=== PATIENT | male | born 1935 | race Caucasian/White ===

== ENCOUNTER 2017-06-17 21:24 | Inpatient (IN) ==
[2017-06-17] MEDS ORDERED: 0.9 % Sodium Chloride 1,000 ML IVC ONE ×2 (21:42→23:09)
--- NOTE | 2017-06-17 21:48 | Emergency Department Note ---
Disposition Clinical Impression: Sepsis due to urinary tract infection, RAUL (acute kidney injury) Leukocytosis Qualifiers: Leukocytosis type: other Qualified Code(s): D72.828 - Other elevated white blood cell count Altered mental status Qualifiers: Altered mental status type: unspecified Qualified Code(s): R41.82 - Altered mental status, unspecified Disposition: Admitted As Inpatient Condition: Fair Referrals: NONE,PCP [Primary Care Provider] - Forms: ED Satisfaction Letter Time of Disposition: 23:26 Altered Mental Status HPI - General Chief Complaint: ED Altered Mental Status Stated Complaint: Fever Time Seen by Provider: 06/17/17 21:34 Source: EMS Mode of arrival: EMS Limitations: altered mental status Nursing Notes Reviewed: Yes Vital Signs Reviewed: Yes - History of Present Illness HPI Narrative: Patient presents to the ED from the half-way for worsening dementia fever and altered mental status.. Patient has a history of dementia and is at the half-way. They state today he was worse than usual doing strange things such as trying to eat his food with his hands, which he normally does not do. Is also febrile today. Family is present and states that he gets urinary tract infections frequently and this is typically how he presents. Unknown if he has had any other symptoms such as cough or congestion. He does have a colostomy bag that has around his normal output. Patient is able follow some commands, but otherwise is unable to obtain ROS. - Related Data Allergies Allergy/AdvReac Type Severity Reaction Status Date / Time No Known Drug Allergies Allergy See Verified 05/01/15 08:58 Comments Limitations: ROS unobtainable due to patients medical condition Past Medical History - Past Medical History Source: old records reviewed, obtained from family Medical history: Reports: arthritis, COPD, dementia, other Psychiatric history: Reports: depression, other - Social History Smoking Status: Former smoker Smokeless Tobacco Status: No Alcohol use: Reports: none Drug use: Reports: none Physical Exam - General Limitations: altered mental status General appearance: alert, in no apparent distress - Head Head exam: atraumatic, normocephalic, normal inspection - Eye Eye exam: Present: normal appearance, PERRL - ENT ENT exam: mucous membranes dry - Respiratory Respiratory exam: Present: wheezes. Absent: normal lung sounds bilaterally, respiratory distress - Cardiovascular Cardiovascular exam: Present: tachycardia, normal heart sounds - Abdominal Exam Abdominal exam: Present: soft, Non-Tender, other (Colostomy bag in place). Absent: tenderness, distention, guarding, rebound, rigidity - Extremities Exam Extremities exam: Present: normal inspection, full ROM, normal capillary refill. Absent: tenderness, pedal edema - Neurological Exam Neurological exam: Present: alert. Absent: oriented X3 - Skin Skin exam: Present: warm, dry, intact, normal color Course Course Narrative: Patient presenting with fever. Meets SIRS criteria. Suspecting sepsis from urinary tract infection. Workup started Vital Signs Temperature 102.2 F H 06/17/17 21:25 Pulse Rate 95 06/17/17 21:25 Respiratory Rate 18 06/17/17 21:25 Blood Pressure 117/60 06/17/17 21:25 O2 Sat by Pulse Oximetry 94 06/17/17 21:25 Temperature 102.2 F H 06/17/17 21:25 Pulse Rate 84 06/17/17 22:17 Respiratory Rate 18 06/17/17 22:17 Blood Pressure 125/61 06/17/17 22:17 O2 Sat by Pulse Oximetry 96 06/17/17 22:17 Oxygen Delivery Oxygen Delivery Room Air Altered Mental Status - Medical Records Medical records reviewed: Yes I reviewed the patient's medical records. - Lab Data Lab results reviewed: Yes I reviewed the patient's lab results. Result diagrams: 06/17/17 22:16 06/17/17 22:16 Lab Results 06/17/17 06/17/17 06/17/17 Range/Units 22:16 22:16 22:16 WBC 17.3 H (4.3-11.1) K/mcL RBC 3.75 L (4.19-5.50) M/mcL Hgb 11.4 L (12.9-16.9) g/dL Hct 34.8 L (37.5-50.1) % MCV 92.8 (83.0-100.0) fL MCH 30.4 (28.0-33.3) pg MCHC 32.8 (31.6-35.5) g/dL RDW 13.5 (11.5-14.5) % Plt Count 227 (140-400) K/mcL MPV 9.7 (9.4-12.4) fL Immature Gran % 0.8 (0-4) % Seg Neutrophils % 80.9 % Lymphocytes % 7.5 % Monocytes % 10.5 % Eosinophils % 0.1 % Basophils % 0.2 % Neutrophils # 14.0 H (1.6-8.9) K/mcL Lymphocytes # 1.3 (0.6-4.6) K/mcL Monocytes # 1.8 H (0.0-1.3) K/mcL Eosinophils # 0.0 (0.0-0.6) K/mcL Basophils # 0.0 (0.0-0.2) K/mcL PT 13.3 H (9.4-12.1) Seconds INR 1.2 APTT 36.7 H (26.0-36.0) Seconds Sodium (136-145) mEq/L Potassium (3.5-5.1) mEq/L Chloride (98-107) mEq/L Carbon Dioxide (23-29) mEq/L BUN (8-23) mg/dL Creatinine (0.70-1.30) mg/dL Est GFR ( Amer) (> 60) Est GFR (Non-Af Amer) (> 60) BUN/Creatinine Ratio (6-26) Glucose (70-105) mg/dL Calculated Osmolality (280-300) Lactic Acid (0.5-2.2) mmol/L Calcium (8.6-10.3) mg/dL Phosphorus (2.7-4.5) mg/dL Magnesium (1.6-2.6) mg/dL Total Bilirubin (0.3-1.0) mg/dL Direct Bilirubin (0.0-0.2) mg/dL Indirect Bilirubin (0.0-1.2) mg/dL AST (13-39) Units/L ALT (7-52) Units/L Alkaline Phosphatase (34-104) Units/L Troponin I (< 0.04) ng/mL B-Natriuretic Peptide (Less than 100) pg/mL Serum Total Protein (6.4-8.9) g/dL Albumin (3.5-5.7) g/dL Globulin (2.4-3.5) g/dL Albumin/Globulin Ratio (1.1-2.2) Lipase (11-82) Units/L Urine Color Yellow (Yellow) Urine Clarity Cloudy A (Clear) Urine pH 6.5 (5.0-8.0) pH Units Ur Specific [place] 1.021 (1.010-1.025) Urine Protein 100 H (Neg-Trace) mg/dL Urine Glucose (UA) Normal (Normal) mg/dL Urine Ketones Negative (Negative) mg/dL Urine Blood Large H (Negative) Urine Nitrite Negative (Negative) Urine Bilirubin Negative (Negative) Urine Urobilinogen Normal (Normal) mg/dL Ur Leukocyte Esterase Large H (Negative) Urine Microscopic RBC 30-50 H (0-3) per hpf Urine Microscopic WBC 30-50 H (0-3) per hpf Urine Bacteria Few (None-Few) per hpf Ur Culture Indicated? YES A (NO) 06/17/17 06/17/17 06/17/17 Range/Units 22:16 22:16 22:16 WBC (4.3-11.1) K/mcL RBC (4.19-5.50) M/mcL Hgb (12.9-16.9) g/dL Hct (37.5-50.1) % MCV (83.0-100.0) fL MCH (28.0-33.3) pg MCHC (31.6-35.5) g/dL RDW (11.5-14.5) % Plt Count (140-400) K/mcL MPV (9.4-12.4) fL Immature Gran % (0-4) % Seg Neutrophils % % Lymphocytes % % Monocytes % % Eosinophils % % Basophils % % Neutrophils # (1.6-8.9) K/mcL Lymphocytes # (0.6-4.6) K/mcL Monocytes # (0.0-1.3) K/mcL Eosinophils # (0.0-0.6) K/mcL Basophils # (0.0-0.2) K/mcL PT (9.4-12.1) Seconds INR APTT (26.0-36.0) Seconds Sodium 137 (136-145) mEq/L Potassium 4.0 (3.5-5.1) mEq/L Chloride 103 (98-107) mEq/L Carbon Dioxide 26 (23-29) mEq/L BUN 40 H (8-23) mg/dL Creatinine 1.61 H (0.70-1.30) mg/dL Est GFR ( Amer) 50 L (> 60) Est GFR (Non-Af Amer) 41 L (> 60) BUN/Creatinine Ratio 25 (6-26) Glucose 170 H (70-105) mg/dL Calculated Osmolality 298 (280-300) Lactic Acid 1.5 (0.5-2.2) mmol/L Calcium 8.8 (8.6-10.3) mg/dL Phosphorus 2.9 (2.7-4.5) mg/dL Magnesium 2.1 (1.6-2.6) mg/dL Total Bilirubin 0.3 (0.3-1.0) mg/dL Direct Bilirubin 0.1 (0.0-0.2) mg/dL Indirect Bilirubin 0.2 (0.0-1.2) mg/dL AST 15 (13-39) Units/L ALT 7 (7-52) Units/L Alkaline Phosphatase 58 (34-104) Units/L Troponin I < 0.03 (< 0.04) ng/mL B-Natriuretic Peptide 64 (Less than 100) pg/mL Serum Total Protein 6.8 (6.4-8.9) g/dL Albumin 3.6 (3.5-5.7) g/dL Globulin 3.2 (2.4-3.5) g/dL Albumin/Globulin Ratio 1.1 (1.1-2.2) Lipase 17 (11-82) Units/L Urine Color (Yellow) Urine Clarity (Clear) Urine pH (5.0-8.0) pH Units Ur Specific [place] (1.010-1.025) Urine Protein (Neg-Trace) mg/dL Urine Glucose (UA) (Normal) mg/dL Urine Ketones (Negative) mg/dL Urine Blood (Negative) Urine Nitrite (Negative) Urine Bilirubin (Negative) Urine Urobilinogen (Normal) mg/dL Ur Leukocyte Esterase (Negative) Urine Microscopic RBC (0-3) per hpf Urine Microscopic WBC (0-3) per hpf Urine Bacteria (None-Few) per hpf Ur Culture Indicated? (NO) - Radiology Data Radiology results reviewed: Yes I reviewed the patient's radiology results. - EKG Data EKG attestation: Yes I reviewed and interpreted this EKG. EKG results narrative: Sinus rhythm, rate 99, NH interval 182, QRS 126, QTC 401, left axis deviation, right bundle branch block, no acute ischemic changes, no previous available Critical Care Time Critical Care Time: Yes Total Critical Care Time: 35 Attestation: The high probability of a clinically significant, sudden or life threatening deterioration of the [] system(s) required my full and direct attention, intervention and personal management. The aggregate critical care time was [35] minutes. This time is in addition to time spent performing reported procedures but includes the following: [x] Data Review and interpretation [x] Patient assessment and monitoring of vital signs [x] Documentation [x] Medication orders and management Enrike - Enrike Situation: Demographics, MOA Background: Presenting Complaint, Relevant PMH, Meds, & Allergies Assessment: Vital Signs, Course and respsone to treatment, Exam Concerns, Patient/Family Expectation, Pertinant Lab Results, Outstanding Labs Recommendation: Recommendation based on pending studies, treatments, or consults [email or web address].[email or web address] Report Given to: Dr. Harsh Calvert Repor Time: 23:26
[2017-06-17 22:28] LABS: Basophils % 0.2 %; Eosinophils % 0.1 %; Hematocrit 34.8 % (37.5-50.1); Hemoglobin 11.4 g/dL (12.9-16.9); Immature Granulocytes % 0.8 % (0-4); Lymphocytes # 1.3 K/mcL (0.6-4.6); Lymphocytes % 7.5 %; Mean Corpuscular HGB Conc 32.8 g/dL (31.6-35.5); Mean Corpuscular Hemoglobin 30.4 pg (28.0-33.3); Mean Corpuscular Volume 92.8 fL (83.0-100.0); Mean Platelet Volume 9.7 fL (9.4-12.4); Monocytes # 1.8 K/mcL (0.0-1.3); Monocytes % 10.5 %; Platelet Count 227 K/mcL (140-400); Red Blood Count 3.75 M/mcL (4.19-5.50); Red Cell Distribution Width 13.5 % (11.5-14.5); Segmented Neutrophils % 80.9 %
[2017-06-17 22:29] LABS: Bilirubin,Urine Negative (Negative); Blood,Urine Large (Negative); Clarity,Urine Cloudy (Clear); Color,Urine Yellow (Yellow); Glucose,Urine (UA) Normal (Normal); Ketones,Urine Negative (Negative); Leukocyte Esterase,Urine Large (Negative); Nitrite,Urine Negative (Negative); PH,Urine 6.5 pH Units (5.0-8.0); Protein,Urine 100 mg/dL (Neg-Trace); Specific Gravity,Urine 1.021 (1.010-1.025); Urobilinogen,Urine Normal (Normal)
[2017-06-17 22:36] LABS: INR 1.2; Prothrombin Time 13.3 Seconds (9.4-12.1)
[2017-06-17 22:39] LABS: Activated Partial Thrombo Time 36.7 Seconds (26.0-36.0); Bacteria,Urine Few per hpf (None-Few); RBC,Urine 30-50 per hpf (0-3); WBC,Urine 30-50 per hpf (0-3)
[2017-06-17] MEDS ORDERED: Levofloxacin 750 MG/150 ML 750 MG/150 ML BAG IVPB ONE (22:44)
[2017-06-17 22:50] LABS: Troponin I < 0.03 ng/mL (< 0.04)
[2017-06-17 22:53] LABS: Alanine Aminotransferase 7 Units/L (7-52); Albumin 3.6 g/dL (3.5-5.7); Albumin/Globulin Ratio 1.1 (1.1-2.2); Alkaline Phosphatase 58 Units/L (34-104); Aspartate Amino Transferase 15 Units/L (13-39); BUN/Creatinine Ratio 25 (6-26); Bilirubin,Direct 0.1 mg/dL (0.0-0.2); Bilirubin,Indirect 0.2 mg/dL (0.0-1.2); Bilirubin,Total 0.3 mg/dL (0.3-1.0); Blood Urea Nitrogen 40 mg/dL (8-23); Calcium 8.8 mg/dL (8.6-10.3); Carbon Dioxide 26 mEq/L (23-29); Chloride 103 mEq/L (98-107); Globulin 3.2 g/dL (2.4-3.5); Glucose 170 mg/dL (70-105); Lipase 17 Units/L (11-82); Magnesium 2.1 mg/dL (1.6-2.6); Osmolality,Calculated 298 (280-300); Phosphorous 2.9 mg/dL (2.7-4.5); Sodium 137 mEq/L (136-145); Total Protein 6.8 g/dL (6.4-8.9); eGFR For African Americans 50 (> 60); eGFR For Non-African Americans 41 (> 60)
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
[2017-06-18] MEDS ORDERED: 0.9 % Sodium Chloride 500 ML IVC ONE ×2 (02:05→02:59)
[2017-06-18] MEDS ORDERED: 0.9 % Sodium Chloride 500 ML ONE (02:08)
[2017-06-18] MEDS ORDERED: Meropenem 1,000 MG in Water for inj. (sterile) 20 ML 10 ML IVP SCH (02:09)
[2017-06-18] MEDS ORDERED: Naloxone 0.4 MG/ML INJ IVP PRN (02:10)
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
[2017-06-18 02:26] LABS: Basophils % 0.2 %; Eosinophils % 0.1 %; Hematocrit 31.2 % (37.5-50.1); Hemoglobin 10.3 g/dL (12.9-16.9); Immature Granulocytes % 0.6 % (0-4); Lymphocytes # 1.1 K/mcL (0.6-4.6); Lymphocytes % 6.8 %; Mean Corpuscular Hemoglobin 30.5 pg (28.0-33.3); Mean Corpuscular Volume 92.3 fL (83.0-100.0); Mean Platelet Volume 9.3 fL (9.4-12.4); Monocytes # 1.8 K/mcL (0.0-1.3); Monocytes % 10.6 %; Neutrophils # 13.7 K/mcL (1.6-8.9); Platelet Count 189 K/mcL (140-400); Red Blood Count 3.38 M/mcL (4.19-5.50); Red Cell Distribution Width 13.5 % (11.5-14.5); Segmented Neutrophils % 81.7 %
[2017-06-18] MEDS: 0.9 % Sodium Chloride 1,000 ML IVC SCH ×3 (02:48→22:57)
[2017-06-18 02:49] LABS: Calcium 8.1 mg/dL (8.6-10.3); Potassium 4.1 mEq/L (3.5-5.1)
--- NOTE | 2017-06-18 07:30 | Internal Med Progress Note ---
Date of Encounter: 06/18/17 Time of Encounter: 07:00 - Assessment and plan (1) Sepsis due to urinary tract infection Current Visit: Yes Status: Acute Assessment and plan: 81-year-old male with past medical history of recurrent UTIs presents with tachycardia, fevers, and UA suggestive of UTI. -Continue vanc and meropenem, follow up blood and urine cultures. (2) RAUL (acute kidney injury) Current Visit: Yes Status: Acute Assessment and plan: IV fluid hydration. -In with history of bladder incontinence. We will obtain a bladder scan. (3) Leukocytosis Current Visit: Yes Status: Acute Assessment and plan: Management as per above under sepsis due to UTI. Qualifiers: Leukocytosis type: unspecified Qualified Code(s): D72.829 - Elevated white blood cell count, unspecified (4) Altered mental status Current Visit: Yes Status: Acute Assessment and plan: Patient with dementia and Parkinson's disease at baseline. Suspect altered mental status due to underlying infection and sepsis. We will continue to treat UTI. Qualifiers: Altered mental status type: unspecified Qualified Code(s): R41.82 - Altered mental status, unspecified (5) DVT prophylaxis Current Visit: Yes Status: Acute Assessment and plan: EPCDs bilaterally. - Time Spent With Patient Total time spent is greater than 50% in coordination of care (as documented) at patient's floor/unit and/or counseling patient: - Subjective Interval history: Admitted overnight - Constitutional Vitals: Temp Pulse Resp BP Pulse Ox 99.2 F 80 16 109/66 98 06/18/17 06:06 06/18/17 06:06 06/18/17 06:06 06/18/17 06:06 06/18/17 06:06 General appearance: Present: A&O X 1, mild distress - Head Head exam: Present: atraumatic, normocephalic - Eye Eye exam: Present: PERRL, conjuntiva pink, sclera anicteric Pupils: Present: PERRL - Neck Neck exam general surgery: Present: supple, trachea midline. Absent: lymphadenopathy - Respiratory Respiratory exam: Present: CTAB. Absent: accessory muscle use, rales, rhonchi, wheezes - Cardiovascular Cardiovascular exam: Present: RRR, +S1, +S2. Absent: diastolic murmur, gallop, rubs, systolic murmur - GI/Abdominal GI/Abdominal exam: Present: normal bowel sounds, soft, no peritoneal signs. Absent: distended, tenderness Additional comments: Ostomy in place - Extremities Exam Extremities exam: Present: warm, radial pulses palpable and symmetrical. Absent : calf tenderness, cyanotic, pedal edema - Neurological Exam Neurological exam: Present: CN II-XII intact, oriented X3, no focal deficits. Absent: pronater drift, facial droop, speech deficit - Skin Skin exam: Present: dry, intact Internal Medicine: Result - Labs CBC & Chem 7: 06/18/17 02:18 06/18/17 02:18 Labs: Short CBC 06/18/17 Range/Units 02:18 WBC 16.7 H (4.3-11.1) K/mcL Hgb 10.3 L (12.9-16.9) g/dL Hct 31.2 L (37.5-50.1) % Plt Count 189 (140-400) K/mcL Neutrophils # 13.7 H (1.6-8.9) K/mcL BMP 06/18/17 02:18 Sodium 136 Potassium 4.1 Chloride 106 Carbon Dioxide 24 BUN 35 H Creatinine 1.42 H Glucose 149 H Calcium 8.1 L - ABG Interpretation ABG results: PT/INR, D-dimer PT 13.3 Seconds (9.4-12.1) H 06/17/17 22:16 Consult Discharge Plan - Plan Referrals: NONE,PCP [Primary Care Provider] -
[2017-06-18] MEDS: Aspirin 81 MG TAB.CHEW PO SCH ×2 (08:46→09:01)
[2017-06-18] MEDS ORDERED: Cefepime HCl 1,000 MG in Water for inj. (sterile) 10 ML IVP SCH (12:00)
[2017-06-18] MEDS: Cefepime HCl 1,000 MG in Water for inj. (sterile) 20 ML 10 ML IVP SCH (13:05)
[2017-06-18] MEDS: *HR* Heparin 5,000 UNIT/ML VIAL SQ SCH (17:01)
--- NOTE | 2017-06-18 19:21 | Electrocardiograph Report ---
[address] [place], [place] [address] Test Date: 2017-06-17 Pat Name: Caleb Bauer Department: 103 Room: [facility] Gender: M [employer]yridine Operator: SONIA : 1935 Requested By: [id number] Order Number: [id number] Reading MD: Judy Mejía Measurements Intervals [place] Rate: 99 P: 49 MI: 182 QRS: -41 QRSD: 126 T: 73 QT: 345 QTc: 401 Interpretive Statements SINUS RHYTHM MARKED LEFT AXIS DEVIATION [QRS AXIS < -30] RIGHT BUNDLE BRANCH BLOCK MINIMAL VOLTAGE CRITERIA FOR LVH, CONSIDER NORMAL VARIANT POOR R WAVE PROGRESSION IN PRECORDIAL LEADS Electronically Signed On 06-18-2017 19:20:16 EDT by Judy Mejía
[2017-06-19] MEDS: Cefepime HCl 1,000 MG in Water for inj. (sterile) 20 ML 10 ML IVP SCH ×2 (00:08→15:00)
[2017-06-19 01:38] LABS: Basophils # 0.1 K/mcL (0.0-0.2); Basophils % 0.4 %; Eosinophils # 0.1 K/mcL (0.0-0.6); Eosinophils % 0.6 %; Hemoglobin 10.1 g/dL (12.9-16.9); Immature Granulocytes % 0.7 % (0-4); Lymphocytes # 1.4 K/mcL (0.6-4.6); Lymphocytes % 10.7 %; Mean Corpuscular HGB Conc 31.6 g/dL (31.6-35.5); Mean Corpuscular Hemoglobin 29.6 pg (28.0-33.3); Mean Corpuscular Volume 93.8 fL (83.0-100.0); Mean Platelet Volume 10.1 fL (9.4-12.4); Monocytes % 7.5 %; Neutrophils # 10.6 K/mcL (1.6-8.9); Platelet Count 182 K/mcL (140-400); Red Blood Count 3.41 M/mcL (4.19-5.50); Red Cell Distribution Width 13.8 % (11.5-14.5); Segmented Neutrophils % 80.1 %
[2017-06-19 01:57] LABS: Phosphorous 1.9 mg/dL (2.7-4.5)
[2017-06-19 02:01] LABS: BUN/Creatinine Ratio 22 (6-26); Blood Urea Nitrogen 27 mg/dL (8-23); Calcium 8.3 mg/dL (8.6-10.3); Carbon Dioxide 24 mEq/L (23-29); Chloride 112 mEq/L (98-107); Glucose 129 mg/dL (70-105); Osmolality,Calculated 299 (280-300); Potassium 3.9 mEq/L (3.5-5.1); Sodium 141 mEq/L (136-145); eGFR For African Americans > 60 (> 60); eGFR For Non-African Americans 57 (> 60)
[2017-06-19] MEDS: *HR* Heparin 5,000 UNIT/ML VIAL SQ SCH ×2 (05:13→19:36)
[2017-06-19] MEDS: Aspirin 81 MG TAB.CHEW PO SCH (09:02)
[2017-06-19] MEDS: 0.9 % Sodium Chloride 1,000 ML IVC SCH ×2 (10:30→21:24)
--- NOTE | 2017-06-19 10:40 | Internal Med Progress Note ---
Date of Encounter: 06/19/17 Time of Encounter: 10:30 - Assessment and plan (1) Sepsis due to urinary tract infection Current Visit: Yes Status: Acute Assessment and plan: 81-year-old male with past medical history of recurrent UTIs presents with tachycardia, fevers, and UA suggestive of UTI. -Continue vanc and cefepime, follow up blood and urine cultures. Follow up urine cultures. Prelim blood cultures negative (2) RAUL (acute kidney injury) Current Visit: Yes Status: Acute Assessment and plan: Resolved with IV fluids. Continue to monitor creatinine (3) Leukocytosis Current Visit: Yes Status: Acute Assessment and plan: Management as per above under sepsis due to UTI. Leukocytosis trending down with antibiotics Qualifiers: Leukocytosis type: unspecified Qualified Code(s): D72.829 - Elevated white blood cell count, unspecified (4) Altered mental status Current Visit: Yes Status: Acute Assessment and plan: Patient with dementia and Parkinson's disease at baseline. Suspect altered mental status due to underlying infection and sepsis. We will continue to treat UTI. Qualifiers: Altered mental status type: unspecified Qualified Code(s): R41.82 - Altered mental status, unspecified (5) DVT prophylaxis Current Visit: Yes Status: Acute Assessment and plan: EPCDs bilaterally, heparin sc BID - Time Spent With Patient Total time spent is greater than 50% in coordination of care (as documented) at patient's floor/unit and/or counseling patient: - Subjective Interval history: No acute events overnight - Constitutional Vitals: Temp Pulse Resp BP Pulse Ox 98.1 F 61 14 108/66 92 06/19/17 03:53 06/19/17 03:53 06/19/17 03:53 06/19/17 03:53 06/19/17 03:53 General appearance: Present: A&O X 1, mild distress - Head Head exam: Present: atraumatic, normocephalic - Eye Eye exam: Present: PERRL, conjuntiva pink, sclera anicteric Pupils: Present: PERRL - Neck Neck exam general surgery: Present: supple, trachea midline. Absent: lymphadenopathy - Respiratory Respiratory exam: Present: CTAB. Absent: accessory muscle use, rales, rhonchi, wheezes - Cardiovascular Cardiovascular exam: Present: RRR, +S1, +S2. Absent: diastolic murmur, gallop, rubs, systolic murmur - GI/Abdominal GI/Abdominal exam: Present: normal bowel sounds, soft, no peritoneal signs. Absent: distended, tenderness Additional comments: Ostomy in place - Extremities Exam Extremities exam: Present: warm, radial pulses palpable and symmetrical. Absent : calf tenderness, cyanotic, pedal edema - Neurological Exam Neurological exam: Present: CN II-XII intact, oriented X3, no focal deficits. Absent: pronater drift, facial droop, speech deficit - Skin Skin exam: Present: dry, intact Internal Medicine: Result - Labs CBC & Chem 7: 06/19/17 01:07 06/19/17 01:07 Labs: Short CBC 06/19/17 Range/Units 01:07 WBC 13.2 H (4.3-11.1) K/mcL Hgb 10.1 L (12.9-16.9) g/dL Hct 32.0 L (37.5-50.1) % Plt Count 182 (140-400) K/mcL Neutrophils # 10.6 H (1.6-8.9) K/mcL BMP 06/19/17 01:07 Sodium 141 Potassium 3.9 Chloride 112 H Carbon Dioxide 24 BUN 27 H Creatinine 1.22 Glucose 129 H Calcium 8.3 L - ABG Interpretation ABG results: PT/INR, D-dimer PT 13.3 Seconds (9.4-12.1) H 06/17/17 22:16 Consult Discharge Plan - Plan Referrals: NONE,PCP [Primary Care Provider] -
[2017-06-19] MEDS: Acetaminophen 325 MG TABLET PO PRN (21:24)
[2017-06-20] MEDS: Cefepime HCl 1,000 MG in Water for inj. (sterile) 20 ML 10 ML IVP SCH ×3 (00:51→23:50)
[2017-06-20 01:52] LABS: Basophils # 0.1 K/mcL (0.0-0.2); Basophils % 0.6 %; Eosinophils # 0.2 K/mcL (0.0-0.6); Eosinophils % 1.6 %; Hematocrit 31.9 % (37.5-50.1); Hemoglobin 9.9 g/dL (12.9-16.9); Immature Granulocytes % 0.6 % (0-4); Lymphocytes # 1.5 K/mcL (0.6-4.6); Lymphocytes % 15.1 %; Mean Corpuscular Hemoglobin 29.5 pg (28.0-33.3); Mean Corpuscular Volume 94.9 fL (83.0-100.0); Mean Platelet Volume 9.9 fL (9.4-12.4); Monocytes # 0.9 K/mcL (0.0-1.3); Monocytes % 9.1 %; Neutrophils # 7.1 K/mcL (1.6-8.9); Platelet Count 189 K/mcL (140-400); Red Blood Count 3.36 M/mcL (4.19-5.50); Red Cell Distribution Width 13.8 % (11.5-14.5)
[2017-06-20 02:11] LABS: BUN/Creatinine Ratio 27 (6-26); Blood Urea Nitrogen 29 mg/dL (8-23); Calcium 8.4 mg/dL (8.6-10.3); Carbon Dioxide 26 mEq/L (23-29); Chloride 112 mEq/L (98-107); Glucose 138 mg/dL (70-105); Osmolality,Calculated 300 (280-300); Potassium 3.7 mEq/L (3.5-5.1); Sodium 141 mEq/L (136-145); eGFR For African Americans > 60 (> 60); eGFR For Non-African Americans > 60 (> 60)
[2017-06-20] MEDS: *HR* Heparin 5,000 UNIT/ML VIAL SQ SCH ×2 (04:36→17:19)
[2017-06-20] MEDS: Acetaminophen 325 MG TABLET PO PRN ×3 (04:47→23:50)
[2017-06-20] MEDS: Aspirin 81 MG TAB.CHEW PO SCH (08:47)
[2017-06-20] MEDS: 0.9 % Sodium Chloride 1,000 ML IVC SCH (10:00)
--- NOTE | 2017-06-20 11:18 | Internal Med Progress Note ---
Date of Encounter: 06/20/17 Time of Encounter: 11:15 - Assessment and plan (1) Sepsis due to urinary tract infection Current Visit: Yes Status: Acute Assessment and plan: 81-year-old male with past medical history of recurrent UTIs presents with tachycardia, fevers, and UA suggestive of UTI. -Sepsis due to UTI and HCAP. Continue vanc and cefepime, Blood cx negative.Urine cultures positive for E coli. CXR shows evidence of multifocal pneumonia (2) HCAP (healthcare-associated pneumonia) Current Visit: Yes Status: Acute Assessment and plan: CXR shows multifocal pneumonua. Continue on vanc and cefepime (3) RAUL (acute kidney injury) Current Visit: Yes Status: Acute Assessment and plan: Resolved with IV fluids. Continue to monitor creatinine (4) Leukocytosis Current Visit: Yes Status: Acute Assessment and plan: Management as per above under sepsis due to UTI. Leukocytosis trending down with antibiotics Qualifiers: Leukocytosis type: unspecified Qualified Code(s): D72.829 - Elevated white blood cell count, unspecified (5) Altered mental status Current Visit: Yes Status: Acute Assessment and plan: Patient with dementia and Parkinson's disease at baseline. Suspect altered mental status due to underlying infection and sepsis. We will continue to treat UTI and HCAP. Qualifiers: Altered mental status type: unspecified Qualified Code(s): R41.82 - Altered mental status, unspecified (6) DVT prophylaxis Current Visit: Yes Status: Acute Assessment and plan: EPCDs bilaterally, heparin sc BID - Time Spent With Patient Total time spent is greater than 50% in coordination of care (as documented) at patient's floor/unit and/or counseling patient: - Subjective Interval history: No acute events overnight - Constitutional Vitals: Temp Pulse Resp BP Pulse Ox 99.6 F 65 16 106/59 93 06/20/17 06:00 06/20/17 06:00 06/20/17 06:00 06/20/17 06:00 06/20/17 06:00 General appearance: Present: A&O X 1, mild distress - Head Head exam: Present: atraumatic, normocephalic - Eye Eye exam: Present: PERRL, conjuntiva pink, sclera anicteric Pupils: Present: PERRL - Neck Neck exam general surgery: Present: supple, trachea midline. Absent: lymphadenopathy - Respiratory Respiratory exam: Present: CTAB. Absent: accessory muscle use, rales, rhonchi, wheezes - Cardiovascular Cardiovascular exam: Present: RRR, +S1, +S2. Absent: diastolic murmur, gallop, rubs, systolic murmur - GI/Abdominal GI/Abdominal exam: Present: normal bowel sounds, soft, no peritoneal signs. Absent: distended, tenderness Additional comments: colostomy in place - Extremities Exam Extremities exam: Present: warm, radial pulses palpable and symmetrical. Absent : calf tenderness, cyanotic, pedal edema - Neurological Exam Neurological exam: Present: CN II-XII intact, oriented X3, no focal deficits. Absent: pronater drift, facial droop, speech deficit - Skin Skin exam: Present: dry, intact Internal Medicine: Result - Labs CBC & Chem 7: 06/20/17 01:38 06/20/17 01:38 Labs: Short CBC 06/20/17 Range/Units 01:38 WBC 9.8 (4.3-11.1) K/mcL Hgb 9.9 L (12.9-16.9) g/dL Hct 31.9 L (37.5-50.1) % Plt Count 189 (140-400) K/mcL Neutrophils # 7.1 (1.6-8.9) K/mcL BMP 06/20/17 01:38 Sodium 141 Potassium 3.7 Chloride 112 H Carbon Dioxide 26 BUN 29 H Creatinine 1.09 Glucose 138 H Calcium 8.4 L - ABG Interpretation ABG results: PT/INR, D-dimer PT 13.3 Seconds (9.4-12.1) H 06/17/17 22:16 - Impressions Impressions Chest X-Ray 06/19/17 10:48 IMPRESSION: Progressive bilateral multifocal pulmonary opacities which may represent developing bronchopneumonia. D/ / 06/19/2017 15:36:32 Brian Gomez MD / andres Interpreting Provider: Brian Gomez MD - VTE Documentation of Mechanical Device: Intermittent pneumatic compression device Consult Discharge Plan - Plan Referrals: NONE,PCP [Primary Care Provider] -
[2017-06-20] MEDS ORDERED: Furosemide 20 MG/2 ML VIAL IVP ONE (11:36)
[2017-06-21 04:21] LABS: Basophils # 0.1 K/mcL (0.0-0.2); Basophils % 0.7 %; Eosinophils % 0.5 %; Hematocrit 29.5 % (37.5-50.1); Hemoglobin 9.4 g/dL (12.9-16.9); Lymphocytes # 1.3 K/mcL (0.6-4.6); Lymphocytes % 14.7 %; Mean Corpuscular HGB Conc 31.9 g/dL (31.6-35.5); Mean Corpuscular Hemoglobin 29.5 pg (28.0-33.3); Mean Corpuscular Volume 92.5 fL (83.0-100.0); Monocytes # 1.1 K/mcL (0.0-1.3); Monocytes % 12.9 %; Neutrophils # 6.2 K/mcL (1.6-8.9); Platelet Count 214 K/mcL (140-400); Red Blood Count 3.19 M/mcL (4.19-5.50); Red Cell Distribution Width 13.5 % (11.5-14.5); Segmented Neutrophils % 70.2 %
[2017-06-21 04:40] LABS: BUN/Creatinine Ratio 30 (6-26); Blood Urea Nitrogen 30 mg/dL (8-23); Calcium 8.5 mg/dL (8.6-10.3); Carbon Dioxide 26 mEq/L (23-29); Chloride 114 mEq/L (98-107); Glucose 176 mg/dL (70-105); Osmolality,Calculated 310 (280-300); Potassium 3.2 mEq/L (3.5-5.1); Sodium 145 mEq/L (136-145); eGFR For African Americans > 60 (> 60); eGFR For Non-African Americans > 60 (> 60)
[2017-06-21] MEDS: *HR* Heparin 5,000 UNIT/ML VIAL SQ SCH ×2 (06:13→16:56)
[2017-06-21] MEDS ORDERED: Isovue-370 500 ML INFUS..BTL IV ONE (10:01)
--- NOTE | 2017-06-21 10:06 | Internal Med Progress Note ---
Date of Encounter: 06/21/17 Time of Encounter: 09:30 - Assessment and plan (1) Acute respiratory failure with hypoxia Current Visit: Yes Status: Acute Assessment and plan: Patient has been persistently desaturating to the low 80s without oxygen. not on oxygen at home. Pt has eveidence of pneumonia and has been on abx for 3 days. Hypoxia persists. will obtain ABG and CT angio to r/o PE. Plan for [address] angio showed no PE but has evidence of severe pneumonia/ARDs and pleural effusions. Will diurese with lasix, obtain 2d echo. Pulmonary recs appreciated (2) Sepsis due to urinary tract infection Current Visit: Yes Status: Acute Assessment and plan: 81-year-old male with past medical history of recurrent UTIs presents with tachycardia, fevers, and UA suggestive of UTI. -Sepsis due to UTI and HCAP. Continue vanc and cefepime, Blood cx negative.Urine cultures positive for E coli. CXR shows evidence of multifocal pneumonia. Plan to complete 5 day course. Pt spiked a fever overnight (3) HCAP (healthcare-associated pneumonia) Current Visit: Yes Status: Acute Assessment and plan: CXR shows multifocal pneumonua. Continue on vanc and cefepime. Repeat blood cultures (4) RAUL (acute kidney injury) Current Visit: Yes Status: Acute Assessment and plan: Resolved with IV fluids. Continue to monitor creatinine (5) Leukocytosis Current Visit: Yes Status: Acute Assessment and plan: Management as per above under sepsis due to UTI and HCAP. Leukocytosis trended down with antibiotics Qualifiers: Leukocytosis type: unspecified Qualified Code(s): D72.829 - Elevated white blood cell count, unspecified (6) Altered mental status Current Visit: Yes Status: Acute Assessment and plan: Patient with dementia and Parkinson's disease at baseline. Suspect altered mental status due to underlying infection and sepsis. We will continue to treat UTI and HCAP. Qualifiers: Altered mental status type: unspecified Qualified Code(s): R41.82 - Altered mental status, unspecified (7) DVT prophylaxis Current Visit: Yes Status: Acute - Time Spent With Patient Total time spent is greater than 50% in coordination of care (as documented) at patient's floor/unit and/or counseling patient: - Subjective Interval history: No acute events overnight - Constitutional Vitals: Temp Pulse Resp BP Pulse Ox 98.9 F 60 17 119/69 92 06/21/17 07:22 06/21/17 07:22 06/21/17 07:22 06/21/17 07:22 06/21/17 07:22 General appearance: Present: cachectic, A&O X 1, mild distress - Head Head exam: Present: atraumatic - Neck Neck exam general surgery: Present: supple - Respiratory Respiratory exam: Present: CTAB - Cardiovascular Cardiovascular exam: Present: RRR, +S1, +S2 - GI/Abdominal GI/Abdominal exam: Present: normal bowel sounds Additional comments: ostomy in place - Extremities Exam Extremities exam: Present: warm, radial pulses palpable and symmetrical. Absent : calf tenderness, cyanotic, pedal edema - Neurological Exam Neurological exam: Present: CN II-XII intact, oriented X3, no focal deficits. Absent: pronater drift, facial droop, speech deficit Internal Medicine: Result - Labs CBC & Chem 7: 06/21/17 04:09 06/21/17 04:09 Labs: Short CBC 06/21/17 Range/Units 04:09 WBC 8.8 (4.3-11.1) K/mcL Hgb 9.4 L (12.9-16.9) g/dL Hct 29.5 L (37.5-50.1) % Plt Count 214 (140-400) K/mcL Neutrophils # 6.2 (1.6-8.9) K/mcL BMP 06/21/17 04:09 Sodium 145 Potassium 3.2 L Chloride 114 H Carbon Dioxide 26 BUN 30 H Creatinine 1.01 Glucose 176 H Calcium 8.5 L - ABG Interpretation ABG results: PT/INR, D-dimer PT 13.3 Seconds (9.4-12.1) H 06/17/17 22:16 - VTE Documentation of Mechanical Device: Intermittent pneumatic compression device Consult Discharge Plan - Plan Referrals: NONE,PCP [Primary Care Provider] -
[2017-06-21 11:15] LABS: ABG Base Excess 3 mEq/L (-2 to 3); ABG HCO3 26 mEq/L (21-27); ABG Oxygen Saturation 90 % (95-98); ABG PCO2 32 mmHg (35-45); ABG PH 7.51 pH Units (7.32-7.45); ABG PO2 52 mmHg (85-104); ABG TCO2 27 mEq/L (20-26); Blood Gas FiO2 2.5 (1-15=lpm or21-100=%)
[2017-06-21] MEDS: Aspirin 81 MG TAB.CHEW PO SCH (12:30)
[2017-06-21] MEDS: Cefepime HCl 1,000 MG in Water for inj. (sterile) 20 ML 10 ML IVP SCH (12:30)
[2017-06-21] MEDS: Potassium Chloride Elixir 20 MEQ/15 ML UDC PO SCH ×2 (12:30→16:16)
--- NOTE | 2017-06-21 14:22 | Pulmonology Consult Note ---
Date of Encounter: 06/21/17 Time of Encounter: 14:00 Assessment and Plan (1) Acute respiratory failure with hypoxia Current Visit: Yes Status: Acute Patient according to history doesnt use O2 at his retirement . Patient requiring 3 litres O2 patient has suspected .To Keep SPO2 around 90-92%. Has multifactorial etiology patient has clinical evidence of aspiration this can due to aspiration pneumonitis on the top of that BNP is over 1000 shows evidence of heart failure awaiting for ECHO results . (2) Pneumonia Current Visit: Yes Status: Acute Patient has clinical evidence of aspiration patient has bilateral alveolar infiltrates can due to aspiration pneumonitis complicated by pneumonia will change to Zosyn for anaerobic coverage , to continue Vanc . Agree with continuation of diuresis as picture is complicated by CHF . Will do some IV steroids for this bilateral extensive infiltrates most likely due to Aspiration pneumonitis /pneumonia . Will add doxycycline for atypical coverage .Atypical serology ordered . To continue Bronchodilators . Qualifiers: Pneumonia type: aspiration pneumonia Laterality: bilateral Lung location : unspecified part of lung Qualified Code(s): J69.0 - Pneumonitis due to inhalation of food and vomit (3) Altered mental status Current Visit: Yes Status: Acute Due to UTI complicated by acute hypoxic respiratory failure Qualifiers: Altered mental status type: delirium Qualified Code(s): R41.0 - Disorientation, unspecified (4) Sepsis due to urinary tract infection Current Visit: Yes Status: Acute Sepsis resolved , BC negative , urine growing E coli no h/o MDRO will continue Zosyn for now . History of Present Illness Consult date: 06/21/17 Requesting physician: Divina Patrick Reason for consult: dyspnea, hypoxemia, other (Hypoxic respiratory failure ) Chief complaint: Altered mental status History of present illness: 81 year old male with past medical history significant Dementia , Parkinsonisms , ? COPD , recurrent UTI 'S comes from the retirement with acute change in mental status found to be combative , ER evaluation showed Complicated UTI with early sepsis patient was given fluids , broad spectrum antibiotics the blood pressure was stable afterwards , patient was persitently hypoxic concern for PE CTA was done which was negative for Acute but has bilateral alveolar infiltrates with ground glass opacities Patient is on 2.5 litres saturating around 90% . Pulmonary was consulted for this Acute Hypoxic respiratory failure according to RN patient he easily aspirates of the liquids he was getting nobody has noticed this before , patient other martin non verbal could not participate in other history taking . 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 10 mg PO DAILY 06/18/17 [History] Melatonin [Melatonin] 6 mg PO HS 06/18/17 [History] Memantine HCl [Memantine HCl] 10 mg PO BID 06/18/17 [History] Mirtazapine [Mirtazapine] 7.5 mg PO HS 06/18/17 [History] Multivit-Min/FA/Lycopen/Lutein [A Thru Z Select Multivit Tab] 1 each PO DAILY [History] Pimavanserin Tartrate [Nuplazid] 34 mg PO DAILY 06/18/17 [History] risperiDONE [Risperidone] 0.5 mg PO BID 06/18/17 [History] 3 Allergy/AdvReac Type Severity Reaction Status Date / Time No Known Drug Allergies Allergy See Verified 05/01/15 08:58 Comments ROS unobtainable: due to mental status All Systems: The remainder of the systems were reviewed and are negative Physical Examination Vital Signs: Vital Signs, Last 4 Hours Temp Pulse Resp BP Pulse Ox 06/21/17 12:28 98.5 F 73 16 146/60 90 Auscultation: bilateral: diminished breath sounds (bibasilar diminished breadth sounds ), rales pupils equal and round, unable to assess due to mental status other (Patient is non verbal not responding to commands but he is wide awake ) Results - Laboratory Findings CBC and BMP: 06/21/17 04:09 06/21/17 04:09 ABG ABG pH 7.51 pH Units (7.32-7.45) H 06/21/17 11:09 ABG pCO2 32 mmHg (35-45) L 06/21/17 11:09 ABG pO2 52 mmHg (85-104) L 06/21/17 11:09 ABG O2 Saturation 90 % (95-98) L 06/21/17 11:09 PT/INR, D-dimer PT 13.3 Seconds (9.4-12.1) H 06/17/17 22:16 Abnormal lab findings: Abnormal lab results RBC 3.19 M/mcL (4.19-5.50) L 06/21/17 04:09 Hgb 9.4 g/dL (12.9-16.9) L 06/21/17 04:09 Hct 29.5 % (37.5-50.1) L 06/21/17 04:09 PT 13.3 Seconds (9.4-12.1) H 06/17/17 22:16 APTT 36.7 Seconds (26.0-36.0) H 06/17/17 22:16 ABG pH 7.51 pH Units (7.32-7.45) H 06/21/17 11:09 ABG pCO2 32 mmHg (35-45) L 06/21/17 11:09 ABG pO2 52 mmHg (85-104) L 06/21/17 11:09 ABG Total CO2 27 mEq/L (20-26) H 06/21/17 11:09 ABG O2 Saturation 90 % (95-98) L 06/21/17 11:09 Potassium 3.2 mEq/L (3.5-5.1) L 06/21/17 04:09 Chloride 114 mEq/L (98-107) H 06/21/17 04:09 BUN 30 mg/dL (8-23) H 06/21/17 04:09 BUN/Creatinine Ratio 30 (6-26) H 06/21/17 04:09 Glucose 176 mg/dL (70-105) H 06/21/17 04:09 POC Glucose 185 mg/dL (70-99) H 06/17/17 21:40 Calculated Osmolality 310 (280-300) H 06/21/17 04:09 Calcium 8.5 mg/dL (8.6-10.3) L 06/21/17 04:09 Phosphorus 1.9 mg/dL (2.7-4.5) L 06/19/17 01:07 Urine Clarity Cloudy (Clear) A 06/17/17 22:16 Urine Protein 100 mg/dL (Neg-Trace) H 06/17/17 22:16 Urine Blood Large (Negative) H 06/17/17 22:16 Ur Leukocyte Esterase Large (Negative) H 06/17/17 22:16 Urine Microscopic RBC 30-50 per hpf (0-3) H 06/17/17 22:16 Urine Microscopic WBC 30-50 per hpf (0-3) H 06/17/17 22:16 Ur Culture Indicated? YES (NO) A 06/17/17 22:16 - Clinical Findings Intake & Output: Intake & Output 06/20/17 06/21/17 06/21/17 23:59 07:59 15:59 Intake Total 310 / 310 600 / 600 Balance 310 / 310 600 / 600 Consult Discharge Plan - Plan Referrals: NONE,PCP [Primary Care Provider] -
[2017-06-21] MEDS: Furosemide 40 MG/4 ML VIAL IVP SCH (16:16)
[2017-06-21] MEDS: Doxycycline 100 MG in 0.9 % Sodium Chloride Mini Bag 100 ML IVPB SCH (16:56)
[2017-06-21] MEDS ORDERED: Albuterol 2.5 MG/3 ML NEBULIZER IH PRN (20:24)
[2017-06-21] MEDS: Piperacillin/Tazobactam 3.375 GM in 0.9 % Sodium Chloride Mini Bag 100 ML IVPB SCH (20:40)
[2017-06-21] MEDS: MethylPREDNISolone 40 MG/ML VIAL IVP SCH (23:40)
[2017-06-22] MEDS: Acetaminophen 325 MG TABLET PO PRN (03:25)
[2017-06-22] MEDS: Piperacillin/Tazobactam 3.375 GM in 0.9 % Sodium Chloride Mini Bag 100 ML IVPB SCH ×3 (03:25→20:30)
[2017-06-22 04:46] LABS: Basophils # 0.1 K/mcL (0.0-0.2); Basophils % 0.6 %; Eosinophils % 0.1 %; Hemoglobin 9.9 g/dL (12.9-16.9); Immature Granulocytes % 1.8 % (0-4); Lymphocytes # 0.7 K/mcL (0.6-4.6); Lymphocytes % 6.6 %; Mean Corpuscular HGB Conc 31.9 g/dL (31.6-35.5); Mean Corpuscular Hemoglobin 29.5 pg (28.0-33.3); Mean Corpuscular Volume 92.3 fL (83.0-100.0); Mean Platelet Volume 10.8 fL (9.4-12.4); Monocytes # 0.3 K/mcL (0.0-1.3); Monocytes % 3.3 %; Platelet Count 248 K/mcL (140-400); Red Blood Count 3.36 M/mcL (4.19-5.50); Red Cell Distribution Width 13.6 % (11.5-14.5); Segmented Neutrophils % 87.6 %
[2017-06-22 05:05] LABS: BUN/Creatinine Ratio 29 (6-26); Blood Urea Nitrogen 31 mg/dL (8-23); Calcium 8.7 mg/dL (8.6-10.3); Carbon Dioxide 26 mEq/L (23-29); Chloride 113 mEq/L (98-107); Glucose 305 mg/dL (70-105); Osmolality,Calculated 322 (280-300); Potassium 3.7 mEq/L (3.5-5.1); Sodium 147 mEq/L (136-145); eGFR For African Americans > 60 (> 60); eGFR For Non-African Americans > 60 (> 60)
[2017-06-22] MEDS: Doxycycline 100 MG in 0.9 % Sodium Chloride Mini Bag 100 ML IVPB SCH ×2 (05:55→17:08)
[2017-06-22] MEDS: *HR* Heparin 5,000 UNIT/ML VIAL SQ SCH ×2 (05:55→17:08)
[2017-06-22] MEDS: Furosemide 40 MG/4 ML VIAL IVP SCH (07:37)
[2017-06-22] MEDS: MethylPREDNISolone 40 MG/ML VIAL IVP SCH ×3 (07:37→23:40)
[2017-06-22] MEDS: Aspirin 81 MG TAB.CHEW PO SCH (07:37)
[2017-06-22 10:10] LABS: ABG Base Excess 4 mEq/L (-2 to 3); ABG HCO3 27 mEq/L (21-27); ABG Oxygen Saturation 96 % (95-98); ABG PCO2 32 mmHg (35-45); ABG PH 7.53 pH Units (7.32-7.45); ABG PO2 71 mmHg (85-104); ABG TCO2 28 mEq/L (20-26)
--- NOTE | 2017-06-22 10:15 | Internal Med Progress Note ---
Date of Encounter: 06/22/17 Time of Encounter: 10:12 - Assessment and plan (1) Sepsis due to urinary tract infection Current Visit: Yes Status: Acute Assessment and plan: Past history of recurrent UTIs. Initially presented with tachycardia, fevers and UA suggestive of UTI. -Sepsis secondary to UTI and HCAP versus aspiration pneumonia. Continue to have fevers overnight, however is afebrile at this time. However, all other vital signs stable at this time He was not restricted a stress this morning with SPO2 of 85%. This is improved with an oxygen mask at 8 L nasal cannula Continue albuterol when necessary Continue vancomycin and Zosyn Blood cultures negative to date Urine cultures positive for Escherichia coli, Zosyn CTA yesterday showed extensive bilateral pulmonary infiltrates consistent with severe PNA and/or ARDS Repeat labs tomorrow, CBC, BMP Due to continued hypoxia, respiratory distress and pneumonia the patient is not ready for discharge. (2) HCAP (healthcare-associated pneumonia) Current Visit: Yes Status: Acute Assessment and plan: Blood cultures with no growth to date, awaiting Legionella, strep pneumo and mycoplasma pneumonia antigen results. Continue respiratory support as needed, continue bronchodilators and antibiotic therapy. Closely monitor respiratory status. Low threshold to transfer to floor with higher level of acuity should the patient decline (3) Acute respiratory failure with hypoxia Current Visit: Yes Status: Acute Assessment and plan: Secondary to HCAP. Noted to have persistent hypoxia with SPO2 in the mid 80s without oxygen. Had improved on 3 L nasal cannula, however, overnight was found to be 85% on 3 L nasal cannula. Now requiring 8 L via Oxymizer mask. CT angiogram yesterday negative for PE but concerning for arts versus aspiration pneumonia versus HCAP. Also found to have an elevated BNP of greater than 1300. TTE completed yesterday shows preserved ejection fraction, normal right ventricular structure and function, no valvular dysfunction, no pulmonary hypertension. No obvious signs of fluid overload, however, does have fine rales at the bilateral posterior bases. Continue diuresis with Lasix Continue antibiotics Continue bronchodilators Closely monitor respiratory status Repeat ABG today shows improvement Titrate and wean oxygen requirements as appropriate (4) RAUL (acute kidney injury) Current Visit: Yes Status: Acute Assessment and plan: Resolved with IV fluids. Continue to monitor renal function (5) Leukocytosis Current Visit: Yes Status: Acute Assessment and plan: Improving, secondary to sepsis due to UTI and HCAP versus aspiration pneumonia. Leukocytosis trended down with antibiotics, continue antibiotics Qualifiers: Leukocytosis type: unspecified Qualified Code(s): D72.829 - Elevated white blood cell count, unspecified (6) Altered mental status Current Visit: Yes Status: Acute Assessment and plan: Patient with dementia and Parkinson's disease at baseline. Suspect altered mental status due to underlying infection and sepsis. Patient continues to be confused, and appears to be more lethargic today. However, he was able to follow commands and participate in the exam. We will continue to treat UTI and HCAP, continue to closely monitor. Repeat ABG improving. Qualifiers: Altered mental status type: unspecified Qualified Code(s): R41.82 - Altered mental status, unspecified (7) DVT prophylaxis Current Visit: Yes Status: Acute Assessment and plan: heparin 5000 units subcutaneous BID - Time Spent With Patient Total time spent is greater than 50% in coordination of care (as documented) at patient's floor/unit and/or counseling patient: Greater than 35 minutes - Subjective Interval history: Patient is seen and examined at bedside today. Presented from [facility] with altered mental status, found to have UTI and aspiration pneumonia. He is requiring oxygen support throughout the stay. This morning he continues to have shortness of breath with worsening respiratory status. As reported to have an SPO2 of 85% on 3 L nasal cannula. He is now requiring 8 L per Oxy-mask to maintain SPO2 greater than 92%. - Constitutional Vitals: Temp Pulse Resp BP Pulse Ox 97.8 F 56 22 146/88 94 06/22/17 07:13 06/22/17 07:13 06/22/17 07:49 06/22/17 07:13 06/22/17 07:49 General appearance: Present: cachectic, A&O X 1, mild distress - Head Head exam: Present: atraumatic, normocephalic - Eye Eye exam: Present: EOMI, PERRL - Respiratory Respiratory exam: Present: accessory muscle use, decreased breath sounds, rales (Bilateral bases), respiratory distress, tachypnea. Absent: rhonchi, stridor, wheezes - Cardiovascular Cardiovascular exam: Present: bradycardia, +S1, +S2 - GI/Abdominal GI/Abdominal exam: Present: normal bowel sounds, soft, no peritoneal signs. Absent: distended, tenderness - Extremities Exam Extremities exam: Present: warm, radial pulses palpable and symmetrical. Absent : calf tenderness, cyanotic, pedal edema - Neurological Exam Neurological exam: Present: alert (Alert to self), no focal deficits, strengths equal and symetr throughout Internal Medicine: Result - Labs CBC & Chem 7: 06/22/17 03:55 06/22/17 03:55 Labs: Short CBC 06/22/17 Range/Units 03:55 WBC 10.2 (4.3-11.1) K/mcL Hgb 9.9 L (12.9-16.9) g/dL Hct 31.0 L (37.5-50.1) % Plt Count 248 (140-400) K/mcL Neutrophils # 9.0 H (1.6-8.9) K/mcL BMP 06/22/17 03:55 Sodium 147 H Potassium 3.7 Chloride 113 H Carbon Dioxide 26 BUN 31 H Creatinine 1.06 Glucose 305 H Calcium 8.7 - ABG Interpretation ABG results: ABG ABG pH 7.53 pH Units (7.32-7.45) H 06/22/17 10:02 ABG pCO2 32 mmHg (35-45) L 06/22/17 10:02 ABG pO2 71 mmHg (85-104) L 06/22/17 10:02 ABG O2 Saturation 96 % (95-98) 06/22/17 10:02 PT/INR, D-dimer PT 13.3 Seconds (9.4-12.1) H 06/17/17 22:16 - Impressions Impressions Chest CTA 06/21/17 10:01 IMPRESSION: 1. No evidence of acute pulmonary embolism. 2. Extensive bilateral pulmonary infiltrates consistent with severe pneumonia and/or ARDS. 3. Moderate bilateral pleural effusions and lower lobe atelectatic changes. D/ / 06/21/2017 13:47:02 Emma Thakur MD / [email or web address] Interpreting Provider: Emma Thakur MD - VTE Documentation of Mechanical Device: Intermittent pneumatic compression device Consult Discharge Plan - Plan Referrals: NONE,PCP [Primary Care Provider] -
--- NOTE | 2017-06-22 22:03 | Pulmonology Progress Note ---
Date of Encounter: 06/22/17 Time of Encounter: 16:30 Assessment and Plan (1) Acute respiratory failure with hypoxia Current Visit: Yes Status: Acute Secondary to aspiration pneumonia with some pneumonitis complicated by diastolic heart failure to continue O2 supplementation if hypoxia worsens please put him on CPAP . (2) Pneumonia Current Visit: Yes Status: Acute To continue the broad spectrum antibiotics and steroids , bronchodilators . These alveolar infiltrates can be part of SIRS in the background of urosepsis Qualifiers: Pneumonia type: aspiration pneumonia Laterality: bilateral Lung location : unspecified part of lung Qualified Code(s): J69.0 - Pneumonitis due to inhalation of food and vomit (3) Altered mental status Current Visit: Yes Status: Acute Secondary to sepsis due to UTI and hypoxic respiratory failure . Qualifiers: Altered mental status type: delirium Qualified Code(s): R41.0 - Disorientation, unspecified (4) Sepsis due to urinary tract infection Current Visit: Yes Status: Acute To continue the broad spectrum antibiotics . Subjective Principal diagnosis: Acute hypoxic respiratory failure Interval history: 81 year old male presenting with acute hypoxic respiratory failure secondary to aspiration and complicated by diastolic heart failure . Objective PUL Vital signs: Last Vital Signs Temp 98.3 F 06/22/17 19:27 Pulse 64 06/22/17 19:27 Resp 18 06/22/17 19:27 BP 117/67 06/22/17 19:27 Pulse Ox 95 06/22/17 19:41 General appearance: lethargic, appears uncomfortable Effort: mildly labored Auscultation: bilateral: wheezes, rales other (little bit lethargic was answering questions A x2 ) Results - Laboratory Findings CBC and BMP: 06/22/17 03:55 06/22/17 03:55 ABG ABG pH 7.53 pH Units (7.32-7.45) H 06/22/17 10:02 ABG pCO2 32 mmHg (35-45) L 06/22/17 10:02 ABG pO2 71 mmHg (85-104) L 06/22/17 10:02 ABG O2 Saturation 96 % (95-98) 06/22/17 10:02 PT/INR, D-dimer PT 13.3 Seconds (9.4-12.1) H 06/17/17 22:16 Abnormal lab findings: Abnormal lab results RBC 3.36 M/mcL (4.19-5.50) L 06/22/17 03:55 Hgb 9.9 g/dL (12.9-16.9) L 06/22/17 03:55 Hct 31.0 % (37.5-50.1) L 06/22/17 03:55 Neutrophils # 9.0 K/mcL (1.6-8.9) H 06/22/17 03:55 PT 13.3 Seconds (9.4-12.1) H 06/17/17 22:16 APTT 36.7 Seconds (26.0-36.0) H 06/17/17 22:16 ABG pH 7.53 pH Units (7.32-7.45) H 06/22/17 10:02 ABG pCO2 32 mmHg (35-45) L 06/22/17 10:02 ABG pO2 71 mmHg (85-104) L 06/22/17 10:02 ABG Total CO2 28 mEq/L (20-26) H 06/22/17 10:02 ABG Base Excess 4 mEq/L (-2 to 3) H 06/22/17 10:02 Sodium 147 mEq/L (136-145) H 06/22/17 03:55 Chloride 113 mEq/L (98-107) H 06/22/17 03:55 BUN 31 mg/dL (8-23) H 06/22/17 03:55 BUN/Creatinine Ratio 29 (6-26) H 06/22/17 03:55 Glucose 305 mg/dL (70-105) H 06/22/17 03:55 POC Glucose 185 mg/dL (70-99) H 06/17/17 21:40 Calculated Osmolality 322 (280-300) H 06/22/17 03:55 Phosphorus 1.9 mg/dL (2.7-4.5) L 06/19/17 01:07 B-Natriuretic Peptide 1330 pg/mL (Less than 100) H 06/21/17 14:37 Urine Clarity Cloudy (Clear) A 06/17/17 22:16 Urine Protein 100 mg/dL (Neg-Trace) H 06/17/17 22:16 Urine Blood Large (Negative) H 06/17/17 22:16 Ur Leukocyte Esterase Large (Negative) H 06/17/17 22:16 Urine Microscopic RBC 30-50 per hpf (0-3) H 06/17/17 22:16 Urine Microscopic WBC 30-50 per hpf (0-3) H 06/17/17 22:16 Ur Culture Indicated? YES (NO) A 06/17/17 22:16 Vancomycin Trough 18 mcg/mL (5-10) H 06/22/17 17:06 - Clinical Findings Intake & Output: Intake & Output 06/22/17 06/22/17 06/22/17 07:59 15:59 23:59 Intake Total 100 / 100 580 / 580 1530 / 1530 Balance 100 / 100 580 / 580 1530 / 1530 Weight 80.3 kg - VTE Documentation of Mechanical Device: Intermittent pneumatic compression device Consult Discharge Plan - Plan Referrals: NONE,PCP [Primary Care Provider] -
[2017-06-23] MEDS: Piperacillin/Tazobactam 3.375 GM in 0.9 % Sodium Chloride Mini Bag 100 ML IVPB SCH ×3 (04:19→19:57)
[2017-06-23] MEDS: Doxycycline 100 MG in 0.9 % Sodium Chloride Mini Bag 100 ML IVPB SCH ×2 (06:09→17:05)
[2017-06-23] MEDS: *HR* Heparin 5,000 UNIT/ML VIAL SQ SCH ×2 (06:17→17:06)
[2017-06-23 06:45] LABS: Basophils % 0.2 %; Hematocrit 31.8 % (37.5-50.1); Immature Granulocytes % 1.4 % (0-4); Lymphocytes # 0.9 K/mcL (0.6-4.6); Lymphocytes % 6.9 %; Mean Corpuscular HGB Conc 31.4 g/dL (31.6-35.5); Mean Corpuscular Hemoglobin 29.3 pg (28.0-33.3); Mean Corpuscular Volume 93.3 fL (83.0-100.0); Mean Platelet Volume 10.7 fL (9.4-12.4); Monocytes # 0.5 K/mcL (0.0-1.3); Monocytes % 3.4 %; Neutrophils # 11.7 K/mcL (1.6-8.9); Nucleated Red Blood Cells 0.2 /100 WBC (0); Platelet Count 286 K/mcL (140-400); Red Blood Count 3.41 M/mcL (4.19-5.50); Red Cell Distribution Width 13.8 % (11.5-14.5); Segmented Neutrophils % 88.1 %
[2017-06-23 07:05] LABS: BUN/Creatinine Ratio 46 (6-26); Blood Urea Nitrogen 53 mg/dL (8-23); Calcium 9.1 mg/dL (8.6-10.3); Carbon Dioxide 27 mEq/L (23-29); Chloride 114 mEq/L (98-107); Glucose 385 mg/dL (70-105); Osmolality,Calculated 340 (280-300); Potassium 3.6 mEq/L (3.5-5.1); Sodium 150 mEq/L (136-145); eGFR For African Americans > 60 (> 60); eGFR For Non-African Americans > 60 (> 60)
[2017-06-23] MEDS: MethylPREDNISolone 40 MG/ML VIAL IVP SCH ×3 (08:51→23:21)
[2017-06-23] MEDS: Aspirin 81 MG TAB.CHEW PO SCH (08:51)
--- NOTE | 2017-06-23 16:35 | Internal Med Progress Note ---
Date of Encounter: 06/23/17 Time of Encounter: 11:30 - Assessment and plan (1) Sepsis due to urinary tract infection Current Visit: Yes Status: Acute Assessment and plan: Sepsis secondary to UTI and aspiration pneumonia. Reports of hypoxic and apneic events overnight were self-limiting. Continues to be on 8 L oxygen mask. CTA of chest on , , 18 showed extensive bilateral pulmonary infiltrates consistent with severe pneumonia. Patient was noted to have aspirated the day as well. Continue albuterol when necessary Wean O2 as needed to maintain SPO2 greater than 92% Continue vancomycin and Zosyn Blood cultures negative to date Urine cultures positive for Escherichia coli, Zosyn Repeat labs tomorrow, CBC, BMP Consider chest x-ray tomorrow morning if so tarry status should happen to worsen or if leukocytosis worsens CPAP at at bedtime (2) HCAP (healthcare-associated pneumonia) Current Visit: Yes Status: Acute Assessment and plan: See assessment and plan above (3) Acute respiratory failure with hypoxia Current Visit: Yes Status: Acute Assessment and plan: Continuing to require high oxygen support per Oxy-mask Diagnosis of aspiration pneumonia See further assessment and planning above (4) RAUL (acute kidney injury) Current Visit: Yes Status: Acute Assessment and plan: Resolved with IV fluids. Continue to monitor renal function daily (5) Leukocytosis Current Visit: Yes Status: Acute Assessment and plan: Leukocytosis worsening today, WBC 13.3. Diagnosis of aspiration pneumonia and UTI. Increase in WBC to be multifactorial including infection and IV steroid use. Clinically, the patient appears to have improved. Continue to monitor, CBC in the morning. Continue antibiotic Qualifiers: Leukocytosis type: unspecified Qualified Code(s): D72.829 - Elevated white blood cell count, unspecified (6) Altered mental status Current Visit: Yes Status: Acute Assessment and plan: Patient with dementia and Parkinson's disease at baseline. Suspect altered mental status due to underlying infection and sepsis. Confusion and lethargy have improved as of today able to follow commands and participate in the exam. We will continue to treat UTI and HCAP treatment, continue to closely monitor. Qualifiers: Altered mental status type: unspecified Qualified Code(s): R41.82 - Altered mental status, unspecified (7) DVT prophylaxis Current Visit: Yes Status: Acute Assessment and plan: heparin 5000 units subcutaneous BID - Time Spent With Patient Total time spent is greater than 50% in coordination of care (as documented) at patient's floor/unit and/or counseling patient: Greater than 35 minutes - Subjective Interval history: Patient is seen and examined at bedside today. Presented from [facility] with altered mental status, found to have UTI and aspiration pneumonia. He is requiring oxygen support throughout the stay. This morning patient appears to have clinically improved, shortness of breath has improved. He continues to require 8 L per Oxy-mask to maintain SPO2 greater than 92% but his respirations look less labored this morning, no accessory muscle usage. He is mentating much more appropriately this morning. - Constitutional Vitals: Temp Pulse Resp BP Pulse Ox 97.3 F L 70 18 148/79 94 06/23/17 15:59 06/23/17 15:59 06/23/17 15:59 06/23/17 15:59 06/23/17 15:59 General appearance: Present: cachectic, A&O X 1, mild distress - Eye Eye exam: Present: PERRL, conjuntiva pink, sclera anicteric Pupils: Present: PERRL - Neck Neck exam general surgery: Present: supple, trachea midline. Absent: lymphadenopathy - Respiratory Respiratory exam: Present: decreased breath sounds, rhonchi (Throughout), tachypnea. Absent: accessory muscle use, chest wall tenderness, prolonged expiratory phase, rales, respiratory distress - Cardiovascular Cardiovascular exam: Present: RRR, +S1, +S2. Absent: diastolic murmur, gallop, rubs, systolic murmur - GI/Abdominal GI/Abdominal exam: Present: normal bowel sounds, soft, no peritoneal signs. Absent: distended, tenderness - Extremities Exam Extremities exam: Present: warm, radial pulses palpable and symmetrical. Absent : calf tenderness, cyanotic, pedal edema - Neurological Exam Neurological exam: Present: CN II-XII intact, oriented X3, no focal deficits. Absent: pronater drift, facial droop, speech deficit - Skin Skin exam: Present: dry, intact Internal Medicine: Result - Labs CBC & Chem 7: 06/23/17 06:30 06/23/17 06:30 Labs: Short CBC 06/23/17 Range/Units 06:30 WBC 13.3 H (4.3-11.1) K/mcL Hgb 10.0 L (12.9-16.9) g/dL Hct 31.8 L (37.5-50.1) % Plt Count 286 (140-400) K/mcL Neutrophils # 11.7 H (1.6-8.9) K/mcL BMP 06/23/17 06:30 Sodium 150 H Potassium 3.6 Chloride 114 H Carbon Dioxide 27 BUN 53 H Creatinine 1.16 Glucose 385 H Calcium 9.1 - ABG Interpretation ABG results: ABG ABG pH 7.53 pH Units (7.32-7.45) H 06/22/17 10:02 ABG pCO2 32 mmHg (35-45) L 06/22/17 10:02 ABG pO2 71 mmHg (85-104) L 06/22/17 10:02 ABG O2 Saturation 96 % (95-98) 06/22/17 10:02 PT/INR, D-dimer PT 13.3 Seconds (9.4-12.1) H 06/17/17 22:16 - VTE Documentation of Mechanical Device: Intermittent pneumatic compression device Consult Discharge Plan - Plan Referrals: NONE,PCP [Primary Care Provider] -
--- NOTE | 2017-06-23 16:57 | Pulmonology Progress Note ---
Date of Encounter: 06/23/17 Time of Encounter: 11:00 Assessment and Plan (1) Acute respiratory failure with hypoxia Current Visit: Yes Status: Acute Secondary to aspiration pneumonia with some pneumonitis complicated by diastolic heart failure to continue O2 supplementation if hypoxia worsens please put him on BIPAP . Will benefit BIPAP therapy if he tolerates if he gets intubated he has poor prognosis because of his functional status and dementia (2) Pneumonia Current Visit: Yes Status: Acute To continue the broad spectrum antibiotics and steroids , bronchodilators . These alveolar infiltrates can be part of SIRS in the background of urosepsis or aspiration pneumonia with some pneumonitis Qualifiers: Pneumonia type: aspiration pneumonia Laterality: bilateral Lung location : unspecified part of lung Qualified Code(s): J69.0 - Pneumonitis due to inhalation of food and vomit (3) Altered mental status Current Visit: Yes Status: Acute Secondary to sepsis due to UTI and hypoxic respiratory failure .Patient mental status lot improved . Qualifiers: Altered mental status type: delirium Qualified Code(s): R41.0 - Disorientation, unspecified (4) Sepsis due to urinary tract infection Current Visit: Yes Status: Acute To continue the broad spectrum antibiotics .Sepsis resolved Subjective Principal diagnosis: Acute hypoxic respiratory failure Interval history: 81 year old male presenting with acute hypoxic respiratory failure secondary to aspiration and complicated by diastolic heart failure . Patient respiration is mildly labored patient saying he is feeling better , denies any chest pain or tightness any abdominal pain . Patient had some oxygenation issues in the night . Objective PUL Vital signs: Last Vital Signs Temp 97.3 F L 06/23/17 15:59 Pulse 70 06/23/17 15:59 Resp 18 06/23/17 15:59 BP 148/79 06/23/17 15:59 Pulse Ox 94 06/23/17 15:59 Auscultation: bilateral: diminished breath sounds, rales Results - Laboratory Findings CBC and BMP: 06/23/17 06:30 06/23/17 06:30 ABG ABG pH 7.53 pH Units (7.32-7.45) H 06/22/17 10:02 ABG pCO2 32 mmHg (35-45) L 06/22/17 10:02 ABG pO2 71 mmHg (85-104) L 06/22/17 10:02 ABG O2 Saturation 96 % (95-98) 06/22/17 10:02 PT/INR, D-dimer PT 13.3 Seconds (9.4-12.1) H 06/17/17 22:16 Abnormal lab findings: Abnormal lab results WBC 13.3 K/mcL (4.3-11.1) H 06/23/17 06:30 RBC 3.41 M/mcL (4.19-5.50) L 06/23/17 06:30 Hgb 10.0 g/dL (12.9-16.9) L 06/23/17 06:30 Hct 31.8 % (37.5-50.1) L 06/23/17 06:30 MCHC 31.4 g/dL (31.6-35.5) L 06/23/17 06:30 Neutrophils # 11.7 K/mcL (1.6-8.9) H 06/23/17 06:30 Nucleated RBCs/100 WBC 0.2 /100 WBC (0) H 06/23/17 06:30 PT 13.3 Seconds (9.4-12.1) H 06/17/17 22:16 APTT 36.7 Seconds (26.0-36.0) H 06/17/17 22:16 ABG pH 7.53 pH Units (7.32-7.45) H 06/22/17 10:02 ABG pCO2 32 mmHg (35-45) L 06/22/17 10:02 ABG pO2 71 mmHg (85-104) L 06/22/17 10:02 ABG Total CO2 28 mEq/L (20-26) H 06/22/17 10:02 ABG Base Excess 4 mEq/L (-2 to 3) H 06/22/17 10:02 Sodium 150 mEq/L (136-145) H 06/23/17 06:30 Chloride 114 mEq/L (98-107) H 06/23/17 06:30 BUN 53 mg/dL (8-23) H 06/23/17 06:30 BUN/Creatinine Ratio 46 (6-26) H 06/23/17 06:30 Glucose 385 mg/dL (70-105) H 06/23/17 06:30 POC Glucose 375 mg/dL (70-99) H 06/22/17 09:32 Calculated Osmolality 340 (280-300) H 06/23/17 06:30 B-Natriuretic Peptide 1330 pg/mL (Less than 100) H 06/21/17 14:37 Urine Clarity Cloudy (Clear) A 06/17/17 22:16 Urine Protein 100 mg/dL (Neg-Trace) H 06/17/17 22:16 Urine Blood Large (Negative) H 06/17/17 22:16 Ur Leukocyte Esterase Large (Negative) H 06/17/17 22:16 Urine Microscopic RBC 30-50 per hpf (0-3) H 06/17/17 22:16 Urine Microscopic WBC 30-50 per hpf (0-3) H 06/17/17 22:16 Ur Culture Indicated? YES (NO) A 06/17/17 22:16 Vancomycin Trough 18 mcg/mL (5-10) H 06/22/17 17:06 - Microbiology Findings Microbiology Findings: Microbiology, Last 48 Hours 06/21/17 10:07 Blood Culture - Preliminary Peripheral Venipuncture No growth. 06/21/17 10:07 Blood Culture - Preliminary Peripheral Venipuncture No growth. - Clinical Findings Intake & Output: Intake & Output 06/23/17 06/23/17 06/23/17 07:59 15:59 23:59 Intake Total 160 / 160 220 / 220 Balance 160 / 160 220 / 220 Weight 80.1 kg - VTE Documentation of Mechanical Device: Intermittent pneumatic compression device Consult Discharge Plan - Plan Referrals: NONE,PCP [Primary Care Provider] -
[2017-06-24] MEDS: Piperacillin/Tazobactam 3.375 GM in 0.9 % Sodium Chloride Mini Bag 100 ML IVPB SCH ×3 (03:57→19:40)
[2017-06-24] MEDS: Doxycycline 100 MG in 0.9 % Sodium Chloride Mini Bag 100 ML IVPB SCH ×2 (05:44→16:55)
[2017-06-24 05:56] LABS: Basophils % 0.1 %; Hematocrit 32.7 % (37.5-50.1); Hemoglobin 10.1 g/dL (12.9-16.9); Immature Granulocytes % 1.3 % (0-4); Lymphocytes # 0.8 K/mcL (0.6-4.6); Lymphocytes % 6.9 %; Mean Corpuscular HGB Conc 30.9 g/dL (31.6-35.5); Mean Corpuscular Hemoglobin 28.8 pg (28.0-33.3); Mean Corpuscular Volume 93.2 fL (83.0-100.0); Mean Platelet Volume 10.7 fL (9.4-12.4); Monocytes # 0.5 K/mcL (0.0-1.3); Monocytes % 4.1 %; Neutrophils # 10.1 K/mcL (1.6-8.9); Platelet Count 329 K/mcL (140-400); Red Blood Count 3.51 M/mcL (4.19-5.50); Red Cell Distribution Width 13.9 % (11.5-14.5); Segmented Neutrophils % 87.6 %
[2017-06-24 06:17] LABS: BUN/Creatinine Ratio 57 (6-26); Blood Urea Nitrogen 63 mg/dL (8-23); Calcium 9.4 mg/dL (8.6-10.3); Carbon Dioxide 28 mEq/L (23-29); Chloride 121 mEq/L (98-107); Glucose 368 mg/dL (70-105); Osmolality,Calculated 357 (280-300); Potassium 3.5 mEq/L (3.5-5.1); Sodium 157 mEq/L (136-145); eGFR For African Americans > 60 (> 60); eGFR For Non-African Americans > 60 (> 60)
[2017-06-24] MEDS: *HR* Heparin 5,000 UNIT/ML VIAL SQ SCH ×2 (06:31→16:55)
[2017-06-24 07:35] LABS: Mycoplasma pneumoniae IgG 0.12 U/L (<=0.09)
[2017-06-24] MEDS: MethylPREDNISolone 40 MG/ML VIAL IVP SCH ×3 (08:44→23:57)
[2017-06-24] MEDS: Aspirin 81 MG TAB.CHEW PO SCH (08:44)
--- NOTE | 2017-06-24 09:52 | Internal Med Progress Note ---
Date of Encounter: 06/24/17 Time of Encounter: 09:49 - Assessment and plan (1) Sepsis due to urinary tract infection Current Visit: Yes Status: Resolved Assessment and plan: Sepsis secondary to UTI and aspiration pneumonia. Throughout the stay he has been reported to have hypoxic and apneic events. Patient is at a CPAP at night. No reports of apneic events overnight. Oxygen able to be titrated to 5 L per Oxymizer mask, patient tolerating well. Has remained afebrile, vital stable, clinically the patient has improved. Sepsis has resolved. (2) Hypernatremia Current Visit: Yes Status: Acute Assessment and plan: Hyponatremia most likely secondary to dehydration. Patient is a poor oral intake Sodium continuing to trend up; serum sodium starting 06/22/17 147- 06/23/17 150- 06/24/17 157 -Diuretics have been discontinued but hypernatremia persists -Consult to nephrology to assist with management; thank you for seeing in consultation -Start 0.45% normal saline at a gentle rate of 60 mL per hour due to CHF -Increase oral intake (3) Dehydration Current Visit: Yes Status: Acute Assessment and plan: See assessment and plan above (4) HCAP (healthcare-associated pneumonia) Current Visit: Yes Status: Acute Assessment and plan: Patient is clinical evidence of aspiration, CTA shows bilateral alveolar infiltrates as well as severe pneumonia. Clinically the patient has improved. He has been requiring 8 L oxygen per oxy- mask for respiratory support. He was able to be titrated down to 5 L per Oxymizer mask overnight and is tolerating this well as morning. White count has improved from 13.3-11.5; continue to monitor Continue albuterol when necessary Titrate O2 as needed to maintain SPO2 greater than 92% Continue vancomycin and Zosyn and doxycycline Blood cultures negative to date Urine cultures positive for Escherichia coli, Zosyn Repeat labs tomorrow, CBC, BMP CPAP at at bedtime Continue to titrate oxygen as appropriate Pulmonology is still following; we will discuss this case more closely with Dr. Sales, awaiting further recommendations Patient not ready for discharge (5) Acute respiratory failure with hypoxia Current Visit: Yes Status: Acute Assessment and plan: Secondary to aspiration and pneumonitis. Treatment failures and further complicated by diastolic heart failure. Pulmonology on board Continue titrating oxygen as appropriate Diagnosis of aspiration pneumonia See further assessment and planning above (6) RAUL (acute kidney injury) Current Visit: Yes Status: Acute Assessment and plan: 06/24/17 Resolved with IV fluids. Continue to monitor renal function daily (7) Leukocytosis Current Visit: Yes Status: Acute Assessment and plan: Leukocytosis improving today with a WBC of 11.5. Diagnosis of aspiration pneumonia and UTI. Clinically, the patient appears to have improved. Continue to monitor, CBC in the morning. Continue antibiotic Qualifiers: Leukocytosis type: unspecified Qualified Code(s): D72.829 - Elevated white blood cell count, unspecified (8) Altered mental status Current Visit: Yes Status: Acute Assessment and plan: Patient with dementia and Parkinson's disease at baseline. Suspect altered mental status due to underlying infection and sepsis. Confusion and lethargy have are continuing to improve. Patient able to follow commands and participate in the exam. We will continue to treat UTI and HCAP treatment, continue to closely monitor. Qualifiers: Altered mental status type: unspecified Qualified Code(s): R41.82 - Altered mental status, unspecified (9) DVT prophylaxis Current Visit: Yes Status: Acute Assessment and plan: heparin 5000 units subcutaneous BID - Time Spent With Patient Total time spent is greater than 50% in coordination of care (as documented) at patient's floor/unit and/or counseling patient: Greater than 35 minutes - Subjective Interval history: Patient is seen and examined at bedside today. Presented from [facility] with altered mental status, found to have UTI and aspiration pneumonia. He is requiring oxygen support throughout the stay. Clinically, continues to improve, shortness of breath has also improved. He has been requiring 8 L per Oxymizer mask to maintain SPO2 greater than 92% however, he has been titrated to 5 L oxygen mask and his respirations look less labored this morning with no accessory muscle usage. He is mentating much more appropriately this morning and verbalizing at his baseline. - Constitutional Vitals: Temp Pulse Resp BP Pulse Ox 98.4 F 61 16 147/72 90 06/24/17 07:47 06/24/17 07:47 06/24/17 07:47 06/24/17 07:47 06/24/17 07:47 General appearance: Present: cachectic, cooperative, A&O X 2, mild distress - Head Head exam: Present: atraumatic, normocephalic - Eye Eye exam: Present: PERRL, conjuntiva pink, sclera anicteric Pupils: Present: PERRL - Neck Neck exam general surgery: Present: supple, trachea midline. Absent: lymphadenopathy - Respiratory Respiratory exam: Present: decreased breath sounds, prolonged expiratory phase, rhonchi (Throughout). Absent: accessory muscle use, chest wall tenderness, respiratory distress, tachypnea - Cardiovascular Cardiovascular exam: Present: RRR, +S1, +S2. Absent: diastolic murmur, gallop, rubs, systolic murmur - GI/Abdominal GI/Abdominal exam: Present: normal bowel sounds, soft, no peritoneal signs. Absent: distended, tenderness - Extremities Exam Extremities exam: Present: warm, radial pulses palpable and symmetrical. Absent : calf tenderness, cyanotic, pedal edema - Neurological Exam Neurological exam: Present: alert, altered, CN II-XII intact, strengths equal and symetr throughout. Absent: no focal deficits, facial droop, speech deficit - Skin Skin exam: Present: dry, intact Internal Medicine: Result - Labs CBC & Chem 7: 06/24/17 05:21 06/24/17 05:21 Labs: Short CBC 06/24/17 Range/Units 05:21 WBC 11.5 H (4.3-11.1) K/mcL Hgb 10.1 L (12.9-16.9) g/dL Hct 32.7 L (37.5-50.1) % Plt Count 329 (140-400) K/mcL Neutrophils # 10.1 H (1.6-8.9) K/mcL BMP 06/24/17 05:21 Sodium 157 H Potassium 3.5 Chloride 121 H Carbon Dioxide 28 BUN 63 H Creatinine 1.10 Glucose 368 H Calcium 9.4 - ABG Interpretation ABG results: ABG ABG pH 7.53 pH Units (7.32-7.45) H 06/22/17 10:02 ABG pCO2 32 mmHg (35-45) L 06/22/17 10:02 ABG pO2 71 mmHg (85-104) L 06/22/17 10:02 ABG O2 Saturation 96 % (95-98) 06/22/17 10:02 PT/INR, D-dimer PT 13.3 Seconds (9.4-12.1) H 06/17/17 22:16 - VTE Documentation of Mechanical Device: Intermittent pneumatic compression device Consult Discharge Plan - Plan Referrals: NONE,PCP [Primary Care Provider] -
--- NOTE | 2017-06-24 13:02 | Nephrology Consult Note ---
Date of Encounter: 06/24/17 Time of Encounter: 12:58 Assessment and Plan (1) Hypernatremia Current Visit: Yes Status: Acute Stop 0.45 IV fluids Start D5 in water at 60ml/hour x 3 liters (hx of CHF per notes) Na+ level every 6 hours x 4; if Na+ falls below 147 then discontinue D5 IV fluids (2) Sepsis due to urinary tract infection Current Visit: Yes Status: Resolved per primary care team (3) Dehydration Current Visit: Yes Status: Acute Encourage p.o. fluids Continue low salt diet History of Present Illness - Reason for Consult Consult date: 06/24/17 - Chief Complaint hypernatremia, sepsis due to UTI - History of Present Illness Mr. Bauer is a 81 year old male with past medical history of dementia, COPD, CHF, Parkinson's disease, and recurrent UTIs who presented to [facility] on 2017 as a transfer from the alf in which he resides after being found to be combative with another resident and acting unlike himself. Patient was also noted to have high fevers while at the alf. Patient was admitted with sepsis due to UTI. On 06/22 patient's Na+ level started increasing steadily and today is now 157. Nephrology has been consulted to help manage his hypernatremia. 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 10 mg PO DAILY 06/18/17 [History] Melatonin [Melatonin] 6 mg PO HS 06/18/17 [History] Memantine HCl [Memantine HCl] 10 mg PO BID 06/18/17 [History] Mirtazapine [Mirtazapine] 7.5 mg PO HS 06/18/17 [History] Multivit-Min/FA/Lycopen/Lutein [A Thru Z Select Multivit Tab] 1 each PO DAILY [History] Pimavanserin Tartrate [Nuplazid] 34 mg PO DAILY 06/18/17 [History] risperiDONE [Risperidone] 0.5 mg PO BID 06/18/17 [History] 3 Allergy/AdvReac Type Severity Reaction Status Date / Time No Known Drug Allergies Allergy See Verified 05/01/15 08:58 Comments Review of Systems All Systems: reviewed and no additional remarkable complaints except as stated Constitutional: fever(s), malaise Cardiovascular: no chest pain, no dyspnea Gastrointestinal: no vomiting Neurological: behavioral changes, confusion Psychiatric: behavioral changes, irritability, mood swings Exam - Vital Signs Vital signs: Initial Vital Signs Temp Pulse Resp BP Pulse Ox 102.2 F H 95 18 117/60 94 06/17/17 21:25 06/17/17 21:25 06/17/17 21:25 06/17/17 21:25 06/17/17 21:25 Vital Signs - Last 8 Hours Temp Pulse Resp BP Pulse Ox 06/24/17 12:13 98.5 F 78 18 154/78 97 06/24/17 07:47 98.4 F 61 16 147/72 90 Intake and Output 06/23/17 06/24/17 06/24/17 23:59 07:59 15:59 Intake Total 200 / 200 450 / 450 Balance 200 / 200 450 / 450 Intake: IV Fluids 200 / 200 450 / 450 Doxycycline 100 MG In 0.9 % 100 / 100 Sodium Chloride (Mini-Bag +) 100 ML @ 100 mls/hr IVPB Q12HR [facility] Rx#:[id number] Zosyn 3.375 GM In 0.9 % Sodium 200 / 200 100 / 100 Chloride (Mini-Bag +) 100 ML @ 25 mls/hr IVPB Q8H [facility] Rx#: [id number] Vancocin 750 MG In 0.9 % Sodium 250 / 250 Chloride 250 ML @ 250 mls/hr IVPB Q12H [facility] Rx#:[id number] Other: Meal Dinner Percent of Meal Consumed 90% Stool Consistency soft formed Stool Color Brown # Voids 1 # Urine Diapers 1 2 Weight 77.7 kg Patient Weight 06/24/17 23:59 Weight 77.7 kg - General Appearance General appearance: chronically ill, frail EENT: ATNC, hearing intact Neck: supple Respiratory: clear Cardiology: no edema, normal S1, normal S2 Gastrointestinal: no tenderness, no guarding Integumentary: warm and dry Neurologic: alert and oriented x3 Psychiatric: mood/affect appropriate, cooperative Results - Lab Results 06/24/17 05:21 06/24/17 05:21 Most recent lab results ABG pH 7.53 pH Units (7.32-7.45) H 06/22/17 10:02 ABG pCO2 32 mmHg (35-45) L 06/22/17 10:02 ABG pO2 71 mmHg (85-104) L 06/22/17 10:02 ABG HCO3 27 mEq/L (21-27) 06/22/17 10:02 ABG O2 Saturation 96 % (95-98) 06/22/17 10:02 Calcium 9.4 mg/dL (8.6-10.3) 06/24/17 05:21 Phosphorus 3.3 mg/dL (2.7-4.5) 06/23/17 06:30 Magnesium 2.0 mg/dL (1.6-2.6) 06/19/17 01:07 Consult Discharge Plan - Plan Referrals: NONE,PCP [Primary Care Provider] -
[2017-06-24] MEDS: D5% in Water 1,000 ML IVC SCH (13:17)
[2017-06-25 01:34] LABS: Basophils % 0.1 %; Hematocrit 33.1 % (37.5-50.1); Hemoglobin 10.1 g/dL (12.9-16.9); Immature Granulocytes % 1.6 % (0-4); Lymphocytes # 0.7 K/mcL (0.6-4.6); Lymphocytes % 7.5 %; Mean Corpuscular HGB Conc 30.5 g/dL (31.6-35.5); Mean Corpuscular Volume 95.1 fL (83.0-100.0); Mean Platelet Volume 10.7 fL (9.4-12.4); Monocytes # 0.5 K/mcL (0.0-1.3); Monocytes % 5.8 %; Platelet Count 331 K/mcL (140-400); Red Blood Count 3.48 M/mcL (4.19-5.50)
[2017-06-25 01:49] LABS: BUN/Creatinine Ratio 44 (6-26); Blood Urea Nitrogen 56 mg/dL (8-23); Calcium 9.2 mg/dL (8.6-10.3); Carbon Dioxide 27 mEq/L (23-29); Chloride 121 mEq/L (98-107); Glucose 482 mg/dL (70-105); Osmolality,Calculated 355 (280-300); Potassium 3.9 mEq/L (3.5-5.1); Sodium 154 mEq/L (136-145); eGFR For African Americans > 60 (> 60); eGFR For Non-African Americans 55 (> 60)
[2017-06-25] MEDS: *HR* Heparin 5,000 UNIT/ML VIAL SQ SCH ×2 (05:57→17:31)
[2017-06-25] MEDS: Doxycycline 100 MG in 0.9 % Sodium Chloride Mini Bag 100 ML IVPB SCH ×2 (05:58→17:32)
[2017-06-25] MEDS: D5% in Water 1,000 ML IVC SCH (06:06)
[2017-06-25] MEDS: Piperacillin/Tazobactam 3.375 GM in 0.9 % Sodium Chloride Mini Bag 100 ML IVPB SCH ×3 (06:51→20:39)
[2017-06-25] MEDS: MethylPREDNISolone 40 MG/ML VIAL IVP SCH ×2 (08:29→17:32)
[2017-06-25] MEDS: Aspirin 81 MG TAB.CHEW PO SCH (08:29)
--- NOTE | 2017-06-25 10:20 | Internal Med Progress Note ---
Date of Encounter: 06/25/17 Time of Encounter: 08:00 - Assessment and plan (1) HCAP (healthcare-associated pneumonia) Current Visit: Yes Status: Acute Assessment and plan: Patient is clinical evidence of aspiration, CTA shows bilateral alveolar infiltrates as well as severe pneumonia. Clinically the patient has improved. On 5 L oxygen mask. White count improving, afebrile overnight, consider de- escalating antibiotic therapy tomorrow Bronchodilators Titrate O2 as needed to maintain SPO2 greater than 92% Continue vancomycin and Zosyn and doxycycline Repeat labs tomorrow, CBC, BMP CPAP at at bedtime Continue to titrate oxygen as appropriate Pulmonology is still following; we will discuss this case more closely with Dr. Sales, awaiting further recommendations Patient not ready for discharge, still requiring high flow oxygen, continue to have hypernatremia (2) Sepsis due to urinary tract infection Current Visit: Yes Status: Resolved Assessment and plan: Sepsis has resolved (3) Hypernatremia Current Visit: Yes Status: Acute Assessment and plan: Hyponatremia most likely secondary to dehydration. Patient has poor oral intake Sodium continuing to trend up; serum sodium starting 06/22/17 147- 06/23/17 150- 06/24/17 157 06/25/17 155- -Diuretics have been discontinued but hypernatremia persists -Continue low-sodium diet -Encourage oral intake -Continue to monitor sodium every 6 hours; if sodium falls below 147 consider discontinuing D5 IV fluid -Consult to nephrology-thank you for seeing in consultation; nephrology continuing to follow -D5 water at 75 mL per hour -Increase oral intake (4) Dehydration Current Visit: Yes Status: Acute Assessment and plan: See assessment and plan above (5) Hyperglycemia Current Visit: Yes Status: Acute Assessment and plan: Patient with hyperglycemia today On D5 water drip due to hypernatremia Adding every 6 hours low sliding scale insulin coverage Closely monitor blood glucose levels Discontinue insulin therapy when D5 water drip was discontinued Hypoglycemia protocol (6) Acute respiratory failure with hypoxia Current Visit: Yes Status: Acute Assessment and plan: Secondary to aspiration and pneumonitis. Treatment failures and further complicated by diastolic heart failure. Pulmonology remains on board Continue titrating oxygen as appropriate See further assessment and planning above (7) RAUL (acute kidney injury) Current Visit: Yes Status: Resolved Assessment and plan: Resolved (8) Leukocytosis Current Visit: Yes Status: Acute Assessment and plan: WBC 11.5 yesterday, 9.4 today. Being treated for aspiration pneumonia and UTI Continuing to improve clinically CBC in the morning Qualifiers: Leukocytosis type: unspecified Qualified Code(s): D72.829 - Elevated white blood cell count, unspecified (9) Altered mental status Current Visit: Yes Status: Acute Assessment and plan: History of dementia, mental status at baseline Was noted to be lethargic couple of days ago, has subsided. Patient alert to self and place, able to participate in exam Clinically continues to improve. Qualifiers: Altered mental status type: unspecified Qualified Code(s): R41.82 - Altered mental status, unspecified (10) DVT prophylaxis Current Visit: Yes Status: Acute Assessment and plan: heparin 5000 units subcutaneous BID - Time Spent With Patient Total time spent is greater than 50% in coordination of care (as documented) at patient's floor/unit and/or counseling patient: Greater than 35 minutes - Subjective Interval history: Patient is seen and examined at bedside today. Presented from [facility] with altered mental status, found to have UTI and aspiration pneumonia. He has been requiring high oxygen support throughout the stay. Vision seen and examined at bedside today. Clinically, continues to improve, shortness of breath has also improved. On 5 L per Oxymizer mask, his respirations look less labored this morning with no accessory muscle usage. He is mentating much more appropriately this morning and verbalizing at his baseline. Afebrile, no leukocytosis on today's labs. - Constitutional Vitals: Temp Pulse Resp BP Pulse Ox 97.7 F 61 16 152/72 96 06/25/17 07:29 06/25/17 07:29 06/25/17 07:29 06/25/17 07:29 06/25/17 07:29 General appearance: Present: cachectic, cooperative, A&O X 2, mild distress - Head Head exam: Present: atraumatic, normocephalic - Eye Eye exam: Present: PERRL, conjuntiva pink, sclera anicteric Pupils: Present: PERRL - Neck Neck exam general surgery: Present: supple, trachea midline. Absent: lymphadenopathy - Respiratory Respiratory exam: Present: decreased breath sounds, CTAB. Absent: accessory muscle use, rales, rhonchi, wheezes - Cardiovascular Cardiovascular exam: Present: RRR, +S1, +S2. Absent: diastolic murmur, gallop, rubs, systolic murmur - GI/Abdominal GI/Abdominal exam: Present: normal bowel sounds, soft, no peritoneal signs. Absent: distended, tenderness - Extremities Exam Extremities exam: Present: warm, radial pulses palpable and symmetrical. Absent : calf tenderness, cyanotic, pedal edema - Neurological Exam Neurological exam: Present: CN II-XII intact, oriented X3, no focal deficits. Absent: pronater drift, facial droop, speech deficit - Skin Skin exam: Present: dry, intact Internal Medicine: Result - Labs CBC & Chem 7: 06/25/17 00:53 06/25/17 16:13 Labs: Short CBC 06/25/17 Range/Units 00:53 WBC 9.4 (4.3-11.1) K/mcL Hgb 10.1 L (12.9-16.9) g/dL Hct 33.1 L (37.5-50.1) % Plt Count 331 (140-400) K/mcL Neutrophils # 8.0 (1.6-8.9) K/mcL BMP 06/24/17 06/24/17 06/25/17 18:00 19:00 00:53 Sodium 154 H 154 H 154 H Potassium 3.9 Chloride 121 H Carbon Dioxide 27 BUN 56 H Creatinine 1.26 Glucose 482 H Calcium 9.2 06/25/17 05:25 Sodium 155 H Potassium Chloride Carbon Dioxide BUN Creatinine Glucose Calcium - ABG Interpretation ABG results: ABG ABG pH 7.53 pH Units (7.32-7.45) H 06/22/17 10:02 ABG pCO2 32 mmHg (35-45) L 06/22/17 10:02 ABG pO2 71 mmHg (85-104) L 06/22/17 10:02 ABG O2 Saturation 96 % (95-98) 06/22/17 10:02 PT/INR, D-dimer PT 13.3 Seconds (9.4-12.1) H 06/17/17 22:16 - VTE Documentation of Mechanical Device: Intermittent pneumatic compression device Consult Discharge Plan - Plan Referrals: NONE,PCP [Primary Care Provider] -
[2017-06-25] MEDS ORDERED: D5% in Water 1,000 ML IVC PRN (10:40)
[2017-06-25] MEDS ORDERED: *HR* Dextrose 50 % in Water (Syg) 50 ML SYRINGE IVP PRN (10:40)
[2017-06-25] MEDS ORDERED: Dextrose Gel 15 GM/37.5 ML TUBE PO PRN ×2 (10:40)
[2017-06-25] MEDS: Ipratropium/Albuterol Neb 3 ML IH SCH ×4 (11:21→23:33)
[2017-06-25] MEDS ORDERED: Insulin LISPRO 300 UNITS/3 ML VIAL SQ SCH ×2 (12:00→17:24)
--- NOTE | 2017-06-25 18:20 | Nephrology Progress Note ---
Date of Encounter: 06/25/17 Time of Encounter: 17:20 - Assessment and Plan (1) Hypernatremia Status: Acute Minimial change in the Hypernatremia. He has a fluid deficit and ideally would replace this orally and / or with an NGT, but since his mentation likely would lead to it being pulled by the pt, then in the meantime to cont D5W and would incr the rate to 75mL/hr, up from 60mL/hr. Subjective Principal diagnosis: Acute hypoxic respiratory failure Interval history: Pt was s/e but he was not able to interact with conversation; no family at bedside. Objective - Vital Signs Vital signs: Vital Signs Temp Pulse Resp BP Pulse Ox 06/25/17 15:25 16 94 06/25/17 14:37 98.1 F 72 16 144/70 94 06/25/17 11:21 16 95 06/25/17 11:04 98.3 F 53 16 158/74 97 06/25/17 07:29 97.7 F 61 16 152/72 96 06/25/17 04:29 97.6 F 54 14 188/70 95 06/24/17 23:04 98.2 F 71 20 164/81 96 06/24/17 19:02 98.3 F 62 20 195/90 96 Intake and Output 06/25/17 06/25/17 06/25/17 07:59 15:59 23:59 Intake Total 1350 / 1350 460 / 460 240 / 240 Balance 1350 / 1350 460 / 460 240 / 240 Intake: IV Fluids 1350 / 1350 100 / 100 Dextrose 5% 1,000 ML @ 60 mls/ 1000 / 1000 hr IVC .[id number] [facility] Rx#: [id number] Doxycycline 100 MG In 0.9 % 100 / 100 Sodium Chloride (Mini-Bag +) 100 ML @ 100 mls/hr IVPB Q12HR [facility] Rx#:[id number] Zosyn 3.375 GM In 0.9 % Sodium 100 / 100 Chloride (Mini-Bag +) 100 ML @ 25 mls/hr IVPB Q8H [facility] Rx#: [id number] Vancocin 750 MG In 0.9 % Sodium 250 / 250 Chloride 250 ML @ 250 mls/hr IVPB Q12H [facility] Rx#:[id number] Oral 360 / 360 240 / 240 Other: Meal Breakfast Dinner Percent of Meal Consumed 100% 100% # Urine Diapers 1 2 Weight 76.4 kg Blood Glucose* 468 450 Patient Weight 06/25/17 23:59 Weight 76.4 kg - General Appearance General appearance: Present: appears started age, cachectic, chronically ill, fatigue, frail EENT: Present: PERRL, mucous membranes dry Neck: Present: supple Respiratory: Present: clear Cardiology: Present: no edema, normal S1, normal S2 Gastrointestinal: Present: normoactive bowel sounds (thin abdomen), no tenderness, no guarding Integumentary: Present: warm and dry Neurologic: Present: no asterixis Musculoskeletal: Present: no erythema, no cyanosis - Lab 06/29/17 07:09 06/29/17 07:09 Most recent lab results ABG pH 7.53 pH Units (7.32-7.45) H 06/22/17 10:02 ABG pCO2 32 mmHg (35-45) L 06/22/17 10:02 ABG pO2 71 mmHg (85-104) L 06/22/17 10:02 ABG HCO3 27 mEq/L (21-27) 06/22/17 10:02 ABG O2 Saturation 96 % (95-98) 06/22/17 10:02 Calcium 9.2 mg/dL (8.6-10.3) 06/25/17 00:53 Phosphorus 3.3 mg/dL (2.7-4.5) 06/23/17 06:30 Magnesium 2.0 mg/dL (1.6-2.6) 06/19/17 01:07 - VTE Documentation of Mechanical Device: Intermittent pneumatic compression device Consult Discharge Plan - Plan Referrals: NONE,PCP [Primary Care Provider] - Prescriptions: Amoxicillin/Clavulanate [Augmentin] 875 mg PO BIDWM 3 Days #6 tablet predniSONE [PredniSONE] 10 mg PO DAILY #23 tablet
[2017-06-26] MEDS: Insulin LISPRO 300 UNITS/3 ML VIAL SQ SCH ×5 (00:32→23:34)
[2017-06-26] MEDS: MethylPREDNISolone 40 MG/ML VIAL IVP SCH ×4 (00:32→23:35)
[2017-06-26] MEDS: Insulin DETEMIR 100 UNIT/ML X5UNITS SQ SCH ×3 (01:13→20:58)
[2017-06-26] MEDS: D5% in Water 1,000 ML IVC SCH ×3 (02:39→21:09)
[2017-06-26] MEDS: Piperacillin/Tazobactam 3.375 GM in 0.9 % Sodium Chloride Mini Bag 100 ML IVPB SCH ×3 (03:30→20:57)
[2017-06-26] MEDS: Ipratropium/Albuterol Neb 3 ML IH SCH ×5 (03:43→20:14)
[2017-06-26] MEDS: *HR* Heparin 5,000 UNIT/ML VIAL SQ SCH ×2 (05:39→17:15)
[2017-06-26] MEDS: Doxycycline 100 MG in 0.9 % Sodium Chloride Mini Bag 100 ML IVPB SCH (05:39)
[2017-06-26 06:06] LABS: Basophils % 0.2 %; Hematocrit 33.7 % (37.5-50.1); Hemoglobin 10.5 g/dL (12.9-16.9); Immature Granulocytes % 2.1 % (0-4); Lymphocytes # 0.6 K/mcL (0.6-4.6); Lymphocytes % 5.1 %; Mean Corpuscular HGB Conc 31.2 g/dL (31.6-35.5); Mean Corpuscular Hemoglobin 29.3 pg (28.0-33.3); Mean Corpuscular Volume 94.1 fL (83.0-100.0); Mean Platelet Volume 10.6 fL (9.4-12.4); Monocytes # 0.4 K/mcL (0.0-1.3); Monocytes % 3.6 %; Neutrophils # 10.6 K/mcL (1.6-8.9); Nucleated Red Blood Cells 0.3 /100 WBC (0); Platelet Count 308 K/mcL (140-400); Red Blood Count 3.58 M/mcL (4.19-5.50); Red Cell Distribution Width 13.9 % (11.5-14.5)
[2017-06-26 06:18] LABS: BUN/Creatinine Ratio 43 (6-26); Blood Urea Nitrogen 46 mg/dL (8-23); Calcium 9.2 mg/dL (8.6-10.3); Carbon Dioxide 29 mEq/L (23-29); Chloride 123 mEq/L (98-107); Glucose 268 mg/dL (70-105); Osmolality,Calculated 349 (280-300); Potassium 4.2 mEq/L (3.5-5.1); Sodium 159 mEq/L (136-145); eGFR For African Americans > 60 (> 60); eGFR For Non-African Americans > 60 (> 60)
[2017-06-26] MEDS: Aspirin 81 MG TAB.CHEW PO SCH (07:45)
--- NOTE | 2017-06-26 10:51 | Internal Med Progress Note ---
Date of Encounter: 06/26/17 Time of Encounter: 08:00 - Assessment and plan (1) HCAP (healthcare-associated pneumonia) Current Visit: Yes Status: Acute Assessment and plan: Patient is clinical evidence of aspiration, CTA shows bilateral alveolar infiltrates as well as severe pneumonia. Clinically the patient has improved. Now on 3 L NC, WBC 11.9 this morning, afebrile overnight, consider de- escalating antibiotic therapy tomorrow Bronchodilators Titrate O2 as needed to maintain SPO2 greater than 92% De-escalating antibiotics today-discontinue vancomycin and doxycycline continue Zosyn, continue to closely monitor for increase in white count or worsening of respiratory status Repeat labs tomorrow, CBC, BMP CPAP at at bedtime Continue to titrate oxygen as appropriate Pulmonology is still following; we will discuss this case more closely with Dr. Sales, awaiting further recommendations Patient not ready for discharge, still requiring high flow oxygen, continue to have hypernatremia (2) Sepsis due to urinary tract infection Current Visit: Yes Status: Resolved Assessment and plan: Sepsis has resolved (3) Hypernatremia Current Visit: Yes Status: Acute Assessment and plan: Hyponatremia most likely secondary to dehydration. Continues to have poor oral intake Sodium continuing to trend up; serum sodium starting 06/22/17 147- 06/23/17 150- 06/24/17 157 06/25/17 155- 06/26/17 156- -Diuretics have been discontinued but hypernatremia persists -Continue low-sodium diet -Encourage oral intake -Continue to monitor sodium every 6 hours -Consult to nephrology-thank you for seeing in consultation; nephrology continuing to follow -D5 water at 75 mL per hour -Increase oral intake; staff has been informed to encourage fluid intake (4) Dehydration Current Visit: Yes Status: Acute Assessment and plan: See assessment and plan above (5) Hyperglycemia Current Visit: Yes Status: Acute Assessment and plan: Patient with hyperglycemia today On D5 water drip due to hypernatremia Continue sliding scale coverage, increase to high coverage Closely monitor blood glucose levels-blood glucose improving Discontinue insulin therapy when D5 water drip was discontinued Hypoglycemia protocol (6) Acute respiratory failure with hypoxia Current Visit: Yes Status: Acute Assessment and plan: Resolving; no longer short of breath, able to titrate oxygen to 3 L nasal cannula; tolerating well. Continue titrating oxygen as appropriate See further assessment and planning above (7) RAUL (acute kidney injury) Current Visit: Yes Status: Resolved Assessment and plan: Resolved (8) Leukocytosis Current Visit: Yes Status: Acute Assessment and plan: WBC 9.4 yesterday, 11.9 today Being treated for aspiration pneumonia and UTI Continuing to improve clinically; was requiring 5 L per Oxymizer mask yesterday now on 3 L nasal cannula at 96% CBC in the morning Qualifiers: Leukocytosis type: unspecified Qualified Code(s): D72.829 - Elevated white blood cell count, unspecified (9) Altered mental status Current Visit: Yes Status: Acute Assessment and plan: Continues to be at baseline Patient alert to self and place, able to participate in exam Qualifiers: Altered mental status type: unspecified Qualified Code(s): R41.82 - Altered mental status, unspecified (10) DVT prophylaxis Current Visit: Yes Status: Acute Assessment and plan: heparin 5000 units subcutaneous BID - Time Spent With Patient Total time spent is greater than 50% in coordination of care (as documented) at patient's floor/unit and/or counseling patient: Greater than 35 minutes - Subjective Interval history: Patient is seen and examined at bedside today. Presented from [facility] with altered mental status, found to have UTI and aspiration pneumonia. He has been requiring high oxygen support throughout the stay. Patient was seen and examined at bedside today. Clinically, continues to improve, shortness of breath has also improved. On 3 L nasal cannula today was requiring 5 L per Oxymizer mask starting; his respirations look less labored this morning with no accessory muscle usage. Continuing to mentate and verbalizing at his baseline. Afebrile, mild leukocytosis on today's labs with a WBC of 11.9. - Constitutional Vitals: Temp Pulse Resp BP Pulse Ox 98.5 F 71 16 135/80 95 06/26/17 07:54 06/26/17 07:54 06/26/17 08:19 06/26/17 07:54 06/26/17 08:19 General appearance: Present: cachectic, cooperative, A&O X 2, mild distress - Head Head exam: Present: atraumatic, normocephalic - Neck Neck exam general surgery: Present: supple, trachea midline. Absent: lymphadenopathy - Respiratory Respiratory exam: Present: CTAB. Absent: prolonged expiratory phase, rales, respiratory distress, tachypnea - Cardiovascular Cardiovascular exam: Present: RRR, +S1, +S2. Absent: diastolic murmur, gallop, rubs, systolic murmur - GI/Abdominal GI/Abdominal exam: Present: normal bowel sounds, soft, no peritoneal signs. Absent: distended, tenderness - Extremities Exam Extremities exam: Present: warm, radial pulses palpable and symmetrical. Absent : calf tenderness, cyanotic, pedal edema - Neurological Exam Neurological exam: Present: alert - Skin Skin exam: Present: dry, intact Internal Medicine: Result - Labs CBC & Chem 7: 06/26/17 05:53 06/26/17 10:15 Labs: Short CBC 06/26/17 Range/Units 05:53 WBC 11.9 H (4.3-11.1) K/mcL Hgb 10.5 L (12.9-16.9) g/dL Hct 33.7 L (37.5-50.1) % Plt Count 308 (140-400) K/mcL Neutrophils # 10.6 H (1.6-8.9) K/mcL BMP 06/25/17 06/25/17 06/25/17 10:42 16:13 22:31 Sodium 153 H 154 H 155 H Potassium Chloride Carbon Dioxide BUN Creatinine Glucose Calcium 06/26/17 06/26/17 05:53 10:15 Sodium 159 H 156 H Potassium 4.2 Chloride 123 H Carbon Dioxide 29 BUN 46 H Creatinine 1.07 Glucose 268 H Calcium 9.2 - ABG Interpretation ABG results: ABG ABG pH 7.53 pH Units (7.32-7.45) H 06/22/17 10:02 ABG pCO2 32 mmHg (35-45) L 06/22/17 10:02 ABG pO2 71 mmHg (85-104) L 06/22/17 10:02 ABG O2 Saturation 96 % (95-98) 06/22/17 10:02 PT/INR, D-dimer PT 13.3 Seconds (9.4-12.1) H 06/17/17 22:16 - VTE Documentation of Mechanical Device: Intermittent pneumatic compression device Consult Discharge Plan - Plan Referrals: NONE,PCP [Primary Care Provider] -
--- NOTE | 2017-06-26 12:02 | Nephrology Progress Note ---
Date of Encounter: 06/26/17 Time of Encounter: 10:00 - Assessment and Plan (1) Hypernatremia Status: Acute Ongoing hypernatremia. He needs more free water. The RN reported that he can drink thickened liquids, and so she was instructed to be sure to have him consume as much water as he can. If he does not trend sufficiently better, I would recommend a PEG tube for free water on Wednesday. Subjective Principal diagnosis: Acute hypoxic respiratory failure Interval history: Pt was s/e. He did not affirm N/V but did report feeling very thirsty. No family at bedside. He was slow to answer questions, thus limiting subjective hx. Objective - Vital Signs Vital signs: Vital Signs Temp Pulse Resp BP Pulse Ox 06/26/17 11:12 98 F 70 16 148/54 98 06/26/17 08:19 16 95 06/26/17 07:54 98.5 F 71 16 135/80 95 06/26/17 03:43 16 91 06/26/17 02:47 98.6 F 67 16 132/74 96 06/25/17 23:33 16 158/74 94 06/25/17 22:33 97.9 F 70 16 158/74 97 06/25/17 19:29 16 98 06/25/17 18:19 98.7 F 77 16 127/68 97 06/25/17 15:25 16 94 06/25/17 14:37 98.1 F 72 16 144/70 94 Intake and Output 06/25/17 06/26/17 06/26/17 23:59 07:59 15:59 Intake Total 690 / 690 200 / 200 480 / 480 Balance 690 / 690 200 / 200 480 / 480 Intake: IV Fluids 450 / 450 200 / 200 Doxycycline 100 MG In 0.9 % 100 / 100 Sodium Chloride (Mini-Bag +) 100 ML @ 100 mls/hr IVPB Q12HR [facility] Rx#:[id number] Zosyn 3.375 GM In 0.9 % Sodium 100 / 100 200 / 200 Chloride (Mini-Bag +) 100 ML @ 25 mls/hr IVPB Q8H [facility] Rx#: [id number] Vancocin 750 MG In 0.9 % Sodium 250 / 250 Chloride 250 ML @ 250 mls/hr IVPB Q12H [facility] Rx#:[id number] Oral 240 / 240 480 / 480 Other: Meal Dinner Breakfast Percent of Meal Consumed 100% 50% # Urine Diapers 2 1 Weight 71.2 kg Blood Glucose* 450 267 212 Patient Weight 06/26/17 23:59 Weight 71.2 kg - General Appearance Exam: General appearance: Present: appears started age, cachectic, chronically ill, fatigue, frail EENT: Present: PERRL, mucous membranes dry Neck: Present: supple Respiratory: Present: clear Cardiology: Present: no edema, normal S1, normal S2 Gastrointestinal: Present: normoactive bowel sounds (thin abdomen), no tenderness, no guarding Integumentary: Present: warm and dry Neurologic: Present: no asterixis Musculoskeletal: Present: no erythema, no cyanosis - Lab 06/29/17 07:09 06/29/17 07:09 Most recent lab results ABG pH 7.53 pH Units (7.32-7.45) H 06/22/17 10:02 ABG pCO2 32 mmHg (35-45) L 06/22/17 10:02 ABG pO2 71 mmHg (85-104) L 06/22/17 10:02 ABG HCO3 27 mEq/L (21-27) 06/22/17 10:02 ABG O2 Saturation 96 % (95-98) 06/22/17 10:02 Calcium 9.2 mg/dL (8.6-10.3) 06/26/17 05:53 Phosphorus 3.3 mg/dL (2.7-4.5) 06/23/17 06:30 Magnesium 2.0 mg/dL (1.6-2.6) 06/19/17 01:07 - VTE Documentation of Mechanical Device: Intermittent pneumatic compression device Consult Discharge Plan - Plan Referrals: NONE,PCP [Primary Care Provider] - Prescriptions: Amoxicillin/Clavulanate [Augmentin] 875 mg PO BIDWM 3 Days #6 tablet predniSONE [PredniSONE] 10 mg PO DAILY #23 tablet
[2017-06-27] MEDS: Ipratropium/Albuterol Neb 3 ML IH SCH ×6 (00:43→20:12)
[2017-06-27 05:13] LABS: Basophils % 0.2 %; Hematocrit 37.4 % (37.5-50.1); Hemoglobin 11.4 g/dL (12.9-16.9); Immature Granulocytes % 1.7 % (0-4); Lymphocytes # 0.6 K/mcL (0.6-4.6); Lymphocytes % 4.3 %; Mean Corpuscular HGB Conc 30.5 g/dL (31.6-35.5); Mean Corpuscular Hemoglobin 29.2 pg (28.0-33.3); Mean Corpuscular Volume 95.9 fL (83.0-100.0); Mean Platelet Volume 11.4 fL (9.4-12.4); Monocytes # 0.3 K/mcL (0.0-1.3); Monocytes % 2.2 %; Neutrophils # 11.8 K/mcL (1.6-8.9); Platelet Count 254 K/mcL (140-400); Red Cell Distribution Width 14.1 % (11.5-14.5); Segmented Neutrophils % 91.6 %
[2017-06-27] MEDS: Piperacillin/Tazobactam 3.375 GM in 0.9 % Sodium Chloride Mini Bag 100 ML IVPB SCH ×3 (05:28→20:23)
[2017-06-27] MEDS: Insulin LISPRO 300 UNITS/3 ML VIAL SQ SCH ×4 (05:28→23:38)
[2017-06-27] MEDS: *HR* Heparin 5,000 UNIT/ML VIAL SQ SCH ×2 (05:28→17:00)
[2017-06-27 05:30] LABS: BUN/Creatinine Ratio 41 (6-26); Blood Urea Nitrogen 37 mg/dL (8-23); Calcium 9.1 mg/dL (8.6-10.3); Carbon Dioxide 30 mEq/L (23-29); Chloride 111 mEq/L (98-107); Glucose 174 mg/dL (70-105); Osmolality,Calculated 321 (280-300); Potassium 3.5 mEq/L (3.5-5.1); Sodium 149 mEq/L (136-145); eGFR For African Americans > 60 (> 60); eGFR For Non-African Americans > 60 (> 60)
[2017-06-27] MEDS: MethylPREDNISolone 40 MG/ML VIAL IVP SCH ×3 (08:00→23:35)
[2017-06-27] MEDS: Aspirin 81 MG TAB.CHEW PO SCH (08:00)
[2017-06-27] MEDS: Insulin DETEMIR 100 UNIT/ML X5UNITS SQ SCH ×2 (08:00→20:24)
[2017-06-27] MEDS: D5% in Water 1,000 ML IVC SCH ×2 (09:39→23:35)
--- NOTE | 2017-06-27 09:52 | Internal Med Progress Note ---
Date of Encounter: 06/27/17 Time of Encounter: 09:20 - Assessment and plan (1) HCAP (healthcare-associated pneumonia) Current Visit: Yes Status: Acute Assessment and plan: Patient is a resident of a skilled nursing. Presented due to AMS, was found to have fever and tachycardia as well as UTI. CT of chest completed showing bilateral alveolar infiltrates as well as severe pneumonia. He was admitted and treated for healthcare associated pneumonia. During his stay He was witnessed to have aspirated. Patient has probably been aspirating while at the nursing facility. Was placed on broad-spectrum antibiotics. During this time he developed respiratory distress requiring high flow nasal cannula. Seen and examined at bedside today. His respiratory status is improving. He is now on room air with sats in the high 90s, in no respiratory distress. Mental status has improved as well and patient is now back to baseline. He remained afebrile overnight. Patient was switched to ABX monotherapy yesterday and has continued to improve clinically. Slight elevation in WBC, likely 2/2 IV steroid use. Continue to closely monitor Continue Bronchodilators Titrate O2 as needed to maintain SPO2 greater than 92% ABX- Zosyn Repeat labs tomorrow, CBC, BMP CPAP at at bedtime PRN Continue to titrate oxygen as appropriate Consult PT/OT as functional capacity Discuss with social work tomorrow about potential barriers to discharge Barring any change in respiratory status, hemodynamic status or patient condition the patient may be able to discharge as early as tomorrow. (2) Sepsis due to urinary tract infection Current Visit: Yes Status: Resolved (3) Hypernatremia Current Visit: Yes Status: Acute Assessment and plan: Hyponatremia most likely secondary to dehydration to my: Serum sodium improving today. Continues to have poor oral intake Sodium continuing to trend up; serum sodium starting 06/22/17 147- 06/23/17 150- 06/24/17 157 06/25/17 155- 06/26/17 156- 06/27/17 149 -Continue to hold diuretics -Continue low-sodium diet -Encourage oral intake; patient oral intake improving -Continue to monitor sodium every 6 hours -Nephrology following -Continue D5 water at 75 mL per hour -staff has been informed to encourage fluid intake (4) Dehydration Current Visit: Yes Status: Acute (5) Hyperglycemia Current Visit: Yes Status: Acute Assessment and plan: Improving, continue current insulin regimen. Discontinue insulin when D5 water drip completed as the patient is not a diabetic. (6) Acute respiratory failure with hypoxia Current Visit: Yes Status: Acute (7) RAUL (acute kidney injury) Current Visit: Yes Status: Resolved Assessment and plan: Resolved (8) Leukocytosis Current Visit: Yes Status: Acute Assessment and plan: Small increase in WBC from 11.9 yesterday to 12.9 today. Likely due to IV steroids. Patient improving clinically, no longer has respiratory distress, now on room air with sats in the high 90s, afebrile overnight. Her dressing back to baseline Continue monitor Qualifiers: Leukocytosis type: unspecified Qualified Code(s): D72.829 - Elevated white blood cell count, unspecified (9) Altered mental status Current Visit: Yes Status: Acute Assessment and plan: Continues to be at baseline Patient alert to self and place, able to participate in exam Qualifiers: Altered mental status type: unspecified Qualified Code(s): R41.82 - Altered mental status, unspecified (10) DVT prophylaxis Current Visit: Yes Status: Acute Assessment and plan: heparin 5000 units subcutaneous BID - Time Spent With Patient Total time spent is greater than 50% in coordination of care (as documented) at patient's floor/unit and/or counseling patient: Greater than 35 minutes - Subjective Interval history: Patient is seen and examined at bedside today. Presented from [facility] with altered mental status, found to have UTI and aspiration pneumonia. He has been requiring high oxygen support throughout the stay. Patient was seen and examined at bedside today. Clinically, continues to improve, shortness of breath has also improved. On room air today, in no respiratory distress. On days prior required high flow oxygen mask. Continuing to mentate and verbalizing at his baseline. Afebrile, mild leukocytosis on today's labs likely due to IV steroids. Patient clinically improving. - Constitutional Vitals: Temp Pulse Resp BP Pulse Ox 97.7 F 64 14 149/95 97 06/27/17 06:33 06/27/17 06:33 06/27/17 06:33 06/27/17 06:33 06/27/17 07:31 General appearance: Present: cachectic, cooperative, A&O X 2, mild distress - Head Head exam: Present: atraumatic, normocephalic - Eye Eye exam: Present: PERRL, conjuntiva pink, sclera anicteric Pupils: Present: PERRL - Neck Neck exam general surgery: Present: supple, trachea midline. Absent: lymphadenopathy - Respiratory Respiratory exam: Present: CTAB. Absent: accessory muscle use, rales, respiratory distress, rhonchi, wheezes, tachypnea - Cardiovascular Cardiovascular exam: Present: RRR, +S1, +S2, systolic murmur. Absent: diastolic murmur, gallop, rubs - GI/Abdominal GI/Abdominal exam: Present: normal bowel sounds, soft, no peritoneal signs. Absent: distended, tenderness - Extremities Exam Extremities exam: Present: warm, radial pulses palpable and symmetrical. Absent : calf tenderness, cyanotic, pedal edema - Neurological Exam Neurological exam: Present: CN II-XII intact, oriented X3, no focal deficits. Absent: pronater drift, facial droop, speech deficit - Skin Skin exam: Present: dry, intact Internal Medicine: Result - Labs CBC & Chem 7: 06/27/17 04:31 06/27/17 10:46 Labs: Short CBC 06/27/17 Range/Units 04:31 WBC 12.9 H (4.3-11.1) K/mcL Hgb 11.4 L (12.9-16.9) g/dL Hct 37.4 L (37.5-50.1) % Plt Count 254 (140-400) K/mcL Neutrophils # 11.8 H (1.6-8.9) K/mcL BMP 06/26/17 06/26/17 06/26/17 10:15 16:49 22:27 Sodium 156 H 153 H 150 H Potassium Chloride Carbon Dioxide BUN Creatinine Glucose Calcium 06/27/17 04:31 Sodium 149 H Potassium 3.5 Chloride 111 H Carbon Dioxide 30 H BUN 37 H Creatinine 0.91 Glucose 174 H Calcium 9.1 - ABG Interpretation ABG results: ABG ABG pH 7.53 pH Units (7.32-7.45) H 06/22/17 10:02 ABG pCO2 32 mmHg (35-45) L 06/22/17 10:02 ABG pO2 71 mmHg (85-104) L 06/22/17 10:02 ABG O2 Saturation 96 % (95-98) 06/22/17 10:02 PT/INR, D-dimer PT 13.3 Seconds (9.4-12.1) H 06/17/17 22:16 - VTE Documentation of Mechanical Device: Intermittent pneumatic compression device Consult Discharge Plan - Plan Referrals: NONE,PCP [Primary Care Provider] -
[2017-06-27] MEDS ORDERED: Aminoglycoside Consult 1 EACH MC ONE (18:02)
[2017-06-28] MEDS: Ipratropium/Albuterol Neb 3 ML IH SCH ×7 (00:06→23:41)
[2017-06-28] MEDS: Piperacillin/Tazobactam 3.375 GM in 0.9 % Sodium Chloride Mini Bag 100 ML IVPB SCH ×3 (03:36→21:10)
[2017-06-28] MEDS: Insulin LISPRO 300 UNITS/3 ML VIAL SQ SCH ×2 (06:10→12:09)
[2017-06-28] MEDS: *HR* Heparin 5,000 UNIT/ML VIAL SQ SCH ×2 (06:12→17:40)
[2017-06-28 07:33] LABS: BUN/Creatinine Ratio 42 (6-26); Blood Urea Nitrogen 37 mg/dL (8-23); Calcium 8.6 mg/dL (8.6-10.3); Carbon Dioxide 28 mEq/L (23-29); Chloride 108 mEq/L (98-107); Glucose 149 mg/dL (70-105); Osmolality,Calculated 307 (280-300); Potassium 3.8 mEq/L (3.5-5.1); Sodium 143 mEq/L (136-145); eGFR For African Americans > 60 (> 60); eGFR For Non-African Americans > 60 (> 60)
[2017-06-28] MEDS: MethylPREDNISolone 40 MG/ML VIAL IVP SCH ×3 (08:30→23:03)
[2017-06-28 08:33] LABS: Basophils % 0.2 %; Hematocrit 33.5 % (37.5-50.1); Hemoglobin 10.6 g/dL (12.9-16.9); Immature Granulocytes % 1.3 % (0-4); Lymphocytes # 0.6 K/mcL (0.6-4.6); Lymphocytes % 2.7 %; Mean Corpuscular HGB Conc 31.6 g/dL (31.6-35.5); Mean Corpuscular Hemoglobin 29.5 pg (28.0-33.3); Mean Corpuscular Volume 93.3 fL (83.0-100.0); Mean Platelet Volume 10.7 fL (9.4-12.4); Monocytes # 0.7 K/mcL (0.0-1.3); Neutrophils # 20.6 K/mcL (1.6-8.9); Platelet Count 317 K/mcL (140-400); Red Blood Count 3.59 M/mcL (4.19-5.50); Red Cell Distribution Width 13.8 % (11.5-14.5); Segmented Neutrophils % 92.8 %
[2017-06-28] MEDS: Aspirin 81 MG TAB.CHEW PO SCH (08:34)
[2017-06-28] MEDS: Insulin DETEMIR 100 UNIT/ML X5UNITS SQ SCH (08:35)
--- NOTE | 2017-06-28 12:54 | Nephrology Progress Note ---
Date of Encounter: 06/28/17 Time of Encounter: 12:00 - Assessment and Plan (1) Hypernatremia Status: Acute Hypernatremia has resolved now that he is consuming oral fluids, and I have stopped the D5W. Will sign-off. Thank you. Subjective Principal diagnosis: Acute hypoxic respiratory failure Interval history: Pt was s/e. He reported starting to feel better and has been drinking fluids better as per RN. He did not affirm N/V and remains thirsty when asked. Again, no family at bedside. Objective - Vital Signs Vital signs: Vital Signs Temp Pulse Resp BP Pulse Ox 06/28/17 11:35 96.3 F L 68 14 137/83 96 06/28/17 10:58 15 96 06/28/17 08:15 97.8 F 78 15 135/78 96 06/28/17 07:35 18 97 06/28/17 04:26 18 97 06/28/17 03:23 98.6 F 81 15 112/63 96 06/28/17 00:07 16 98 06/27/17 23:16 98.5 F 79 16 120/78 93 06/27/17 20:12 16 94 06/27/17 18:21 98.6 F 67 16 122/79 95 06/27/17 15:48 20 96 06/27/17 15:16 97.6 F 72 14 138/78 96 Intake and Output 06/27/17 06/28/17 06/28/17 23:59 07:59 15:59 Intake Total 1100 / 1100 200 / 200 120 / 120 Balance 1100 / 1100 200 / 200 120 / 120 Intake: IV Fluids 1100 / 1100 200 / 200 Dextrose 5% 1,000 ML @ 75 mls/ 1000 / 1000 hr IVC .[id number] [facility] Rx#: [id number] Zosyn 3.375 GM In 0.9 % Sodium 100 / 100 200 / 200 Chloride (Mini-Bag +) 100 ML @ 25 mls/hr IVPB Q8H [facility] Rx#: [id number] Oral 0 / 0 120 / 120 Other: Meal Dinner Breakfast Percent of Meal Consumed 80% 30% # Urine Diapers 1 1 1 Weight 77 kg Blood Glucose* 234 132 214 Patient Weight 06/28/17 23:59 Weight 77 kg - General Appearance Exam: General appearance: Present: appears started age, cachectic, chronically ill, fatigue, frail EENT: Present: PERRL, mucous membranes dry Neck: Present: supple Respiratory: Present: clear Cardiology: Present: no edema, normal S1, normal S2 Gastrointestinal: Present: normoactive bowel sounds (thin abdomen), no tenderness, no guarding Integumentary: Present: warm and dry Neurologic: Present: no asterixis Musculoskeletal: Present: no erythema, no cyanosis - Lab 06/29/17 07:09 06/29/17 07:09 Most recent lab results ABG pH 7.53 pH Units (7.32-7.45) H 06/22/17 10:02 ABG pCO2 32 mmHg (35-45) L 06/22/17 10:02 ABG pO2 71 mmHg (85-104) L 06/22/17 10:02 ABG HCO3 27 mEq/L (21-27) 06/22/17 10:02 ABG O2 Saturation 96 % (95-98) 06/22/17 10:02 Calcium 8.6 mg/dL (8.6-10.3) 06/28/17 06:50 Phosphorus 3.3 mg/dL (2.7-4.5) 06/23/17 06:30 Magnesium 2.0 mg/dL (1.6-2.6) 06/19/17 01:07 - VTE Documentation of Mechanical Device: Intermittent pneumatic compression device Consult Discharge Plan - Plan Referrals: NONE,PCP [Primary Care Provider] - Prescriptions: Amoxicillin/Clavulanate [Augmentin] 875 mg PO BIDWM 3 Days #6 tablet predniSONE [PredniSONE] 10 mg PO DAILY #23 tablet
--- NOTE | 2017-06-28 13:34 | Internal Med Progress Note ---
Date of Encounter: 06/28/17 Time of Encounter: 12:20 - Assessment and plan (1) HCAP (healthcare-associated pneumonia) Current Visit: Yes Status: Acute Assessment and plan: CT of chest completed showing bilateral alveolar infiltrates as well as severe pneumonia. Receive 5 days doxycycline, 7 days vancomycin in 7 days Zosyn treatment, monotherapy started on the fifth with Zosyn Blood cultures obtained showing no growth, urine culture showing Escherichia coli, continue Zosyn Clinically, he has continued to improve over the last several days, at the start of the week the patient was on 8 L high flow oxygen mask and is now on room air without respiratory distress lungs are CTA AP and L, he has remained afebrile. Leukocytosis has worsened overnight from 12.9 and 22.2 however this is likely due to IV steroids. There is no bandemia noted, and the patient is improving from a clinical perspective. Continue Bronchodilators 2 when necessary ABX- Zosyn Repeat labs tomorrow, CBC, BMP CPAP at at bedtime PRN Consult PT/OT as functional capacity Barring any change in clinical status the patient may be ready for discharge as early as tomorrow DC to [facility] likely tomorrow (2) Sepsis due to urinary tract infection Current Visit: Yes Status: Resolved (3) Hypernatremia Current Visit: Yes Status: Acute Assessment and plan: Improving. Patient oral intake has increased. Was on D5 water drip to help with dehydration and hypernatremia however this is been discontinued today due to improvement in hypernatremia (4) Dehydration Current Visit: Yes Status: Acute Assessment and plan: See assessment and plan above (5) Hyperglycemia Current Visit: Yes Status: Acute Assessment and plan: Secondary to being on D5 water drip; patient is not diabetic so sliding scale has been discontinued. Hyperglycemia has improved (6) Acute respiratory failure with hypoxia Current Visit: Yes Status: Resolved (7) RAUL (acute kidney injury) Current Visit: Yes Status: Resolved (8) Leukocytosis Current Visit: Yes Status: Acute Qualifiers: Leukocytosis type: unspecified Qualified Code(s): D72.829 - Elevated white blood cell count, unspecified (9) Altered mental status Current Visit: Yes Status: Resolved Assessment and plan: Mental status now at Baseline Qualifiers: Altered mental status type: unspecified Qualified Code(s): R41.82 - Altered mental status, unspecified (10) DVT prophylaxis Current Visit: Yes Status: Acute Assessment and plan: heparin 5000 units subcutaneous BID - Time Spent With Patient Total time spent is greater than 50% in coordination of care (as documented) at patient's floor/unit and/or counseling patient: Greater than 35 minutes - Subjective Interval history: Patient is seen and examined at bedside today. Presented from [facility] with altered mental status, found to have UTI and aspiration pneumonia. He has been requiring high oxygen support throughout the stay. Patient was seen and examined at bedside today. Clinically, continues to improve, denies any shortness of breath - Constitutional Vitals: Temp Pulse Resp BP Pulse Ox 96.3 F L 68 14 137/83 96 06/28/17 11:35 06/28/17 11:35 06/28/17 11:35 06/28/17 11:35 06/28/17 11:35 General appearance: Present: cachectic, cooperative, A&O X 2, mild distress - Head Head exam: Present: atraumatic, normocephalic - Eye Eye exam: Present: PERRL, conjuntiva pink, sclera anicteric Pupils: Present: PERRL - Neck Neck exam general surgery: Present: supple, trachea midline. Absent: lymphadenopathy - Respiratory Respiratory exam: Present: CTAB. Absent: accessory muscle use, rales, rhonchi, wheezes - Cardiovascular Cardiovascular exam: Present: RRR, +S1, +S2. Absent: diastolic murmur, gallop, rubs, systolic murmur - GI/Abdominal GI/Abdominal exam: Present: normal bowel sounds, soft, no peritoneal signs. Absent: distended, tenderness - Extremities Exam Extremities exam: Present: warm, radial pulses palpable and symmetrical. Absent : calf tenderness, cyanotic, pedal edema - Neurological Exam Neurological exam: Present: altered, CN II-XII intact, no focal deficits, strengths equal and symetr throughout. Absent: pronater drift, facial droop, speech deficit - Skin Skin exam: Present: dry, intact Internal Medicine: Result - Labs CBC & Chem 7: 06/28/17 06:50 06/28/17 16:07 Labs: Short CBC 06/28/17 Range/Units 06:50 WBC 22.2 H D (4.3-11.1) K/mcL Hgb 10.6 L (12.9-16.9) g/dL Hct 33.5 L (37.5-50.1) % Plt Count 317 (140-400) K/mcL Neutrophils # 20.6 H (1.6-8.9) K/mcL BMP 06/27/17 06/27/17 06/28/17 16:30 21:59 06:50 Sodium 144 143 142 Potassium Chloride Carbon Dioxide BUN Creatinine Glucose Calcium 06/28/17 06/28/17 06:50 10:26 Sodium 143 142 Potassium 3.8 Chloride 108 H Carbon Dioxide 28 BUN 37 H Creatinine 0.88 Glucose 149 H Calcium 8.6 - ABG Interpretation ABG results: ABG ABG pH 7.53 pH Units (7.32-7.45) H 06/22/17 10:02 ABG pCO2 32 mmHg (35-45) L 06/22/17 10:02 ABG pO2 71 mmHg (85-104) L 06/22/17 10:02 ABG O2 Saturation 96 % (95-98) 06/22/17 10:02 PT/INR, D-dimer PT 13.3 Seconds (9.4-12.1) H 06/17/17 22:16 - VTE Documentation of Mechanical Device: Intermittent pneumatic compression device Consult Discharge Plan - Plan Referrals: NONE,PCP [Primary Care Provider] -
[2017-06-29] MEDS: Ipratropium/Albuterol Neb 3 ML IH SCH ×4 (03:48→15:28)
[2017-06-29] MEDS: Piperacillin/Tazobactam 3.375 GM in 0.9 % Sodium Chloride Mini Bag 100 ML IVPB SCH ×2 (04:31→11:16)
[2017-06-29] MEDS: *HR* Heparin 5,000 UNIT/ML VIAL SQ SCH ×2 (05:09→17:06)
[2017-06-29 07:53] LABS: BUN/Creatinine Ratio 40 (6-26); Blood Urea Nitrogen 32 mg/dL (8-23); Calcium 8.6 mg/dL (8.6-10.3); Carbon Dioxide 25 mEq/L (23-29); Chloride 110 mEq/L (98-107); Glucose 225 mg/dL (70-105); Osmolality,Calculated 312 (280-300); Sodium 144 mEq/L (136-145); eGFR For African Americans > 60 (> 60); eGFR For Non-African Americans > 60 (> 60)
[2017-06-29 08:11] LABS: Basophils % 0.2 %; Hematocrit 33.9 % (37.5-50.1); Hemoglobin 10.7 g/dL (12.9-16.9); Lymphocytes # 0.6 K/mcL (0.6-4.6); Lymphocytes % 3.4 %; Mean Corpuscular HGB Conc 31.6 g/dL (31.6-35.5); Mean Corpuscular Hemoglobin 29.3 pg (28.0-33.3); Mean Corpuscular Volume 92.9 fL (83.0-100.0); Monocytes # 0.5 K/mcL (0.0-1.3); Neutrophils # 15.6 K/mcL (1.6-8.9); Platelet Count 305 K/mcL (140-400); Red Blood Count 3.65 M/mcL (4.19-5.50); Red Cell Distribution Width 14.2 % (11.5-14.5); Segmented Neutrophils % 91.4 %
[2017-06-29] MEDS: MethylPREDNISolone 40 MG/ML VIAL IVP SCH (09:19)
[2017-06-29] MEDS: Aspirin 81 MG TAB.CHEW PO SCH (10:02)
[2017-06-29 14:46] VITALS: BP 114/73
[2017-06-29] MEDS ORDERED: predniSONE 20 MG TABLET PO SCH (15:30)
--- NOTE | 2017-06-29 16:29 | Discharge Summary ---
- NOTES TO OUTPATIENT PROVIDER Notes to Outpatient Provider: Patient will need to have chemistry monitor closely due to recent-hypernatremia well as encouraged freewater orally.-If patient unable to maintain fluid homeostasis may require PEG tube in the future Orders not resulted at time of discharge: Pending orders 06/30/17 04:00 BMP [Basic Metabolic Panel] AM 0400 Complete Blood Count [HEME] AM 0400 07/01/17 04:00 BMP [Basic Metabolic Panel] AM 0400 Complete Blood Count [HEME] AM 0400 Date of Encounter: 06/29/17 Time of Encounter: 16:27 - Discharge Diagnosis (1) Sepsis due to urinary tract infection Priority: Primary Status: Resolved (2) RAUL (acute kidney injury) Priority: Secondary Status: Resolved (3) Leukocytosis Priority: Secondary Status: Acute Qualifiers: Leukocytosis type: unspecified Qualified Code(s): D72.829 - Elevated white blood cell count, unspecified (4) Altered mental status Priority: Secondary Status: Resolved Qualifiers: Altered mental status type: unspecified Qualified Code(s): R41.82 - Altered mental status, unspecified (5) HCAP (healthcare-associated pneumonia) Priority: Primary Status: Acute (6) Acute respiratory failure with hypoxia Priority: Secondary Status: Resolved (7) Hypernatremia Priority: Primary Status: Acute (8) Dehydration Priority: Primary Status: Acute (9) Hyperglycemia Priority: Secondary Status: Acute Hospital course: Mr. Bauer is a 81 year old male past medical history of dementia COPD Parkinson's disease recurrent UTIs presented to the [facility] on 06/17/2017 transfer from a [facility] after being found with altered mental state and a high fever. He met sepsis criteria due to urinary tract infection and had an AK I he was given IV fluids broad-spectrum antibiotics he was noted to be persistently hypoxic there was concern for PE and CTA was completed which was negative however did show bilateral alveolar infiltrates with groundglass opacities he was on 2-1/2 L satting 90% pulmonary was consulted he was placed on BiPAP as well as bronchodilators and steroids treated for HCAP. He was also evaluated by speech therapy was found to be aspirating liquids and was placed on thickened liquids. Mental state did improve as well as respiratory state. Continue to have leukocytosis is likely secondary to steroid use no fevers. Patient was seen by nephrology due to hypernatremia and dehydration. He was placed on D5 and sodium levels were monitored every 6 hours-hypernatremia improved as well as fluid state. He did complete a seven-day course for pneumonia as well as converted to Augmentin and will complete 3 more days for complicated UTI. His lab work has improved he is afebrile hemodynamically stable at this time. He will be discharged back to ECF. Continued monitoring of chemistry per primary care -encouraged freewater per thickened liquids. If hypernatremia persists patient may require PEG tube placement due to poor oral intake. Patient will be discharged back to ECF with steroid taper and oral Augmentin. Discharge discussed with: patient - Time Spent with Patient Total time spent providing and/or coordinating discharge services: Less than 30 minutes - Discharge Medications Prescriptions: Amoxicillin/Clavulanate [Augmentin] 875 mg PO BIDWM 3 Days #6 tablet predniSONE [PredniSONE] 10 mg PO DAILY #23 tablet Home Medications: Amino AC/Whey Prot Conc, Isol [Whey Protein Powder] 1 each PO DAILY 06/18/17 [ History] Aspirin 81 mg PO DAILY 06/18/17 [History] Carbidopa/Levodopa 25/100 [Sinemet 25/100] 1 each PO TID 06/18/17 [History] Divalproex Sodium [Depakote Sprinkle] 250 mg PO TID 06/18/17 [History] Donepezil HCl [Aricept] 10 mg PO HS 06/18/17 [History] Escitalopram Oxalate Soln. 10 mg PO DAILY 06/18/17 [History] Melatonin 6 mg PO HS 06/18/17 [History] Memantine HCl 10 mg PO BID 06/18/17 [History] Mirtazapine 7.5 mg PO HS 06/18/17 [History] Multivit-Min/FA/Lycopen/Lutein [A Thru Z Select Multivit Tab] 1 each PO DAILY [History] Pimavanserin Tartrate [Nuplazid] 34 mg PO DAILY 06/18/17 [History] risperiDONE [Risperidone] 0.5 mg PO BID 06/18/17 [History] Amoxicillin/Clavulanate [Augmentin] 875 mg PO BIDWM 3 Days #6 tablet 06/29/17 [ Rx] predniSONE [PredniSONE] 10 mg PO DAILY #23 tablet 06/29/17 [Rx] Allergies/Adverse Reactions: 3 Allergy/AdvReac Type Severity Reaction Status Date / Time No Known Drug Allergies Allergy See Verified 05/01/15 08:58 Comments Date of admission: 06/18/17 16:22 Primary care physician: PCP NONE Consults: 06/21/17 12:53 Consult to Speech Therapy [CONS] Routine Comment: Evaluate, develop and implement POC Reason for Consult: choking on liquids, from the [place], pureed diet, needs thickened liquids and I put honey thick until your assessment. Thanks Time Notified: 12:59 Call Completed: Yes 06/21/17 14:03 Consult to Pulmonology [CONS] Routine Consulting Provider: [facility] Reason for Consult: persistent hypoxic resp failure Call Completed: Yes Discharging clinician: Kiarra Benjamin Anticipated date of discharge: 06/29/17 - Constitutional Vitals: Temp Pulse Resp BP Pulse Ox 98.5 F 79 18 114/73 96 06/29/17 14:45 06/29/17 14:45 06/29/17 15:28 06/29/17 14:45 06/29/17 15:28 General appearance: Present: cachectic, cooperative, A&O X 2, mild distress - Head Head exam: Present: atraumatic, normocephalic - Eye Eye exam: Present: PERRL, conjuntiva pink, sclera anicteric Pupils: Present: PERRL - Neck Neck exam general surgery: Present: supple, trachea midline. Absent: lymphadenopathy - Respiratory Respiratory exam: Present: CTAB. Absent: accessory muscle use, rales, rhonchi, wheezes - Cardiovascular Cardiovascular exam: Present: RRR, +S1, +S2. Absent: diastolic murmur, gallop, rubs, systolic murmur - GI/Abdominal GI/Abdominal exam: Present: normal bowel sounds, soft, no peritoneal signs. Absent: distended, tenderness - Extremities Exam Extremities exam: Present: warm, radial pulses palpable and symmetrical. Absent : calf tenderness, cyanotic, pedal edema - Neurological Exam Neurological exam: Present: CN II-XII intact, oriented X3, no focal deficits. Absent: pronater drift, facial droop, speech deficit - Skin Skin exam: Present: dry, intact - Patient Status Disposition: Transfer SNF Condition: Fair Overall status at discharge: patient is back to baseline - Discharge Instructions Follow Up With: NONE,PCP [Primary Care Provider] - - Diet and Activity Activity: increase activity as tolerated Diet: other - VTE Documentation of Mechanical Device: Intermittent pneumatic compression device
--- NOTE | 2017-06-29 16:55 | Physician Discharge Referral ---
ExtendedCare Referral Info Transfer To: [facility] Provider in Charge: Sourav Plunkett Provider in Charge after Transfer: PCP Institutional Level of Care: Skilled - Diagnosis (1) Sepsis due to urinary tract infection Priority: Primary Status: Resolved (2) RAUL (acute kidney injury) Priority: Secondary Status: Resolved (3) Leukocytosis Priority: Secondary Status: Acute (4) Altered mental status Priority: Secondary Status: Resolved (5) HCAP (healthcare-associated pneumonia) Priority: Primary Status: Acute (6) Acute respiratory failure with hypoxia Priority: Secondary Status: Resolved (7) Hypernatremia Priority: Primary Status: Acute (8) Dehydration Priority: Secondary Status: Acute (9) Hyperglycemia Priority: Secondary Status: Acute Prognosis: Fair - Transfer Medications Prescriptions: Amoxicillin/Clavulanate [Augmentin] 875 mg PO BIDWM 3 Days #6 tablet predniSONE [PredniSONE] 10 mg PO DAILY #23 tablet Home Medications: Amino AC/Whey Prot Conc, Isol [Whey Protein Powder] 1 each PO DAILY 06/18/17 [ History] Aspirin 81 mg PO DAILY 06/18/17 [History] Carbidopa/Levodopa 25/100 [Sinemet 25/100] 1 each PO TID 06/18/17 [History] Divalproex Sodium [Depakote Sprinkle] 250 mg PO TID 06/18/17 [History] Donepezil HCl [Aricept] 10 mg PO HS 06/18/17 [History] Escitalopram Oxalate Soln. 10 mg PO DAILY 06/18/17 [History] Melatonin 6 mg PO HS 06/18/17 [History] Memantine HCl 10 mg PO BID 06/18/17 [History] Mirtazapine 7.5 mg PO HS 06/18/17 [History] Multivit-Min/FA/Lycopen/Lutein [A Thru Z Select Multivit Tab] 1 each PO DAILY [History] Pimavanserin Tartrate [Nuplazid] 34 mg PO DAILY 06/18/17 [History] risperiDONE [Risperidone] 0.5 mg PO BID 06/18/17 [History] Amoxicillin/Clavulanate [Augmentin] 875 mg PO BIDWM 3 Days #6 tablet 06/29/17 [ Rx] predniSONE [PredniSONE] 10 mg PO DAILY #23 tablet 06/29/17 [Rx] Allergies/Adverse Reactions: 3 Allergy/AdvReac Type Severity Reaction Status Date / Time No Known Drug Allergies Allergy See Verified 05/01/15 08:58 Comments - Respiratory Orders Smoking Cessation: Smoking cessation has been advised. For more information, call the [place] Tobacco Quit Line at 7-908-FFEL-NOW. - Lab Orders Lab Orders: [place] 17 - Diet Orders Pureed ([place] thickened diet, encourage water) CERTIFICATION: I certify that the transfer of the above named patient to an Extended Care Facility is necessary for the continuing treatment of the diagnosis listed. The above information is true and accurate reflection of patient's current condition. Confidential - Redisclosure prohibited without a patient's written consent.
== END 2017-06-29 18:03 | DRG 871 ==
LOC: 3NENU 21:24 → EMEROO 21:24 → 3NENU 06-18 01:07 → SUATTDRO 06-18 16:22 → 3BNU 06-21 11:27
PROVIDERS: ADMIT Internal Medicine; ATTEND Student in an Organized Health Care Education/Training Program

== ENCOUNTER 2017-07-07 11:37 | Inpatient (IN) ==
[2017-07-07] MEDS ORDERED: 0.9 % Sodium Chloride 1,000 ML IVC ONE (11:44)
--- NOTE | 2017-07-07 11:47 | Emergency Department Note ---
Disposition Clinical Impression: Dehydration, Hypernatremia, Acute kidney injury Atrial flutter Qualifiers: Atrial flutter type: atypical Qualified Code(s): I48.4 - Atypical atrial flutter Disposition: Admitted As Inpatient Condition: Fair General Adult HPI - General Chief complaint: ED Weakness Stated complaint: dehydration Time Seen by Provider: 07/07/17 11:42 Source: EMS Mode of arrival: EMS Limitations: altered mental status, other (Dementia) Nursing Notes Reviewed: Yes Vital Signs Reviewed: Yes - History of Present Illness HPI Narrative: Patient presents to the ED with a chief complaint of weakness and altered mental status. Patient recently seen here and admitted for sepsis per EMS. The patient is altered at baseline and unable to provide any history. Per EMS he was recently admitted here and treated for sepsis. He has been weak at the assisted. There was appeared today when he thought he was poorly responsive. They were concerned for sepsis and they were unable to place an IV to hydrate himself sent him here for hydration and further workup. Patient is able to answer questions yes or no and answers no if he is not any pain. - Related Data Home Medications Medication Instructions Recorded Confirmed Amino AC/Whey Prot Conc, Isol 1 each PO DAILY 06/18/17 07/07/17 [Whey Protein Powder] Aspirin 81 mg PO DAILY 06/18/17 07/07/17 Carbidopa/Levodopa 25/100 [Sinemet 1 each PO TID 06/18/17 07/07/17 25/100] Divalproex Sodium [Depakote 250 mg PO TID 06/18/17 07/07/17 Sprinkle] Donepezil HCl [Aricept] 10 mg PO HS 06/18/17 07/07/17 Escitalopram Oxalate Soln. 10 mg PO DAILY 06/18/17 07/07/17 Melatonin 6 mg PO HS 06/18/17 07/07/17 Memantine HCl 10 mg PO BID 06/18/17 07/07/17 Mirtazapine 7.5 mg PO HS 06/18/17 07/07/17 Multivit-Min/FA/Lycopen/Lutein [A 1 each PO DAILY 06/18/17 07/07/17 Thru Z Select Multivit Tab] Pimavanserin Tartrate [Nuplazid] 34 mg PO DAILY 06/18/17 07/07/17 risperiDONE [Risperidone] 0.5 mg PO BID 06/18/17 07/07/17 Acetaminophen [Tylenol] 650 mg PO Q4HR PRN 07/07/17 07/07/17 DiphenhydraMINE [Benadryl] 25 mg PO Q6HR PRN 07/07/17 07/07/17 Guaifenesin [Siltussin SA] 10 ml PO Q4H PRN 07/07/17 07/07/17 Ipratropium/Albuterol Neb [Duoneb] 3 ml IH Q4HR PRN 07/07/17 07/07/17 Ondansetron Oral Soln [Zofran Oral 4 mg PO Q4H PRN 07/07/17 07/07/17 Soln] Oxycodone HCl [Oxaydo] 5 mg PO Q4H PRN 07/07/17 07/07/17 predniSONE [PredniSONE] 30 mg PO DAILY 07/07/17 07/07/17 Allergies Allergy/AdvReac Type Severity Reaction Status Date / Time No Known Drug Allergies Allergy See Verified 07/07/17 13:19 Comments Review of Systems: As Per HPI Limitations: ROS unobtainable due to patients medical condition Constitutional: Denies: fever Cardiovascular: Denies: chest pain Respiratory: Denies: dyspnea Gastrointestinal: Denies: abdominal pain Past Medical History - Past Medical History Source: unable to obtain Medical history: Reports: arthritis, COPD, dementia, other 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 His abdomen is soft. There is a colostomy bag in place. His lungs are clear. He does have some excoriations on his upper arms. He does have some early skin breakdown over the sacrum but the area is not open. - General Limitations: altered mental status General appearance: alert, in no apparent distress - Head Head exam: atraumatic, normocephalic - Eye Eye exam: Present: normal appearance - ENT ENT exam: normal oropharynx - Neck Neck exam: Present: normal inspection - Chest Chest inspection: Present: normal inspection - Respiratory Respiratory exam: Present: normal lung sounds bilaterally - Cardiovascular Cardiovascular exam: Present: regular rate, normal rhythm - Abdominal Exam Abdominal exam: Present: soft, Non-Tender - Neurological Exam Neurological exam: Present: alert. Absent: oriented X3 - Psychiatric Psychiatric exam: Present: normal affect - Skin Skin exam: Present: warm, dry Course Course Narrative: EMS states they were told he is currently at his baseline mental status. We will perform a septic/MENTAL status workup. - Reevaluation(s) Reevaluation #1: Workup shows an elevated troponin. Elevated creatinine. Elevated sodium. Consistent with dehydration and likely some demand ischemia. We will give him some aspirin and admit for hydration. No infectious source identified. Patient afebrile. Time: 13:40 Reevaluation #2: Called to room patient now tachycardic in 150s. EKG shows electrical alternans of 155. Discussed with cardiology who states nothing further. Hold on beta blockers. Increase IV hydration. Wonders if there is some type of ectopic atrial focus causing her tachycardia. We will see in consult. EKG sent. Patient hospitalist. Patient blood pressure stable 108 systolic. He still awake and alert with unchanged mental status. Time: 14:12 Reevaluation #3: Discussed with cardiology again. Recommending a dose of adenosine. Adenosine given and a pulse was elicited that shows flutter waves. Starting Cardizem. Repeat EKG shows a flutter 153. Time: 14:46 - Consultations Consultation #1: Dr Brooks cards will see in consult Time: 14:13 Vital Signs Temperature 97.5 F L 07/07/17 11:51 Pulse Rate 98 07/07/17 11:51 Respiratory Rate 20 07/07/17 11:51 Blood Pressure 130/90 07/07/17 11:51 O2 Sat by Pulse Oximetry 95 07/07/17 11:51 Temperature 97.5 F L 07/07/17 11:51 Pulse Rate 158 07/07/17 15:00 Respiratory Rate 18 07/07/17 15:00 Blood Pressure 107/76 07/07/17 15:00 O2 Sat by Pulse Oximetry 98 07/07/17 15:00 Oxygen Delivery Oxygen Delivery Room Air Medical Decision Making - [facility] Narrative Medical decision making narrative: Patient admitted. Dehydrated. Acute kidney injury and hyponatremia. Unclear the source of the patient's supraventricular tachycardia O advanced. I do not appreciate a pericardial effusion on a limited bedside ultrasound. It has been discussed with cardiology who will see him in consult. Magnesium normal. TSH pending. - Medical Records Medical records reviewed: Yes I reviewed the patient's medical records. - Lab Data Lab results reviewed: Yes I reviewed the patient's lab results. Result diagrams: 07/07/17 11:46 07/07/17 11:46 Lab Results 07/07/17 07/07/17 07/07/17 Range/Units 11:46 11:46 11:46 WBC 13.9 H (4.3-11.1) K/mcL RBC 4.40 (4.19-5.50) M/mcL Hgb 12.9 (12.9-16.9) g/dL Hct 42.4 (37.5-50.1) % MCV 96.4 (83.0-100.0) fL MCH 29.3 (28.0-33.3) pg MCHC 30.4 L (31.6-35.5) g/dL RDW 15.5 H (11.5-14.5) % Plt Count 256 (140-400) K/mcL MPV 11.1 (9.4-12.4) fL Immature Gran % 0.9 (0-4) % Seg Neutrophils % 88.0 % Lymphocytes % 6.8 % Monocytes % 3.2 % Eosinophils % 1.0 % Basophils % 0.1 % Neutrophils # 12.3 H (1.6-8.9) K/mcL Lymphocytes # 0.9 (0.6-4.6) K/mcL Monocytes # 0.5 (0.0-1.3) K/mcL Eosinophils # 0.1 (0.0-0.6) K/mcL Basophils # 0.0 (0.0-0.2) K/mcL PT 11.9 (9.4-12.1) Seconds INR 1.1 APTT 32.0 (26.0-36.0) Seconds Sodium 152 H (136-145) mEq/L Potassium 4.5 (3.5-5.1) mEq/L Chloride 115 H (98-107) mEq/L Carbon Dioxide 30 H (23-29) mEq/L BUN 52 H (8-23) mg/dL Creatinine 1.33 H (0.70-1.30) mg/dL Est GFR ( Amer) > 60 (> 60) Est GFR (Non-Af Amer) 52 L (> 60) BUN/Creatinine Ratio 39 H (6-26) Glucose 411 H (70-105) mg/dL POC Glucose (70-99) mg/dL Calculated Osmolality 345 H (280-300) Lactic Acid (0.5-2.2) mmol/L Calcium 10.3 (8.6-10.3) mg/dL Phosphorus 2.5 L (2.7-4.5) mg/dL Magnesium 2.6 (1.6-2.6) mg/dL Total Bilirubin 0.5 (0.3-1.0) mg/dL Direct Bilirubin 0.0 (0.0-0.2) mg/dL Indirect Bilirubin 0.5 (0.0-1.2) mg/dL AST 11 L (13-39) Units/L ALT 3 L (7-52) Units/L Alkaline Phosphatase 77 (34-104) Units/L Troponin I 0.05 H* (< 0.04) ng/mL Serum Total Protein 6.7 (6.4-8.9) g/dL Albumin 3.4 L (3.5-5.7) g/dL Globulin 3.3 (2.4-3.5) g/dL Albumin/Globulin Ratio 1.0 L (1.1-2.2) Urine Color (Yellow) Urine Clarity (Clear) Urine pH (5.0-8.0) pH Units Ur Specific [place] (1.010-1.025) Urine Protein (Neg-Trace) mg/dL Urine Glucose (UA) (Normal) mg/dL Urine Ketones (Negative) mg/dL Urine Blood (Negative) Urine Nitrite (Negative) Urine Bilirubin (Negative) Urine Urobilinogen (Normal) mg/dL Ur Leukocyte Esterase (Negative) Urine Microscopic RBC (0-3) per hpf Urine Microscopic WBC (0-3) per hpf Ur Squamous Epith Cells (None-Few) per lpf Urine Bacteria (None-Few) per hpf Hyaline Casts (None-Few) per lpf Ur Culture Indicated? (NO) 07/07/17 07/07/17 07/07/17 Range/Units 11:46 11:50 13:56 WBC (4.3-11.1) K/mcL RBC (4.19-5.50) M/mcL Hgb (12.9-16.9) g/dL Hct (37.5-50.1) % MCV (83.0-100.0) fL MCH (28.0-33.3) pg MCHC (31.6-35.5) g/dL RDW (11.5-14.5) % Plt Count (140-400) K/mcL MPV (9.4-12.4) fL Immature Gran % (0-4) % Seg Neutrophils % % Lymphocytes % % Monocytes % % Eosinophils % % Basophils % % Neutrophils # (1.6-8.9) K/mcL Lymphocytes # (0.6-4.6) K/mcL Monocytes # (0.0-1.3) K/mcL Eosinophils # (0.0-0.6) K/mcL Basophils # (0.0-0.2) K/mcL PT (9.4-12.1) Seconds INR APTT (26.0-36.0) Seconds Sodium (136-145) mEq/L Potassium (3.5-5.1) mEq/L Chloride (98-107) mEq/L Carbon Dioxide (23-29) mEq/L BUN (8-23) mg/dL Creatinine (0.70-1.30) mg/dL Est GFR ( Amer) (> 60) Est GFR (Non-Af Amer) (> 60) BUN/Creatinine Ratio (6-26) Glucose (70-105) mg/dL POC Glucose 264 H (70-99) mg/dL Calculated Osmolality (280-300) Lactic Acid 1.4 (0.5-2.2) mmol/L Calcium (8.6-10.3) mg/dL Phosphorus (2.7-4.5) mg/dL Magnesium (1.6-2.6) mg/dL Total Bilirubin (0.3-1.0) mg/dL Direct Bilirubin (0.0-0.2) mg/dL Indirect Bilirubin (0.0-1.2) mg/dL AST (13-39) Units/L ALT (7-52) Units/L Alkaline Phosphatase (34-104) Units/L Troponin I (< 0.04) ng/mL Serum Total Protein (6.4-8.9) g/dL Albumin (3.5-5.7) g/dL Globulin (2.4-3.5) g/dL Albumin/Globulin Ratio (1.1-2.2) Urine Color Yellow (Yellow) Urine Clarity Clear (Clear) Urine pH 5.0 (5.0-8.0) pH Units Ur Specific [place] > 1.030 H (1.010-1.025) Urine Protein 30 H (Neg-Trace) mg/dL Urine Glucose (UA) >=1000 H (Normal) mg/dL Urine Ketones Negative (Negative) mg/dL Urine Blood Trace H (Negative) Urine Nitrite Negative (Negative) Urine Bilirubin Negative (Negative) Urine Urobilinogen Normal (Normal) mg/dL Ur Leukocyte Esterase Negative (Negative) Urine Microscopic RBC 0-3 (0-3) per hpf Urine Microscopic WBC 0-3 (0-3) per hpf Ur Squamous Epith Cells Many H (None-Few) per lpf Urine Bacteria None Seen (None-Few) per hpf Hyaline Casts Few (None-Few) per lpf Ur Culture Indicated? NO (NO) - Radiology Data Radiology results reviewed: Yes I reviewed the patient's radiology results. Chest X-Ray 07/07/17 11:44 IMPRESSION: No acute process. 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 Pleural calcifications suggesting asbestos exposure D/ / Jayy Felipe MD / Jayy Felipe MD Interpreting Provider: Jayy Felipe MD Head CT 07/07/17 11:44 IMPRESSION: No acute intracranial abnormality. No change from April 2015 exam. 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 D/ / Waldo Russo MD / Waldo Russo MD Interpreting Provider: Waldo Russo MD - EKG Data EKG #1 EKG attestation: Yes I reviewed and interpreted this EKG. EKG results narrative: Sinus at 95. Left anterior fascicular block. Lateral T wave inversions. Left axis. QT 353 with a QTC of 405. Unchanged from EKG June 17. EKG #2 EKG attestation: Yes I reviewed and interpreted this EKG. EKG results narrative: Sinus tach 155. QRS and electrical alternates pattern. Critical Care Time Critical Care Time: Yes Total Critical Care Time: 35 Attestation: Critical care performed: Time is exclusive of separately billable procedures. Time includes: direct patient care, patient reassessment, coordination of patient care, interpretation of data (laboratory data, radiology data, and respiratory data), review of patient's medical records, medical consultation and documentation of patient care. Procedures included in critical care time: Procedures excluded from critical care time:
[2017-07-07 12:08] LABS: Bilirubin,Urine Negative (Negative); Blood,Urine Trace (Negative); Clarity,Urine Clear (Clear); Color,Urine Yellow (Yellow); Glucose,Urine (UA) >=1000 mg/dL (Normal); Ketones,Urine Negative (Negative); Leukocyte Esterase,Urine Negative (Negative); Nitrite,Urine Negative (Negative); Protein,Urine 30 mg/dL (Neg-Trace); Specific Gravity,Urine > 1.030 (1.010-1.025); Urobilinogen,Urine Normal (Normal)
[2017-07-07 12:10] LABS: Bacteria,Urine None Seen per hpf (None-Few); Hyaline Casts,Urine Few per lpf (None-Few); RBC,Urine 0-3 per hpf (0-3); Squamous Epithelial Cell,Urine Many per lpf (None-Few); WBC,Urine 0-3 per hpf (0-3)
[2017-07-07 12:18] LABS: Basophils % 0.1 %; Eosinophils # 0.1 K/mcL (0.0-0.6); Hematocrit 42.4 % (37.5-50.1); Hemoglobin 12.9 g/dL (12.9-16.9); Immature Granulocytes % 0.9 % (0-4); Lymphocytes # 0.9 K/mcL (0.6-4.6); Lymphocytes % 6.8 %; Mean Corpuscular HGB Conc 30.4 g/dL (31.6-35.5); Mean Corpuscular Hemoglobin 29.3 pg (28.0-33.3); Mean Corpuscular Volume 96.4 fL (83.0-100.0); Mean Platelet Volume 11.1 fL (9.4-12.4); Monocytes # 0.5 K/mcL (0.0-1.3); Monocytes % 3.2 %; Neutrophils # 12.3 K/mcL (1.6-8.9); Platelet Count 256 K/mcL (140-400); Red Cell Distribution Width 15.5 % (11.5-14.5)
[2017-07-07 12:34] LABS: INR 1.1; Prothrombin Time 11.9 Seconds (9.4-12.1)
[2017-07-07 12:43] LABS: Alanine Aminotransferase 3 Units/L (7-52); Albumin 3.4 g/dL (3.5-5.7); Alkaline Phosphatase 77 Units/L (34-104); Aspartate Amino Transferase 11 Units/L (13-39); BUN/Creatinine Ratio 39 (6-26); Bilirubin,Indirect 0.5 mg/dL (0.0-1.2); Bilirubin,Total 0.5 mg/dL (0.3-1.0); Blood Urea Nitrogen 52 mg/dL (8-23); Calcium 10.3 mg/dL (8.6-10.3); Carbon Dioxide 30 mEq/L (23-29); Chloride 115 mEq/L (98-107); Globulin 3.3 g/dL (2.4-3.5); Glucose 411 mg/dL (70-105); Magnesium 2.6 mg/dL (1.6-2.6); Osmolality,Calculated 345 (280-300); Phosphorous 2.5 mg/dL (2.7-4.5); Potassium 4.5 mEq/L (3.5-5.1); Sodium 152 mEq/L (136-145); Total Protein 6.7 g/dL (6.4-8.9); eGFR For African Americans > 60 (> 60); eGFR For Non-African Americans 52 (> 60)
[2017-07-07 12:45] LABS: Troponin I 0.05 ng/mL (< 0.04)
[2017-07-07] MEDS ORDERED: Insulin Human Regular 10 UNIT in 0.9 % Sodium Chloride 10 ML IV ONE (12:50)
[2017-07-07] MEDS ORDERED: 0.9 % Sodium Chloride 1,000 ML IVC SCH (13:00)
[2017-07-07] MEDS ORDERED: 0.9 % Sodium Chloride 1,000 ML ONE (13:05)
[2017-07-07] MEDS ORDERED: Aspirin 325 MG TABLET PO ONE (13:41)
[2017-07-07] MEDS ORDERED: *HR* Metoprolol 5 MG/5 ML VIAL IVP ONE (14:02)
[2017-07-07] MEDS ORDERED: *HR* Adenosine 6 MG/2 ML VIAL IVP ONE (14:30)
[2017-07-07] MEDS ORDERED: *HR* Adenosine 6 MG/2 ML SYRINGE IVP ONE (14:32)
[2017-07-07] MEDS ORDERED: *HR* OxyCODONE Immed Rel 5 MG TABLET PO PRN (15:13)
[2017-07-07] MEDS ORDERED: Acetaminophen 325 MG TABLET PO PRN (15:13)
[2017-07-07] MEDS ORDERED: GuaiFENesin Liq 200 MG/10 ML UDC PO PRN (15:13)
[2017-07-07] MEDS ORDERED: Ipratropium/Albuterol Neb 3 ML IH PRN (15:13)
[2017-07-07] MEDS ORDERED: Ondansetron Oral Soln 2 MG/2.5 ML ORAL.SYG PO PRN (15:13)
[2017-07-07] MEDS ORDERED: *HR* Dextrose 50 % in Water (Syg) 50 ML SYRINGE IVP PRN (15:15)
[2017-07-07] MEDS ORDERED: D5% in Water 1,000 ML IVC PRN (15:15)
[2017-07-07] MEDS ORDERED: Dextrose Gel 15 GM/37.5 ML TUBE PO PRN ×2 (15:15)
[2017-07-07] MEDS ORDERED: Naloxone 0.4 MG/ML INJ IVP PRN (15:16)
--- NOTE | 2017-07-07 15:32 | Internal Med History&Physical ---
<Nahomy Mckeon - Last Filed: 07/07/17 16:56> Date of Encounter: 07/07/17 Internal Medicine - H&P: HPI History of present illness: Mr. Bauer is a 81 year old male Internal Medicine - H&P: Meds Amino AC/Whey Prot Conc, Isol [Whey Protein Powder] 1 each PO DAILY 06/18/17 [ History] Aspirin 81 mg PO DAILY 06/18/17 [History] Carbidopa/Levodopa 25/100 [Sinemet 25/100] 1 each PO TID 06/18/17 [History] Divalproex Sodium [Depakote Sprinkle] 250 mg PO TID 06/18/17 [History] Donepezil HCl [Aricept] 10 mg PO HS 06/18/17 [History] Escitalopram Oxalate Soln. 10 mg PO DAILY 06/18/17 [History] Melatonin 6 mg PO HS 06/18/17 [History] Memantine HCl 10 mg PO BID 06/18/17 [History] Mirtazapine 7.5 mg PO HS 06/18/17 [History] Multivit-Min/FA/Lycopen/Lutein [A Thru Z Select Multivit Tab] 1 each PO DAILY [History] Pimavanserin Tartrate [Nuplazid] 34 mg PO DAILY 06/18/17 [History] risperiDONE [Risperidone] 0.5 mg PO BID 06/18/17 [History] Acetaminophen [Tylenol] 650 mg PO Q4HR PRN 07/07/17 [History] DiphenhydraMINE [Benadryl] 25 mg PO Q6HR PRN 07/07/17 [History] Guaifenesin [Siltussin SA] 10 ml PO Q4H PRN 07/07/17 [History] Ipratropium/Albuterol Neb [Duoneb] 3 ml IH Q4HR PRN 07/07/17 [History] Ondansetron Oral Soln [Zofran Oral Soln] 4 mg PO Q4H PRN 07/07/17 [History] Oxycodone HCl [Oxaydo] 5 mg PO Q4H PRN 07/07/17 [History] predniSONE [PredniSONE] 30 mg PO DAILY 07/07/17 [History] 3 Allergy/AdvReac Type Severity Reaction Status Date / Time No Known Drug Allergies Allergy See Verified 07/07/17 13:19 Comments All Systems PM: A 10-system review of systems was performed and is negative for pertinent findings except as documented above in the HPI. - Constitutional Vitals: Temp Pulse Resp BP Pulse Ox 98.1 F 99 18 108/70 96 07/07/17 16:09 07/07/17 16:09 07/07/17 16:09 07/07/17 16:09 07/07/17 16:09 Internal Med - H&P Results - Labs CBC & Chem 7: 07/07/17 11:46 07/07/17 11:46 - Attending Attestation Patient was examined. at bedside. Patient has been in care home for almost 5 years for his advanced dementia. 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 Patient was on PEG tube last year but pulled out them NG tube was placed that he also pulled out eventually. Recently he got admitted in this hospital a few weeks ago for sepsis and after treating sent back to the care home. As per family patient has not been much active and lying into the bed and not eating drinking much since after the discharge. Continue IV hydration with half normal saline 100 mL per hour. Will consult elevator repairer apprentice possibly tomorrow morning. Patient may need NG tube for free water and further feeding as family also want this. patient is full code but who is also power of assistant attorney general wants to wait for other family members to rediscuss about CODE STATUS. - Assessment and plan (1) Leukocytosis Current Visit: No Status: Acute Qualifiers: Leukocytosis type: unspecified Qualified Code(s): D72.829 - Elevated white blood cell count, unspecified (2) DVT prophylaxis Current Visit: No Status: Acute (3) Altered mental status Current Visit: Yes Status: Acute Qualifiers: Altered mental status type: delirium Qualified Code(s): R41.0 - Disorientation, unspecified (4) Hypernatremia Current Visit: Yes Status: Acute (5) Dehydration Current Visit: Yes Status: Acute (6) Hyperglycemia Current Visit: Yes Status: Acute (7) Acute kidney injury Current Visit: Yes Status: Acute (8) Atrial flutter Current Visit: Yes Status: Acute Qualifiers: Atrial flutter type: atypical Qualified Code(s): I48.4 - Atypical atrial flutter (9) Elevated troponin Current Visit: Yes Status: Acute - Time Spent With Patient Total time spent is greater than 50% in coordination of care (as documented) at patient's floor/unit and/or counseling patient: <Valeria Pelletier - Last Filed: 07/07/17 17:03> Date of Encounter: 07/07/17 Time of Encounter: 15:27 Internal Medicine - H&P: HPI Admitted From: Long-term Nursing Facility Plans for Post Hospital Care: Transfer [facility]way Facility History of present illness: Mr. Bauer is a 81 year old male presented to the ED with a chief complaint of weakness and altered mental status. Patient recently seen here and admitted for sepsis per EMS. The patient is altered at baseline and unable to provide any history. Per EMS he was recently admitted here and treated for sepsis. He has been weak at the care home. There was appeared today when he thought he was poorly responsive. They were concerned for sepsis and they were unable to place an IV to hydrate himself sent him here for hydration and further workup. Patient is able to answer questions yes or no and answers no if he is not any pain. Patient has a PEG tube in the past which he had pulled out. A NG tube was placed at the care home but patient pulled it out too. custodial staff tried to feed him, but he has trouble swallowing all the time. At the ED, labs revealed elevated sodium and the creatinine. He was also found to be tachycardia, which EKG showed possible a flutter. Cardiology was consulted. Cardizem drip was started after IV bolus. Patient will be admitted as inpatient for further management. 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 Review of systems: REVIEW OF SYSTEMS: CONSTITUTIONAL: No weight loss, fever, chills, weakness or fatigue. HEENT: Eyes: No visual loss, blurred vision, double vision or yellow sclerae. Ears, Nose, Throat: No hearing loss, sneezing, congestion, runny nose or sore throat. SKIN: No rash or itching. CARDIOVASCULAR: No chest pain, chest pressure or chest discomfort. No palpitations or edema. RESPIRATORY: No shortness of breath, cough or sputum. GASTROINTESTINAL: No anorexia, nausea, vomiting or diarrhea. No abdominal pain or blood. GENITOURINARY: No dysuria, urgency, or frequency. NEUROLOGICAL: No headache, dizziness, syncope, paralysis, ataxia, numbness or tingling in the extremities. No change in bowel or bladder control. MUSCULOSKELETAL: No muscle, back pain, joint pain or stiffness. HEMATOLOGIC: No anemia, bleeding or bruising. LYMPHATICS: No enlarged nodes. No history of splenectomy. PSYCHIATRIC: No history of depression or anxiety. ENDOCRINOLOGIC: No reports of sweating, cold or heat intolerance. No polyuria or polydipsia. - Constitutional Vitals: Temp Pulse Resp BP Pulse Ox 97.5 F L 158 18 107/76 98 07/07/17 11:51 07/07/17 15:00 07/07/17 15:00 07/07/17 15:00 07/07/17 15:00 General appearance: Present: A&O X 1 Exam: PHYSICAL EXAMINATION: GENERAL APPEARANCE: The patient is alert, in no acute distress. HEENT: Head is normocephalic. The sinuses are nontender. Pupils are equal and reactive. The nares are patent. Oropharynx clear without lesions. NECK: Supple without lymphadenopathy. HEART: Regular rate and rhythm. LUNGS: No crackles or wheezes are heard. ABDOMEN: Soft, nontender, nondistended with good bowel sounds heard. Inguinal area is normal. EXTREMITIES: Without cyanosis, clubbing or edema. NEUROLOGICAL: Gross nonfocal. SKIN: Warm and dry without any rash. Internal Med - H&P Results - Labs CBC & Chem 7: 07/07/17 11:46 07/07/17 11:46 - Assessment and plan (1) Dehydration Current Visit: Yes Status: Acute Assessment and plan: 81-year-old male with dementia and dysphagia, history of NG/PEG placement, presented from care home because of severe dehydration and acute renal failure, was found having a flutter with 2-1 conduction. - We will place NG, will hydrate the patient with free water 3 times a day, check BMP every 8 hours, not to correct sodium too fast. - Discussed with the family about regions and PEG tube, they are currently debating. - May start tube feeding if hypernatremia corrected. (2) Acute kidney injury Current Visit: Yes Status: Acute Assessment and plan: - Patient baseline creatinine less than 1, etiology likely prerenal renal failure. - Continue hydration with NG tube, continue IV fluid with 0.45 saline. - Repeat BMP in a.m. (3) Atrial flutter Current Visit: Yes Status: Acute Assessment and plan: - EKG revealed tachycardia with heart rate around 150, cardiology was consult, thought it is likely atrial flutter was 2-1 conduction, received Cardizem bolus followed by Cardizem drip. - Continue IV and oral hydration. Pending TSH. - Anticoagulation not started at this time, discussed with family about the necessity, they are currently debating. Qualifiers: Atrial flutter type: atypical Qualified Code(s): I48.4 - Atypical atrial flutter (4) Hypernatremia Current Visit: Yes Status: Acute Assessment and plan: - Etiology likely severe dehydration, continue oral and IV hydration, check BMP every 8 hours, cautious not to correct too fast. (5) Altered mental status Current Visit: Yes Status: Acute Assessment and plan: - Likely due to dehydration. Qualifiers: Altered mental status type: delirium Qualified Code(s): R41.0 - Disorientation, unspecified (6) Leukocytosis Current Visit: No Status: Acute Assessment and plan: - No signs of infection, likely due to recent started on steroids. Qualifiers: Leukocytosis type: unspecified Qualified Code(s): D72.829 - Elevated white blood cell count, unspecified (7) Elevated troponin Current Visit: Yes Status: Acute Assessment and plan: - Likely due to dehydration, cycle troponin. (8) Hyperglycemia Current Visit: Yes Status: Acute Assessment and plan: - Likely due to steroids, continue insulin sliding scale. (9) DVT prophylaxis Current Visit: No Status: Acute Assessment and plan: Heparin subcutaneous. - Time Spent With Patient Total time spent is greater than 50% in coordination of care (as documented) at patient's floor/unit and/or counseling patient: Greater than 35 minutes
[2017-07-07 17:03] LABS: BUN/Creatinine Ratio 43 (6-26); Blood Urea Nitrogen 47 mg/dL (8-23); Calcium 9.5 mg/dL (8.6-10.3); Carbon Dioxide 28 mEq/L (23-29); Chloride 122 mEq/L (98-107); Glucose 216 mg/dL (70-105); Osmolality,Calculated 341 (280-300); Potassium 3.9 mEq/L (3.5-5.1); Sodium 156 mEq/L (136-145); eGFR For African Americans > 60 (> 60); eGFR For Non-African Americans > 60 (> 60)
[2017-07-07] MEDS: *HR* Heparin 5,000 UNIT/ML VIAL SQ SCH (18:14)
[2017-07-07] MEDS: Insulin LISPRO 300 UNITS/3 ML VIAL SQ SCH (20:14)
[2017-07-07] MEDS: Carbidopa/Levodopa 25/100 TABLET PO SCH (20:14)
[2017-07-07] MEDS: Melatonin 3 MG TABLET PO SCH (20:15)
[2017-07-07] MEDS: risperiDONE 0.25 MG TABLET PO SCH (20:15)
[2017-07-07] MEDS: Mirtazapine 15 MG TABLET PO SCH (20:15)
[2017-07-07] MEDS: Divalproex Sodium 125 MG CAPSULE PO SCH (20:15)
[2017-07-07 23:34] LABS: BUN/Creatinine Ratio 43 (6-26); Blood Urea Nitrogen 43 mg/dL (8-23); Calcium 8.9 mg/dL (8.6-10.3); Carbon Dioxide 25 mEq/L (23-29); Chloride 121 mEq/L (98-107); Glucose 258 mg/dL (70-105); Osmolality,Calculated 336 (280-300); Potassium 3.8 mEq/L (3.5-5.1); Sodium 153 mEq/L (136-145); eGFR For African Americans > 60 (> 60); eGFR For Non-African Americans > 60 (> 60)
[2017-07-08] MEDS: Insulin LISPRO 300 UNITS/3 ML VIAL SQ SCH ×5 (00:12→21:12)
[2017-07-08] MEDS: *HR* Heparin 5,000 UNIT/ML VIAL SQ SCH ×2 (05:23→17:09)
[2017-07-08 05:53] LABS: Basophils % 0.3 %; Eosinophils # 0.2 K/mcL (0.0-0.6); Eosinophils % 2.3 %; Hematocrit 33.4 % (37.5-50.1); Lymphocytes # 1.9 K/mcL (0.6-4.6); Lymphocytes % 18.4 %; Mean Corpuscular HGB Conc 31.7 g/dL (31.6-35.5); Mean Corpuscular Hemoglobin 30.9 pg (28.0-33.3); Mean Corpuscular Volume 97.4 fL (83.0-100.0); Mean Platelet Volume 10.6 fL (9.4-12.4); Monocytes # 0.5 K/mcL (0.0-1.3); Monocytes % 4.8 %; Neutrophils # 7.4 K/mcL (1.6-8.9); Platelet Count 204 K/mcL (140-400); Red Blood Count 3.43 M/mcL (4.19-5.50); Red Cell Distribution Width 15.1 % (11.5-14.5); Segmented Neutrophils % 73.2 %
--- NOTE | 2017-07-08 06:14 | Electrocardiograph Report ---
[facility] [employer] Text Test Date: 2017-07-07 Pat Name: Caleb Bauer Department: 103 Room: 2A31 Gender: M Retrieval Specialist: : 1935 Requested By: Larisa See Order Number: [id number] Reading MD: Waldo Watson Measurements Intervals [place] Rate: 95 P: -72 OK: 116 QRS: -48 QRSD: 96 T: 107 QT: 353 QTc: 405 Interpretive Statements Ectopic atrial rhythm LEFT ANTERIOR FASCICULAR BLOCK [QRS AXIS <= -45, QR IN I, RS IN II] LEFT VENTRICULAR HYPERTROPHY AND ST-T CHANGE [VOLTAGE CRITERIA PLUS ST/T ABNORMALITY] WARNING: DATA QUALITY MAY AFFECT INTERPRETATION Electronically Signed On 07-08-2017 6:13:20 EDT by Waldo Watson
[2017-07-08 06:17] LABS: BUN/Creatinine Ratio 44 (6-26); Blood Urea Nitrogen 42 mg/dL (8-23); Calcium 8.9 mg/dL (8.6-10.3); Carbon Dioxide 26 mEq/L (23-29); Chloride 123 mEq/L (98-107); Glucose 82 mg/dL (70-105); Osmolality,Calculated 328 (280-300); Potassium 3.5 mEq/L (3.5-5.1); Sodium 154 mEq/L (136-145); eGFR For African Americans > 60 (> 60); eGFR For Non-African Americans > 60 (> 60)
[2017-07-08 06:21] LABS: Hemoglobin 10.6 g/dL (12.9-16.9)
[2017-07-08] MEDS ORDERED: *HR* OxyCODONE Immed Rel 5 MG TABLET PO PRN (07:37)
[2017-07-08] MEDS ORDERED: Acetaminophen 325 MG TABLET PO PRN (07:37)
[2017-07-08] MEDS ORDERED: [UNRECOGNIZED DRUG - OTHER] PO SCH (09:00)
[2017-07-08] MEDS ORDERED: AMINO AC PO SCH (09:00)
[2017-07-08] MEDS ORDERED: predniSONE 10 MG TABLET PO SCH (09:00)
[2017-07-08] MEDS: Aspirin 81 MG TAB.CHEW PO SCH (10:08)
[2017-07-08] MEDS: Carbidopa/Levodopa 25/100 TABLET PO SCH ×3 (10:08→21:15)
[2017-07-08] MEDS: risperiDONE 0.25 MG TABLET PO SCH ×2 (10:08→21:14)
[2017-07-08] MEDS: Multivit/Ca/Min/Fe/FA 1 TAB TABLET PO SCH (10:08)
[2017-07-08] MEDS: Divalproex Sodium 125 MG CAPSULE PO SCH ×3 (10:09→21:14)
--- NOTE | 2017-07-08 10:21 | Nephrology Consult Note ---
Date of Encounter: 07/08/17 Time of Encounter: 10:02 Assessment and Plan (1) Hypernatremia Current Visit: Yes Status: Acute Na+ now 154 D5 in water ordered by hospitalist-not hung yet. Agree with D5 Will monitor Na+ as patient is rehydrated (2) Altered mental status Current Visit: Yes Status: Acute per primary team Qualifiers: Altered mental status type: delirium Qualified Code(s): R41.0 - Disorientation, unspecified (3) Goals of care, counseling/discussion Current Visit: Yes Status: Acute Spoke with hospitalist Dr Espinoza who is going to have a family meeting to discuss Goals of Care Patient may be a candidate for palliative care History of Present Illness - Reason for Consult Consult date: 07/08/17 - Chief Complaint Hypernatremia, dehydration - History of Present Illness Mr. Bauer is a 81 year old male with a PMH of COPD, demenita, arthritis who presented to the ED with a chief complaint of weakness and altered mental status. Patient recently seen here and admitted for sepsis. The patient is altered at baseline and unable to provide any history. Patient has a PEG tube in the past which he had pulled out. A NG tube was placed at the retirement but patient pulled it out too. [facility] staff tried to feed him, but he has trouble swallowing all the time. At the ED, labs revealed elevated sodium and nephrology has been consulted to manage patient's hypernatremia. 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 10 mg PO DAILY 06/18/17 [History] Melatonin 6 mg PO HS 06/18/17 [History] Memantine HCl 10 mg PO BID 06/18/17 [History] Mirtazapine 7.5 mg PO HS 06/18/17 [History] Multivit-Min/FA/Lycopen/Lutein [A Thru Z Select Multivit Tab] 1 each PO DAILY [History] Pimavanserin Tartrate [Nuplazid] 34 mg PO DAILY 06/18/17 [History] risperiDONE [Risperidone] 0.5 mg PO BID 06/18/17 [History] Acetaminophen [Tylenol] 650 mg PO Q4HR PRN 07/07/17 [History] DiphenhydraMINE [Benadryl] 25 mg PO Q6HR PRN 07/07/17 [History] Guaifenesin [Siltussin SA] 10 ml PO Q4H PRN 07/07/17 [History] Ipratropium/Albuterol Neb [Duoneb] 3 ml IH Q4HR PRN 07/07/17 [History] Ondansetron Oral Soln [Zofran Oral Soln] 4 mg PO Q4H PRN 07/07/17 [History] Oxycodone HCl [Oxaydo] 5 mg PO Q4H PRN 07/07/17 [History] predniSONE [PredniSONE] 30 mg PO DAILY 07/07/17 [History] 3 Allergy/AdvReac Type Severity Reaction Status Date / Time No Known Drug Allergies Allergy See Verified 07/07/17 13:19 Comments Review of Systems All Systems: reviewed and no additional remarkable complaints except as stated Constitutional: daytime sleepiness, fatigue, lethargy Cardiovascular: no leg edema Respiratory: no cough, no dyspnea Neurological: behavioral changes, confusion Exam - Vital Signs Vital signs: Initial Vital Signs Temp Pulse Resp BP Pulse Ox 97.5 F L 98 20 130/90 95 07/07/17 11:51 07/07/17 11:51 07/07/17 11:51 07/07/17 11:51 07/07/17 11:51 Vital Signs - Last 8 Hours Temp Pulse Resp BP Pulse Ox 07/08/17 07:24 97.9 F 82 16 117/69 95 07/08/17 04:11 97.9 F 77 16 102/67 93 07/08/17 02:49 98.2 F 71 16 92/58 94 Intake and Output 07/07/17 07/08/17 07/08/17 23:59 07:59 15:59 Intake Total 150 / 150 745 / 745 Output Total 0 / 0 Balance 150 / 150 745 / 745 Intake: IV Fluids 745 / 745 0.45% Sodium Chloride 1000 Ml 700 / 700 1000 Ml 1,000 ML @ 100 mls/hr IVC .Q10H [facility] Rx#:[id number] Cardizem 125 MG In 0.9 % Sodium 45 / 45 Chloride 100 ML @ 5 MG/HR 5 mls/hr IVC .Q24H [facility] Rx#: [id number] Oral 150 / 150 0 / 0 Output: Urine 0 / 0 Other: Meal PUDDING WITH MEDS # Urine Diapers 1 1 1 Weight 72.9 kg 73.1 kg Blood Glucose* 225 131 Patient Weight 07/08/17 23:59 Weight 73.1 kg - General Appearance General appearance: cachectic EENT: ATNC Neck: supple Respiratory: clear Cardiology: no edema, normal S1, normal S2 Gastrointestinal: no tenderness, no guarding Neurologic: confused, aphasic Results - Lab Results 07/08/17 05:38 07/08/17 05:38 Most recent lab results Calcium 8.9 mg/dL (8.6-10.3) 07/08/17 05:38 Phosphorus 2.5 mg/dL (2.7-4.5) L 07/07/17 11:46 Magnesium 2.6 mg/dL (1.6-2.6) 07/07/17 11:46 Consult Discharge Plan - Plan Referrals: NONE,PCP [Primary Care Provider] -
[2017-07-08] MEDS: PIMAVANSERIN TARTRATE 17 MG PO SCH (11:06)
[2017-07-08] MEDS: D5% in Water 1,000 ML IVC SCH (13:28)
--- NOTE | 2017-07-08 14:54 | Internal Med Progress Note ---
Date of Encounter: 07/08/17 Time of Encounter: 11:15 - Assessment and plan (1) Hypernatremia Current Visit: Yes Status: Acute Assessment and plan: due to severe dehydration Worsening Na this AM changed IVF to D5 water frequent BMP check Nephro consulted (2) Atrial flutter Current Visit: Yes Status: Acute Assessment and plan: Resolved now in NSR off the Cardizem gtt trop stable @ 0.06 reviewed 2 D Echo from 06/21/17 - preserved LVEF, no septal / wall motion abnormality no need to repeat 2 D Echo started him on low dose Metoprolol not a good candidate for anti coag Qualifiers: Atrial flutter type: atypical Qualified Code(s): I48.4 - Atypical atrial flutter (3) Failure to thrive Current Visit: Yes Status: Acute Assessment and plan: overall poor prognosis will check prealbumin will tlak to family about reinserting PEG tube vs comfort care 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 Cont IVF (5) Altered mental status Current Visit: Yes Status: Acute Assessment and plan: Mostly due to metabolic encephaloapthy with dehydration also due to his advanced dementia Qualifiers: Altered mental status type: delirium Qualified Code(s): R41.0 - Disorientation, unspecified (6) Leukocytosis Current Visit: No Status: Acute Assessment and plan: No signs of infection, likely due to recent steroids and stress induced no need f abx Qualifiers: Leukocytosis type: unspecified Qualified Code(s): D72.829 - Elevated white blood cell count, unspecified (7) DVT prophylaxis Current Visit: No Status: Acute Assessment and plan: Heparin subcutaneous. (8) Dehydration Current Visit: Yes Status: Acute Assessment and plan: IV hydration (9) Hyperglycemia Current Visit: Yes Status: Acute Assessment and plan: - Likely due to steroids, continue insulin sliding scale. (10) Elevated troponin Current Visit: Yes Status: Acute Assessment and plan: Due to demand ischemica due to atrial flutter stable trop @ 0.06 no acute EKG changes (11) Dementia Current Visit: Yes Status: Acute Assessment and plan: advanced dementia cont risperidone Qualifiers: Dementia type: Alzheimer's disease Alzheimer's disease onset: late-onset Dementia behavioral disturbance: without behavioral disturbance Qualified Code (s): G30.1 - Alzheimer's disease with late onset; F02.80 - Dementia in other diseases classified elsewhere without behavioral disturbance - Time Spent With Patient Total time spent is greater than 50% in coordination of care (as documented) at patient's floor/unit and/or counseling patient: - Subjective Interval history: Mr. Bauer is a 81 year old male with a PMH of COPD, demenita, arthritis who presented to the ED with a chief complaint of weakness and altered mental status. Patient recently seen here and admitted for sepsis. The patient is altered at baseline and unable to provide any history. Patient has a PEG tube in the past which he had pulled out. A NG tube was placed at the half-way but patient pulled it out too. halfway staff tried to feed him, but he has trouble swallowing all the time. At the ED, labs revealed elevated sodium and Creatinine. Pt was admitted here for failure to thrive, dehydration and hypernatremia. Pt is alert, awake and lethargic. Looks confused and demented. Unable to provide me any history. - Constitutional Vitals: Temp Pulse Resp BP Pulse Ox 98.4 F 78 16 116/70 95 07/08/17 11:30 07/08/17 11:30 07/08/17 11:30 07/08/17 11:30 07/08/17 07:24 General appearance: Present: cooperative, A&O X 1, no acute distress - Head Head exam: Present: atraumatic, normal inspection - Neck Neck exam general surgery: Present: supple - Respiratory Respiratory exam: Present: decreased breath sounds. Absent: rales, respiratory distress, rhonchi, wheezes - Cardiovascular Cardiovascular exam: Present: RRR, +S1, +S2. Absent: tachycardia - GI/Abdominal GI/Abdominal exam: Present: normal bowel sounds, soft. Absent: rigid, tenderness - Extremities Exam Extremities exam: Absent: calf tenderness, pedal edema, tenderness - Back Exam Back exam: Absent: CVA tenderness (L), CVA tenderness (R) - Neurological Exam Neurological exam: Present: alert, altered - Psychiatric Psychiatric exam: Present: depressed Internal Medicine: Result - Labs CBC & Chem 7: 07/08/17 05:38 07/08/17 05:38 Labs: Short CBC 07/08/17 Range/Units 05:38 WBC 10.1 (4.3-11.1) K/mcL Hgb 10.6 L D (12.9-16.9) g/dL Hct 33.4 L (37.5-50.1) % Plt Count 204 (140-400) K/mcL Neutrophils # 7.4 (1.6-8.9) K/mcL BMP 07/07/17 07/07/17 07/08/17 15:55 23:03 05:38 Sodium 156 H 153 H 154 H Potassium 3.9 3.8 3.5 Chloride 122 H 121 H 123 H Carbon Dioxide 28 25 26 BUN 47 H 43 H 42 H Creatinine 1.09 1.01 0.96 Glucose 216 H 258 H 82 Calcium 9.5 8.9 8.9 Cardiac Enzymes 07/07/17 07/07/17 07/08/17 Range/Units 17:32 23:03 05:38 Troponin I 0.06 H* 0.05 H* 0.06 H* (< 0.04) ng/mL - ABG Interpretation ABG results: PT/INR, D-dimer PT 11.9 Seconds (9.4-12.1) 07/07/17 11:46 Consult Discharge Plan - Plan Referrals: NONE,PCP [Primary Care Provider] -
--- NOTE | 2017-07-08 16:10 | Electrocardiograph Report ---
[place] [id number] Test Date: 2017-07-07 Pat Name: Caleb Bauer Department: 103 Room: 2A Gender: M Nut Chopper: : 1935 Requested By: Larisa See Order Number: [id number] Reading MD: Desean Mejía Measurements Intervals [place] Rate: 155 P: ID: 0 QRS: -54 QRSD: 112 T: 89 QT: 296 QTc: 383 Interpretive Statements POSSIBLE BIDIRECTIONAL VT VS. ELECTRICAL ALTERNANS INCOMPLETE RIGHT BUNDLE BRANCH BLOCK LEFT ANTERIOR FASCICULAR BLOCK LEFT VENTRICULAR HYPERTROPHY AND ST-T CHANGE Electronically Signed On 07-08-2017 16:09:04 EDT by Desean Mejía
[2017-07-08 16:55] LABS: BUN/Creatinine Ratio 42 (6-26); Blood Urea Nitrogen 43 mg/dL (8-23); Carbon Dioxide 26 mEq/L (23-29); Chloride 117 mEq/L (98-107); Glucose 292 mg/dL (70-105); Osmolality,Calculated 338 (280-300); Potassium 4.4 mEq/L (3.5-5.1); Sodium 153 mEq/L (136-145); eGFR For African Americans > 60 (> 60); eGFR For Non-African Americans > 60 (> 60)
[2017-07-08] MEDS: Melatonin 3 MG TABLET PO SCH (21:15)
[2017-07-08] MEDS: Mirtazapine 15 MG TABLET PO SCH (21:15)
[2017-07-09] MEDS: *HR* Heparin 5,000 UNIT/ML VIAL SQ SCH ×2 (05:32→16:52)
[2017-07-09 05:48] LABS: Basophils % 0.2 %; Eosinophils % 0.4 %; Hematocrit 34.8 % (37.5-50.1); Hemoglobin 10.7 g/dL (12.9-16.9); Immature Granulocytes % 1.2 % (0-4); Lymphocytes # 1.5 K/mcL (0.6-4.6); Lymphocytes % 15.1 %; Mean Corpuscular HGB Conc 30.7 g/dL (31.6-35.5); Mean Corpuscular Hemoglobin 29.6 pg (28.0-33.3); Mean Corpuscular Volume 96.1 fL (83.0-100.0); Mean Platelet Volume 10.8 fL (9.4-12.4); Monocytes # 0.4 K/mcL (0.0-1.3); Neutrophils # 7.6 K/mcL (1.6-8.9); Platelet Count 177 K/mcL (140-400); Red Blood Count 3.62 M/mcL (4.19-5.50); Red Cell Distribution Width 14.9 % (11.5-14.5); Segmented Neutrophils % 79.1 %
[2017-07-09 06:06] LABS: BUN/Creatinine Ratio 44 (6-26); Blood Urea Nitrogen 39 mg/dL (8-23); Calcium 8.4 mg/dL (8.6-10.3); Carbon Dioxide 27 mEq/L (23-29); Chloride 116 mEq/L (98-107); Glucose 316 mg/dL (70-105); Magnesium 1.9 mg/dL (1.6-2.6); Osmolality,Calculated 329 (280-300); Potassium 3.9 mEq/L (3.5-5.1); Sodium 149 mEq/L (136-145); eGFR For African Americans > 60 (> 60); eGFR For Non-African Americans > 60 (> 60)
[2017-07-09] MEDS: D5% in Water 1,000 ML IVC SCH ×2 (06:34→20:47)
--- NOTE | 2017-07-09 07:08 | Event Note ---
Date of Encounter: 07/09/17 Time of Encounter: 07:06 Nephrology Chart Review I reviewed his chart and see that the hypernatremia is nicely correcting with free water to 149. Continue. No new recommendations. Will sign-off. Thank you for having consulted the [facility] group. Please feel free to call or page with questions.
[2017-07-09] MEDS: predniSONE 20 MG TABLET PO SCH (08:07)
[2017-07-09] MEDS: Carbidopa/Levodopa 25/100 TABLET PO SCH ×3 (08:07→20:49)
[2017-07-09] MEDS: Divalproex Sodium 125 MG CAPSULE PO SCH ×3 (08:07→20:49)
[2017-07-09] MEDS: risperiDONE 0.25 MG TABLET PO SCH ×2 (08:07→20:49)
[2017-07-09] MEDS: Insulin LISPRO 300 UNITS/3 ML VIAL SQ SCH ×4 (08:08→20:53)
[2017-07-09] MEDS: Multivit/Ca/Min/Fe/FA 1 TAB TABLET PO SCH (08:08)
[2017-07-09] MEDS: Aspirin 81 MG TAB.CHEW PO SCH (08:08)
[2017-07-09] MEDS: PIMAVANSERIN TARTRATE 17 MG PO SCH (08:09)
--- NOTE | 2017-07-09 13:47 | Internal Med Progress Note ---
Date of Encounter: 07/09/17 Time of Encounter: 11:00 - Assessment and plan (1) Hypernatremia Current Visit: Yes Status: Acute Assessment and plan: due to severe dehydration Improving slowly with IVF D5 water Cont same fluids for now frequent BMP check Nephro consulted (2) Atrial flutter Current Visit: Yes Status: Acute Assessment and plan: Resolved now in NSR off the Cardizem gtt trop stable @ 0.06 reviewed 2 D Echo from 06/21/17 - preserved LVEF, no septal / wall motion abnormality no need to repeat 2 D Echo Cont on low dose Metoprolol not a good candidate for anti coag Qualifiers: Atrial flutter type: atypical Qualified Code(s): I48.4 - Atypical atrial flutter (3) Failure to thrive Current Visit: Yes Status: Acute Assessment and plan: overall poor prognosis pre albumin level @ 14.7 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 will consult GI for further eval Qualifiers: Failure to thrive age range: in adult Qualified Code(s): R62.7 - Adult failure to thrive (4) Acute kidney injury Current Visit: Yes Status: Acute Assessment and plan: likely prerenal renal failure Improved Cont IVF (5) Altered mental status Current Visit: Yes Status: Acute Assessment and plan: Mostly due to metabolic encephaloapthy with dehydration also due to his advanced dementia Qualifiers: Altered mental status type: delirium Qualified Code(s): R41.0 - Disorientation, unspecified (6) Leukocytosis Current Visit: No Status: Acute Assessment and plan: No signs of infection, likely due to recent steroids and stress induced no need f abx Qualifiers: Leukocytosis type: unspecified Qualified Code(s): D72.829 - Elevated white blood cell count, unspecified (7) DVT prophylaxis Current Visit: No Status: Acute Assessment and plan: Heparin subcutaneous. (8) Dehydration Current Visit: Yes Status: Acute Assessment and plan: IV hydration (9) Hyperglycemia Current Visit: Yes Status: Acute Assessment and plan: Likely due to steroids, continue insulin sliding scale. (10) Elevated troponin Current Visit: Yes Status: Acute Assessment and plan: Due to demand ischemica due to atrial flutter stable trop @ 0.06 no acute EKG changes (11) Dementia Current Visit: Yes Status: Acute Assessment and plan: advanced dementia cont risperidone Qualifiers: Dementia type: Alzheimer's disease Alzheimer's disease onset: late-onset Dementia behavioral disturbance: without behavioral disturbance Qualified Code (s): G30.1 - Alzheimer's disease with late onset; F02.80 - Dementia in other diseases classified elsewhere without behavioral disturbance - Time Spent With Patient Total time spent is greater than 50% in coordination of care (as documented) at patient's floor/unit and/or counseling patient: - Subjective Interval history: Mr. Bauer is a 81 year old male with a PMH of COPD, demenita, arthritis who presented to the ED with a chief complaint of weakness and altered mental status. Patient recently seen here and admitted for sepsis. The patient is altered at baseline and unable to provide any history. Patient has a PEG tube in the past which he had pulled out. A NG tube was placed at the halfway but patient pulled it out too. senior living staff tried to feed him, but he has trouble swallowing all the time. At the ED, labs revealed elevated sodium and Creatinine. Pt was admitted here for failure to thrive, dehydration and hypernatremia. Pt is more sleepy and lethargic today. Looks confused and demented. Unable to provide me any history. Talked to pt's and daughter at bed side y/d. - Constitutional Vitals: Temp Pulse Resp BP Pulse Ox 97.2 F L 59 16 107/64 97 07/09/17 11:29 07/09/17 11:29 07/09/17 11:29 07/09/17 11:29 07/09/17 11:29 General appearance: Present: cachectic, A&O X 1, no acute distress, underweight Exam: very lethargic - Head Head exam: Present: atraumatic, normal inspection - Neck Neck exam general surgery: Present: supple - Respiratory Respiratory exam: Present: decreased breath sounds. Absent: rales, respiratory distress, rhonchi, wheezes - Cardiovascular Cardiovascular exam: Present: RRR, +S1, +S2. Absent: tachycardia - GI/Abdominal GI/Abdominal exam: Present: normal bowel sounds, soft. Absent: rebound, rigid, tenderness - Extremities Exam Extremities exam: Absent: calf tenderness, pedal edema, tenderness - Back Exam Back exam: Absent: CVA tenderness (L), CVA tenderness (R) - Neurological Exam Neurological exam: Present: altered - Psychiatric Psychiatric exam: Present: depressed Additional comments: sleepy and lethargic Internal Medicine: Result - Labs CBC & Chem 7: 07/09/17 05:14 07/09/17 05:14 Labs: Short CBC 07/09/17 Range/Units 05:14 WBC 9.6 (4.3-11.1) K/mcL Hgb 10.7 L (12.9-16.9) g/dL Hct 34.8 L (37.5-50.1) % Plt Count 177 (140-400) K/mcL Neutrophils # 7.6 (1.6-8.9) K/mcL BMP 07/08/17 07/09/17 15:54 05:14 Sodium 153 H 149 H Potassium 4.4 D 3.9 Chloride 117 H 116 H Carbon Dioxide 26 27 BUN 43 H 39 H Creatinine 1.02 0.88 Glucose 292 H 316 H Calcium 9.0 8.4 L - ABG Interpretation ABG results: PT/INR, D-dimer PT 11.9 Seconds (9.4-12.1) 07/07/17 11:46 Consult Discharge Plan - Plan Referrals: NONE,PCP [Primary Care Provider] - (From [facility])
[2017-07-09] MEDS ORDERED: D5% in Water 1,000 ML IVC SCH (20:42)
[2017-07-09] MEDS ORDERED: Insulin LISPRO 300 UNITS/3 ML VIAL SQ ONE (20:44)
[2017-07-09] MEDS: Mirtazapine 15 MG TABLET PO SCH (20:49)
[2017-07-09] MEDS: Melatonin 3 MG TABLET PO SCH (20:49)
--- NOTE | 2017-07-09 22:48 | Electrocardiograph Report ---
[place] [id number] Test Date: 2017-07-07 Pat Name: Caleb Bauer Department: 103 Room: 2A31 Gender: M [employer] Professional: EKP : [id number] Requested By: Larisa See Order Number: [id number] Reading MD: Judy Mejía Measurements Intervals [place] Rate: 153 P: [place]: 0 QRS: -33 QRSD: 107 T: 132 QT: 292 QTc: 379 Interpretive Statements ATRIAL FLUTTER WITH RAPID VENTRICULAR RESPONSE MARKED LEFT AXIS DEVIATION [QRS AXIS < -30] POSSIBLE RIGHT VENTRICULAR CONDUCTION DELAY [RSR (QR) IN V1/V2] LEFT VENTRICULAR HYPERTROPHY AND ST-T CHANGE [VOLTAGE CRITERIA PLUS ST/T ABNORMALITY] Electronically Signed On 07-09-2017 22:47:07 EDT by Judy Mejía
[2017-07-10 04:44] LABS: BUN/Creatinine Ratio 43 (6-26); Blood Urea Nitrogen 29 mg/dL (8-23); Calcium 8.4 mg/dL (8.6-10.3); Carbon Dioxide 26 mEq/L (23-29); Chloride 111 mEq/L (98-107); Glucose 152 mg/dL (70-105); Magnesium 1.9 mg/dL (1.6-2.6); Osmolality,Calculated 307 (280-300); Potassium 3.8 mEq/L (3.5-5.1); Sodium 144 mEq/L (136-145); eGFR For African Americans > 60 (> 60); eGFR For Non-African Americans > 60 (> 60)
[2017-07-10] MEDS: *HR* Heparin 5,000 UNIT/ML VIAL SQ SCH ×2 (05:13→17:22)
[2017-07-10] MEDS: predniSONE 20 MG TABLET PO SCH (08:41)
[2017-07-10] MEDS: Multivit/Ca/Min/Fe/FA 1 TAB TABLET PO SCH (08:41)
[2017-07-10] MEDS: Insulin LISPRO 300 UNITS/3 ML VIAL SQ SCH ×4 (08:41→19:59)
[2017-07-10] MEDS: Divalproex Sodium 125 MG CAPSULE PO SCH ×3 (08:41→19:57)
[2017-07-10] MEDS: risperiDONE 0.25 MG TABLET PO SCH ×2 (08:41→19:57)
[2017-07-10] MEDS: PIMAVANSERIN TARTRATE 17 MG PO SCH (08:42)
[2017-07-10] MEDS: Aspirin 81 MG TAB.CHEW PO SCH (08:42)
[2017-07-10] MEDS: Carbidopa/Levodopa 25/100 TABLET PO SCH ×3 (08:42→19:57)
--- NOTE | 2017-07-10 14:11 | Internal Med Progress Note ---
Date of Encounter: 07/10/17 Time of Encounter: 14:08 - Assessment and plan (1) Hypernatremia Current Visit: Yes Status: Acute Assessment and plan: due to severe dehydration Improving slowly with IVF D5 water this morning Na @ 144 will switch to D5 1/2NS frequent BMP check (2) Atrial flutter Current Visit: Yes Status: Acute Assessment and plan: Resolved now in NSR off the Cardizem gtt trop stable @ 0.06 reviewed 2 D Echo from 06/21/17 - preserved LVEF, no septal / wall motion abnormality no need to repeat 2 D Echo Cont on low dose Metoprolol not a good candidate for anti coag Qualifiers: Atrial flutter type: atypical Qualified Code(s): I48.4 - Atypical atrial flutter (3) Failure to thrive Current Visit: Yes Status: Acute Assessment and plan: overall poor prognosis pre albumin level @ 14.7 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 will consult GI for further eval Possible PEG tube placement on Wednesday Qualifiers: Failure to thrive age range: in adult Qualified Code(s): R62.7 - Adult failure to thrive (4) Acute kidney injury Current Visit: Yes Status: Acute Assessment and plan: likely prerenal renal failure Improved Cont IVF (5) Altered mental status Current Visit: Yes Status: Acute Assessment and plan: Mostly due to metabolic encephaloapthy with dehydration also due to his advanced dementia Qualifiers: Altered mental status type: delirium Qualified Code(s): R41.0 - Disorientation, unspecified (6) Leukocytosis Current Visit: No Status: Acute Assessment and plan: No signs of infection, likely due to recent steroids and stress induced no need f abx Qualifiers: Leukocytosis type: unspecified Qualified Code(s): D72.829 - Elevated white blood cell count, unspecified (7) DVT prophylaxis Current Visit: No Status: Acute Assessment and plan: Heparin subcutaneous. (8) Dehydration Current Visit: Yes Status: Acute Assessment and plan: IV hydration (9) Hyperglycemia Current Visit: Yes Status: Acute Assessment and plan: Likely due to steroids, continue insulin sliding scale. (10) Elevated troponin Current Visit: Yes Status: Acute Assessment and plan: Due to demand ischemica due to atrial flutter stable trop @ 0.06 no acute EKG changes (11) Dementia Current Visit: Yes Status: Acute Assessment and plan: advanced dementia cont risperidone Qualifiers: Dementia type: Alzheimer's disease Alzheimer's disease onset: late-onset Dementia behavioral disturbance: without behavioral disturbance Qualified Code (s): G30.1 - Alzheimer's disease with late onset; F02.80 - Dementia in other diseases classified elsewhere without behavioral disturbance - Time Spent With Patient Total time spent is greater than 50% in coordination of care (as documented) at patient's floor/unit and/or counseling patient: - Subjective Interval history: Mr. Bauer is a 81 year old male with a PMH of COPD, demenita, arthritis who presented to the ED with a chief complaint of weakness and altered mental status. Patient recently seen here and admitted for sepsis. The patient is altered at baseline and unable to provide any history. Patient has a PEG tube in the past which he had pulled out. A NG tube was placed at the half-way but patient pulled it out too. halfway staff tried to feed him, but he has trouble swallowing all the time. At the ED, labs revealed elevated sodium and Creatinine. Pt was admitted here for failure to thrive, dehydration and hypernatremia. Pt is more sleepy and lethargic today. Looks confused and demented. Unable to provide me any history. No events over night. - Constitutional Vitals: Temp Pulse Resp BP Pulse Ox 97.6 F 56 14 108/66 95 07/10/17 10:55 07/10/17 10:55 07/10/17 10:55 07/10/17 10:55 07/10/17 10:55 General appearance: Present: cachectic, A&O X 1, no acute distress, underweight - Head Head exam: Present: atraumatic, normal inspection - Neck Neck exam general surgery: Present: supple - Respiratory Respiratory exam: Present: decreased breath sounds. Absent: rales, respiratory distress, rhonchi, wheezes - Cardiovascular Cardiovascular exam: Present: RRR, +S1, +S2. Absent: tachycardia - GI/Abdominal GI/Abdominal exam: Present: normal bowel sounds, soft. Absent: rebound, rigid, tenderness - Extremities Exam Extremities exam: Absent: calf tenderness, pedal edema, tenderness - Back Exam Back exam: Absent: CVA tenderness (L), CVA tenderness (R) - Neurological Exam Neurological exam: Present: altered - Psychiatric Psychiatric exam: Present: depressed Internal Medicine: Result - Labs CBC & Chem 7: 07/09/17 05:14 07/10/17 03:23 Labs: BMP 07/10/17 03:23 Sodium 144 Potassium 3.8 Chloride 111 H Carbon Dioxide 26 BUN 29 H Creatinine 0.68 L Glucose 152 H Calcium 8.4 L - ABG Interpretation ABG results: PT/INR, D-dimer PT 11.9 Seconds (9.4-12.1) 07/07/17 11:46 Consult Discharge Plan - Plan Referrals: NONE,PCP [Primary Care Provider] - (From [facility])
[2017-07-10] MEDS: D5% in 0.45% NACL 1,000 ML IVC SCH (15:23)
[2017-07-10] MEDS: Mirtazapine 15 MG TABLET PO SCH (19:57)
[2017-07-10] MEDS: Melatonin 3 MG TABLET PO SCH (19:57)
[2017-07-11] MEDS: D5% in 0.45% NACL 1,000 ML IVC SCH ×2 (05:16→18:02)
[2017-07-11] MEDS: *HR* Heparin 5,000 UNIT/ML VIAL SQ SCH (05:16)
[2017-07-11] MEDS: risperiDONE 0.25 MG TABLET PO SCH ×2 (09:11→20:04)
[2017-07-11] MEDS: Multivit/Ca/Min/Fe/FA 1 TAB TABLET PO SCH (09:11)
[2017-07-11] MEDS: Carbidopa/Levodopa 25/100 TABLET PO SCH ×3 (09:11→20:04)
[2017-07-11] MEDS: predniSONE 20 MG TABLET PO SCH (09:11)
[2017-07-11] MEDS: Divalproex Sodium 125 MG CAPSULE PO SCH ×3 (09:11→20:04)
[2017-07-11] MEDS: Aspirin 81 MG TAB.CHEW PO SCH (09:11)
[2017-07-11] MEDS: Insulin LISPRO 300 UNITS/3 ML VIAL SQ SCH ×4 (09:14→21:45)
[2017-07-11 09:20] LABS: BUN/Creatinine Ratio 39 (6-26); Blood Urea Nitrogen 26 mg/dL (8-23); Calcium 8.2 mg/dL (8.6-10.3); Carbon Dioxide 27 mEq/L (23-29); Chloride 112 mEq/L (98-107); Glucose 212 mg/dL (70-105); Magnesium 1.9 mg/dL (1.6-2.6); Osmolality,Calculated 303 (280-300); Potassium 4.8 mEq/L (3.5-5.1); Sodium 141 mEq/L (136-145); eGFR For African Americans > 60 (> 60); eGFR For Non-African Americans > 60 (> 60)
--- NOTE | 2017-07-11 13:33 | Internal Med Progress Note ---
Date of Encounter: 07/11/17 Time of Encounter: 13:30 - Assessment and plan (1) Hypernatremia Current Visit: Yes Status: Acute Assessment and plan: due to severe dehydration Improved this morning Na @ 141 Cont D5 1/2NS BMP in AM (2) Atrial flutter Current Visit: Yes Status: Acute Assessment and plan: Resolved now in NSR off the Cardizem gtt trop stable @ 0.06 reviewed 2 D Echo from 06/21/17 - preserved LVEF, no septal / wall motion abnormality no need to repeat 2 D Echo Cont on low dose Metoprolol not a good candidate for anti coag Qualifiers: Atrial flutter type: atypical Qualified Code(s): I48.4 - Atypical atrial flutter (3) Failure to thrive Current Visit: Yes Status: Acute Assessment and plan: overall poor prognosis pre albumin level @ 14.7 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 Consulted GI for further eval Possible PEG tube placement on Wednesday So placed him on NPO after mid night also held SQ Heparin Also will hold ASA in AM Qualifiers: Failure to thrive age range: in adult Qualified Code(s): R62.7 - Adult failure to thrive (4) Acute kidney injury Current Visit: Yes Status: Acute Assessment and plan: likely prerenal renal failure Improved Cont IVF (5) Altered mental status Current Visit: Yes Status: Acute Assessment and plan: Mostly due to metabolic encephaloapthy with dehydration also due to his advanced dementia Qualifiers: Altered mental status type: delirium Qualified Code(s): R41.0 - Disorientation, unspecified (6) Leukocytosis Current Visit: No Status: Acute Assessment and plan: No signs of infection, likely due to recent steroids and stress induced no need f abx Qualifiers: Leukocytosis type: unspecified Qualified Code(s): D72.829 - Elevated white blood cell count, unspecified (7) Dehydration Current Visit: Yes Status: Acute Assessment and plan: IV hydration (8) Hyperglycemia Current Visit: Yes Status: Acute Assessment and plan: Likely due to steroids, continue insulin sliding scale Started tapering steroids (9) Elevated troponin Current Visit: Yes Status: Acute Assessment and plan: Due to demand ischemica due to atrial flutter stable trop @ 0.06 no acute EKG changes (10) Dementia Current Visit: Yes Status: Acute Assessment and plan: advanced dementia cont risperidone Qualifiers: Dementia type: Alzheimer's disease Alzheimer's disease onset: late-onset Dementia behavioral disturbance: without behavioral disturbance Qualified Code (s): G30.1 - Alzheimer's disease with late onset; F02.80 - Dementia in other diseases classified elsewhere without behavioral disturbance (11) DVT prophylaxis Current Visit: No Status: Acute Assessment and plan: Heparin subcutaneous. - Time Spent With Patient Total time spent is greater than 50% in coordination of care (as documented) at patient's floor/unit and/or counseling patient: - Subjective Interval history: Mr. Bauer is a 81 year old male with a PMH of COPD, demenita, arthritis who presented to the ED with a chief complaint of weakness and altered mental status. Patient recently seen here and admitted for sepsis. The patient is altered at baseline and unable to provide any history. Patient has a PEG tube in the past which he had pulled out. [facility] patient pulled it out too. senior care staff tried to feed him, but he has trouble swallowing all the time. At the ED, labs revealed elevated sodium and Creatinine. Pt was admitted here for failure to thrive, dehydration and hypernatremia. Pt is more sleepy and lethargic today. Looks confused and demented. Unable to provide me any history. No events over night. - Constitutional Vitals: Temp Pulse Resp BP Pulse Ox 97.6 F 53 16 106/64 96 07/11/17 11:29 07/11/17 11:29 07/11/17 11:29 07/11/17 11:29 07/11/17 11:29 General appearance: Present: cachectic, A&O X 1, no acute distress, underweight Exam: Weak and lethargic - Head Head exam: Present: atraumatic, normal inspection - Neck Neck exam general surgery: Present: supple - Respiratory Respiratory exam: Present: decreased breath sounds. Absent: rales, respiratory distress, rhonchi, wheezes - Cardiovascular Cardiovascular exam: Present: RRR, +S1, +S2. Absent: tachycardia - GI/Abdominal GI/Abdominal exam: Present: normal bowel sounds, soft. Absent: rebound, rigid, tenderness Additional comments: Colostomy bag + - Extremities Exam Extremities exam: Absent: calf tenderness, pedal edema, tenderness - Back Exam Back exam: Absent: CVA tenderness (L), CVA tenderness (R) - Neurological Exam Neurological exam: Present: altered - Psychiatric Additional comments: Sleepy. Demented Internal Medicine: Result - Labs CBC & Chem 7: 07/09/17 05:14 07/11/17 07:46 Labs: BMP 07/11/17 07:46 Sodium 141 Potassium 4.8 Chloride 112 H Carbon Dioxide 27 BUN 26 H Creatinine 0.67 L Glucose 212 H Calcium 8.2 L - ABG Interpretation ABG results: PT/INR, D-dimer PT 11.9 Seconds (9.4-12.1) 07/07/17 11:46 Consult Discharge Plan - Plan Referrals: NONE,PCP [Primary Care Provider] - (From [facility])
[2017-07-11] MEDS: Mirtazapine 15 MG TABLET PO SCH (20:03)
[2017-07-11] MEDS: Melatonin 3 MG TABLET PO SCH (20:04)
[2017-07-12] MEDS: D5% in 0.45% NACL 1,000 ML IVC SCH ×2 (06:19→19:39)
[2017-07-12 06:46] LABS: BUN/Creatinine Ratio 27 (6-26); Blood Urea Nitrogen 17 mg/dL (8-23); Calcium 8.2 mg/dL (8.6-10.3); Carbon Dioxide 27 mEq/L (23-29); Chloride 106 mEq/L (98-107); Glucose 195 mg/dL (70-105); Osmolality,Calculated 291 (280-300); Potassium 3.9 mEq/L (3.5-5.1); Sodium 137 mEq/L (136-145); eGFR For African Americans > 60 (> 60); eGFR For Non-African Americans > 60 (> 60)
[2017-07-12 08:56] LABS: INR 1.1; Prothrombin Time 11.7 Seconds (9.4-12.1)
[2017-07-12] MEDS ORDERED: predniSONE 20 MG TABLET PO SCH (09:00)
[2017-07-12 09:11] LABS: Hemoglobin 11.6 g/dL (12.9-16.9); Mean Corpuscular HGB Conc 32.2 g/dL (31.6-35.5); Mean Corpuscular Hemoglobin 30.4 pg (28.0-33.3); Mean Corpuscular Volume 94.5 fL (83.0-100.0); Mean Platelet Volume 11.2 fL (9.4-12.4); Platelet Count 112 K/mcL (140-400); Red Blood Count 3.81 M/mcL (4.19-5.50); Red Cell Distribution Width 13.8 % (11.5-14.5)
[2017-07-12] MEDS: Insulin LISPRO 300 UNITS/3 ML VIAL SQ SCH ×4 (09:56→19:40)
[2017-07-12] MEDS: Multivit/Ca/Min/Fe/FA 1 TAB TABLET PO SCH (09:56)
[2017-07-12] MEDS: Aspirin 81 MG TAB.CHEW PO SCH (09:56)
--- NOTE | 2017-07-12 11:14 | Gastroenterology Consult Note ---
<Itzel Madrid - Last Filed: 07/12/17 11:08> Date of Encounter: 07/12/17 Time of Encounter: 09:45 - Assessment and plan (1) Dehydration Current Visit: Yes Status: Acute Assessment and plan: 81 year old male who presents with dehydration. He has progressed dementia and very poor po intake. He had peg tube in the past and pulled it out. Will discuss with , replacing peg tube. (2) Failure to thrive Current Visit: Yes Status: Acute Assessment and plan: Most likely due to advanced dementia, may need peg tube. 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 Patient has been in half-way for almost 5 years for his advanced dementia. 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 Patient has had a PEG tube and NG tube in the past year which he pulled out. He was recently admitted in this hospital for sepsis and after treating sent back to the half-way. He has had very poor appetite and po intake for the past several weeks and presented with dehydration,hypernatremia and weight loss of 12 pounds in 9 days. He was started on IV fluids, he was seen by nutrition and recommended a pureed diet with thickened liquids. He has had continued very poor po intake therefore gi was consulted for placement of peg tube. hlying into the bed and not eating drinking much since after the discharge. Continue IV hydration with half normal saline 100 mL per hour. Na was 153 is down to 137 , creatinine is normal. procedures: NSAIDS: asa 81 mg anticoagulants: heparin 0600 07/11 Past Med Surg Social Fam HX - Past Medical History Medical history: arthritis, COPD, dementia, other Psychiatric history: depression, other - Past Surgical History Surgical History: colostomy (secondary to sigmoid volvulus) - Social History Smoking Status: Former smoker Smokeless Tobacco Status: No Alcohol use: none Drug use: none ROS unobtainable: due to mental status - Constitutional Vitals: Temp Pulse Resp BP Pulse Ox 98.2 F 75 18 126/79 95 07/12/17 07:03 07/12/17 07:03 07/12/17 07:03 07/12/17 07:03 07/12/17 09:17 Exam: CONSTITUTIONAL:~alert, oriented to self only.~HEAD:~normocephalic, bitemporal wasting noted.~EYES:~no jaundice.~NECK:~no obvious swelling.~HEART:~regular rate and rhythm, no murmurs.~LUNGS:~bilateral fair air entry.~ABDOMEN:~non distended, soft, non tender, large midline scar noted, colostomy with liquid stool, no masses pulpable, no organomegaly.~RECTAL EXAM:~Deferred.~EXTREMITIES:~ no clubbing, cyanosis or edema.~SKIN:~pallor noted, no stigmata of chronic liver disease.~NEUROLOGIC:~no obvious focal defect.~~~~ Results - Labs CBC & Chem 7: 07/12/17 08:23 07/12/17 05:36 Labs: Last Result Calcium 8.2 mg/dL (8.6-10.3) L 07/12/17 05:36 Troponin I 0.06 ng/mL (< 0.04) H* 07/08/17 05:38 Entire Visit Hgb 11.6 g/dL (12.9-16.9) L 07/12/17 08:23 Hct 36.0 % (37.5-50.1) L 07/12/17 08:23 PT 11.7 Seconds (9.4-12.1) 07/12/17 08:23 Total Bilirubin 0.5 mg/dL (0.3-1.0) 07/07/17 11:46 AST 11 Units/L (13-39) L 07/07/17 11:46 ALT 3 Units/L (7-52) L 07/07/17 11:46 - ABG ABG results: PT/INR, D-dimer PT 11.7 Seconds (9.4-12.1) 07/12/17 08:23 Consult Discharge Plan - Plan Referrals: NONE,PCP [Primary Care Provider] - (From [facility]) <Zabrina Thurston - Last Filed: 07/12/17 17:30> Date of Encounter: 07/12/17 Time of Encounter: 13:45 - Time Spent With Patient Total time spent is greater than 50% in coordination of care (as documented) at patient's floor/unit and/or counseling patient: GI History of Present Illness - Data of Consult Requesting Physician: Nahomy Mckeon - Consult Narrative History of present illness: Mr. Bauer is a 81 year old male - Constitutional Vitals: Temp Pulse Resp BP Pulse Ox 97.4 F L 63 20 147/70 98 07/12/17 14:55 07/12/17 16:40 07/12/17 13:07 07/12/17 16:40 07/12/17 16:40 Results - Labs CBC & Chem 7: 07/12/17 08:23 07/12/17 05:36 Labs: Last Result Calcium 8.2 mg/dL (8.6-10.3) L 07/12/17 05:36 Troponin I 0.06 ng/mL (< 0.04) H* 07/08/17 05:38 Entire Visit Hgb 11.6 g/dL (12.9-16.9) L 07/12/17 08:23 Hct 36.0 % (37.5-50.1) L 07/12/17 08:23 PT 11.7 Seconds (9.4-12.1) 07/12/17 08:23 Total Bilirubin 0.5 mg/dL (0.3-1.0) 07/07/17 11:46 AST 11 Units/L (13-39) L 07/07/17 11:46 ALT 3 Units/L (7-52) L 07/07/17 11:46 - ABG ABG results: PT/INR, D-dimer PT 11.7 Seconds (9.4-12.1) 07/12/17 08:23 - Attending Attestation I have personally performed a face to face evaluation on this patient. I have reviewed and agree with the care plan. History and Exam by me shows: Pt seen patient with dementia and decreased oral intake results and dehydration. Had PEG tube place before but had pulled it out. Recommendation: Need a new PEG tube placement
--- NOTE | 2017-07-12 12:21 | Anesthesia Evaluation PreOp ---
Date of Encounter: 07/12/17 Time of Encounter: 12:19 - Past History Planned Operation: EGD/PEG tube Cardiac History: Arrhythmia (AFlutter with RVR - Treated) Pulmonary History: COPD, Other (Hx Resp. 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 Depression) Other Medical History: Renal (Acute renal injury (Cr - normalalized)), Other ( Hx urinary Sepsis) Anesthesia History: Past Anesthesia Alcohol Use: none Drug use: none Medications and Allergies Amino AC/Whey Prot Conc, Isol [Whey Protein Powder] 1 each PO DAILY 06/18/17 [ History] Aspirin 81 mg PO DAILY 06/18/17 [History] Carbidopa/Levodopa 25/100 [Sinemet 25/100] 1 each PO TID 06/18/17 [History] Divalproex Sodium [Depakote Sprinkle] 250 mg PO TID 06/18/17 [History] Donepezil HCl [Aricept] 10 mg PO HS 06/18/17 [History] Escitalopram Oxalate Soln. 10 mg PO DAILY 06/18/17 [History] Melatonin 6 mg PO HS 06/18/17 [History] Memantine HCl 10 mg PO BID 06/18/17 [History] Mirtazapine 7.5 mg PO HS 06/18/17 [History] Multivit-Min/FA/Lycopen/Lutein [A Thru Z Select Multivit Tab] 1 each PO DAILY [History] Pimavanserin Tartrate [Nuplazid] 34 mg PO DAILY 06/18/17 [History] risperiDONE [Risperidone] 0.5 mg PO BID 06/18/17 [History] Acetaminophen [Tylenol] 650 mg PO Q4HR PRN 07/07/17 [History] DiphenhydraMINE [Benadryl] 25 mg PO Q6HR PRN 07/07/17 [History] Guaifenesin [Siltussin SA] 10 ml PO Q4H PRN 07/07/17 [History] Ipratropium/Albuterol Neb [Duoneb] 3 ml IH Q4HR PRN 07/07/17 [History] Ondansetron Oral Soln [Zofran Oral Soln] 4 mg PO Q4H PRN 07/07/17 [History] Oxycodone HCl [Oxaydo] 5 mg PO Q4H PRN 07/07/17 [History] predniSONE [PredniSONE] 30 mg PO DAILY 07/07/17 [History] 3 Allergy/AdvReac Type Severity Reaction Status Date / Time No Known Drug Allergies Allergy See Verified 07/07/17 13:19 Comments - Meds/Allergy Pre-op Review Medications Reviewed: Yes Allergies Reviewed: Yes Beta Blockers on Current Med List: Yes If Beta Blockers taken, Date/Time (Last Dose taken): not given since 09:11 2017 - low heart rate Anesthesia Results - Labs 07/12/17 08:23 07/12/17 05:36 Echocardiogram Name: Caleb Bauer Date of Study: 06/21/2017 EV/EV echocardiogram Impressions: LVEF 65%. Not all LV wall segments are well visualized. Normal right ventricular structure and function. No significant valvular dysfunction. No pulmonary hypertension. - Imaging EKG: report reviewed (ATRIAL FLUTTER WITH RAPID VENTRICULAR RESPONSE MARKED LEFT AXIS DEVIATION [QRS AXIS < -30] POSSIBLE RIGHT VENTRICULAR CONDUCTION DELAY [RSR (QR) IN V1/V2] LEFT VENTRICULAR HYPERTROPHY AND ST-T CHANGE [VOLTAGE CRITERIA PLUS ST/T ABNORMALITY]) Anesthesia Exam O2 Sat Weight 69.8 kg O2 Sat by Pulse Oximetry 96 O2 Sat by Pulse Oximetry 95 O2 Sat by Pulse Oximetry 95 O2 Sat by Pulse Oximetry 95 O2 Sat by Pulse Oximetry 97 O2 Sat by Pulse Oximetry 95 O2 Sat by Pulse Oximetry 96 Vital Signs Temp Pulse Resp BP Pulse Ox 97.5 F L 98 20 130/90 95 07/07/17 11:51 07/07/17 11:51 07/07/17 11:51 07/07/17 11:51 07/07/17 11:51 NPO (# of Hours): > 8 hrs Pain Scale: 0 Pain Scale Used: Numeric (1 - 10) - HEENT Pupil (Motor): Pupils equal, EOMI Mallampati: II Teeth: Edentulous Oral Opening: Greater than 3 - 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
--- NOTE | 2017-07-12 14:38 | Anesthesia Evaluation Post Op ---
Date of Encounter: 07/12/17 Time of Encounter: 14:40 - Vital Signs Vital Signs: Vital Signs/O2 Sat/Glucose, Most Current Temp Pulse Resp BP Pulse Ox 07/12/17 13:07 98 F 64 20 133/79 96 07/12/17 11:26 97.7 F 59 17 164/70 96 - Lungs Lungs: Clear Ascult./Percussion - Airway Airway: Non-obstructed - Cardiovascular Regular Rate - Mental Status Mental Status: Alert & Oriented, Answers Appropriately - Pain Pain Scale: 0 - Nausea Vomiting Nausea Vomiting: Not Present - Hydration Hydration: NPO - Discharge PostOp Status: Transfer Patient to floor
[2017-07-12] MEDS: Divalproex Sodium 125 MG CAPSULE PO SCH ×3 (15:39→19:41)
[2017-07-12] MEDS: Carbidopa/Levodopa 25/100 TABLET PO SCH ×2 (15:40→19:41)
[2017-07-12] MEDS: risperiDONE 0.25 MG TABLET PO SCH ×2 (15:40→19:41)
--- NOTE | 2017-07-12 17:21 | Internal Med Progress Note ---
Date of Encounter: 07/12/17 Time of Encounter: 11:00 - Assessment and plan (1) Hypernatremia Current Visit: Yes Status: Acute Assessment and plan: due to severe dehydration Improved this morning Na @ 137 Cont D5 1/2NS BMP in AM (2) Atrial flutter Current Visit: Yes Status: Acute Assessment and plan: Resolved now in NSR off the Cardizem gtt trop stable @ 0.06 reviewed 2 D Echo from 06/21/17 - preserved LVEF, no septal / wall motion abnormality no need to repeat 2 D Echo Cont on low dose Metoprolol not a good candidate for anti coag Qualifiers: Atrial flutter type: atypical Qualified Code(s): I48.4 - Atypical atrial flutter (3) Failure to thrive Current Visit: Yes Status: Acute Assessment and plan: overall poor prognosis pre albumin level @ 14.7 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 GI placing PEG tube today Will start him on tube feedings in AM R And D Lab Technician consulted Qualifiers: Failure to thrive age range: in adult Qualified Code(s): R62.7 - Adult failure to thrive (4) Acute kidney injury Current Visit: Yes Status: Acute Assessment and plan: likely prerenal renal failure Improved Cont IVF (5) Altered mental status Current Visit: Yes Status: Acute Assessment and plan: Mostly due to metabolic encephaloapthy with dehydration also due to his advanced dementia Qualifiers: Altered mental status type: delirium Qualified Code(s): R41.0 - Disorientation, unspecified (6) Leukocytosis Current Visit: No Status: Acute Assessment and plan: No signs of infection, likely due to recent steroids and stress induced no need f abx Qualifiers: Leukocytosis type: unspecified Qualified Code(s): D72.829 - Elevated white blood cell count, unspecified (7) Dehydration Current Visit: Yes Status: Acute Assessment and plan: IV hydration (8) Hyperglycemia Current Visit: Yes Status: Acute Assessment and plan: Likely due to steroids, continue insulin sliding scale Started tapering steroids (9) Elevated troponin Current Visit: Yes Status: Acute Assessment and plan: Due to demand ischemica due to atrial flutter stable trop @ 0.06 no acute EKG changes (10) Dementia Current Visit: Yes Status: Acute Assessment and plan: advanced dementia cont risperidone Qualifiers: Dementia type: Alzheimer's disease Alzheimer's disease onset: late-onset Dementia behavioral disturbance: without behavioral disturbance Qualified Code (s): G30.1 - Alzheimer's disease with late onset; F02.80 - Dementia in other diseases classified elsewhere without behavioral disturbance (11) DVT prophylaxis Current Visit: No Status: Acute Assessment and plan: Heparin subcutaneous. - Time Spent With Patient Total time spent is greater than 50% in coordination of care (as documented) at patient's floor/unit and/or counseling patient: - Subjective Interval history: Mr. Bauer is a 81 year old male with a PMH of COPD, demenita, arthritis who presented to the ED with a chief complaint of weakness and altered mental status. Patient recently seen here and admitted for sepsis. The patient is altered at baseline and unable to provide any history. Patient has a PEG tube in the past which he had pulled out. A NG tube [facility] at the shelter but patient pulled it out too. [facility] staff tried to feed him, but he has trouble swallowing all the time. At the ED, labs revealed elevated sodium and Creatinine. Pt was admitted here for failure to thrive, dehydration and hypernatremia. Pt is sleepy and lethargic today. Looks confused and demented. Unable to provide me any history. No events over night. Talked to pt's at bed side. - Constitutional Vitals: Temp Pulse Resp BP Pulse Ox 97.4 F L 63 20 147/70 98 07/12/17 14:55 07/12/17 16:40 07/12/17 13:07 07/12/17 16:40 07/12/17 16:40 General appearance: Present: cachectic, A&O X 1, no acute distress, underweight - Head Head exam: Present: atraumatic, normal inspection - Neck Neck exam general surgery: Present: supple - Respiratory Respiratory exam: Present: decreased breath sounds. Absent: rales, respiratory distress, rhonchi, wheezes - Cardiovascular Cardiovascular exam: Present: RRR, +S1, +S2. Absent: tachycardia - GI/Abdominal GI/Abdominal exam: Present: normal bowel sounds, soft. Absent: rebound, rigid, tenderness - Extremities Exam Extremities exam: Absent: calf tenderness, pedal edema, tenderness - Back Exam Back exam: Absent: CVA tenderness (L), CVA tenderness (R) - Neurological Exam Neurological exam: Present: alert, altered - Psychiatric Psychiatric exam: Present: depressed Internal Medicine: Result - Labs CBC & Chem 7: 07/12/17 08:23 07/12/17 05:36 Labs: Short CBC 07/12/17 Range/Units 08:23 WBC 8.7 (4.3-11.1) K/mcL Hgb 11.6 L (12.9-16.9) g/dL Hct 36.0 L (37.5-50.1) % Plt Count 112 L (140-400) K/mcL BMP 07/12/17 05:36 Sodium 137 Potassium 3.9 Chloride 106 Carbon Dioxide 27 BUN 17 Creatinine 0.64 L Glucose 195 H Calcium 8.2 L - ABG Interpretation ABG results: PT/INR, D-dimer PT 11.7 Seconds (9.4-12.1) 07/12/17 08:23 Consult Discharge Plan - Plan Referrals: NONE,PCP [Primary Care Provider] - (From [facility])
[2017-07-12] MEDS: Mirtazapine 15 MG TABLET PO SCH (19:41)
[2017-07-12] MEDS: Melatonin 3 MG TABLET PO SCH (19:41)
[2017-07-13] MEDS: risperiDONE 0.25 MG TABLET PO SCH ×2 (08:55→20:26)
[2017-07-13] MEDS: Divalproex Sodium 125 MG CAPSULE PO SCH ×3 (08:55→20:27)
[2017-07-13] MEDS: Multivit/Ca/Min/Fe/FA 1 TAB TABLET PO SCH (08:56)
[2017-07-13] MEDS: predniSONE 20 MG TABLET PO SCH (08:56)
[2017-07-13] MEDS: Carbidopa/Levodopa 25/100 TABLET PO SCH ×3 (08:56→20:27)
[2017-07-13] MEDS: Aspirin 81 MG TAB.CHEW PO SCH (08:56)
[2017-07-13] MEDS: Insulin LISPRO 300 UNITS/3 ML VIAL SQ SCH ×4 (09:16→18:06)
[2017-07-13] MEDS: D5% in 0.45% NACL 1,000 ML IVC SCH (09:21)
[2017-07-13 10:58] LABS: BUN/Creatinine Ratio 16 (6-26); Blood Urea Nitrogen 11 mg/dL (8-23); Carbon Dioxide 30 mEq/L (23-29); Chloride 101 mEq/L (98-107); Glucose 188 mg/dL (70-105); Magnesium 1.5 mg/dL (1.6-2.6); Osmolality,Calculated 282 (280-300); Potassium 3.7 mEq/L (3.5-5.1); Sodium 134 mEq/L (136-145); eGFR For African Americans > 60 (> 60); eGFR For Non-African Americans > 60 (> 60)
--- NOTE | 2017-07-13 11:01 | Gastroenterology Progress Note ---
Date of Encounter: 07/13/17 Time of Encounter: 10:00 - Assessment and plan (1) Dehydration Current Visit: Yes Status: Acute Assessment and plan: Peg tube placed, monitor labs, tube feed residual, urine and stool output (2) Failure to thrive Current Visit: Yes Status: Acute Assessment and plan: Tube feedings started, monitor labs/weight, and pts tolerance of tube feedings. Qualifiers: Failure to thrive age range: in adult Qualified Code(s): R62.7 - Adult failure to thrive - Time Spent With Patient Total time spent is greater than 50% in coordination of care (as documented) at patient's floor/unit and/or counseling patient: - Subjective Interval history: Mr. Bauer is a 81 year old male with advanced dementia. He is status post peg tube placement yesterday. He appears in no distress. Tube feeding have been started this morning. - Constitutional Vitals: Temp Pulse Resp BP Pulse Ox 97.7 F 72 16 127/80 97 07/13/17 07:07 07/13/17 07:07 07/13/17 07:07 07/13/17 07:07 07/13/17 09:23 Exam: CONSTITUTIONAL:~alert to self only, no acute distress.~HEAD:~bitemporal wasting noted.~EYES:~no jaundice.~NECK:~no obvious swelling.~HEART:~regular rate and rhythm, no murmurs.~LUNGS:~bilateral good air entry.~ABDOMEN:~non distended, soft, non tender, no masses palpable, no organomegaly, peg tube in place, no drainage, redness noted, large midline abdominal scar noted, colostomy with brown liquid stool.~RECTAL EXAM:~Deferred.~EXTREMITIES:~no clubbing, cyanosis or edema.~SKIN:~pallor noted, no stigmata of chronic liver disease.~NEUROLOGIC:~ no obvious focal defect.~~~~ Results - Labs CBC & Chem 7: 07/12/17 08:23 07/13/17 08:05 Labs: Last Result Calcium 8.0 mg/dL (8.6-10.3) L 07/13/17 08:05 Troponin I 0.06 ng/mL (< 0.04) H* 07/08/17 05:38 Entire Visit Hgb 11.6 g/dL (12.9-16.9) L 07/12/17 08:23 Hct 36.0 % (37.5-50.1) L 07/12/17 08:23 PT 11.7 Seconds (9.4-12.1) 07/12/17 08:23 Total Bilirubin 0.5 mg/dL (0.3-1.0) 07/07/17 11:46 AST 11 Units/L (13-39) L 07/07/17 11:46 ALT 3 Units/L (7-52) L 07/07/17 11:46 - ABG ABG results: PT/INR, D-dimer PT 11.7 Seconds (9.4-12.1) 07/12/17 08:23 Consult Discharge Plan - Plan Referrals: NONE,PCP [Primary Care Provider] - (From [facility])
--- NOTE | 2017-07-13 16:38 | Internal Med Progress Note ---
Date of Encounter: 07/13/17 Time of Encounter: 16:35 - Assessment and plan (1) Hypernatremia Current Visit: Yes Status: Acute Assessment and plan: due to severe dehydration Improved this morning Na @ 134 d/c IVF BMP in AM (2) Atrial flutter Current Visit: Yes Status: Acute Assessment and plan: Resolved now in NSR trop stable @ 0.06 reviewed 2 D Echo from 06/21/17 - preserved LVEF, no septal / wall motion abnormality no need to repeat 2 D Echo Cont on low dose Metoprolol not a good candidate for anti coag Qualifiers: Atrial flutter type: atypical Qualified Code(s): I48.4 - Atypical atrial flutter (3) Failure to thrive Current Visit: Yes Status: Acute Assessment and plan: overall poor prognosis pre albumin level @ 14.7 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 GI placed PEG tube on 07/12/17 Started him on tube feedings today so far tolerating them well Qualifiers: Failure to thrive age range: in adult Qualified Code(s): R62.7 - Adult failure to thrive (4) Acute kidney injury Current Visit: Yes Status: Acute Assessment and plan: likely prerenal renal failure Improved (5) Altered mental status Current Visit: Yes Status: Acute Assessment and plan: Mostly due to metabolic encephaloapthy with dehydration also due to his advanced dementia Qualifiers: Altered mental status type: delirium Qualified Code(s): R41.0 - Disorientation, unspecified (6) Leukocytosis Current Visit: No Status: Acute Assessment and plan: No signs of infection, likely due to recent steroids and stress induced no need f abx Qualifiers: Leukocytosis type: unspecified Qualified Code(s): D72.829 - Elevated white blood cell count, unspecified (7) Dehydration Current Visit: Yes Status: Acute (8) Hyperglycemia Current Visit: Yes Status: Acute Assessment and plan: Likely due to steroids, continue insulin sliding scale Started tapering steroids (9) Elevated troponin Current Visit: Yes Status: Acute Assessment and plan: Due to demand ischemica due to atrial flutter stable trop @ 0.06 no acute EKG changes (10) Dementia Current Visit: Yes Status: Acute Assessment and plan: advanced dementia cont risperidone Qualifiers: Dementia type: Alzheimer's disease Alzheimer's disease onset: late-onset Dementia behavioral disturbance: without behavioral disturbance Qualified Code (s): G30.1 - Alzheimer's disease with late onset; F02.80 - Dementia in other diseases classified elsewhere without behavioral disturbance (11) DVT prophylaxis Current Visit: No Status: Acute Assessment and plan: Heparin subcutaneous. - Time Spent With Patient Total time spent is greater than 50% in coordination of care (as documented) at patient's floor/unit and/or counseling patient: - Subjective Interval history: Mr. Bauer is a 81 year old male with a PMH of COPD, demenita, arthritis who presented to the ED with a chief complaint of weakness and altered mental status. Patient recently seen here and admitted for sepsis. The patient is altered at baseline and unable to provide any history. Patient has a PEG tube in the past which he had pulled out. A NG tube was [facility] the [facility] but patient pulled it out too. [facility] staff tried to feed him, but he has trouble swallowing all the time. At the ED, labs revealed elevated sodium and Creatinine. Pt was admitted here for failure to thrive, dehydration and hypernatremia. Pt is sleepy and lethargic today. Looks confused and demented. Unable to provide me any history. No events over night. - Constitutional Vitals: Temp Pulse Resp BP Pulse Ox 96.5 F L 62 12 105/65 93 07/13/17 11:31 07/13/17 11:31 07/13/17 11:31 07/13/17 11:31 07/13/17 11:31 General appearance: Present: cachectic, A&O X 1, no acute distress, underweight - Head Head exam: Present: atraumatic, normal inspection - Neck Neck exam general surgery: Present: supple - Respiratory Respiratory exam: Present: decreased breath sounds. Absent: rales, respiratory distress, rhonchi, wheezes - Cardiovascular Cardiovascular exam: Present: RRR, +S1, +S2. Absent: tachycardia - GI/Abdominal GI/Abdominal exam: Present: normal bowel sounds, soft. Absent: rebound, rigid, tenderness - Extremities Exam Extremities exam: Absent: calf tenderness, pedal edema, tenderness - Back Exam Back exam: Absent: CVA tenderness (L), CVA tenderness (R) - Neurological Exam Neurological exam: Present: alert, altered - Psychiatric Psychiatric exam: Present: depressed Additional comments: Demented Internal Medicine: Result - Labs CBC & Chem 7: 07/12/17 08:23 07/13/17 08:05 Labs: BMP 07/13/17 08:05 Sodium 134 L Potassium 3.7 Chloride 101 Carbon Dioxide 30 H BUN 11 Creatinine 0.69 L Glucose 188 H Calcium 8.0 L - ABG Interpretation ABG results: PT/INR, D-dimer PT 11.7 Seconds (9.4-12.1) 07/12/17 08:23 Consult Discharge Plan - Plan Referrals: NONE,PCP [Primary Care Provider] - (From [email or web address])
[2017-07-13] MEDS: Melatonin 3 MG TABLET PO SCH (20:27)
[2017-07-13] MEDS: Mirtazapine 15 MG TABLET PO SCH (20:27)
[2017-07-14] MEDS: Insulin LISPRO 300 UNITS/3 ML VIAL SQ SCH ×3 (00:31→12:34)
[2017-07-14 07:12] LABS: Hematocrit 34.1 % (37.5-50.1); Mean Corpuscular HGB Conc 32.3 g/dL (31.6-35.5); Mean Corpuscular Hemoglobin 29.7 pg (28.0-33.3); Mean Corpuscular Volume 92.2 fL (83.0-100.0); Mean Platelet Volume 11.2 fL (9.4-12.4); Platelet Count 115 K/mcL (140-400); Red Cell Distribution Width 14.6 % (11.5-14.5)
[2017-07-14 07:35] LABS: BUN/Creatinine Ratio 18 (6-26); Blood Urea Nitrogen 16 mg/dL (8-23); Calcium 8.3 mg/dL (8.6-10.3); Carbon Dioxide 29 mEq/L (23-29); Chloride 103 mEq/L (98-107); Glucose 174 mg/dL (70-105); Magnesium 1.7 mg/dL (1.6-2.6); Osmolality,Calculated 287 (280-300); Potassium 3.5 mEq/L (3.5-5.1); Sodium 136 mEq/L (136-145); eGFR For African Americans > 60 (> 60); eGFR For Non-African Americans > 60 (> 60)
[2017-07-14 07:43] LABS: Eosinophils # 0.3 K/mcL (0.0-0.6); Lymphocytes # 2.9 K/mcL (0.6-4.6); Monocytes # 0.9 K/mcL (0.0-1.3); Neutrophils # 4.4 K/mcL (1.6-8.9)
[2017-07-14 07:45] LABS: Platelet Estimate Slight Decrease (Normal)
[2017-07-14] MEDS: Divalproex Sodium 125 MG CAPSULE PO SCH ×2 (10:07→15:53)
[2017-07-14] MEDS: Aspirin 81 MG TAB.CHEW PO SCH (10:07)
[2017-07-14] MEDS: Multivit/Ca/Min/Fe/FA 1 TAB TABLET PO SCH (10:07)
[2017-07-14] MEDS: Carbidopa/Levodopa 25/100 TABLET PO SCH ×2 (10:07→15:53)
[2017-07-14] MEDS: risperiDONE 0.25 MG TABLET PO SCH (10:07)
[2017-07-14] MEDS: predniSONE 20 MG TABLET PO SCH (10:08)
[2017-07-14 11:34] VITALS: BP 98/65
--- NOTE | 2017-07-14 15:04 | Discharge Summary ---
- NOTES TO OUTPATIENT PROVIDER Notes to Outpatient Provider: Cont titrating tube feedings Jevity 1.5 with goal at 55cc/hr. Please give 200ml free water through PEG tube Q6hr Date of Encounter: 07/14/17 Time of Encounter: 15:01 - Discharge Diagnosis (1) Hypernatremia Priority: Primary Status: Acute (2) Atrial flutter Priority: Primary Status: Acute Qualifiers: Atrial flutter type: atypical Qualified Code(s): I48.4 - Atypical atrial flutter (3) Failure to thrive Priority: Primary Status: Acute Qualifiers: Failure to thrive age range: in adult Qualified Code(s): R62.7 - Adult failure to thrive (4) Acute kidney injury Priority: Secondary Status: Acute (5) Altered mental status Priority: Secondary Status: Acute Qualifiers: Altered mental status type: delirium Qualified Code(s): R41.0 - Disorientation, unspecified (6) Leukocytosis Priority: Secondary Status: Acute Qualifiers: Leukocytosis type: unspecified Qualified Code(s): D72.829 - Elevated white blood cell count, unspecified (7) Dehydration Priority: Secondary Status: Acute (8) Hyperglycemia Priority: Secondary Status: Acute (9) Elevated troponin Priority: Secondary Status: Acute (10) Dementia Priority: Secondary Status: Acute Qualifiers: Dementia type: Alzheimer's disease Alzheimer's disease onset: late-onset Dementia behavioral disturbance: without behavioral disturbance Qualified Code (s): G30.1 - Alzheimer's disease with late onset; F02.80 - Dementia in other diseases classified elsewhere without behavioral disturbance (11) DVT prophylaxis Priority: Secondary Status: Acute Hospital course: Mr. Bauer is a 81 year old male with a PMH of COPD, demenita, arthritis who presented to the ED with a chief complaint of weakness and altered mental status. Patient recently seen here and admitted for sepsis. The patient is altered at baseline and unable to provide any history. Patient has a PEG tube in the past which he had pulled out. [facility] but patient pulled it out too. [facility] staff tried to feed him, but he has trouble swallowing all the time. At the ED, labs revealed elevated sodium and Creatinine. Pt was admitted here for failure to thrive, dehydration and hypernatremia. He was started on IV hydration with D5 water, His Na started trending down slowly. Pt does have severe protein caloric malnutrition, not getting enough calories through orally due to his worsening dementia. I talked to family, who recommend to place PEG tube again and start tube feedings. Pt had PEG tube placed by GI on 07/12/16 and started him on tube feedings. Pt has been tolerating the tube feedings well. So will d.c him back to [facility] in stable condition today. Talked to the pt's and daughter at bed side and explained to them about current care. - Time Spent with Patient Total time spent providing and/or coordinating discharge services: Greater than 30 minutes (Spent 45 minutes on this patient's discharge summary due to complex medical problems and patient needed a lot of education regarding discharge instructions) - Discharge Medications Home Medications: Amino AC/Whey Prot Conc, Isol [Whey Protein Powder] 1 each PO DAILY 06/18/17 [ History] Aspirin 81 mg PO DAILY 06/18/17 [History] Carbidopa/Levodopa 25/100 [Sinemet 25/100] 1 each PO TID 06/18/17 [History] Divalproex Sodium [Depakote Sprinkle] 250 mg PO TID 06/18/17 [History] Donepezil HCl [Aricept] 10 mg PO HS 06/18/17 [History] Escitalopram Oxalate Soln. 10 mg PO DAILY 06/18/17 [History] Melatonin 6 mg PO HS 06/18/17 [History] Memantine HCl 10 mg PO BID 06/18/17 [History] Mirtazapine 7.5 mg PO HS 06/18/17 [History] Multivit-Min/FA/Lycopen/Lutein [A Thru Z Select Multivit Tab] 1 each PO DAILY [History] Pimavanserin Tartrate [Nuplazid] 34 mg PO DAILY 06/18/17 [History] risperiDONE [Risperidone] 0.5 mg PO BID 06/18/17 [History] Acetaminophen [Tylenol] 650 mg PO Q4HR PRN 07/07/17 [History] DiphenhydraMINE [Benadryl] 25 mg PO Q6HR PRN 07/07/17 [History] Guaifenesin [Siltussin SA] 10 ml PO Q4H PRN 07/07/17 [History] Ipratropium/Albuterol Neb [Duoneb] 3 ml IH Q4HR PRN 07/07/17 [History] Ondansetron Oral Soln [Zofran Oral Soln] 4 mg PO Q4H PRN 07/07/17 [History] predniSONE [PredniSONE] 20 mg PO DAILY #0 07/14/17 [Rx] Allergies/Adverse Reactions: 3 Allergy/AdvReac Type Severity Reaction Status Date / Time No Known Drug Allergies Allergy See Verified 07/07/17 13:19 Comments Date of admission: 07/07/17 15:17 Primary care physician: PCP NONE Consults: 07/08/17 01:43 Consult to Interventional Radiology Tech [CONS] Routine Reason for SW Consult: RETURN TO [facility] ON D/C 07/08/17 08:09 Consult to Nephrology [CONS] Routine Consulting Provider: Kidney Meryl/FALLON/MARSHALL/JEREMIAS Reason for Consult: Hypernatremia Time Notified: 08:10 Call Completed: Yes 07/09/17 13:51 Consult to Gastroenterology [CONS] Routine Consulting Provider: Gastroenterology Meryl Reason for Consult: PEG tube placement Time Notified: 13:51 Call Completed: Yes 07/12/17 17:22 Consult to Nutrition [CONS] Routine Comment: Consulting Provider: NUTRITION Reason for Dietary Consult: Tube Feed Start & Manage - Constitutional Vitals: Temp Pulse Resp BP Pulse Ox 97.9 F 96 15 98/65 94 07/14/17 11:32 07/14/17 11:32 07/14/17 11:32 07/14/17 11:32 07/14/17 11:32 General appearance: Present: cachectic, A&O X 1, no acute distress, underweight - Head Head exam: Present: atraumatic, normal inspection - Neck Neck exam general surgery: Present: supple - Respiratory Respiratory exam: Present: decreased breath sounds. Absent: rales, respiratory distress, rhonchi, wheezes - Cardiovascular Cardiovascular exam: Present: RRR, +S1, +S2. Absent: tachycardia - GI/Abdominal GI/Abdominal exam: Present: normal bowel sounds, soft. Absent: rebound, rigid, tenderness - Extremities Exam Extremities exam: Absent: calf tenderness, pedal edema, tenderness - Back Exam Back exam: Absent: CVA tenderness (L), CVA tenderness (R) - Patient Status Disposition: Transfer SNF Condition: Fair Overall status at discharge: patient is back to baseline - Discharge Instructions Follow Up With: NONE,PCP [Primary Care Provider] - (From [facility]) Zabrina Thurston MD [Partnered Physician] - - Diet and Activity Activity: increase activity as tolerated Diet: low salt diet
--- NOTE | 2017-07-14 15:09 | Physician Discharge Referral ---
ExtendedCare Referral Info Transfer To: ECF Provider in Charge after Transfer: PCP Institutional Level of Care: Skilled - Diagnosis (1) Hypernatremia Status: Acute (2) Atrial flutter Status: Acute (3) Failure to thrive Status: Acute (4) Acute kidney injury Status: Acute (5) Altered mental status Status: Acute (6) Leukocytosis Status: Acute (7) Dehydration Status: Acute (8) Hyperglycemia Status: Acute (9) Elevated troponin Status: Acute (10) Dementia Status: Acute (11) DVT prophylaxis Status: Acute - Transfer Medications Home Medications: Amino AC/Whey Prot Conc, Isol [Whey Protein Powder] 1 each PO DAILY 06/18/17 [ History] Aspirin 81 mg PO DAILY 06/18/17 [History] Carbidopa/Levodopa 25/100 [Sinemet 25/100] 1 each PO TID 06/18/17 [History] Divalproex Sodium [Depakote Sprinkle] 250 mg PO TID 06/18/17 [History] Donepezil HCl [Aricept] 10 mg PO HS 06/18/17 [History] Escitalopram Oxalate Soln. 10 mg PO DAILY 06/18/17 [History] Melatonin 6 mg PO HS 06/18/17 [History] Memantine HCl 10 mg PO BID 06/18/17 [History] Mirtazapine 7.5 mg PO HS 06/18/17 [History] Multivit-Min/FA/Lycopen/Lutein [A Thru Z Select Multivit Tab] 1 each PO DAILY [History] Pimavanserin Tartrate [Nuplazid] 34 mg PO DAILY 06/18/17 [History] risperiDONE [Risperidone] 0.5 mg PO BID 06/18/17 [History] Acetaminophen [Tylenol] 650 mg PO Q4HR PRN 07/07/17 [History] DiphenhydraMINE [Benadryl] 25 mg PO Q6HR PRN 07/07/17 [History] Guaifenesin [Siltussin SA] 10 ml PO Q4H PRN 07/07/17 [History] Ipratropium/Albuterol Neb [Duoneb] 3 ml IH Q4HR PRN 07/07/17 [History] Ondansetron Oral Soln [Zofran Oral Soln] 4 mg PO Q4H PRN 07/07/17 [History] predniSONE [PredniSONE] 20 mg PO DAILY #0 07/14/17 [Rx] Allergies/Adverse Reactions: 3 Allergy/AdvReac Type Severity Reaction Status Date / Time No Known Drug Allergies Allergy See Verified 07/07/17 13:19 Comments - Respiratory Orders Smoking Cessation: Smoking cessation has been advised. For more information, call the [place] Tobacco Quit Line at 8-489-DTSPNOW. CERTIFICATION: I certify that the transfer of the above named patient to an Extended Care Facility is necessary for the continuing treatment of the diagnosis listed. The above information is true and accurate reflection of patient's current condition. Confidential - Redisclosure prohibited without a patient's written consent.
[2017-07-14] MEDS ORDERED: Lidocaine 2% Syringe 100 MG/5 ML IV ONE (18:58)
[2017-07-14] MEDS ORDERED: *HR* Propofol 200 MG/20 ML VIAL IVP ONE (18:58)
== END 2017-07-14 18:59 | DRG 682 ==
LOC: EMEROO 11:37 → 2ANU 11:37
PROVIDERS: ADMIT General Practice; ATTEND General Practice

== ENCOUNTER 2017-11-15 16:04 | Inpatient (IN) ==
[2017-11-15] MEDS ORDERED: Ipratropium/Albuterol Neb 3 ML IH ONE (16:15)
[2017-11-15] MEDS ORDERED: Piperacillin/Tazobactam 3.375 GM in Water for inj. (sterile) 20 ML 20 ML IVP ONE (16:15)
[2017-11-15] MEDS ORDERED: Isovue-370 500 ML INFUS..BTL IV ONE (16:15)
[2017-11-15] MEDS ORDERED: Levofloxacin 750 MG/150 ML 750 MG/150 ML BAG IVPB ONE (16:15)
[2017-11-15] MEDS ORDERED: 0.9 % Sodium Chloride 1,000 ML IVC ONE ×2 (16:15→19:39)
[2017-11-15 16:35] LABS: Hematocrit 31.2 % (37.5-50.1); Hemoglobin 10.2 g/dL (12.9-16.9); Mean Corpuscular HGB Conc 32.7 g/dL (31.6-35.5); Mean Corpuscular Hemoglobin 29.6 pg (28.0-33.3); Mean Corpuscular Volume 90.4 fL (83.0-100.0); Mean Platelet Volume 9.6 fL (9.4-12.4); Monocytes # 0.4 K/mcL (0.0-1.3); Platelet Count 287 K/mcL (140-400); Red Blood Count 3.45 M/mcL (4.19-5.50); Red Cell Distribution Width 13.3 % (11.5-14.5)
--- NOTE | 2017-11-15 16:36 | Emergency Department Note ---
Disposition Clinical Impression: Pneumonia Disposition: Admitted As Inpatient General Adult HPI - General Chief complaint: ED Shortness of Breath/Dyspnea Stated complaint: sob ,low 02 Time Seen by Provider: 11/15/17 16:05 Nursing Notes Reviewed: Yes Vital Signs Reviewed: Yes - History of Present Illness HPI Narrative: 82-year-old male presents to the emergency department from assisted via EMS with concern for aspiration pneumonia. Patient was stated to have aspirated on Wednesday. He was diagnosed with pneumonia and started on Levaquin today. Reported at oxygen saturation in the high 80s while on 5 L of oxygen via nasal cannula. Was started on nonrebreather via EMS in route. Patient was reported have a temperature of 101.8. This was addressed with Tylenol 1 hour prior to arrival in the emergency department. Reported that mental status has been the same, just that he has had decreased alertness. Patient only verbal when he feels well according to family and EMS. explains that she wants to have everything done. Reports that patient is now full code. Pain Scale: 0 - Related Data Home Medications Medication Instructions Recorded Confirmed Amino AC/Whey Prot Conc, Isol 1 each PO DAILY 06/18/17 11/15/17 [Whey Protein Powder] Aspirin 81 mg PO DAILY 06/18/17 11/15/17 Carbidopa/Levodopa 25/100 [Sinemet 1 each PO TID 06/18/17 11/15/17 25/100] Divalproex Sodium [Depakote 250 mg PO TID 06/18/17 11/15/17 Sprinkle] Donepezil HCl [Aricept] 10 mg PO HS 06/18/17 11/15/17 Escitalopram Oxalate Soln. 10 mg PO DAILY 06/18/17 11/15/17 Melatonin 6 mg PO HS 06/18/17 11/15/17 Memantine HCl 10 mg PO BID 06/18/17 11/15/17 Mirtazapine 7.5 mg PO HS 06/18/17 11/15/17 Multivit-Min/FA/Lycopen/Lutein [A 1 each PO DAILY 06/18/17 11/15/17 Thru Z Select Multivit Tab] risperiDONE [Risperidone] 0.5 mg PO BID 06/18/17 11/15/17 Acetaminophen [Tylenol] 650 mg PO Q4HR PRN 07/07/17 11/15/17 DiphenhydraMINE [Benadryl] 25 mg PO Q6HR PRN 07/07/17 11/15/17 Guaifenesin [Siltussin SA] 10 ml PO Q4H PRN 07/07/17 11/15/17 Ipratropium/Albuterol Neb [Duoneb] 3 ml IH Q4HR PRN 07/07/17 11/15/17 Ondansetron Oral Soln [Zofran Oral 4 mg PO Q4H PRN 07/07/17 11/15/17 Soln] Allergies Allergy/AdvReac Type Severity Reaction Status Date / Time No Known Drug Allergies Allergy See Verified 07/07/17 13:19 Comments All systems ED: reviewed and negative except as stated. 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) Psychiatric history: Reports: depression, other - Social History Smoking Status: Unknown if ever smoked Smokeless Tobacco Status: No Alcohol use: Reports: unknown Drug use: Reports: unknown Physical Exam - General Limitations: no limitations General appearance: alert - Head Head exam: normocephalic - Eye Eye exam: Present: EOMI - ENT ENT exam: mucous membranes dry - Neck Neck exam: Present: trachea midline - Chest Chest inspection: Present: symmetric chest wall rise - Respiratory Respiratory exam: Present: other (Decreased chest excursion bilaterally, decreased breath sounds bilaterally) - Cardiovascular Cardiovascular exam: Present: regular rate, normal rhythm, normal heart sounds - Abdominal Exam Abdominal exam: Present: soft, Non-Tender. Absent: distention, guarding, rebound, rigidity - Extremities Exam Extremities exam: Present: normal capillary refill - Neurological Exam Neurological exam: Present: other (Patient not following commands patient nonverbal) - Psychiatric Psychiatric exam: Present: flat affect - Skin Skin exam: Present: warm, dry, intact Course Vital Signs Temperature 100.6 F H 11/15/17 16:11 Pulse Rate 91 11/15/17 16:11 Respiratory Rate 17 11/15/17 16:11 Blood Pressure 111/61 11/15/17 16:11 O2 Sat by Pulse Oximetry 96 09/24/18 16:11 Temperature 100.6 F H 11/15/17 16:11 Pulse Rate 105 11/15/17 17:00 Respiratory Rate 20 11/15/17 17:00 Blood Pressure 118/67 11/15/17 17:00 O2 Sat by Pulse Oximetry 93 11/15/17 17:00 Oxygen Delivery Oxygen Delivery Simple Mask Medical Decision Making - MDM Narrative Medical decision making narrative: 82-year-old male presents emergency department with concern for fever, cough, sputum production with recent aspiration on Wednesday. Patient received Tylenol prior to arrival to the emergency department. Patient met SIRS criteria as he was hypoxic and febrile. Chest x-ray, read by radiology shows bilateral ground glass opacities. Also obtained Chest CTA due to concern for PE. Revealed bilateral lower lobe pneumonia and pneumonitis. Patient covered for HCAP with levoquine, vancomycin, Zosyn. Creatinine 1.39 which is upper limits of where he has been in the past. Troponin negative. urinalysis negative. Patient had elevated lactic acid. Has been given 2 liters of fluids. Blood cultures have been ordered. Patient was given breathing treatments and remained stable throughout his stay. discussed plan for admission with family. They agreed. Dr. Gordon accepted patient for admission for HCAP. Chest CTA 11/15/17 16:15 IMPRESSION: 1. Technically limited exam as described above. Within these limitations no evidence for acute pulmonary embolism. 2. Significant improvement in bilateral upper lobe extensive patchy airspace disease with some residual in the posterior segment right upper lobe. Previous right pleural effusion has decreased and left pleural effusion has resolved. 3. Bilateral posterior basal lower lobe consolidation with air bronchograms probably combination of pneumonia and atelectasis. There is also some patchy superior segment right lower lobe infiltrate likely pneumonitis. D/ / Rey Frazier MD / Rey Frazier MD Interpreting Provider: Rey Frazier MD Chest X-Ray 11/15/17 16:15 IMPRESSION: Perihilar and bilateral ground-glass opacities. Pattern may represent underlying pulmonary edema. Developing pneumonitis can not be excluded. D/ / Artis Lynn MD / Artis Lynn MD Interpreting Provider: Artis Lynn MD Vital Signs Temperature 100.6 F H 11/15/17 16:11 Pulse Rate 91 11/15/17 16:11 Respiratory Rate 17 11/15/17 16:11 Blood Pressure 111/61 11/15/17 16:11 O2 Sat by Pulse Oximetry 96 11/15/17 16:11 Temperature 100.6 F H 11/15/17 16:11 Pulse Rate 105 11/15/17 17:00 Respiratory Rate 20 11/15/17 17:00 Blood Pressure 118/67 11/15/17 17:00 O2 Sat by Pulse Oximetry 93 11/15/17 17:00 Oxygen Delivery Oxygen Delivery Simple Mask - Lab Data Result diagrams: 11/15/17 16:17 11/15/17 16:17 Lab Results 11/15/17 11/15/17 11/15/17 Range/Units 16:17 16:17 16:17 WBC 5.2 (4.3-11.1) K/mcL RBC 3.45 L (4.19-5.50) M/mcL Hgb 10.2 L (12.9-16.9) g/dL Hct 31.2 L (37.5-50.1) % MCV 90.4 (83.0-100.0) fL MCH 29.6 (28.0-33.3) pg MCHC 32.7 (31.6-35.5) g/dL RDW 13.3 (11.5-14.5) % Plt Count 287 (140-400) K/mcL MPV 9.6 (9.4-12.4) fL Immature Gran % Test Not Performed Seg Neutrophils % 28.0 % Band Neutrophils % 44.0 H (0-4) % Lymphocytes % 20.0 % Monocytes % 8.0 % Eosinophils % Test Not Performed Basophils % Test Not Performed Neutrophils # 3.7 (1.6-8.9) K/mcL Lymphocytes # 1.0 (0.6-4.6) K/mcL Monocytes # 0.4 (0.0-1.3) K/mcL Eosinophils # Test Not Performed Basophils # Test Not Performed Platelet Estimate Normal (Normal) VBG pH (7.32-7.42) pH Units VBG pCO2 (41-51) mmHg VBG pO2 (25-50) mmHg VBG HCO3 (21-27) mEq/L Sodium 134 L (136-145) mEq/L Potassium 4.4 (3.5-5.1) mEq/L Chloride 98 (98-107) mEq/L Carbon Dioxide 26 (23-29) mEq/L BUN 60 H (8-23) mg/dL Creatinine 1.39 H (0.70-1.30) mg/dL Est GFR ( Amer) 59 L (> 60) Est GFR (Non-Af Amer) 49 L (> 60) BUN/Creatinine Ratio 43 H (6-26) Glucose 241 H (70-105) mg/dL Calculated Osmolality 303 H (280-300) Lactic Acid 2.8 H (0.5-2.2) mmol/L Calcium 9.4 (8.6-10.3) mg/dL Troponin I 0.03 (< 0.04) ng/mL B-Natriuretic Peptide (Less than 100) pg/mL Urine Color (Yellow) Urine Clarity (Clear) Urine pH (5.0-8.0) pH Units Ur Specific [place] (1.010-1.025) Urine Protein (Neg-Trace) mg/dL Urine Glucose (UA) (Normal) mg/dL Urine Ketones (Negative) mg/dL Urine Blood (Negative) Urine Nitrite (Negative) Urine Bilirubin (Negative) Urine Urobilinogen (Normal) mg/dL Ur Leukocyte Esterase (Negative) Urine Microscopic RBC (0-3) per hpf Urine Microscopic WBC (0-3) per hpf Ur Squamous Epith Cells (None-Few) per lpf Urine Bacteria (None-Few) per hpf Hyaline Casts (None-Few) per lpf Ur Culture Indicated? (NO) 11/15/17 11/15/17 11/15/17 Range/Units 16:17 17:42 18:33 WBC (4.3-11.1) K/mcL RBC (4.19-5.50) M/mcL Hgb (12.9-16.9) g/dL Hct (37.5-50.1) % MCV (83.0-100.0) fL MCH (28.0-33.3) pg MCHC (31.6-35.5) g/dL RDW (11.5-14.5) % Plt Count (140-400) K/mcL MPV (9.4-12.4) fL Immature Gran % Seg Neutrophils % % Band Neutrophils % (0-4) % Lymphocytes % % Monocytes % % Eosinophils % Basophils % Neutrophils # (1.6-8.9) K/mcL Lymphocytes # (0.6-4.6) K/mcL Monocytes # (0.0-1.3) K/mcL Eosinophils # Basophils # Platelet Estimate (Normal) VBG pH 7.33 (7.32-7.42) pH Units VBG pCO2 56 H (41-51) mmHg VBG pO2 39 (25-50) mmHg VBG HCO3 29 H (21-27) mEq/L Sodium (136-145) mEq/L Potassium (3.5-5.1) mEq/L Chloride (98-107) mEq/L Carbon Dioxide (23-29) mEq/L BUN (8-23) mg/dL Creatinine (0.70-1.30) mg/dL Est GFR ( Amer) (> 60) Est GFR (Non-Af Amer) (> 60) BUN/Creatinine Ratio (6-26) Glucose (70-105) mg/dL Calculated Osmolality (280-300) Lactic Acid 3.6 H (0.5-2.2) mmol/L Calcium (8.6-10.3) mg/dL Troponin I (< 0.04) ng/mL B-Natriuretic Peptide 151 H (Less than 100) pg/mL Urine Color (Yellow) Urine Clarity (Clear) Urine pH (5.0-8.0) pH Units Ur Specific [place] (1.010-1.025) Urine Protein (Neg-Trace) mg/dL Urine Glucose (UA) (Normal) mg/dL Urine Ketones (Negative) mg/dL Urine Blood (Negative) Urine Nitrite (Negative) Urine Bilirubin (Negative) Urine Urobilinogen (Normal) mg/dL Ur Leukocyte Esterase (Negative) Urine Microscopic RBC (0-3) per hpf Urine Microscopic WBC (0-3) per hpf Ur Squamous Epith Cells (None-Few) per lpf Urine Bacteria (None-Few) per hpf Hyaline Casts (None-Few) per lpf Ur Culture Indicated? (NO) 09/24/18 Range/Units 18:58 WBC (4.3-11.1) K/mcL RBC (4.19-5.50) M/mcL Hgb (12.9-16.9) g/dL Hct (37.5-50.1) % MCV (83.0-100.0) fL MCH (28.0-33.3) pg MCHC (31.6-35.5) g/dL RDW (11.5-14.5) % Plt Count (140-400) K/mcL MPV (9.4-12.4) fL Immature Gran % Seg Neutrophils % % Band Neutrophils % (0-4) % Lymphocytes % % Monocytes % % Eosinophils % Basophils % Neutrophils # (1.6-8.9) K/mcL Lymphocytes # (0.6-4.6) K/mcL Monocytes # (0.0-1.3) K/mcL Eosinophils # Basophils # Platelet Estimate (Normal) VBG pH (7.32-7.42) pH Units VBG pCO2 (41-51) mmHg VBG pO2 (25-50) mmHg VBG HCO3 (21-27) mEq/L Sodium (136-145) mEq/L Potassium (3.5-5.1) mEq/L Chloride (98-107) mEq/L Carbon Dioxide (23-29) mEq/L BUN (8-23) mg/dL Creatinine (0.70-1.30) mg/dL Est GFR ( Amer) (> 60) Est GFR (Non-Af Amer) (> 60) BUN/Creatinine Ratio (6-26) Glucose (70-105) mg/dL Calculated Osmolality (280-300) Lactic Acid (0.5-2.2) mmol/L Calcium (8.6-10.3) mg/dL Troponin I (< 0.04) ng/mL B-Natriuretic Peptide (Less than 100) pg/mL Urine Color Yellow (Yellow) Urine Clarity Clear (Clear) Urine pH 5.5 (5.0-8.0) pH Units Ur Specific [place] 1.020 (1.010-1.025) Urine Protein 100 H (Neg-Trace) mg/dL Urine Glucose (UA) 100 H (Normal) mg/dL Urine Ketones Negative (Negative) mg/dL Urine Blood Negative (Negative) Urine Nitrite Negative (Negative) Urine Bilirubin Negative (Negative) Urine Urobilinogen Normal (Normal) mg/dL Ur Leukocyte Esterase Small H (Negative) Urine Microscopic RBC 3-5 H (0-3) per hpf Urine Microscopic WBC 3-5 H (0-3) per hpf Ur Squamous Epith Cells Many H (None-Few) per lpf Urine Bacteria None Seen (None-Few) per hpf Hyaline Casts Few (None-Few) per lpf Ur Culture Indicated? NO. A (NO) - EKG Data EKG #1 EKG attestation: Yes I reviewed and interpreted this EKG. EKG results narrative: 16:16 Heart rate 92 bpm, VT 145 ms, QRS duration 104 ms, QT 348 ms, QTC 431 ms, left axis deviation. Sinus rhythm with a ventricular rate of 92 bpm. There is no evidence of any ischemic ST changes on this EKG.
[2017-11-15 16:57] LABS: Potassium 4.4 mEq/L (3.5-5.1)
[2017-11-15 16:58] LABS: Calcium 9.4 mg/dL (8.6-10.3); Troponin I 0.03 ng/mL (< 0.04)
[2017-11-15 17:20] LABS: Neutrophils # 3.7 K/mcL (1.6-8.9)
[2017-11-15 17:21] LABS: Platelet Estimate Normal (Normal)
[2017-11-15 17:45] LABS: VBG HCO3 29 mEq/L (21-27); VBG PCO2 56 mmHg (41-51); VBG PH 7.33 pH Units (7.32-7.42); VBG PO2 39 mmHg (25-50)
--- NOTE | 2017-11-15 18:24 | Emergency Department Note ---
Disposition Clinical Impression: Pneumonia Qualifiers: Pneumonia type: due to unspecified organism Laterality: unspecified laterality Lung location: unspecified part of lung Qualified Code(s): J18.9 - Pneumonia, unspecified organism Disposition: Admitted As Inpatient Referrals: NONE,PCP [Primary Care Provider] - Forms: ED Satisfaction Letter General Adult HPI - General Chief complaint: ED Shortness of Breath/Dyspnea Stated complaint: sob ,low 02 Time Seen by Provider: 11/15/17 16:05 Limitations: no limitations - History of Present Illness Pain Scale: 0 - Related Data Home Medications Medication Instructions Recorded Confirmed Amino AC/Whey Prot Conc, Isol 1 each PO DAILY 06/18/17 11/15/17 [Whey Protein Powder] Aspirin 81 mg PO DAILY 06/18/17 11/15/17 Carbidopa/Levodopa [Sinemet 1 each PO TID 06/18/17 11/15/17] Divalproex Sodium [Depakote 250 mg PO TID 06/18/17 11/15/17 Sprinkle] Donepezil HCl [Aricept] 10 mg PO HS 06/18/17 11/15/17 Escitalopram Oxalate Soln. 10 mg PO DAILY 06/18/17 11/15/17 Melatonin 6 mg PO HS 06/18/17 11/15/17 Memantine HCl 10 mg PO BID 06/18/17 11/15/17 Mirtazapine 7.5 mg PO HS 06/18/17 11/15/17 Multivit-Min/FA/Lycopen/Lutein [A 1 each PO DAILY 06/18/17 11/15/17 Thru Z Select Multivit Tab] risperiDONE [Risperidone] 0.5 mg PO BID 06/18/17 11/15/17 Acetaminophen [Tylenol] 650 mg PO Q4HR PRN 07/07/17 11/15/17 DiphenhydraMINE [Benadryl] 25 mg PO Q6HR PRN 07/07/17 11/15/17 Guaifenesin [Siltussin SA] 10 ml PO Q4H PRN 07/07/17 11/15/17 Ipratropium/Albuterol Neb [Duoneb] 3 ml IH Q4HR PRN 07/07/17 11/15/17 Ondansetron Oral Soln [Zofran Oral 4 mg PO Q4H PRN 07/07/17 11/15/17 Soln] Allergies Allergy/AdvReac Type Severity Reaction Status Date / Time No Known Drug Allergies Allergy See Verified 07/07/17 13:19 Comments Constitutional: Reports: fever Respiratory: Reports: cough, dyspnea Gastrointestinal: Denies: vomiting Past Medical History - Past Medical History Medical history: Reports: arthritis, COPD, dementia, other 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) Psychiatric history: Reports: depression, other - Social History Smoking Status: Unknown if ever smoked Smokeless Tobacco Status: No Alcohol use: Reports: unknown Drug use: Reports: unknown Physical Exam - General Limitations: no limitations General appearance: alert Course Vital Signs Temperature 100.6 F H 11/15/17 16:11 Pulse Rate 91 11/15/17 16:11 Respiratory Rate 17 11/15/17 16:11 Blood Pressure 111/61 11/15/17 16:11 O2 Sat by Pulse Oximetry 96 11/15/17 16:11 Temperature 100.6 F H 11/15/17 16:11 Pulse Rate 105 11/15/17 17:00 Respiratory Rate 20 11/15/17 17:00 Blood Pressure 118/67 11/15/17 17:00 O2 Sat by Pulse Oximetry 93 11/15/17 17:00 Oxygen Delivery Oxygen Delivery Simple Mask Medical Decision Making - Lab Data Result diagrams: 11/15/17 16:17 11/15/17 16:17 Lab Results 11/15/17 11/15/17 11/15/17 Range/Units 16:17 16:17 16:17 WBC 5.2 (4.3-11.1) K/mcL RBC 3.45 L (4.19-5.50) M/mcL Hgb 10.2 L (12.9-16.9) g/dL Hct 31.2 L (37.5-50.1) % MCV 90.4 (83.0-100.0) fL MCH 29.6 (28.0-33.3) pg MCHC 32.7 (31.6-35.5) g/dL RDW 13.3 (11.5-14.5) % Plt Count 287 (140-400) K/mcL MPV 9.6 (9.4-12.4) fL Immature Gran % Test Not Performed Seg Neutrophils % 28.0 % Band Neutrophils % 44.0 H (0-4) % Lymphocytes % 20.0 % Monocytes % 8.0 % Eosinophils % Test Not Performed Basophils % Test Not Performed Neutrophils # 3.7 (1.6-8.9) K/mcL Lymphocytes # 1.0 (0.6-4.6) K/mcL Monocytes # 0.4 (0.0-1.3) K/mcL Eosinophils # Test Not Performed Basophils # Test Not Performed Platelet Estimate Normal (Normal) VBG pH (7.32-7.42) pH Units VBG pCO2 (41-51) mmHg VBG pO2 (25-50) mmHg VBG HCO3 (21-27) mEq/L Sodium 134 L (136-145) mEq/L Potassium 4.4 (3.5-5.1) mEq/L Chloride 98 (98-107) mEq/L Carbon Dioxide 26 (23-29) mEq/L BUN 60 H (8-23) mg/dL Creatinine 1.39 H (0.70-1.30) mg/dL Est GFR ( Amer) 59 L (> 60) Est GFR (Non-Af Amer) 49 L (> 60) BUN/Creatinine Ratio 43 H (6-26) Glucose 241 H (70-105) mg/dL Calculated Osmolality 303 H (280-300) Lactic Acid 2.8 H (0.5-2.2) mmol/L Calcium 9.4 (8.6-10.3) mg/dL Troponin I 0.03 (< 0.04) ng/mL B-Natriuretic Peptide (Less than 100) pg/mL 11/15/17 11/15/17 Range/Units 16:17 17:42 WBC (4.3-11.1) K/mcL RBC (4.19-5.50) M/mcL Hgb (12.9-16.9) g/dL Hct (37.5-50.1) % MCV (83.0-100.0) fL MCH (28.0-33.3) pg MCHC (31.6-35.5) g/dL RDW (11.5-14.5) % Plt Count (140-400) K/mcL MPV (9.4-12.4) fL Immature Gran % Seg Neutrophils % % Band Neutrophils % (0-4) % Lymphocytes % % Monocytes % % Eosinophils % Basophils % Neutrophils # (1.6-8.9) K/mcL Lymphocytes # (0.6-4.6) K/mcL Monocytes # (0.0-1.3) K/mcL Eosinophils # Basophils # Platelet Estimate (Normal) VBG pH 7.33 (7.32-7.42) pH Units VBG pCO2 56 H (41-51) mmHg VBG pO2 39 (25-50) mmHg VBG HCO3 29 H (21-27) mEq/L Sodium (136-145) mEq/L Potassium (3.5-5.1) mEq/L Chloride (98-107) mEq/L Carbon Dioxide (23-29) mEq/L BUN (8-23) mg/dL Creatinine (0.70-1.30) mg/dL Est GFR ( Amer) (> 60) Est GFR (Non-Af Amer) (> 60) BUN/Creatinine Ratio (6-26) Glucose (70-105) mg/dL Calculated Osmolality (280-300) Lactic Acid (0.5-2.2) mmol/L Calcium (8.6-10.3) mg/dL Troponin I (< 0.04) ng/mL B-Natriuretic Peptide 151 H (Less than 100) pg/mL Attestation Statement - Attestation Attestation: I examined this patient and my medical decision-making was reviewed with the Resident Physician. I agree with the documented findings, disposition and treatment plan as described except to the extent set forth below. 82 year old male from sn[facility] meeting SIRS criteria with temperature and hypoxia, tachypnea. Madelin had pnuemoina on exam, we will obtain a CTA chest to rule out PE and then admit to medicine. Madelin has been started on HCAP therapy
[2017-11-15 19:12] LABS: Bilirubin,Urine Negative (Negative); Blood,Urine Negative (Negative); Clarity,Urine Clear (Clear); Color,Urine Yellow (Yellow); Glucose,Urine (UA) 100 mg/dL (Normal); Ketones,Urine Negative (Negative); Leukocyte Esterase,Urine Small (Negative); Nitrite,Urine Negative (Negative); PH,Urine 5.5 pH Units (5.0-8.0); Protein,Urine 100 mg/dL (Neg-Trace); Urobilinogen,Urine Normal (Normal)
[2017-11-15 19:14] LABS: Bacteria,Urine None Seen per hpf (None-Few); Hyaline Casts,Urine Few per lpf (None-Few); Squamous Epithelial Cell,Urine Many per lpf (None-Few)
[2017-11-15] MEDS ORDERED: Acetaminophen 325 MG TABLET PO PRN (20:54)
[2017-11-15] MEDS ORDERED: OXYCODONE Oral CONC 10 MG/0.5 ML ORAL.SYG SL PRN ×2 (20:54)
[2017-11-15] MEDS ORDERED: Naloxone 0.4 MG/ML INJ IVP PRN (20:54)
[2017-11-15] MEDS ORDERED: GuaiFENesin Liq 200 MG/10 ML UDC PO PRN (21:17)
[2017-11-15] MEDS ORDERED: Ondansetron Oral Soln 2 MG/2.5 ML ORAL.SYG PO PRN (21:17)
[2017-11-15] MEDS ORDERED: Ipratropium/Albuterol Neb 3 ML IH PRN (21:17)
--- NOTE | 2017-11-15 21:23 | Internal Med History&Physical ---
Date of Encounter: 11/16/17 Time of Encounter: 21:21 Internal Medicine - H&P: HPI Admitted From: Long-term Nursing Facility Plans for Post Hospital Care: Transfer Long-Term Facility History of present illness: Mr. Bauer is a 82 year old male with history of Parkinson's, dementia, recurrent aspiration presents with the snf for increased cough, shortness of breath, hypoxia. The patient is nonverbal and most of the history is provided by the son at bedside. The stent states that the patient has been in his usual state of health up until approximately 2 days ago when the snf stated that the patient had an episode of vomiting and were concerned for aspiration. Over the last several days the patient had worsening cough, hypoxia and has had low-grade fevers. The son states that the patient has had issues with aspiration in the past and occasionally has coughing spells after eating and drinking. He states that he is normally a pretty good eater and although he has a PEG tube usually eats by mouth. 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 10 mg PO DAILY 06/18/17 [History] Melatonin 6 mg PO HS 06/18/17 [History] Memantine HCl 10 mg PO BID 06/18/17 [History] Mirtazapine 7.5 mg PO HS 06/18/17 [History] Multivit-Min/FA/Lycopen/Lutein [A Thru Z Select Multivit Tab] 1 each PO DAILY [History] risperiDONE [Risperidone] 0.5 mg PO BID 06/18/17 [History] Acetaminophen [Tylenol] 650 mg PO Q4HR PRN 07/07/17 [History] DiphenhydraMINE [Benadryl] 25 mg PO Q6HR PRN 07/07/17 [History] Guaifenesin [Siltussin SA] 10 ml PO Q4H PRN 07/07/17 [History] Ipratropium/Albuterol Neb [Duoneb] 3 ml IH Q4HR PRN 07/07/17 [History] Ondansetron Oral Soln [Zofran Oral Soln] 4 mg PO Q4H PRN 07/07/17 [History] 3 Allergy/AdvReac Type Severity Reaction Status Date / Time No Known Drug Allergies Allergy See Verified 07/07/17 13:19 Comments ROS unobtainable: due to mental status (Patient is nonverbal) All Systems PM: A 10-system review of systems was performed and is negative for pertinent findings except as documented above in the HPI. - Constitutional Vitals: Temp Pulse Resp BP Pulse Ox 100.8 F H 90 17 116/61 91 11/15/17 21:14 11/15/17 21:14 11/15/17 21:14 11/15/17 21:14 11/15/17 21:14 General appearance: Present: no acute distress Exam: Patient is nonverbal but will make eye contact - Head Head exam: Present: atraumatic, normal inspection, normocephalic - Eye Eye exam: Present: EOMI - ENT ENT exam: Present: mucous membranes dry - Respiratory Respiratory exam: Present: rhonchi (Bilateral bases). Absent: respiratory distress, wheezes, tachypnea - Cardiovascular Cardiovascular exam: Present: RRR. Absent: gallop, rubs, systolic murmur - GI/Abdominal GI/Abdominal exam: Present: normal bowel sounds, soft. Absent: distended, tenderness - Extremities Exam Extremities exam: Present: warm. Absent: pedal edema, tenderness - Neurological Exam Neurological exam: Present: alert Additional comments: Diffuse muscle rigidity. - Skin Skin exam: Present: dry, intact, warm Internal Med - H&P Results - Labs CBC & Chem 7: 11/16/17 01:11/16/17 01:26 - Assessment and plan (1) Acute respiratory failure with hypoxia Current Visit: No Status: Resolved Assessment and plan: Likely secondary to aspiration pneumonia/sepsis. Patient has responded well to oxygen supplementation. Continue supplemental oxygen to maintain oxygen saturation greater than 88%. (2) Sepsis Current Visit: Yes Status: Acute Assessment and plan: Likely due to aspiration pneumonia. Patient has fever, tachycardia, bandemia of 44%. Patient received 1 L in the emergency department, we will give 2 more liters to meet the 30 mL/kg. Blood cultures have been drawn. Antibiotics initiated. Initial lactate was 2.6, repeat was 3.6, will recheck in 4-6 hours. Qualifiers: Sepsis type: sepsis due to unspecified organism Qualified Code(s): A41.9 - Sepsis, unspecified organism (3) Pneumonia Current Visit: Yes Status: Acute Assessment and plan: Per the son, the patient had a vomiting episode several days ago and is concern for aspiration. Patient has evidence of bibasilar pneumonia on CT. Given vancomycin, Zosyn, Levaquin in the emergency department. We will continue these at this time given patient living in healthcare facility at risk for multidrug resistant organism. We will check MRSA nasal swab, if negative can discontinue vancomycin. Qualifiers: Pneumonia type: aspiration pneumonia Aspiration pneumonia type: due to vomit Laterality: bilateral Lung location: lower lobe of lung Qualified Code(s): J69.0 - Pneumonitis due to inhalation of food and vomit (4) RAUL (acute kidney injury) Current Visit: No Status: Resolved Assessment and plan: Likely secondary to dehydration in the setting of sepsis. We will fluid hydrate as discussed above and recheck BMP in the morning. Patient had a Vaughan placed in the emergency department has good urine output. (5) Hyperglycemia Current Visit: No Status: Acute Assessment and plan: Possibly due to stress due to underlying infection, per son patient has no history of diabetes. We will start low dose sliding scale insulin and check Hgb A1c in the morning. (6) Dementia Current Visit: No Status: Acute Assessment and plan: Per family patient is at baseline mental status. Is nonverbal at baseline. Continue home medications. Qualifiers: Dementia type: Alzheimer's disease Alzheimer's disease onset: late-onset Dementia behavioral disturbance: without behavioral disturbance Qualified Code (s): G30.1 - Alzheimer's disease with late onset; F02.80 - Dementia in other diseases classified elsewhere without behavioral disturbance (7) DVT prophylaxis Current Visit: Yes Status: Acute Assessment and plan: Heparin 5000u SQ BID - Time Spent With Patient Total time spent is greater than 50% in coordination of care (as documented) at patient's floor/unit and/or counseling patient:
[2017-11-15] MEDS ORDERED: *HR* Dextrose 50 % in Water (Syg) 50 ML SYRINGE IVP PRN (21:34)
[2017-11-15] MEDS ORDERED: D5% in Water 1,000 ML IVC PRN (21:34)
[2017-11-15] MEDS ORDERED: Dextrose Gel 15 GM/37.5 ML TUBE PO PRN ×2 (21:34)
[2017-11-15] MEDS: 0.9 % Sodium Chloride 1,000 ML IVC SCH ×2 (22:30→23:51)
[2017-11-16] MEDS: Piperacillin/Tazobactam 3.375 GM in 0.9 % Sodium Chloride Mini Bag 100 ML IVPB SCH ×3 (00:23→15:23)
[2017-11-16 01:52] LABS: Basophils % 0.5 %; Eosinophils # 0.1 K/mcL (0.0-0.6); Eosinophils % 2.1 %; Hemoglobin 9.1 g/dL (12.9-16.9); Lymphocytes % 16.2 %; Mean Corpuscular HGB Conc 32.5 g/dL (31.6-35.5); Mean Corpuscular Hemoglobin 29.5 pg (28.0-33.3); Mean Corpuscular Volume 90.9 fL (83.0-100.0); Mean Platelet Volume 9.5 fL (9.4-12.4); Monocytes # 0.6 K/mcL (0.0-1.3); Monocytes % 9.1 %; Neutrophils # 4.3 K/mcL (1.6-8.9); Platelet Count 276 K/mcL (140-400); Red Blood Count 3.08 M/mcL (4.19-5.50); Red Cell Distribution Width 13.3 % (11.5-14.5); Segmented Neutrophils % 70.1 %
[2017-11-16 02:02] LABS: BUN/Creatinine Ratio 38 (6-26); Blood Urea Nitrogen 44 mg/dL (8-23); Calcium 8.7 mg/dL (8.6-10.3); Carbon Dioxide 23 mEq/L (23-29); Chloride 104 mEq/L (98-107); Glucose 169 mg/dL (70-105); Osmolality,Calculated 297 (280-300); Sodium 136 mEq/L (136-145); eGFR For Non-African Americans > 60 (> 60)
--- NOTE | 2017-11-16 02:03 | Sepsis Event Note ---
Sepsis Reassessment Note - Evaluation Sepsis Screen: No Definite Risk Current Stage of Sepsis: sepsis Possible Source of Sepsis: pulmonary - Focused Exam Date of Encounter: 11/16/17 Time of Encounter: 02:02 Vital Signs: Vital Signs Temp Pulse Resp BP Pulse Ox 11/16/17 00:25 99 F 87 17 145/68 92 11/15/17 21:30 90 11/15/17 21:14 100.8 F H 90 17 116/61 91 11/15/17 20:15 100.3 F H 19 102/66 Respiratory Exam: Present: rhonchi (bilaterally) Cardiovascular Exam: Present: RRR Capillary Refill: < 2 seconds Peripheral Pulse Strength: 3+ normal Peripheral Pulse Location: Radial Skin Exam: normal turgor - Reassessment Comments Comments: Patient appears to be clinically improving
[2017-11-16 02:28] LABS: Hypochromasia Present (Not Present); Platelet Estimate Normal (Normal)
[2017-11-16] MEDS: Insulin LISPRO 300 UNITS/3 ML VIAL SQ SCH ×4 (03:13→17:55)
[2017-11-16] MEDS: *HR* Heparin 5,000 UNIT/ML VIAL SQ SCH ×2 (05:51→17:03)
[2017-11-16 07:34] LABS: Estimated Average Glucose 200 mg/dl; Hemoglobin A1C 8.6 %
[2017-11-16] MEDS ORDERED: 0.9 % Sodium Chloride 1,000 ML IVC SCH (08:30)
[2017-11-16] MEDS ORDERED: Vancomycin (wt based) 1,000 MG VIAL IVPB SCH (09:00)
[2017-11-16] MEDS: risperiDONE 0.25 MG TABLET PO SCH ×2 (09:18→22:44)
[2017-11-16] MEDS: Aspirin 81 MG TAB.CHEW PO SCH (09:18)
[2017-11-16] MEDS: Divalproex Sodium 125 MG CAPSULE PO SCH ×3 (09:18→22:45)
[2017-11-16] MEDS: Multivit/Ca/Min/Fe/FA 1 TAB TABLET PO SCH (09:18)
[2017-11-16] MEDS: Carbidopa/Levodopa 25/100 TABLET PO SCH ×3 (09:18→22:45)
--- NOTE | 2017-11-16 12:45 | Event Note ---
Date of Encounter: 11/16/17 Time of Encounter: 10:10 H&P reviewed. Patient with history of Parkinson's disease and dementia is admitted for sepsis and hypoxic respiratory failure secondary to probable aspiration pneumonia. Patient is also a long-term resident with relatively recent hospitalization in late June. Lactate elevated as high as 3.6 which has normalized after 3 L of IV fluid. RAUL also improving. We will continue the current regime of IV antibiotics and keep on IV fluids until speech evaluation is completed. No prior report of diabetes per family but his A1c is noted to be 8.6. Keep on low-dose sliding scale every 6 hr until cleared for oral intake.
[2017-11-16] MEDS: Azithromycin 500 MG in D5% in Water 250 ML IVPB SCH (13:05)
[2017-11-16] MEDS ORDERED: Aminoglycoside Consult 1 EACH MC ONE (13:45)
[2017-11-16] MEDS: Melatonin 3 MG TABLET PO SCH (22:44)
[2017-11-16] MEDS: Mirtazapine 15 MG TABLET PO SCH (22:45)
[2017-11-17] MEDS: Piperacillin/Tazobactam 3.375 GM in 0.9 % Sodium Chloride Mini Bag 100 ML IVPB SCH ×4 (00:02→23:35)
[2017-11-17] MEDS: Insulin LISPRO 300 UNITS/3 ML VIAL SQ SCH ×4 (01:25→17:22)
[2017-11-17 04:34] LABS: Basophils # 0.1 K/mcL (0.0-0.2); Basophils % 0.8 %; Eosinophils # 0.6 K/mcL (0.0-0.6); Eosinophils % 7.8 %; Hematocrit 30.5 % (37.5-50.1); Hemoglobin 9.7 g/dL (12.9-16.9); Immature Granulocytes % 4.3 % (0-4); Lymphocytes # 1.3 K/mcL (0.6-4.6); Lymphocytes % 15.8 %; Mean Corpuscular HGB Conc 31.8 g/dL (31.6-35.5); Mean Corpuscular Hemoglobin 29.2 pg (28.0-33.3); Mean Corpuscular Volume 91.9 fL (83.0-100.0); Mean Platelet Volume 9.5 fL (9.4-12.4); Monocytes # 0.8 K/mcL (0.0-1.3); Monocytes % 10.1 %; Neutrophils # 4.9 K/mcL (1.6-8.9); Platelet Count 317 K/mcL (140-400); Red Blood Count 3.32 M/mcL (4.19-5.50); Red Cell Distribution Width 13.3 % (11.5-14.5); Segmented Neutrophils % 61.2 %
[2017-11-17 04:58] LABS: BUN/Creatinine Ratio 37 (6-26); Blood Urea Nitrogen 36 mg/dL (8-23); Calcium 8.9 mg/dL (8.6-10.3); Carbon Dioxide 24 mEq/L (23-29); Chloride 110 mEq/L (98-107); Glucose 133 mg/dL (70-105); Osmolality,Calculated 302 (280-300); Potassium 3.8 mEq/L (3.5-5.1); Sodium 141 mEq/L (136-145); eGFR For Non-African Americans > 60 (> 60)
[2017-11-17] MEDS: *HR* Heparin 5,000 UNIT/ML VIAL SQ SCH ×2 (05:51→17:44)
[2017-11-17] MEDS: Carbidopa/Levodopa 25/100 TABLET PO SCH ×3 (08:59→21:10)
[2017-11-17] MEDS: Aspirin 81 MG TAB.CHEW PO SCH (08:59)
[2017-11-17] MEDS: risperiDONE 0.25 MG TABLET PO SCH ×2 (08:59→21:10)
[2017-11-17] MEDS: Multivit/Ca/Min/Fe/FA 1 TAB TABLET PO SCH (09:00)
[2017-11-17] MEDS: Divalproex Sodium 125 MG CAPSULE PO SCH ×3 (09:00→21:10)
[2017-11-17] MEDS: Azithromycin 500 MG in D5% in Water 250 ML IVPB SCH (09:01)
--- NOTE | 2017-11-17 11:45 | Internal Med Progress Note ---
Hospitalist Progress Note - Encounter Date of Encounter: 11/17/17 Time of Encounter: 10:00 - Subjective Interval History: No acute events overnight. Patient remains nonverbal. Has bouts of coughing spells. Afebrile for 36 hours and has remained hemodynamic stable although continues to require 3L of O2. - Exam Vitals: Temp Pulse Resp BP Pulse Ox 97.6 F 73 16 131/74 93 11/17/17 07:09 11/17/17 07:09 11/17/17 07:09 11/17/17 07:09 11/17/17 07:09 Exam: General: Alert and awake, non-verbal, does not appear to be in acute distress. Cardiovascular:Normal S1 & S2, No JVD. Pulse regular. Lungs: Minimal rhonchi at the lung bases, right worse than the left Abdomen:Soft, non-tender, no rigidity. Skin:Normal color, no rash, no lesions. - Assessment and Plan (1) Acute respiratory failure with hypoxia Current Visit: Yes Status: Acute Assessment and Plan: Likely secondary to aspiration pneumonia started on vanc/zosyn/azithromycin and has remained afebrile for more than 36 hours and bandemia is also resolving. DC vancomycin as MRSA swab is negative, continue zosyn and azithromycin -> may be able to de-escalate tomorrow to PO abx Continues to require 3 L of oxygen, continue to wean down Evaluated by speech therapy -> on pureed, honey thickened liquid diet. (2) Sepsis Current Visit: Yes Status: Acute Assessment and Plan: Likely due to aspiration pneumonia. Patient has fever, tachycardia, bandemia of 44%, associated with RAUL RAUL and Lactic acidosis improved with IV fluid Blood cultures: no growth to date Continue antibiotics as above (3) Pneumonia Current Visit: Yes Status: Acute Assessment and Plan: abx as above wean down O2 (4) RAUL (acute kidney injury) Current Visit: No Status: Resolved Assessment and Plan: Improved with IV fluid (5) Diabetes mellitus Current Visit: Yes Status: Acute Assessment and Plan: NEw diagnosis for the patient, A1c 8.6. Continue low-dose line scale coverage ADA diet, Accu-Cheks before meals and at bedtime Will need metformin as an outpatient. (6) Dementia Current Visit: No Status: Acute Assessment and Plan: Appears to be nonverbal at baseline but would clarify the mental status with the family member when they are available (7) DVT prophylaxis Current Visit: Yes Status: Acute Assessment and Plan: Heparin SQ - Time Spent with Patient Total time spent is greater than 50% in coordination of care (as documented) at patient's floor/unit and/or counseling patient: Plan of Care Discussed with: nurse Internal Medicine: Result - Labs CBC & Chem 7: 11/17/17 04:16 11/17/17 04:16 Labs: Short CBC 11/17/17 Range/Units 04:16 WBC 8.0 (4.3-11.1) K/mcL Hgb 9.7 L (12.9-16.9) g/dL Hct 30.5 L (37.5-50.1) % Plt Count 317 (140-400) K/mcL Neutrophils # 4.9 (1.6-8.9) K/mcL BMP 11/17/17 04:16 Sodium 141 Potassium 3.8 Chloride 110 H Carbon Dioxide 24 BUN 36 H Creatinine 0.97 Glucose 133 H Calcium 8.9 Consult Discharge Plan - Plan Referrals: NONE,PCP [Primary Care Provider] - (2) Sepsis Qualifiers: Sepsis type: sepsis due to unspecified organism Qualified Code(s): A41.9 - Sepsis, unspecified organism (3) Pneumonia Qualifiers: Pneumonia type: aspiration pneumonia Aspiration pneumonia type: due to vomit Laterality: bilateral Lung location: lower lobe of lung Qualified Code(s): J69.0 - Pneumonitis due to inhalation of food and vomit (5) Diabetes mellitus Qualifiers: Diabetes mellitus type: type 2 Diabetes mellitus senior living insulin use: without senior living use Diabetes mellitus complication status: with unspecified complications Qualified Code(s): E11.8 - Type 2 diabetes mellitus with unspecified complications (6) Dementia Qualifiers: Dementia type: Alzheimer's disease Alzheimer's disease onset: late-onset Dementia behavioral disturbance: without behavioral disturbance Qualified Code( s): G30.1 - Alzheimer's disease with late onset; F02.80 - Dementia in other diseases classified elsewhere without behavioral disturbance
[2017-11-17] MEDS: Ipratropium/Albuterol Neb 3 ML IH SCH ×2 (16:13→22:02)
[2017-11-17] MEDS ORDERED: Insulin LISPRO 300 UNITS/3 ML VIAL SQ SCH (21:00)
[2017-11-17] MEDS: Mirtazapine 15 MG TABLET PO SCH (21:10)
[2017-11-17] MEDS: Melatonin 3 MG TABLET PO SCH (21:10)
[2017-11-18] MEDS: Ipratropium/Albuterol Neb 3 ML IH SCH ×2 (04:17→10:59)
[2017-11-18 05:16] LABS: Hematocrit 30.5 % (37.5-50.1); Hemoglobin 9.5 g/dL (12.9-16.9); Mean Corpuscular HGB Conc 31.1 g/dL (31.6-35.5); Mean Corpuscular Hemoglobin 28.6 pg (28.0-33.3); Mean Corpuscular Volume 91.9 fL (83.0-100.0); Mean Platelet Volume 9.6 fL (9.4-12.4); Platelet Count 356 K/mcL (140-400); Red Blood Count 3.32 M/mcL (4.19-5.50); Red Cell Distribution Width 13.3 % (11.5-14.5)
[2017-11-18 05:33] LABS: BUN/Creatinine Ratio 32 (6-26); Blood Urea Nitrogen 31 mg/dL (8-23); Calcium 9.1 mg/dL (8.6-10.3); Carbon Dioxide 24 mEq/L (23-29); Chloride 110 mEq/L (98-107); Glucose 137 mg/dL (70-105); Osmolality,Calculated 301 (280-300); Potassium 3.6 mEq/L (3.5-5.1); Sodium 141 mEq/L (136-145); eGFR For Non-African Americans > 60 (> 60)
[2017-11-18 05:47] LABS: Eosinophils # 0.4 K/mcL (0.0-0.6); Lymphocytes # 3.4 K/mcL (0.6-4.6); Monocytes # 0.4 K/mcL (0.0-1.3); Platelet Estimate Normal (Normal)
[2017-11-18 05:48] LABS: Reactive Lymphocytes Present (Not Present)
[2017-11-18] MEDS: *HR* Heparin 5,000 UNIT/ML VIAL SQ SCH (05:49)
[2017-11-18] MEDS: Divalproex Sodium 125 MG CAPSULE PO SCH (08:47)
[2017-11-18] MEDS: Carbidopa/Levodopa 25/100 TABLET PO SCH (08:47)
[2017-11-18] MEDS: Multivit/Ca/Min/Fe/FA 1 TAB TABLET PO SCH (08:47)
[2017-11-18] MEDS: Aspirin 81 MG TAB.CHEW PO SCH (08:47)
[2017-11-18] MEDS: risperiDONE 0.25 MG TABLET PO SCH (08:48)
[2017-11-18] MEDS: Insulin LISPRO 300 UNITS/3 ML VIAL SQ SCH ×2 (08:48→12:30)
[2017-11-18] MEDS: Piperacillin/Tazobactam 3.375 GM in 0.9 % Sodium Chloride Mini Bag 100 ML IVPB SCH (08:50)
[2017-11-18] MEDS ORDERED: Azithromycin 250 MG TABLET PO SCH (09:00)
[2017-11-18 10:43] VITALS: BP 118/63
--- NOTE | 2017-11-18 13:31 | Discharge Summary ---
- NOTES TO OUTPATIENT PROVIDER Notes to Outpatient Provider: Patient was admitted for hypoxic respiratory failure, severe sepsis with RAUL secondary to aspiration pneumonia. Improved with IV antibiotics and IV fluid. Speech therapist evaluated the patient and recommended to have pureed diet with honey thickened liquids. His oxygen has been titrated down to 1 L on nasal cannula. He will be discharged back to SNF on oral Augmentin for 7 days. Of note, co-status have been extensively discussed with the patient's (POA) who is eventually leaning toward DNRCCA. Orders not resulted at time of discharge: Pending orders 11/18/17 06:42 MRSA Surveillance Screen [[facility]] Routine Date of Encounter: 11/18/17 Time of Encounter: 13:00 - Discharge Diagnosis (1) Acute respiratory failure with hypoxia Priority: Primary Status: Acute (2) Sepsis Priority: Secondary Status: Acute Qualifiers: Sepsis type: sepsis due to unspecified organism Qualified Code(s): A41.9 - Sepsis, unspecified organism (3) Pneumonia Priority: Secondary Status: Acute Qualifiers: Pneumonia type: aspiration pneumonia Aspiration pneumonia type: due to vomit Laterality: bilateral Lung location: lower lobe of lung Qualified Code(s): J69.0 - Pneumonitis due to inhalation of food and vomit (4) RAUL (acute kidney injury) Priority: Secondary Status: Resolved (5) Diabetes mellitus Priority: Secondary Status: Acute Qualifiers: Diabetes mellitus type: type 2 Diabetes mellitus termite helper insulin use: without termite helper use Diabetes mellitus complication status: with unspecified complications Qualified Code(s): E11.8 - Type 2 diabetes mellitus with unspecified complications (6) Dementia Priority: Secondary Status: Acute Qualifiers: Dementia type: Alzheimer's disease Alzheimer's disease onset: late-onset Dementia behavioral disturbance: without behavioral disturbance Qualified Code (s): G30.1 - Alzheimer's disease with late onset; F02.80 - Dementia in other diseases classified elsewhere without behavioral disturbance (7) DVT prophylaxis Priority: Secondary Status: Acute Hospital course: Mr. Bauer is a 82 year old male with dementia, Parkinson's disease, was admitted for hypoxic respiratory failure, severe sepsis with RAUL secondary to aspiration pneumonia. Improved with IV antibiotics and IV fluid. Speech therapist evaluated the patient and recommended to have pureed diet with honey thickened liquids. His oxygen has been titrated down to 1 L on nasal cannula. He will be discharged home on oral Augmentin for 7 days. Of note, co-status have been extensively discussed with the patient's (POA) who is eventually leaning toward DNRCCA. Also, his A1c was noted to be 8.6 and would benefit from at least metformin as an outpatient. Discharge discussed with: patient, family, nurse - Time Spent with Patient Total time spent providing and/or coordinating discharge services: Greater than 30 minutes - Discharge Medications Prescriptions: Amoxicillin/Clavulanate [Augmentin] 875 mg PO BIDWM #14 tablet Home Medications: Amino AC/Whey Prot Conc, Isol [Whey Protein Powder] 1 each PO DAILY 06/18/17 [ History] Aspirin 81 mg PO DAILY 06/18/17 [History] Carbidopa/Levodopa 25/100 [Sinemet 25] 1 each PO TID 06/18/17 [History] Divalproex Sodium [Depakote Sprinkle] 250 mg PO TID 06/18/17 [History] Donepezil HCl [Aricept] 10 mg PO HS 06/18/17 [History] Escitalopram Oxalate Soln. 10 mg PO DAILY 06/18/17 [History] Melatonin 6 mg PO HS 06/18/17 [History] Memantine HCl 10 mg PO BID 06/18/17 [History] Mirtazapine 7.5 mg PO HS 06/18/17 [History] Multivit-Min/FA/Lycopen/Lutein [A Thru Z Select Multivit Tab] 1 each PO DAILY [History] risperiDONE [Risperidone] 0.5 mg PO BID 06/18/17 [History] Acetaminophen [Tylenol] 650 mg PO Q4HR PRN 07/07/17 [History] DiphenhydraMINE [Benadryl] 25 mg PO Q6HR PRN 07/07/17 [History] Guaifenesin [Siltussin SA] 10 ml PO Q4H PRN 07/07/17 [History] Ipratropium/Albuterol Neb [Duoneb] 3 ml IH Q4HR PRN 07/07/17 [History] Ondansetron Oral Soln [Zofran Oral Soln] 4 mg PO Q4H PRN 07/07/17 [History] Amoxicillin/Clavulanate [Augmentin] 875 mg PO BIDWM #14 tablet 11/18/17 [Rx] Allergies/Adverse Reactions: 3 Allergy/AdvReac Type Severity Reaction Status Date / Time No Known Drug Allergies Allergy See Verified 07/07/17 13:19 Comments Date of admission: 11/16/17 03:24 Primary care physician: PCP NONE Consults: 11/16/17 09:02 Consult to [facility] [CONS] Routine Reason for SW Consult: [facility] [place] - Constitutional Vitals: Temp Pulse Resp BP Pulse Ox 99.4 F 77 20 118/63 92 11/18/17 10:38 11/18/17 10:38 11/18/17 11:00 11/18/17 10:38 11/18/17 11:00 General appearance: Present: no acute distress Exam: General: Alert and awake, non-verbal, does not appear to be in acute distress. Cardiovascular:Normal S1 & S2, No JVD. Pulse regular. Lungs: Minimal rhonchi at the lung bases, right worse than the left Abdomen:Soft, non-tender, no rigidity. Skin:Normal color, no rash, no lesions. - Patient Status Disposition: Transfer SNF Condition: Fair - Discharge Instructions Instructions: Acute Respiratory Distress Syndrome (DC), Diabetes Mellitus Type 2 in Adults (DC), Sepsis (DC), Pneumonia (DC) Follow Up With: NONE,PCP [Primary Care Provider] - - Diet and Activity Activity: as per physical therapy Diet: diabetic diet
--- NOTE | 2017-11-18 13:37 | Physician Discharge Referral ---
ExtendedCare Referral Info Institutional Level of Care: Skilled - Diagnosis (1) Acute respiratory failure with hypoxia Priority: Primary Status: Acute (2) Sepsis Priority: Secondary Status: Acute (3) Pneumonia Priority: Secondary Status: Acute (4) RAUL (acute kidney injury) Priority: Secondary Status: Resolved (5) Diabetes mellitus Priority: Secondary Status: Acute (6) Dementia Priority: Secondary Status: Acute (7) DVT prophylaxis Priority: Secondary Status: Acute - Transfer Medications Prescriptions: Amoxicillin/Clavulanate [Augmentin] 875 mg PO BIDWM #14 tablet Home Medications: Amino AC/Whey Prot Conc, Isol [Whey Protein Powder] 1 each PO DAILY 06/18/17 [ History] Aspirin 81 mg PO DAILY 06/18/17 [History] Carbidopa/Levodopa 25/100 [Sinemet 25/100] 1 each PO TID 06/18/17 [History] Divalproex Sodium [Depakote Sprinkle] 250 mg PO TID 06/18/17 [History] Donepezil HCl [Aricept] 10 mg PO HS 06/18/17 [History] Escitalopram Oxalate Soln. 10 mg PO DAILY 06/18/17 [History] Melatonin 6 mg PO HS 06/18/17 [History] Memantine HCl 10 mg PO BID 06/18/17 [History] Mirtazapine 7.5 mg PO HS 06/18/17 [History] Multivit-Min/FA/Lycopen/Lutein [A Thru Z Select Multivit Tab] 1 each PO DAILY [History] risperiDONE [Risperidone] 0.5 mg PO BID 06/18/17 [History] Acetaminophen [Tylenol] 650 mg PO Q4HR PRN 07/07/17 [History] DiphenhydraMINE [Benadryl] 25 mg PO Q6HR PRN 07/07/17 [History] Guaifenesin [Siltussin SA] 10 ml PO Q4H PRN 07/07/17 [History] Ipratropium/Albuterol Neb [Duoneb] 3 ml IH Q4HR PRN 07/07/17 [History] Ondansetron Oral Soln [Zofran Oral Soln] 4 mg PO Q4H PRN 07/07/17 [History] Amoxicillin/Clavulanate [Augmentin] 875 mg PO BIDWM #14 tablet 11/18/17 [Rx] Allergies/Adverse Reactions: 3 Allergy/AdvReac Type Severity Reaction Status Date / Time No Known Drug Allergies Allergy See Verified 07/07/17 13:19 Comments - Respiratory Orders Oxygen / L per min (1L o2 via NC, wean down as possible) Smoking Cessation: Smoking cessation has been advised. For more information, call the [place] [employer] Quit Line at 5-938-WPIP-NOW. - Treatments List/Other: complete 7 days of PO augmentin for aspiration PNA CERTIFICATION: I certify that the transfer of the above named patient to an Extended Care Facility is necessary for the continuing treatment of the diagnosis listed. The above information is true and accurate reflection of patient's current condition. Confidential - Redisclosure prohibited without a patient's written consent.
--- NOTE | 2017-11-20 11:47 | Electrocardiograph Report ---
[place] [id number] Test Date: 2017-11-15 Pat Name: Caleb Bauer Department: [id number] Room: 2A44 Gender: M Lpn Rn Hospice: : 1935 Requested By: Jonah Meade Order Number: [id number] Reading MD: Danilo Pinon Measurements Intervals [place] Rate: 92 P: -51 OR: 145 QRS: -33 QRSD: 104 T: 58 QT: 348 QTc: 431 Interpretive Statements Sinus rhythm Left axis deviation Abnormal R-wave progression, early transition Electronically Signed On 11-20-2017 11:45:18 EDT by Danilo Pinon
== END 2017-11-18 14:31 | DRG 871 ==
LOC: EMEROOARM 16:04 → 2ANU 16:04 → SUATTDRO 11-16 03:24
PROVIDERS: ADMIT Pediatrics; ATTEND Internal Medicine

== ENCOUNTER 2018-01-05 11:32 | Inpatient (IN) ==
[2018-01-05] MEDS ORDERED: methylPREDNISolone 125 MG/2 ML VIAL IVP ONE (11:38)
[2018-01-05] MEDS ORDERED: Ipratropium/Albuterol Neb 3 ML IH ONE (11:38)
[2018-01-05 12:19] LABS: Basophils # 0.1 K/mcL (0.0-0.2); Eosinophils # 0.1 K/mcL (0.0-0.6); Eosinophils % 1.1 %; Hematocrit 36.7 % (37.5-50.1); Hemoglobin 11.5 g/dL (12.9-16.9); Immature Granulocytes % 1.5 % (0-4); Lymphocytes # 1.1 K/mcL (0.6-4.6); Lymphocytes % 8.7 %; Mean Corpuscular HGB Conc 31.3 g/dL (31.6-35.5); Mean Corpuscular Volume 89.5 fL (83.0-100.0); Mean Platelet Volume 10.2 fL (9.4-12.4); Monocytes # 1.2 K/mcL (0.0-1.3); Monocytes % 9.4 %; Neutrophils # 9.7 K/mcL (1.6-8.9); Platelet Count 330 K/mcL (140-400); Red Cell Distribution Width 14.4 % (11.5-14.5); Segmented Neutrophils % 78.3 %
[2018-01-05 12:41] LABS: BUN/Creatinine Ratio 32 (6-26); Blood Urea Nitrogen 36 mg/dL (8-23); Calcium 9.5 mg/dL (8.6-10.3); Carbon Dioxide 23 mEq/L (23-29); Chloride 97 mEq/L (98-107); Glucose 223 mg/dL (70-105); Osmolality,Calculated 291 (280-300); Potassium 4.8 mEq/L (3.5-5.1); Sodium 133 mEq/L (136-145); Troponin I < 0.03 ng/mL (< 0.04); eGFR For Non-African Americans > 60 (> 60)
[2018-01-05] MEDS ORDERED: Piperacillin/Tazobactam 3.375 GM in Water for inj. (sterile) 20 ML 20 ML IVP ONE (12:42)
--- NOTE | 2018-01-05 12:44 | Emergency Department Note ---
Disposition Clinical Impression: Septic shock Disposition: Admitted As Inpatient Condition: Fair Time of Disposition: 13:37 SOB HPI - General Stated Complaint: MARC Time Seen by Provider: 01/05/18 11:38 Source: EMS Nursing Notes Reviewed: Yes Vital Signs Reviewed: Yes - History of Present Illness 82-year-old male presents from skilled nursing for evaluation of shortness of hipolito th. Unknown timeline of onset. Patient does have a history of aspiration and is on tube feeds. There is no family at bedside for additional history of present illness at this time. Patient is nonverbal at baseline. PMH: COPD, dementia, Parkinson's. 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 Review of systems not obtainable secondary to patient's mentation. - Related Data Home Medications Medication Instructions Recorded Confirmed Amino AC/Whey Prot Conc, Isol 1 unit PO DAILY 06/18/17 01/05/18 [Whey Protein Powder] Aspirin 81 mg PO DAILY 06/18/17 01/05/18 Carbidopa/Levodopa 25/100 [Sinemet 1 tab PO TID 06/18/17 01/05/18 25/100] Divalproex Sodium [Depakote 250 mg PO TID 06/18/17 01/05/18 Sprinkle] Donepezil HCl [Aricept] 10 mg PO HS 06/18/17 01/05/18 Escitalopram Oxalate Soln. 10 mg PO DAILY 06/18/17 01/05/18 Melatonin 6 mg PO HS 06/18/17 01/05/18 Memantine HCl 10 mg PO BID 06/18/17 01/05/18 Multivit-Min/FA/Lycopen/Lutein [A 1 tab PO DAILY 06/18/17 01/05/18 Thru Z Select Multivit Tab] risperiDONE [Risperidone] 0.5 mg GTUBE TID 06/18/17 01/05/18 Acetaminophen [Tylenol] 650 mg GTUBE Q4HR PRN 07/07/17 01/05/18 Guaifenesin [Siltussin SA] 10 ml PO Q4H PRN 07/07/17 01/05/18 Ipratropium/Albuterol Neb [Duoneb] 3 ml IH Q4HR PRN 07/07/17 01/05/18 Ondansetron Oral Soln [Zofran Oral 4 mg GTUBE Q4H PRN 07/07/17 01/05/18 Soln] Metformin HCl 500 mg PO DAILY 01/05/18 01/05/18 Nut.tx.gluc.intoler,Lac-Fr,Soy 1 can GTUBE 5XD 01/05/18 01/05/18 [Glucerna] Oxygen 2.5 l IH AD PRN 01/05/18 01/05/18 Allergies Allergy/AdvReac Type Severity Reaction Status Date / Time No Known Drug Allergies Allergy See Verified 07/07/17 13:19 Comments Limitations: ROS unobtainable due to patients medical condition Past Medical History - Past Medical History Medical history: Reports: arthritis, COPD, dementia, hyperlipidemia, hypertension, renal disease, other 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) Psychiatric history: Reports: anxiety, depression - Social History Smoking Status: Unknown if ever smoked Smokeless Tobacco Status: No Alcohol use: Reports: unknown Drug use: Reports: unknown Physical Exam - General General appearance: in distress Course Course Narrative: Chart check shows patient was admitted to this facility in the last 2 months for sepsis a pulmonary source with associated respiratory failure. The history and physical on November 16 notes the patient is tube fed however does take some food by mouth occasionally. History of recurrent aspiration. Patient has lactic acidemia. Will repeat type lactate, provide 2 L IV fluids, begin empiric antibiotic so vancomycin and Zosyn against a currently unknown source. Given his pulmonary history and recent hospitalization, will empirically cover against healthcare associated and aspiration pneumonia. Urinalysis which was obtained on catheter specimen, is unremarkable. Mild leuko cytosis of 12.3. EKG dated 01/05/2018 at 11:50 interpreted as sinus tachycardia with a rate of 100. WI 118, QRS 89, QTC 445. Left axis. Nonspecific ST-T changes. Poor R- wave progression. Compared to previous EKG dated 11/15/2017 showing no acute ischemic changes or comparison. Critical lab value received showing lactic acidemia., 2 L of IV fluids are ordered. Prior to administration of the first liter, patient was tachycardic to the low 100s and hypotensive to systolic 85. After the first liter, heart rate was 86 with systolic blood pressure 117; he is fluid responsive. Will provide second liter and continue evaluation. Patient's at bedside. Discussed the above and his fluid responsiveness. Discussed my concern for sepsis with source unknown at this time with suspicion for pulmonary given patient's history of aspiration. Discussed broad empiric antibody coverage. Discussed the need for admission for continued IV antibiotics and evaluation. She agrees to this plan of care. I discussed the patient with the admitting hospitalist, Dr. Bright. She agrees to accept the patient for continued evaluation and monitoring. She would last CT chest, abdomen, pelvis without contrast which I will order. Vital Signs Temperature 98.8 F 01/05/18 11:42 Pulse Rate 98 01/05/18 11:42 Respiratory Rate 16 01/05/18 11:42 Blood Pressure 145/126 01/05/18 11:42 O2 Sat by Pulse Oximetry 91 01/05/18 11:42 Temperature 98.8 F 01/05/18 11:42 Pulse Rate 91 01/05/18 15:30 Respiratory Rate 16 01/05/18 16:28 Blood Pressure 118/70 01/05/18 16:28 O2 Sat by Pulse Oximetry 99 01/05/18 15:30 Oxygen Delivery Oxygen Delivery Nasal Cannula Shortness of Breath/Dyspnea - Lab Data Result diagrams: 01/05/18 12:05 01/05/18 12:05 Lab Results 01/05/18 01/05/18 01/05/18 Range/Units 12:05 12:05 12:05 WBC 12.3 H (4.3-11.1) K/mcL RBC 4.10 L (4.19-5.50) M/mcL Hgb 11.5 L (12.9-16.9) g/dL Hct 36.7 L (37.5-50.1) % MCV 89.5 (83.0-100.0) fL MCH 28.0 (28.0-33.3) pg MCHC 31.3 L (31.6-35.5) g/dL RDW 14.4 (11.5-14.5) % Plt Count 330 (140-400) K/mcL MPV 10.2 (9.4-12.4) fL Immature Gran % 1.5 (0-4) % Seg Neutrophils % 78.3 % Lymphocytes % 8.7 % Monocytes % 9.4 % Eosinophils % 1.1 % Basophils % 1.0 % Neutrophils # 9.7 H (1.6-8.9) K/mcL Lymphocytes # 1.1 (0.6-4.6) K/mcL Monocytes # 1.2 (0.0-1.3) K/mcL Eosinophils # 0.1 (0.0-0.6) K/mcL Basophils # 0.1 (0.0-0.2) K/mcL PT (9.4-12.1) Seconds INR APTT (26.0-36.0) Seconds Sodium 133 L (136-145) mEq/L Potassium 4.8 (3.5-5.1) mEq/L Chloride 97 L (98-107) mEq/L Carbon Dioxide 23 (23-29) mEq/L BUN 36 H (8-23) mg/dL Creatinine 1.11 (0.70-1.30) mg/dL Est GFR ( Amer) > 60 (> 60) Est GFR (Non-Af Amer) > 60 (> 60) BUN/Creatinine Ratio 32 H (6-26) Glucose 223 H (70-105) mg/dL Calculated Osmolality 291 (280-300) Lactic Acid 4.1 H* (0.5-2.2) mmol/L Calcium 9.5 (8.6-10.3) mg/dL Magnesium 2.0 (1.6-2.6) mg/dL Total Bilirubin 0.3 (0.3-1.0) mg/dL Direct Bilirubin 0.0 (0.0-0.2) mg/dL Indirect Bilirubin 0.3 (0.0-1.2) mg/dL AST 20 (13-39) Units/L ALT 4 L (7-52) Units/L Alkaline Phosphatase 66 (34-104) Units/L Troponin I < 0.03 (< 0.04) ng/mL B-Natriuretic Peptide (Less than 100) pg/mL Serum Total Protein 8.1 (6.4-8.9) g/dL Albumin 3.5 (3.5-5.7) g/dL Globulin 4.6 H (2.4-3.5) g/dL Albumin/Globulin Ratio 0.8 L (1.1-2.2) Urine Color (Yellow) Urine Clarity (Clear) Urine pH (5.0-8.0) pH Units Ur Specific [address] (1.010-1.025) Urine Protein (Neg-Trace) mg/dL Urine Glucose (UA) (Normal) mg/dL Urine Ketones (Negative) mg/dL Urine Blood (Negative) Urine Nitrite (Negative) Urine Bilirubin (Negative) Urine Urobilinogen (Normal) mg/dL Ur Leukocyte Esterase (Negative) Ur Culture Indicated? (NO) 01/05/18 01/05/18 01/05/18 Range/Units 12:05 12:05 13:08 WBC (4.3-11.1) K/mcL RBC (4.19-5.50) M/mcL Hgb (12.9-16.9) g/dL Hct (37.5-50.1) % MCV (83.0-100.0) fL MCH (28.0-33.3) pg MCHC (31.6-35.5) g/dL RDW (11.5-14.5) % Plt Count (140-400) K/mcL MPV (9.4-12.4) fL Immature Gran % (0-4) % Seg Neutrophils % % Lymphocytes % % Monocytes % % Eosinophils % % Basophils % % Neutrophils # (1.6-8.9) K/mcL Lymphocytes # (0.6-4.6) K/mcL Monocytes # (0.0-1.3) K/mcL Eosinophils # (0.0-0.6) K/mcL Basophils # (0.0-0.2) K/mcL PT 12.1 (9.4-12.1) Seconds INR 1.1 APTT 34.1 (26.0-36.0) Seconds Sodium (136-145) mEq/L Potassium (3.5-5.1) mEq/L Chloride (98-107) mEq/L Carbon Dioxide (23-29) mEq/L BUN (8-23) mg/dL Creatinine (0.70-1.30) mg/dL Est GFR ( Amer) (> 60) Est GFR (Non-Af Amer) (> 60) BUN/Creatinine Ratio (6-26) Glucose (70-105) mg/dL Calculated Osmolality (280-300) Lactic Acid (0.5-2.2) mmol/L Calcium (8.6-10.3) mg/dL Magnesium (1.6-2.6) mg/dL Total Bilirubin (0.3-1.0) mg/dL Direct Bilirubin (0.0-0.2) mg/dL Indirect Bilirubin (0.0-1.2) mg/dL AST (13-39) Units/L ALT (7-52) Units/L Alkaline Phosphatase (34-104) Units/L Troponin I (< 0.04) ng/mL B-Natriuretic Peptide 34 (Less than 100) pg/mL Serum Total Protein (6.4-8.9) g/dL Albumin (3.5-5.7) g/dL Globulin (2.4-3.5) g/dL Albumin/Globulin Ratio (1.1-2.2) Urine Color Yellow (Yellow) Urine Clarity Clear (Clear) Urine pH 7.0 (5.0-8.0) pH Units Ur Specific [address] 1.012 (1.010-1.025) Urine Protein Negative (Neg-Trace) mg/dL Urine Glucose (UA) Normal (Normal) mg/dL Urine Ketones Negative (Negative) mg/dL Urine Blood Negative (Negative) Urine Nitrite Negative (Negative) Urine Bilirubin Negative (Negative) Urine Urobilinogen Normal (Normal) mg/dL Ur Leukocyte Esterase Negative (Negative) Ur Culture Indicated? NO (NO) Sepsis Reassessment Note - Evaluation Sepsis Screen: No Definite Risk Current Stage of Sepsis: septic shock Possible Source of Sepsis: pulmonary - Focused Exam Date of Encounter: 01/05/18 Time of Encounter: 13:38 Vital Signs: Vital Signs Temp Pulse Resp BP Pulse Ox 01/05/18 14:47 101 20 116/77 95 01/05/18 13:37 89 18 117/61 98 01/05/18 12:59 102 16 85/59 93 01/05/18 12:30 109 22 127/80 97 01/05/18 12:24 25 95 01/05/18 12:01 96 16 94/63 95 01/05/18 11:51 93 01/05/18 11:42 98.8 F 98 16 145/126 91 Respiratory Exam: Present: CTA bilaterally, decreased breath sounds Cardiovascular Exam: Present: RRR Capillary Refill: < 2 seconds Peripheral Pulse Strength: 2+ slightly diminished Peripheral Pulse Location: Pedal Skin Exam: normal turgor
[2018-01-05] MEDS: 0.9 % Sodium Chloride 1,000 ML IVC SCH ×3 (12:58→18:44)
[2018-01-05 13:02] LABS: INR 1.1; Prothrombin Time 12.1 Seconds (9.4-12.1)
[2018-01-05 13:04] LABS: Activated Partial Thrombo Time 34.1 Seconds (26.0-36.0)
--- NOTE | 2018-01-05 13:12 | Emergency Department Note ---
Disposition Clinical Impression: Sepsis Qualifiers: Sepsis type: sepsis due to unspecified organism Qualified Code(s): A41.9 - Sepsis, unspecified organism Disposition: Admitted As Inpatient Referrals: NONE,PCP [Primary Care Provider] - General Adult HPI - General Chief complaint: ED Shortness of Breath/Dyspnea Stated complaint: MARC Time Seen by Provider: 01/05/18 11:38 Source: EMS Nursing Notes Reviewed: Yes Vital Signs Reviewed: Yes - History of Present Illness HPI Narrative: Attestation note ED attending note I examined this patient and my medical decision-making was reviewed with the emergency medicine resident Dr.KURT WORKMAN. I agree with the documented findings, disposition and treatment plan as described except to the extent set forth below. Briefly: 82[facility] patient brought in for increasing weakness altered mental status cough and concerns for aspiration. Patient is thin with contractures he was hypoxic to in the 70s. EMS went up to 80s and 90s with the nonrebreather bag. Patient is rhonchorous breath sounds bilaterally he is able to respond to some questions but he appears to be slow in answering and disoriented. Patient's lactic acid came back 4.6. Which is critically elevated & certainly suggestive of sepsis. sepsis protocol being initiated. Providing 50 minutes critical care service this patient. Admission disposition pending Pain Scale: 0 - Related Data Home Medications Medication Instructions Recorded Confirmed Amino AC/Whey Prot Conc, Isol 1 each PO DAILY 06/18/17 11/15/17 [Whey Protein Powder] Aspirin 81 mg PO DAILY 06/18/17 11/15/17 Carbidopa/Levodopa 25/100 [Sinemet 1 each PO TID 06/18/17 11/15/17 25/100] Divalproex Sodium [Depakote 250 mg PO TID 06/18/17 11/15/17 Sprinkle] Donepezil HCl [Aricept] 10 mg PO HS 06/18/17 11/15/17 Escitalopram Oxalate Soln. 10 mg PO DAILY 06/18/17 11/15/17 Melatonin 6 mg PO HS 06/18/17 11/15/17 Memantine HCl 10 mg PO BID 06/18/17 11/15/17 Mirtazapine 7.5 mg PO HS 06/18/17 11/15/17 Multivit-Min/FA/Lycopen/Lutein [A 1 each PO DAILY 06/18/17 11/15/17 Thru Z Select Multivit Tab] risperiDONE [Risperidone] 0.5 mg PO BID 06/18/17 11/15/17 Acetaminophen [Tylenol] 650 mg PO Q4HR PRN 07/07/17 11/15/17 DiphenhydraMINE [Benadryl] 25 mg PO Q6HR PRN 07/07/17 11/15/17 Guaifenesin [Siltussin SA] 10 ml PO Q4H PRN 07/07/17 11/15/17 Ipratropium/Albuterol Neb [Duoneb] 3 ml IH Q4HR PRN 07/07/17 11/15/17 Ondansetron Oral Soln [Zofran Oral 4 mg PO Q4H PRN 07/07/17 11/15/17 Soln] Previous Rx's Medication Instructions Recorded Amoxicillin/Clavulanate [Augmentin] 875 mg PO BIDWM #14 tablet 11/18/17 Allergies Allergy/AdvReac Type Severity Reaction Status Date / Time No Known Drug Allergies Allergy See Verified 07/07/17 13:19 Comments Past Medical History - Past Medical History Medical history: Reports: arthritis, COPD, dementia, hyperlipidemia, hypertension, renal disease, other 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) Psychiatric history: Reports: anxiety, depression - Social History Smoking Status: Unknown if ever smoked Smokeless Tobacco Status: No Alcohol use: Reports: unknown Drug use: Reports: unknown Physical Exam - General General appearance: in distress Course Vital Signs Temperature 98.8 F 01/05/18 11:42 Pulse Rate 98 01/05/18 11:42 Respiratory Rate 16 01/05/18 11:42 Blood Pressure 145/126 01/05/18 11:42 O2 Sat by Pulse Oximetry 91 01/05/18 11:42 Temperature 98.8 F 01/05/18 11:42 Pulse Rate 102 01/05/18 12:59 Respiratory Rate 16 01/05/18 12:59 Blood Pressure 85/59 01/05/18 12:59 O2 Sat by Pulse Oximetry 93 01/05/18 12:59 Oxygen Delivery Oxygen Delivery Nasal Cannula Medical Decision Making - Lab Data Result diagrams: 01/05/18 12:05 01/05/18 12:05 Lab Results 01/05/18 01/05/1801/05/18 Range/Units 12:05 12:05 12:05 WBC 12.3 H (4.3-11.1) K/mcL RBC 4.10 L (4.19-5.50) M/mcL Hgb 11.5 L (12.9-16.9) g/dL Hct 36.7 L (37.5-50.1) % MCV 89.5 (83.0-100.0) fL MCH 28.0 (28.0-33.3) pg MCHC 31.3 L (31.6-35.5) g/dL RDW 14.4 (11.5-14.5) % Plt Count 330 (140-400) K/mcL MPV 10.2 (9.4-12.4) fL Immature Gran % 1.5 (0-4) % Seg Neutrophils % 78.3 % Lymphocytes % 8.7 % Monocytes % 9.4 % Eosinophils % 1.1 % Basophils % 1.0 % Neutrophils # 9.7 H (1.6-8.9) K/mcL Lymphocytes # 1.1 (0.6-4.6) K/mcL Monocytes # 1.2 (0.0-1.3) K/mcL Eosinophils # 0.1 (0.0-0.6) K/mcL Basophils # 0.1 (0.0-0.2) K/mcL PT (9.4-12.1) Seconds INR APTT (26.0-36.0) Seconds Sodium 133 L (136-145) mEq/L Potassium 4.8 (3.5-5.1) mEq/L Chloride 97 L (98-107) mEq/L Carbon Dioxide 23 (23-29) mEq/L BUN 36 H (8-23) mg/dL Creatinine 1.11 (0.70-1.30) mg/dL Est GFR ( Amer) > 60 (> 60) Est GFR (Non-Af Amer) > 60 (> 60) BUN/Creatinine Ratio 32 H (6-26) Glucose 223 H (70-105) mg/dL Calculated Osmolality 291 (280-300) Lactic Acid 4.1 H* (0.5-2.2) mmol/L Calcium 9.5 (8.6-10.3) mg/dL Troponin I < 0.03 (< 0.04) ng/mL B-Natriuretic Peptide (Less than 100) pg/mL 01/05/18 01/05/18 Range/Units 12:05 12:05 WBC (4.3-11.1) K/mcL RBC (4.19-5.50) M/mcL Hgb (12.9-16.9) g/dL Hct (37.5-50.1) % MCV (83.0-100.0) fL MCH (28.0-33.3) pg MCHC (31.6-35.5) g/dL RDW (11.5-14.5) % Plt Count (140-400) K/mcL MPV (9.4-12.4) fL Immature Gran % (0-4) % Seg Neutrophils % % Lymphocytes % % Monocytes % % Eosinophils % % Basophils % % Neutrophils # (1.6-8.9) K/mcL Lymphocytes # (0.6-4.6) K/mcL Monocytes # (0.0-1.3) K/mcL Eosinophils # (0.0-0.6) K/mcL Basophils # (0.0-0.2) K/mcL PT 12.1 (9.4-12.1) Seconds INR 1.1 APTT 34.1 (26.0-36.0) Seconds Sodium (136-145) mEq/L Potassium (3.5-5.1) mEq/L Chloride (98-107) mEq/L Carbon Dioxide (23-29) mEq/L BUN (8-23) mg/dL Creatinine (0.70-1.30) mg/dL Est GFR ( Amer) (> 60) Est GFR (Non-Af Amer) (> 60) BUN/Creatinine Ratio (6-26) Glucose (70-105) mg/dL Calculated Osmolality (280-300) Lactic Acid (0.5-2.2) mmol/L Calcium (8.6-10.3) mg/dL Troponin I (< 0.04) ng/mL B-Natriuretic Peptide 34 (Less than 100) pg/mL
[2018-01-05 13:18] LABS: Bilirubin,Urine Negative (Negative); Blood,Urine Negative (Negative); Clarity,Urine Clear (Clear); Color,Urine Yellow (Yellow); Glucose,Urine (UA) Normal (Normal); Ketones,Urine Negative (Negative); Leukocyte Esterase,Urine Negative (Negative); Nitrite,Urine Negative (Negative); Protein,Urine Negative (Neg-Trace); Specific Gravity,Urine 1.012 (1.010-1.025); Urobilinogen,Urine Normal (Normal)
[2018-01-05 13:18] LABS: Alanine Aminotransferase 4 Units/L (7-52); Albumin 3.5 g/dL (3.5-5.7); Albumin/Globulin Ratio 0.8 (1.1-2.2); Alkaline Phosphatase 66 Units/L (34-104); Aspartate Amino Transferase 20 Units/L (13-39); Bilirubin,Indirect 0.3 mg/dL (0.0-1.2); Bilirubin,Total 0.3 mg/dL (0.3-1.0); Globulin 4.6 g/dL (2.4-3.5); Total Protein 8.1 g/dL (6.4-8.9)
[2018-01-05] MEDS ORDERED: Ondansetron Oral Soln 2 MG/2.5 ML ORAL.SYG GTUBE PRN (14:21)
[2018-01-05] MEDS ORDERED: Acetaminophen 325 MG TABLET PO PRN (14:21)
[2018-01-05] MEDS ORDERED: Ipratropium/Albuterol Neb 3 ML IH PRN (14:21)
[2018-01-05] MEDS ORDERED: GuaiFENesin Liq 200 MG/10 ML UDC PO PRN (14:21)
[2018-01-05] MEDS ORDERED: *HR* Dextrose 50 % in Water (Syg) 50 ML SYRINGE IVP PRN (14:24)
[2018-01-05] MEDS ORDERED: Dextrose Gel 15 GM/37.5 ML TUBE PO PRN ×2 (14:24)
[2018-01-05] MEDS ORDERED: D5% in Water 1,000 ML IVC PRN (14:24)
--- NOTE | 2018-01-05 14:24 | Internal Med History&Physical ---
Date of Encounter: 01/05/18 Time of Encounter: 14:24 Internal Medicine - H&P: HPI Chief complaint: He is coughing Admitted From: Long-term Nursing Facility Plans for Post Hospital Care: Transfer Intermediate Facility History of present illness: Mr. Bauer is a 82 year old male with Parknson's disease, Dementia, nonverbal at baseline, resident of long-term facility was transferred to the center due to an episode of fever or shortness of breath and cough. Patient is nonverbal and history is obtained from the chart His partner is at the bedside reports he was last seen at baseline yesterday, on presentation to the nursing facility today she was told he had a fever, has been having difficulty breathing, hence the transfer here. she reports he is usually fed by PEG tube due to recurrent PNAs from aspiration, however, one week ao approximately, he was tried on thick liquid diets at the facility and choked and has to have suctioned several times. She is otherwise unable to provide any other history and denied any other symptoms. She reports that the patient 's code status has been changed to full code from DNR [facility] She believes he has received his flu shot recently On presentation to the emergency room, the patient has acute hypoxemia requiring 3 L of oxygen to maintain his saturation at 93-95%, lactic acidosis with lactate of 4, one episode of hypotension responding to IV fluid hydration, leukocytosis with left shift, sinus tachycardia and tachypnea. EKG was unremarkable urine analysis was clean. Chest x-ray showed no acute processes. The patient will be admitted inpatient for presumed severe sepsis, likely source abdominal and chest. 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 10 mg PO DAILY 06/18/17 [History] RX: Amino AC/Whey Prot Conc, Isol [Whey Protein Powder] 1 unit PO DAILY 06/18/17 [History] RX: Aspirin 81 mg PO DAILY 06/18/17 [History] RX: Carbidopa/Levodopa 25/100 [Sinemet 25/100] 1 tab PO TID 06/18/17 [History] RX: Divalproex Sodium [Depakote Sprinkle] 250 mg PO TID 06/18/17 [History] RX: Donepezil HCl [Aricept] 10 mg PO HS 06/18/17 [History] RX: Melatonin 6 mg PO HS 06/18/17 [History] RX: Memantine HCl 10 mg PO BID 06/18/17 [History] RX: Multivit-Min/FA/Lycopen/Lutein [A Thru Z Select Multivit Tab] 1 tab PO DAILY 06/18/17 [History] RX: risperiDONE [Risperidone] 0.5 mg GTUBE TID 06/18/17 [History] RX: Acetaminophen [Tylenol] 650 mg GTUBE Q4HR PRN 07/07/17 [History] RX: Guaifenesin [Siltussin SA] 10 ml PO Q4H PRN 07/07/17 [History] RX: Ipratropium/Albuterol Neb [Duoneb] 3 ml IH Q4HR PRN 07/07/17 [History] RX: Ondansetron Oral Soln [Zofran Oral Soln] 4 mg GTUBE Q4H PRN 07/07/17 [History] Metformin HCl 500 mg PO DAILY 01/05/18 [History] Nut.tx.gluc.intoler,Lac-Fr,Soy [Glucerna] 1 can GTUBE 5XD 01/05/18 [History] RX: Oxygen 2.5 l IH AD PRN 01/05/18 [History] Allergy/AdvReac Type Severity Reaction Status Date / Time No Known Drug Allergies Allergy See Verified 07/07/17 13:19 Comments ROS unobtainable: due to mental status All Systems PM: A 10-system review of systems was performed and is negative for pertinent findings except as documented above in the HPI. - Constitutional Vitals: Temp Pulse Resp BP Pulse Ox 98.8 F 89 18 117/61 98 01/05/18 11:42 01/05/18 13:37 01/05/18 13:37 01/05/18 13:37 01/05/18 13:37 General appearance: Present: A&O X 0 (Patient is nonverbal, unable to partic ipate in evaluation of a history.) Exam: In mild respiratory distress, does not denies and unresponsive to command - Head Head exam: Present: atraumatic, normocephalic - Eye Eye exam: Present: PERRL, conjuntiva pink, sclera anicteric Pupils: Present: PERRL - ENT ENT exam: Present: mucous membranes moist - Neck Neck exam general surgery: Present: normal inspection - Respiratory Additional comments: Right middle lobe and lower lobe rhonchi anteriorly, left lung zone is clear to auscultation No chest wall tenderness. - Cardiovascular Cardiovascular exam: Present: RRR, +S1, +S2. Absent: systolic murmur - GI/Abdominal Additional comments: PEG tube in the central abdomen with surrounding clean dressing, colostomy on the left mid quadrant, bag is empty at this time - Extremities Exam Additional comments: Disuse atrophy, contractures no edema - Neurological Exam Neurological exam: Present: altered Additional comments: patient does not respond to name call, does not respond to vebral stimuli, no eye opening, non-vebral, LE contractures - Skin Skin exam: Present: normal color Internal Med - H&P Results - Labs CBC & Chem 7: 01/05/18 12:05 01/05/18 12:05 Labs: Short CBC 01/05/18 Range/Units 12:05 WBC 12.3 H (4.3-11.1) K/mcL Hgb 11.5 L (12.9-16.9) g/dL Hct 36.7 L (37.5-50.1) % Plt Count 330 (140-400) K/mcL Neutrophils # 9.7 H (1.6-8.9) K/mcL BMP 01/05/18 12:05 Sodium 133 L Potassium 4.8 Chloride 97 L Carbon Dioxide 23 BUN 36 H Creatinine 1.11 Glucose 223 H Calcium 9.5 Cardiac Enzymes 01/05/18 Range/Units 12:05 Troponin I < 0.03 (< 0.04) ng/mL Liver Function 01/05/18 Range/Units 12:05 Total Bilirubin 0.3 (0.3-1.0) mg/dL Direct Bilirubin 0.0 (0.0-0.2) mg/dL AST 20 (13-39) Units/L ALT 4 L (7-52) Units/L Alkaline Phosphatase 66 (34-104) Units/L Albumin 3.5 (3.5-5.7) g/dL Urine 01/05/18 Range/Units 13:08 Urine Color Yellow (Yellow) Urine Clarity Clear (Clear) Urine pH 7.0 (5.0-8.0) pH Units Ur Specific [place] 1.012 (1.010-1.025) Urine Protein Negative (Neg-Trace) mg/dL Urine Glucose (UA) Normal (Normal) mg/dL - Impressions ITS Impressions Chest X-Ray 01/05/18 11:38 IMPRESSION: 1. No acute cardiopulmonary disease. 2. 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 D/ / Catrachito Meneses MD / Catrachito Meneses MD Interpreting Provider: Catrachito Meneses MD - Assessment and plan (1) Severe sepsis Current Visit: Yes Status: Acute Assessment and plan: CC VSS. Sepsis suspected with history of fever from nursing facility, tachycardia and tachypnea in this facility, leukocytosis, lactic acidosis and soft blood pressures Source is multifocal PNA, likely due to aspiration, as shown on CT scan Blood cultures have been drawn Urine analysis is unremarkable Follow abdomen/chest CT Follow final cultures Patient received vancomycin and Zosyn in the ER, Continue Zosyn q8h Check MRSA screening, resp panel May de-escalate vancomycin based on result of MRSA screening and blood culture (2) Lactic acidosis Current Visit: Yes Status: Acute Assessment and plan: Due to severe sepsis Continue IVF hydration Recheck lactate in 4 hrs (3) Parkinson's disease Current Visit: Yes Status: Acute (4) Acute respiratory failure with hypoxia Current Visit: Yes Status: Acute Assessment and plan: Due to multiflocal PNA Continue oxygen support Patient is full code (5) DVT prophylaxis Current Visit: Yes Status: Acute Assessment and plan: SQ heparin (6) Dementia Current Visit: Yes Status: Chronic Assessment and plan: Continue home meds, via PEG tube Qualifiers: Dementia type: Alzheimer's disease Alzheimer's disease onset: late-onset Dementia behavioral disturbance: without behavioral disturbance Qualified Code(s): G30.1 - Alzheimer's disease with late onset; F02.80 - Dementia in other diseases classified elsewhere without behavioral disturbance (7) Diabetes mellitus Current Visit: Yes Status: Chronic Assessment and plan: SSI for now A1C noted to be 8 from prior admissions FS Q6hrs Qualifiers: Diabetes mellitus type: type 2 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 mellitus 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: without chcf use Diabetes mellitus complication status: with unspecified complications Qualified Code(s): E11.8 - Type 2 diabetes mellitus with unspecified complications (8) Pneumonia Current Visit: Yes Status: Acute Assessment and plan: Mgt as in sepsis Aspiration precautions Qualifiers: Pneumonia type: aspiration pneumonia Aspiration pneumonia type: due to vomit Laterality: bilateral Lung location: lower lobe of lung Qualified Code(s): J69.0 - Pneumonitis due to inhalation of food and vomit (9) Diastasis of rectus abdominis Current Visit: Yes Status: Acute Assessment and plan: PER CT scan, noted colon to be near abdominal wall Consider non-emergent surgical consult when patient is hemodynamically stable Patient is currently asymptomatic of this diagnosis (10) Goals of care, counseling/discussion Current Visit: Yes Status: Acute Assessment and plan: Patient's spouse at the bedside at time of eval States she recently changed his status to full code from DNR-CC due to "that's what my family wants" palliative consult placed for goals of care - Time Spent With Patient Total time spent is greater than 50% in coordination of care (as documented) at patient's floor/unit and/or counseling patient:
[2018-01-05] MEDS ORDERED: NON-FORMULARY MEDICATION 1 EACH EACH (Nut.Tx.Gluc.Intoler,Lac-Fr,Soy [Glucerna] 1 CAN) GTUBE SCH (16:00)
[2018-01-05] MEDS: Carbidopa/Levodopa 25/100 TABLET PO SCH ×2 (18:43→21:28)
[2018-01-05] MEDS: Divalproex Sodium 125 MG CAPSULE PO SCH ×2 (18:43→21:27)
[2018-01-05] MEDS: risperiDONE 1 MG TABLET GTUBE SCH ×2 (18:43→21:28)
[2018-01-05] MEDS: Piperacillin/Tazobactam 3.375 GM in 0.9 % Sodium Chloride Mini Bag 100 ML IVPB SCH (20:05)
[2018-01-05] MEDS: Melatonin 3 MG TABLET PO SCH (21:28)
[2018-01-05] MEDS: Insulin LISPRO 300 UNITS/3 ML VIAL SQ SCH (21:45)
[2018-01-06] MEDS: Insulin LISPRO 300 UNITS/3 ML VIAL SQ SCH ×4 (01:58→18:12)
[2018-01-06] MEDS: Piperacillin/Tazobactam 3.375 GM in 0.9 % Sodium Chloride Mini Bag 100 ML IVPB SCH ×3 (03:17→21:27)
[2018-01-06 05:05] LABS: Basophils % 0.3 %; Hematocrit 28.5 % (37.5-50.1); Immature Granulocytes % 0.5 % (0-4); Lymphocytes # 1.3 K/mcL (0.6-4.6); Lymphocytes % 11.7 %; Mean Corpuscular HGB Conc 31.2 g/dL (31.6-35.5); Mean Corpuscular Hemoglobin 27.9 pg (28.0-33.3); Mean Corpuscular Volume 89.3 fL (83.0-100.0); Mean Platelet Volume 10.1 fL (9.4-12.4); Monocytes # 0.7 K/mcL (0.0-1.3); Monocytes % 5.9 %; Neutrophils # 9.2 K/mcL (1.6-8.9); Platelet Count 289 K/mcL (140-400); Red Blood Count 3.19 M/mcL (4.19-5.50); Red Cell Distribution Width 14.5 % (11.5-14.5); Segmented Neutrophils % 81.6 %
[2018-01-06 05:10] LABS: Hemoglobin 8.9 g/dL (12.9-16.9)
[2018-01-06] MEDS: Multivit/Ca/Min/Fe/FA 1 TAB TABLET PO SCH (05:19)
[2018-01-06] MEDS: *HR* Enoxaparin 40 MG/0.4 ML SYRINGE SQ SCH (05:19)
[2018-01-06 05:28] LABS: BUN/Creatinine Ratio 37 (6-26); Blood Urea Nitrogen 31 mg/dL (8-23); Calcium 8.8 mg/dL (8.6-10.3); Carbon Dioxide 24 mEq/L (23-29); Chloride 105 mEq/L (98-107); Glucose 150 mg/dL (70-105); Osmolality,Calculated 295 (280-300); Potassium 4.4 mEq/L (3.5-5.1); Sodium 138 mEq/L (136-145); eGFR For Non-African Americans > 60 (> 60)
[2018-01-06] MEDS: risperiDONE 1 MG TABLET GTUBE SCH ×3 (09:50→21:28)
[2018-01-06] MEDS: Aspirin 81 MG TAB.CHEW PO SCH (09:51)
[2018-01-06] MEDS: Divalproex Sodium 125 MG CAPSULE PO SCH ×3 (09:51→21:28)
[2018-01-06] MEDS: Carbidopa/Levodopa 25/100 TABLET PO SCH ×3 (09:51→21:28)
[2018-01-06] MEDS: 0.9 % Sodium Chloride 1,000 ML IVC SCH ×2 (09:51→21:17)
--- NOTE | 2018-01-06 10:25 | Electrocardiograph Report ---
[facility] Test Date: 2018-01-05 Pat Name: Caleb Bauer Department: EXAMC5 Room: 2A36 Gender: M Chairman Ceo: : 1935 Requested By: Carlos Eduardo Graves Order Number: [id number] Reading MD: Farrukh Barney Measurements Intervals [place] Rate: 100 P: -38 PA: 118 QRS: -22 QRSD: 99 T: 87 QT: 345 QTc: 445 Interpretive Statements Sinus tachycardia Borderline left axis deviation Abnormal R-wave progression, early transition Electronically Signed On 01-06-2018 10:23:48 EST by Farrukh Barney
[2018-01-06 10:52] LABS: Adenovirus Not Detected (Not Detect); Bordetella Pertussis Not Detected (Not Detect); Chlamydophila pneumoniae Not Detected (Not Detect); Coronavirus 229E Not Detected (Not Detect); Coronavirus HKU1 Not Detected (Not Detect); Coronavirus NL63 Not Detected (Not Detect); Coronavirus OC43 Not Detected (Not Detect); Human Metapneumovirus Not Detected (Not Detect); Human Rhinovirus/Enterovirus Not Detected (Not Detect); Influenza A Subtype 2009 H1 Not Detected (Not Detect); Influenza A Untypeable Not Detected (Not Detect); Influenza B Not Detected (Not Detect); Mycoplasma pneumoniae Not Detected (Not Detect); Parainfluenza Virus 1 Not Detected (Not Detect); Parainfluenza Virus 2 Not Detected (Not Detect); Parainfluenza Virus 3 Not Detected (Not Detect); Parainfluenza Virus 4 Not Detected (Not Detect); Respiratory Syncytial Virus Not Detected (Not Detect)
--- NOTE | 2018-01-06 10:58 | Palliative - Consult Note ---
<Mary Glover - Last Filed: 01/06/18 13:51> Date of Encounter: 01/06/18 Time of Encounter: 09:30 - Assessment and Plan (1) Goals of care, counseling/discussion Current Visit: Yes Status: Acute Assessment and plan: Currently full code. Will discuss with today at 1 pm for more clarity in terms of goals of care. Had a family meeting with Dr. Albright along with Mrs. Ana Bauer and Mr. Bauer's daughter about goals of care and discharge planning. Mrs. Bauer noted that Mr. Thompsons health has been progressively worsening for the past two months to 2 years. She noted that two years ago he had a bowel resection and required PEG tube there after. His dementia and Parkinson has been progressively worsening but he was able to use his wheel chair and sit up. She also noted he was able to respond with one to two words in the past. She did mention that since he got the PEG he has had several "choking" episodes. And about 6 months ago his health started to decline more so. He had an aspiration pneumonia and has not fully recovered since then. He is no longer able to sit up. He does not respond to verbal commands. He does open his eyes from time to time but does not communicate or acknowledge any understanding. His daughter and Mrs. Bauer said they have feel "he has reached his end." They are understanding that his health is declining and he is not recovering like he has in the past. They asked about Palliative care and hospice services and we explained to them what those services offer. They said they will talk to the rest of the family and decide if hospice would be the next step for him. We also had a discussion about code status. Mrs. Bauer stated he had signed DNR paperwork about 25 years ago. And two years ago when he needed the bowel resection they changed his code status to full code. We discussed with them that DNR was his wishes. They are understanding of that and will like to let the entire family in on that discussion. They will discuss with us tomorrow after a family meeting about changing his code status. (2) Dementia Current Visit: Yes Status: Chronic Assessment and plan: History of dementia, on home medications. Being managed by primary team. Qualifiers: Dementia type: Alzheimer's disease Alzheimer's disease onset: late-onset Dementia behavioral disturbance: without behavioral disturbance Qualified Code(s): G30.1 - Alzheimer's disease with late onset; F02.80 - Dementia in other diseases classified elsewhere without behavioral disturbance (3) Diabetes mellitus Current Visit: Yes Status: Chronic Assessment and plan: History of diabetes mellitus. Was on metformin at home. He is on sliding scale insulin and is being managed by primary team. Qualifiers: Diabetes mellitus type: type 2 Diabetes mellitus medical terminologist insulin use: without medical terminologist use Diabetes mellitus complication status: with unspecified complications Qualified Code(s): E11.8 - Type 2 diabetes mellitus with unspecified complications (4) Severe sepsis Current Visit: Yes Status: Acute Assessment and plan: Diagnosed with severe sepsis at admission. He is being treated with antibiotics. MRSA nasal swab was positive. Primary team is managing. (5) Parkinson's disease Current Visit: Yes Status: Acute Assessment and plan: Chronic history of Parkinson disease. He is very rigid. Currently on home medications. Being managed by primary team. (6) Pneumonia Current Visit: Yes Status: Acute Assessment and plan: Sepsis at presentation with hypoxemia requiring supplemental oxygen. Likely aspiration pneumonia. Nasal swab is positive for MRSA. His left and right upper lung lobes show multifocal pneumonia. He is currently on zosyn and vancomycin. Qualifiers: Pneumonia type: due to unspecified organism Laterality: bilateral Lung location: upper lobe of lung Qualified Code(s): J18.1 - Lobar pneumonia, unspecified organism Palliative-CN HPI - Data of Consult Requesting Physician: Kyle Motta MD Primary Care Provider: PCP NONE - Consult Narrative History of present illness: Mr. Bauer is a 82 year old male with history of Parkinson's disease, Dementia, nonverbal at baseline who was transferred to the hospital from [facility] because of fever, cough and shortness of breath. He is a resident at a assisted facility and his lives at home. The information was obtained from chart review. He has a PEG in place and a colostomy bag. Per Mr. Bauer has had recurrent aspiration pneumonias and about one week ago tried a thick liquid diet and he chocked on that requiring suctioning. At presentation to the ED he was ta chycardic, tachypnic and had leukocytosis and met sepsis criteria. This morning he is resting in bed. He is nonverbal. Awakens to physical stimulation but cannot follow any commands. Called the and she will be presenting to the hospital later today. 13:15 had a discussion with Mrs. Bauer, Dr Albright and Mr. Bauer's daughter. Mrs. Bauer noted Mr. Bauer has been getting sick for the past 8 weeks and is having episodes of aspiration and was treated for pneumonia here 6 weeks ago. She said he is unable to move, does not even respond to her and his mental status has worsened in the past 8 weeks. CC: Kyle Motta MD - Time Spent with Patient Time: Total time spent is greater than 50% in coordination of care (as documented) at patient's floor/unit and/or counseling patient: Past Med Surg Social Fam HX - Past Medical History Medical history: arthritis, COPD, dementia, hyperlipidemia, hypertension, renal disease, other Additional medical history: parkinson's, alzheimer's Psychiatric history: anxiety, depression - Past Surgical History Surgical History: colostomy Additional surgical history: Sigmoid volvulus - Social History Smoking Status: Never smoker Smokeless Tobacco Status: No Alcohol use: rarely Drug use: none - Family History Father Living Status: Hx Family Cardiac Disorders: Yes Hx Family Autoimmune Disorders: Yes Mother Living Status: Hx Family Neurologic Disorders: Yes Medications and Allergies Escitalopram Oxalate Soln. 10 mg PO DAILY 06/18/17 [History] RX: Amino AC/Whey Prot Conc, Isol [Whey Protein Powder] 1 unit PO DAILY 06/18/17 [History] RX: Aspirin 81 mg PO DAILY 06/18/17 [History] RX: Carbidopa/Levodopa 25/100 [Sinemet 25/100] 1 tab PO TID 06/18/17 [History] RX: Divalproex Sodium [Depakote Sprinkle] 250 mg PO TID 06/18/17 [History] RX: Donepezil HCl [Aricept] 10 mg PO HS 06/18/17 [History] RX: Melatonin 6 mg PO HS 06/18/17 [History] RX: Memantine HCl 10 mg PO BID 06/18/17 [History] RX: Multivit-Min/FA/Lycopen/Lutein [A Thru Z Select Multivit Tab] 1 tab PO DAILY 06/18/17 [History] RX: risperiDONE [Risperidone] 0.5 mg GTUBE TID 06/18/17 [History] RX: Acetaminophen [Tylenol] 650 mg GTUBE Q4HR PRN 07/07/17 [History] RX: Guaifenesin [Siltussin SA] 10 ml PO Q4H PRN 07/07/17 [History] RX: Ipratropium/Albuterol Neb [Duoneb] 3 ml IH Q4HR PRN 07/07/17 [History] RX: Ondansetron Oral Soln [Zofran Oral Soln] 4 mg GTUBE Q4H PRN 07/07/17 [History] Metformin HCl 500 mg PO DAILY 01/05/18 [History] Nut.tx.gluc.intoler,Lac-Fr,Soy [Glucerna] 1 can GTUBE 5XD 01/05/18 [History] RX: Oxygen 2.5 l IH AD PRN 01/05/18 [History] Allergy/AdvReac Type Severity Reaction Status Date / Time No Known Drug Allergies Allergy See Verified 07/07/17 13:19 Comments ROS unobtainable: due to mental status (Patient is nonverbal and does not respond to verbal commands) Palliative Care-Exam - Constitutional Vitals: Temp Pulse Resp BP Pulse Ox 97.6 F 77 17 109/64 96 01/06/18 07:32 01/06/18 07:32 01/06/18 07:32 01/06/18 07:32 01/06/18 07:32 General appearance: Present: average body habitus, cooperative - Head Head Exam: Present: atraumatic, normocephalic - Eye Eye exam: Present: EOMI, normal appearance, scleral icterus - ENT ENT exam: Present: mucous membranes moist - Neck Neck exam: Present: full ROM, normal inspection - Respiratory Respiratory exam: Present: rhonchi. Absent: chest wall tenderness - Cardiovascular Cardiovascular exam: Present: RRR, +S1, +S2 - GI/Abdominal Exam GI/Abdominal exam: Present: normal bowel sounds, soft. Absent: firm, tenderness - Extremities Exam Extremities exam: Present: calf tenderness. Absent: pedal edema, tenderness - Neurological Exam Neurological exam: Absent: oriented X3 (awakens to physical stimulation, contra cture and rigidity ) - Psychiatric Psychiatric exam: Present: flat affect - Skin Skin exam: Present: dry, intact, warm Internal Medicine - CN: Reslt - Labs CBC & Chem 7: 01/06/18 04:37 01/06/18 04:37 Labs: Short CBC 01/05/18 01/06/18 Range/Units 12:05 04:37 WBC 12.3 H 11.3 H (4.3-11.1) K/mcL Hgb 11.5 L 8.9 L D (12.9-16.9) g/dL Hct 36.7 L 28.5 L (37.5-50.1) % Plt Count 330 289 (140-400) K/mcL Neutrophils # 9.7 H 9.2 H (1.6-8.9) K/mcL BMP 01/05/18 01/06/18 12:05 04:37 Sodium 133 L 138 Potassium 4.8 4.4 Chloride 97 L 105 Carbon Dioxide 23 24 BUN 36 H 31 H Creatinine 1.11 0.84 Glucose 223 H 150 H Calcium 9.5 8.8 Cardiac Enzymes 01/05/18 Range/Units 12:05 Troponin I < 0.03 (< 0.04) ng/mL Liver Function 01/05/18 Range/Units 12:05 Total Bilirubin 0.3 (0.3-1.0) mg/dL Direct Bilirubin 0.0 (0.0-0.2) mg/dL AST 20 (13-39) Units/L ALT 4 L (7-52) Units/L Alkaline Phosphatase 66 (34-104) Units/L Albumin 3.5 (3.5-5.7) g/dL Urine 01/05/18 Range/Units 13:08 Urine Color Yellow (Yellow) Urine Clarity Clear (Clear) Urine pH 7.0 (5.0-8.0) pH Units Ur Specific [place] 1.012 (1.010-1.025) Urine Protein Negative (Neg-Trace) mg/dL Urine Glucose (UA) Normal (Normal) mg/dL - ABG Interpretation ABG results: PT/INR, D-dimer PT 12.1 Seconds (9.4-12.1) 01/05/18 12:05 - Impressions Impressions Chest X-Ray 01/05/18 11:38 IMPRESSION: 1. No acute cardiopulmonary disease. 2. 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 D/ / Catrachito Meneses MD / Catrachito Meneses MD Interpreting Provider: Catrachito Meneses MD Abdomen/Pelvis CT 01/05/18 13:33 IMPRESSION: 1. A few consolidative opacities are present in right upper lung and the lingular segment of the left upper lobe, likely related to multifocal pneumonia; subtle centrilobular nodules in the right mid and lower lung may represent earlier infectious process versus developing alveolar edema. 2. Bilateral effusions and associated airspace disease. 3. 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 4. 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 The colon is closely apposed to the wall of the diastasis and there is very little skin the colon from the skin surface. 5. Bladder wall thickening could reflect reactive change due to the presence of Vaughan catheter, cystitis, or sequela of bladder outlet obstruction. 6. Calcifications within the pericardium suggest sequela of prior pericarditis or infarct. D/ /05/2018 15:24:33 Gilbert mackenzie Interpreting Provider: Gilbert Gallego Chest CT 01/05/18 13:33 IMPRESSION: 1. A few consolidative opacities are present in right upper lung and the lingular segment of the left upper lobe, likely related to multifocal pneumonia; subtle centrilobular nodules in the right mid and lower lung may represent earlier infectious process versus developing alveolar edema. 2. Bilateral effusions and associated airspace disease. 3. 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 4. 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 The colon is closely apposed to the wall of the diastasis and there is very little skin the colon from the skin surface. 5. Bladder wall thickening could reflect reactive change due to the presence of Vaughan catheter, cystitis, or sequela of bladder outlet obstruction. 6. Calcifications within the pericardium suggest sequela of prior pericarditis or infarct. D/ /05/2018 15:24:33 Gilbert mackenzie Interpreting Provider: Gilbert Gallego Consult Discharge Plan - Plan Referrals: NONE,PCP [Primary Care Provider] - Palliative Quality Palliative Quality: Screen for Code Status: Yes, Screen for Goals of Care: Yes, Screen for Pain: NA, If Pain Regimen Started, Initiate Bowel Regimen: NA, Screen for Nausea/Vomitting: NA (unable to assess as patient is nonverbal but appear comportable) Code Status: 01/05/18 14:18 Resuscitation Status: Active [RES] Routine Comment: Resuscitation Status: Full Code <Kasie Albright - Last Filed: 01/07/18 08:08> Date of Encounter: 01/07/18 Palliative-CN HPI - Data of Consult Requesting Physician: Evan Yusuf MD Primary Care Provider: PCP NONE - Consult Narrative History of present illness: Mr. Bauer is a 82 year old male CC: Evan Yusuf MD - Time Spent with Patient Time: Total time spent is greater than 50% in coordination of care (as documented) at patient's floor/unit and/or counseling patient: Time with patient: 45 minutes Palliative Care-Exam - Constitutional Vitals: Temp Pulse Resp BP Pulse Ox 100.0 F H 91 16 121/73 91 01/07/18 06:45 01/07/18 06:45 01/07/18 06:45 01/07/18 06:45 01/07/18 06:45 Internal Medicine - CN: Reslt - Labs CBC & Chem 7: 01/06/18 04:37 01/06/18 04:37 - ABG Interpretation ABG results: PT/INR, D-dimer PT 12.1 Seconds (9.4-12.1) 01/05/18 12:05 - Attending Attestation I performed a history and physical examination of the patient and discussed his management with the resident. I reviewed the residents note and agree with the documented findings and plan of care: I conducted a family meeting along with resident Dr. Glover, with pt's and daughter. Discussed pt's current medical condition, trajectory of illness, treatment options and prognosis. Family is understanding that pt's conditions have deteriorated in the last few months. Discussed the option of hospice care at the current [facility], and they are now considering. However, still wants pt to be treated at this time, and daughter is still hopeful for some improvement in pt's cognitive status. They will discuss with he rest of the family about code status and further changes in GOC. Palliative care will follow. Palliative Quality Code Status: 01/05/18 14:18 Resuscitation Status: Active [RES] Routine Comment: Resuscitation Status: Full Code Palliative Scale - Palliative Performance Scale What is patient's level of activity and evidence of disease?: Unable to do most activity, Extensive disease How much self-care assistance does patient require?: Total care How much oral intake does the patient have?: Mouth care only (on PEG feeds) What is this patient's level of consciousness?: Full or drowsy with or without confusion Palliative Performance Score: 20 %
--- NOTE | 2018-01-06 17:02 | Internal Med Progress Note ---
Hospitalist Progress Note - Encounter Date of Encounter: 01/06/18 Time of Encounter: 17:02 - Subjective Interval History: Pt is non-verbal and non-mobile. He is bed bound in like position. at bedside states she met with palliative care service today and plan is to discuss possibly changing pt's code status to DNRCC but would like to have discu ssion with her children first. - Exam Vitals: Temp Pulse Resp BP Pulse Ox 97.7 F 58 19 100/59 97 01/06/18 16:22 01/06/18 16:22 01/06/18 16:22 01/06/18 16:22 01/06/18 16:22 Exam: General appearance: Present: A&O X 0 (Patient is nonverbal, unable to participate in evaluation of a history.) Exam: In mild respiratory distress, does not denies and unresponsive to command - Head Head exam: Present: atraumatic, normocephalic - Eye Eye exam: Present: PERRL, conjuntiva pink, sclera anicteric Pupils: Present: PERRL - ENT ENT exam: Present: mucous membranes moist - Neck Neck exam general surgery: Present: normal inspection - Respiratory Additional comments: Right middle lobe and lower lobe rhonchi anteriorly, left lung zone is clear to auscultation No chest wall tenderness. - Cardiovascular Cardiovascular exam: Present: RRR, +S1, +S2. Absent: systolic murmur - GI/Abdominal Additional comments: PEG tube in the central abdomen with surrounding clean dressing, colostomy on the left mid quadrant, bag is empty at this time - Extremities Exam Additional comments: Disuse atrophy, contractures no edema - Neurological Exam Neurological exam: Present: altered Additional comments: patient does not respond to name call, does not respond to vebral stimuli, no eye opening, non-vebral, LE contractures - Skin Skin exam: Present: normal color - Assessment and Plan (1) Severe sepsis Current Visit: Yes Status: Acute Assessment and Plan: CC VSS. Sepsis suspected with history of fever from nursing facility, tachycardia and tachypnea in this facility, leukocytosis, lactic acidosis and soft blood pressures Source is multifocal PNA, likely due to aspiration, as shown on CT scan Blood cultures have been drawn and in progress Urine analysis is unremarkable Follow abdomen/chest CT. Follow final cultures Patient received Vancomycin and Zosyn in the ER, Continue Zosyn q8h. MRSA screening +, resp panel negative May de-escalate Vancomycin based on result of MRSA screening and blood culture (2) Multifocal pneumonia Current Visit: Yes Status: Acute Assessment and Plan: Mgt as in sepsis Aspiration precautions. Vancomycin and Zosyn. Chest x ray CT/CT chest wo con IMPRESSION: 1. A few consolidative opacities are present in right upper lung and the lingular segment of the left upper lobe, likely related to multifocal pneumonia; subtle centrilobular nodules in the right mid and lower lung may represent earlier infectious process versus developing alveolar edema. 2. Bilateral effusions and associated airspace disease. 3. 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 4. 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 The colon is closely apposed to the wall of the diastasis and there is very little skin the colon from the skin surface. 5. Bladder wall thickening could reflect reactive change due to the presence of Vaughan catheter, cystitis, or sequela of bladder outlet obstruction. 6. Calcifications within the pericardium suggest sequela of prior pericarditis or infarct (3) Acute respiratory failure with hypoxia Current Visit: Yes Status: Acute Assessment and Plan: Due to multiflocal PNA Continue oxygen support Patient is full code at the moment (4) Dementia Current Visit: Yes Status: Chronic (5) DVT prophylaxis Current Visit: Yes Status: Acute (6) Diabetes mellitus Current Visit: Yes Status: Chronic (7) Lactic acidosis Current Visit: Yes Status: Acute Assessment and Plan: Due to severe sepsis Continue IVF hydration Recheck lactate in 4 hrs (8) Parkinson's disease Current Visit: Yes Status: Acute Assessment and Plan: Resume home medication (9) Diastasis of rectus abdominis Current Visit: Yes Status: Acute Assessment and Plan: Per CT scan, noted, there is a large ventral diastasis containing colon. The colon is closely apposed to the wall of the diastasis and there is very little skin the colon from the skin surface. Consider non-emergent surgical consult when patient is hemodynamically stable Patient is currently asymptomatic of this diagnosis (10) Goals of care, counseling/discussion Current Visit: Yes Status: Acute Assessment and Plan: Patient's spouse at the bedside at time of evaluation States she recently changed his status to full code from DNR-CC due to "that's what my family wants" palliative consulting and discussed goals of care with patient's DVT Prophylaxis: Lovenox - Summary of Assessment and Plan Summary of Assessment and Plan: History of present illness: Dr. Motta Mr. Bauer is a 82 year old male with Parknson's disease, Dementia, nonverbal at baseline, resident of nursing home facility was transferred to the center due to an episode of fever or shortness of breath and cough. Patient is nonverbal and history is obtained from the chart His partner is at the bedside reports he was last seen at baseline yesterday, on presentation to the nursing facility today she was told he had a fever, has been having difficulty breathing, hence the transfer here. she reports he is usually fed by PEG tube due to recurrent PNAs from aspiration, however, one week ao approximately, he was tried on thick liquid diets at the facility and choked and has to have suctioned several times. She is otherwise unable to provide any other history and denied any other symptoms. She reports that the patient 's code status has been changed to full code from DNR CCA She believes he has received his flu shot recently On presentation to the emergency room, the patient has acute hypoxemia requiring 3 L of oxygen to maintain his saturation at 93-95%, lactic acidosis with lactate of 4, one episode of hypotension responding to IV fluid hydration, leukocytosis with left shift, sinus tachycardia and tachypnea. EKG was unremarkable urine analysis was clean. Chest x-ray showed no acute processes. The patient will be admitted inpatient for presumed severe sepsis, likely source abdominal and chest. Further imaging of the chest abdomen and pelvis is pending - Time Spent with Patient Total time spent is greater than 50% in coordination of care (as documented) at patient's floor/unit and/or counseling patient: less than 15 minutes Plan of Care Discussed with: patient Internal Medicine: Result - Labs CBC & Chem 7: 01/06/18 04:37 01/06/18 04:37 Labs: Short CBC 01/06/18 Range/Units 04:37 WBC 11.3 H (4.3-11.1) K/mcL Hgb 8.9 L D (12.9-16.9) g/dL Hct 28.5 L (37.5-50.1) % Plt Count 289 (140-400) K/mcL Neutrophils # 9.2 H (1.6-8.9) K/mcL BMP 01/06/18 04:37 Sodium 138 Potassium 4.4 Chloride 105 Carbon Dioxide 24 BUN 31 H Creatinine 0.84 Glucose 150 H Calcium 8.8 - ABG Interpretation ABG results: PT/INR, D-dimer PT 12.1 Seconds (9.4-12.1) 01/05/18 12:05 Consult Discharge Plan - Plan Referrals: NONE,PCP [Primary Care Provider] - (4) Dementia Qualifiers: Dementia type: Alzheimer's disease Alzheimer's disease onset: late-onset Dementia behavioral disturbance: without behavioral disturbance Qualified Code(s): G30.1 - Alzheimer's disease with late onset; F02.80 - Dementia in other diseases classified elsewhere without behavioral disturbance (6) Diabetes mellitus Qualifiers: Diabetes mellitus type: type 2 Diabetes mellitus correction insulin use: without correction use Diabetes mellitus complication status: with unspecified complications Qualified Code(s): E11.8 - Type 2 diabetes mellitus with unspecified complications
[2018-01-06] MEDS: Melatonin 3 MG TABLET PO SCH (21:28)
[2018-01-07] MEDS: Insulin LISPRO 300 UNITS/3 ML VIAL SQ SCH ×4 (00:42→18:13)
[2018-01-07] MEDS: Piperacillin/Tazobactam 3.375 GM in 0.9 % Sodium Chloride Mini Bag 100 ML IVPB SCH ×3 (03:40→20:56)
[2018-01-07] MEDS: Multivit/Ca/Min/Fe/FA 1 TAB TABLET PO SCH (05:23)
[2018-01-07] MEDS: *HR* Enoxaparin 40 MG/0.4 ML SYRINGE SQ SCH (05:23)
[2018-01-07] MEDS: Divalproex Sodium 125 MG CAPSULE PO SCH ×3 (08:25→20:57)
[2018-01-07] MEDS: risperiDONE 1 MG TABLET GTUBE SCH ×3 (08:25→20:58)
[2018-01-07] MEDS: Aspirin 81 MG TAB.CHEW PO SCH (08:26)
[2018-01-07] MEDS: Carbidopa/Levodopa 25/100 TABLET PO SCH ×3 (08:26→20:58)
--- NOTE | 2018-01-07 13:28 | Palliative Progress Note ---
<Mary Glover - Last Filed: 01/07/18 14:46> Date of Encounter: 01/07/18 Time of Encounter: 13:00 - Assessment and plan (1) Goals of care, counseling/discussion Current Visit: Yes Status: Acute Assessment and plan: Had a family meeting yesterday with Mr. Bauer's and daughter about goals of care upon discharge. Today I met with the and she noted the family will like to revert back to this original code status of DNR-CC. Also, she noted they are considering hospice care. They will be meeting with various hospice on Wednesday to better plan for his future care and management. The realizes he is not doing well and his health has been declining for the past 2 years. (2) Dementia Current Visit: Yes Status: Chronic Assessment and plan: History of dementia. On home medications, being managed by Primary team. Qualifiers: Dementia type: Alzheimer's disease Alzheimer's disease onset: late-onset Dementia behavioral disturbance: without behavioral disturbance Qualified Code(s): G30.1 - Alzheimer's disease with late onset; F02.80 - Dementia in other diseases classified elsewhere without behavioral disturbance (3) Diabetes mellitus Current Visit: Yes Status: Chronic Assessment and plan: History of diabetes. Glucose this morning 136, on lispro. Qualifiers: Diabetes mellitus type: type 2 Diabetes mellitus detention insulin use: without detention use Diabetes mellitus complication status: with unspecified complications Qualified Code(s): E11.8 - Type 2 diabetes mellitus with unspecified complications (4) Severe sepsis Current Visit: Yes Status: Acute Assessment and plan: Diagnosed with severe sepsis at admission. He is being treated with antibiotics--Vancomycin and zosyn. MRSA nasal swab was positive. Primary team is managing. (5) Parkinson's disease Current Visit: Yes Status: Acute Assessment and plan: Chronic history of Parkinson disease. He is very rigid. Currently on home medi cations. Being managed by primary team. (6) Pneumonia Current Visit: Yes Status: Acute Assessment and plan: Sepsis at presentation with hypoxemia requiring supplemental oxygen. Likely aspiration pneumonia. Had a fever of 100 overnight. Nasal swab is positive for MRSA. His left and right upper lung lobes show multifocal pneumonia. He is currently on zosyn and vancomycin. Qualifiers: Pneumonia type: due to unspecified organism Laterality: bilateral Lung location: upper lobe of lung Qualified Code(s): J18.1 - Lobar pneumonia, unspecified organism - Time Spent With Patient Total time spent is greater than 50% in coordination of care (as documented) at patient's floor/unit and/or counseling patient: - Subjective Interval history: Mr. Bauer was seen at bedside this morning. He was sitting up in bed. He was awake but not responding to any verbal or physical stimulation. He did not reply to any of the questions asked. His was at bedside and noted he has been nonverbal for about 2 years. Could not obtain further history due to patient's mental status. - Constitutional Vitals: Abnormal lab results WBC 11.3 K/mcL (4.3-11.1) H 01/06/18 04:37 RBC 3.19 M/mcL (4.19-5.50) L 01/06/18 04:37 Hgb 8.9 g/dL (12.9-16.9) L D 01/06/18 04:37 Hct 28.5 % (37.5-50.1) L 01/06/18 04:37 MCH 27.9 pg (28.0-33.3) L 01/06/18 04:37 MCHC 31.2 g/dL (31.6-35.5) L 01/06/18 04:37 Neutrophils # 9.2 K/mcL (1.6-8.9) H 01/06/18 04:37 BUN 31 mg/dL (8-23) H 01/06/18 04:37 BUN/Creatinine Ratio 37 (6-26) H 01/06/18 04:37 Glucose 150 mg/dL (70-105) H 01/06/18 04:37 POC Glucose 138 mg/dL (70-99) H 01/07/18 05:26 ALT 4 Units/L (7-52) L 01/05/18 12:05 Globulin 4.6 g/dL (2.4-3.5) H 01/05/18 12:05 Albumin/Globulin Ratio 0.8 (1.1-2.2) L 01/05/18 12:05 Nasal Screen MRSA (PCR) Positive (Negative) A 01/06/18 09:45 General appearance: Present: average body habitus, cooperative, no acute distress - Head Head exam: Present: atraumatic, normocephalic - Eye Eye exam: Present: normal appearance, sclera anicteric - ENT ENT exam: Present: mucous membranes moist - Neck Neck exam: Present: normal inspection - Respiratory Respiratory exam: Present: decreased breath sounds. Absent: rhonchi, stridor, wheezes - Cardiovascular Cardiovascular exam: Present: RRR, +S1, +S2. Absent: clicks, gallop - GI/Abdominal GI/Abdominal exam: Present: normal bowel sounds, soft. Absent: tenderness - Extremities Exam Extremities exam: Absent: pedal edema, tenderness - Skin Skin exam: Present: dry Palliative Quality Palliative Quality: Screen for Code Status: Yes, Screen for Goals of Care: Yes, Screen for Pain: NA, If Pain Regimen Started, Initiate Bowel Regimen: NA, Screen for Nausea/Vomitting: NA (unable to assess as patient is nonverbal but appear comportable) Code Status: 01/05/18 14:18 Resuscitation Status: Active [RES] Routine Comment: Resuscitation Status: Full Code - Labs CBC & Chem 7: 01/06/18 04:37 01/06/18 04:37 Labs: Laboratory Results - last 24 hr 01/06/18 01/06/18 01/06/18 07:31 12:17 17:54 POC Glucose 160 H 149 H 185 H 01/06/18 01/07/18 23:29 05:26 POC Glucose 128 H 138 H - ABG Interpretation ABG results: PT/INR, D-dimer PT 12.1 Seconds (9.4-12.1) 01/05/18 12:05 Palliative Scale - Palliative Performance Scale What is patient's level of activity and evidence of disease?: Unable to do most activity, Extensive disease How much self-care assistance does patient require?: Total care How much oral intake does the patient have?: Mouth care only (on PEG feeds) What is this patient's level of consciousness?: Full or drowsy with or without confusion Palliative Performance Score: 20 % Consult Discharge Plan - Plan Referrals: NONE,PCP [Primary Care Provider] - (Patient is from [place]) <Kasie Albright - Last Filed: 01/07/18 15:13> Date of Encounter: 01/07/18 - Time Spent With Patient Total time spent is greater than 50% in coordination of care (as documented) at patient's floor/unit and/or counseling patient: - Constitutional Vitals: Abnormal lab results WBC 11.3 K/mcL (4.3-11.1) H 01/06/18 04:37 RBC 3.19 M/mcL (4.19-5.50) L 01/06/18 04:37 Hgb 8.9 g/dL (12.9-16.9) L D 01/06/18 04:37 Hct 28.5 % (37.5-50.1) L 01/06/18 04:37 MCH 27.9 pg (28.0-33.3) L 01/06/18 04:37 MCHC 31.2 g/dL (31.6-35.5) L 01/06/18 04:37 Neutrophils # 9.2 K/mcL (1.6-8.9) H 01/06/18 04:37 BUN 31 mg/dL (8-23) H 01/06/18 04:37 BUN/Creatinine Ratio 37 (6-26) H 01/06/18 04:37 Glucose 150 mg/dL (70-105) H 01/06/18 04:37 POC Glucose 138 mg/dL (70-99) H 01/07/18 05:26 ALT 4 Units/L (7-52) L 01/05/18 12:05 Globulin 4.6 g/dL (2.4-3.5) H 01/05/18 12:05 Albumin/Globulin Ratio 0.8 (1.1-2.2) L 01/05/18 12:05 Nasal Screen MRSA (PCR) Positive (Negative) A 01/06/18 09:45 - Attending Attestation I performed a history and physical examination of the patient and discussed his management with the resident. I reviewed the residents note and agree with the documented findings and plan of care. Met with pt's at the bedside. She decided to change pt's code status back to DNRCC. She is considering hospice care once pt returns to [place], but will decide after she speaks with various hospice companies. She has appointment with [facility] business liaison officer on Wednesday, and will call [facility] as well. Contact information and brochure about hospice care given. Discussed with primary hospitalist Dr. Yusuf, pt will likely remain in house over the week end. Palliative Quality Code Status: 01/05/18 14:18 Resuscitation Status: Active [RES] Routine Comment: Resuscitation Status: Full Code 01/07/18 13:27 Resuscitation Status: Active [RES] Routine Comment: Resuscitation Status: DNR-Comfort Care - Labs CBC & Chem 7: 01/06/18 04:37 01/06/18 04:37 Labs: Laboratory Results - last 24 hr 01/06/18 01/06/18 01/06/18 07:31 12:17 17:54 POC Glucose 160 H 149 H 185 H 01/06/18 01/07/18 23:29 05:26 POC Glucose 128 H 138 H - ABG Interpretation ABG results: PT/INR, D-dimer PT 12.1 Seconds (9.4-12.1) 01/05/18 12:05
--- NOTE | 2018-01-07 14:31 | Internal Med Progress Note ---
Hospitalist Progress Note - Encounter Date of Encounter: 01/07/18 Time of Encounter: 10:45 - Subjective Interval History: Patient is nonverbal. Had temperature of 100 this morning. No acute events overnight. - Exam Vitals: Temp Pulse Resp BP Pulse Ox 98.7 F 77 16 102/58 93 01/07/18 11:23 01/07/18 11:23 01/07/18 11:23 01/07/18 11:23 01/07/18 11:23 Exam: General: Alert and oriented, not in acute distress. Cardiovascular:Normal S1 & S2 Lungs: rhonchi in R lung, relatively clear in left lung field Abdomen:Soft, non-tender. Colostomy bag with fecal material. PEG tube site appears clean Extremities: flexion contractures in both UEs - Assessment and Plan (1) Acute respiratory failure with hypoxia Current Visit: Yes Status: Acute Assessment and Plan: Due to multiflocal/aspiration PNA, recently admitted for similar complaints in 10/2017 Started on Vanc/Zosyn, continue wean down O2 discussed with palliative care over the phone, appreciate input; code status has been switched to DNRCC and if there is no significant improvement over the weekend, will likely transition to hospice (2) Severe sepsis Current Visit: Yes Status: Acute Assessment and Plan: Sepsis suspected with history of fever from nursing facility, tachycardia and tachypnea in this facility, leukocytosis, lactic acidosis and borderline low blood pressures Source is multifocal PNA, Urine analysis is unremarkable abx as above RAUL improving with IVF MRSA screening +, resp panel negative (3) Multifocal pneumonia Current Visit: Yes Status: Acute (4) Goals of care, counseling/discussion Current Visit: Yes Status: Acute Assessment and Plan: appreciate palliative input GOC discussion as above (5) Dementia Current Visit: Yes Status: Chronic Assessment and Plan: Continue home meds, via PEG tube (6) Diabetes mellitus Current Visit: Yes Status: Chronic Assessment and Plan: continue sliding scale coverage with tube feed Hold home dose of metformin (7) Parkinson's disease Current Visit: Yes Status: Acute Assessment and Plan: Resume home medication (8) DVT prophylaxis Current Visit: Yes Status: Acute Assessment and Plan: SQ lovenox - Time Spent with Patient Total time spent is greater than 50% in coordination of care (as documented) at patient's floor/unit and/or counseling patient: Plan of Care Discussed with: nurse Internal Medicine: Result - Labs CBC & Chem 7: 01/06/18 04:37 01/06/18 04:37 - ABG Interpretation ABG results: PT/INR, D-dimer PT 12.1 Seconds (9.4-12.1) 01/05/18 12:05 Consult Discharge Plan - Plan Referrals: NONE,PCP [Primary Care Provider] - (Patient is from [place]) (5) Dementia Qualifiers: Dementia type: Alzheimer's disease Alzheimer's disease onset: late-onset Dementia behavioral disturbance: without behavioral disturbance Qualified Code(s): G30.1 - Alzheimer's disease with late onset; F02.80 - Dementia in other diseases classified elsewhere without behavioral disturbance (6) Diabetes mellitus Qualifiers: Diabetes mellitus type: type 2 Diabetes mellitus senior care insulin use: without intermission coordinator use Diabetes mellitus complication status: with unspecified complications Qualified Code(s): E11.8 - Type 2 diabetes mellitus with unspecified complications
[2018-01-07] MEDS: Melatonin 3 MG TABLET PO SCH (20:58)
[2018-01-08] MEDS: 0.9 % Sodium Chloride 1,000 ML IVC SCH (00:28)
[2018-01-08] MEDS: Insulin LISPRO 300 UNITS/3 ML VIAL SQ SCH ×5 (02:05→23:25)
[2018-01-08] MEDS: Multivit/Ca/Min/Fe/FA 1 TAB TABLET PO SCH (05:30)
[2018-01-08] MEDS: *HR* Enoxaparin 40 MG/0.4 ML SYRINGE SQ SCH (05:30)
[2018-01-08] MEDS: Piperacillin/Tazobactam 3.375 GM in 0.9 % Sodium Chloride Mini Bag 100 ML IVPB SCH ×3 (05:31→20:22)
[2018-01-08 06:40] LABS: Basophils # 0.1 K/mcL (0.0-0.2); Basophils % 0.8 %; Eosinophils # 0.4 K/mcL (0.0-0.6); Eosinophils % 3.8 %; Hematocrit 31.7 % (37.5-50.1); Immature Granulocytes % 0.8 % (0-4); Lymphocytes # 1.6 K/mcL (0.6-4.6); Lymphocytes % 16.7 %; Mean Corpuscular HGB Conc 31.5 g/dL (31.6-35.5); Mean Corpuscular Hemoglobin 28.4 pg (28.0-33.3); Mean Corpuscular Volume 90.1 fL (83.0-100.0); Mean Platelet Volume 10.3 fL (9.4-12.4); Monocytes # 1.4 K/mcL (0.0-1.3); Monocytes % 14.6 %; Platelet Count 292 K/mcL (140-400); Red Blood Count 3.52 M/mcL (4.19-5.50); Red Cell Distribution Width 14.8 % (11.5-14.5); Segmented Neutrophils % 63.3 %
[2018-01-08 06:58] LABS: BUN/Creatinine Ratio 32 (6-26); Blood Urea Nitrogen 25 mg/dL (8-23); Calcium 9.3 mg/dL (8.6-10.3); Carbon Dioxide 25 mEq/L (23-29); Chloride 105 mEq/L (98-107); Glucose 158 mg/dL (70-105); Magnesium 1.9 mg/dL (1.6-2.6); Osmolality,Calculated 294 (280-300); Potassium 3.8 mEq/L (3.5-5.1); Sodium 138 mEq/L (136-145); eGFR For Non-African Americans > 60 (> 60)
[2018-01-08] MEDS: Divalproex Sodium 125 MG CAPSULE PO SCH ×3 (09:11→20:23)
[2018-01-08] MEDS: Aspirin 81 MG TAB.CHEW PO SCH (09:11)
[2018-01-08] MEDS: Carbidopa/Levodopa 25/100 TABLET PO SCH ×3 (09:12→20:24)
[2018-01-08] MEDS: risperiDONE 1 MG TABLET GTUBE SCH ×3 (09:12→20:24)
--- NOTE | 2018-01-08 09:41 | Event Note ---
Date of Encounter: 01/08/18 Time of Encounter: 09:30 Patient resting with eyes open. Nurse at bedside administering tube feeding. No overnight events reported. He appears comfortable. Vitals/Labs stable. No family at bedside. Palliative will f/u Wednesday with as she is considering hospice care.
--- NOTE | 2018-01-08 12:27 | Internal Med Progress Note ---
Hospitalist Progress Note - Encounter Date of Encounter: 01/08/18 Time of Encounter: 09:10 - Subjective Interval History: Patient is nonverbal. Opens eyes spontaneously and appears comfortable. No acute events overnight, did not have any fever since 645am yesterday. - Exam Vitals: Temp Pulse Resp BP Pulse Ox 98.7 F 88 20 110/56 94 01/08/18 11:05 01/08/18 11:05 01/08/18 11:05 01/08/18 11:05 01/08/18 11:05 Exam: General: Alert, not oriented. Not in distress and appears comfortable Cardiovascular:Normal S1 & S2 Lungs: rhonchi in R lung, relatively clear in left lung field Abdomen:Soft, non-tender. Colostomy bag with fecal material. PEG tube site appears clean Extremities: flexion contractures in both UEs - Assessment and Plan (1) Acute respiratory failure with hypoxia Current Visit: Yes Status: Acute Assessment and Plan: Due to multiflocal/aspiration PNA, recently admitted for similar complaints in 10/2017 continue Vanc/Zosyn, trough 11 today WBC improving wean down O2 Palliative care input appreciated: will revisit hospice care again on Wednesday depending on patient's response. (2) Severe sepsis Current Visit: Yes Status: Acute Assessment and Plan: Sepsis suspected with history of fever from nursing facility, tachycardia and tachypnea in this facility, leukocytosis, lactic acidosis and borderline low blood pressures Source is multifocal PNA, Urine analysis is unremarkable abx as above, WBC downtrending RAUL resolved with IVF which has been d/dong MRSA screening +, resp panel negative (3) Multifocal pneumonia Current Visit: Yes Status: Acute Assessment and Plan: Mgt as in sepsis abx as above (4) Goals of care, counseling/discussion Current Visit: Yes Status: Acute Assessment and Plan: appreciate palliative input GOC discussion as above (5) Dementia Current Visit: Yes Status: Chronic Assessment and Plan: Continue home meds, via PEG tube (6) Diabetes mellitus Current Visit: Yes Status: Chronic Assessment and Plan: continue sliding scale coverage with tube feed Hold home dose of metformin (7) Parkinson's disease Current Visit: Yes Status: Acute Assessment and Plan: Resume home medication (8) DVT prophylaxis Current Visit: Yes Status: Acute Assessment and Plan: SQ lovenox - Time Spent with Patient Total time spent is greater than 50% in coordination of care (as documented) at patient's floor/unit and/or counseling patient: Plan of Care Discussed with: nurse Internal Medicine: Result - Labs CBC & Chem 7: 01/08/18 05:39 01/08/18 05:39 Labs: Short CBC 01/08/18 Range/Units 05:39 WBC 9.5 (4.3-11.1) K/mcL Hgb 10.0 L (12.9-16.9) g/dL Hct 31.7 L (37.5-50.1) % Plt Count 292 (140-400) K/mcL Neutrophils # 6.0 (1.6-8.9) K/mcL BMP 01/08/18 05:39 Sodium 138 Potassium 3.8 Chloride 105 Carbon Dioxide 25 BUN 25 H Creatinine 0.78 Glucose 158 H Calcium 9.3 - ABG Interpretation ABG results: PT/INR, D-dimer PT 12.1 Seconds (9.4-12.1) 01/05/18 12:05 - Impressions Impressions Abdomen/Pelvis CT 01/05/18 13:33 IMPRESSION: 1. A few consolidative opacities are present in right upper lung and the lingular segment of the left upper lobe, likely related to multifocal pneumonia; subtle centrilobular nodules in the right mid and lower lung may represent earlier infectious process versus developing alveolar edema. 2. Bilateral effusions and associated airspace disease. 3. 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 4. 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 The colon is closely apposed to the wall of the diastasis and there is very little skin the colon from the skin surface. 5. Bladder wall thickening could reflect reactive change due to the presence of Vaughan catheter, cystitis, or sequela of bladder outlet obstruction. 6. Calcifications within the pericardium suggest sequela of prior pericarditis or infarct. D/ / 01/05/2018 15:24:33 Gilbert Gallego / gurdeep Interpreting Provider: Gilbert Gallego Chest CT 01/05/18 13:33 IMPRESSION: 1. A few consolidative opacities are present in right upper lung and the lingular segment of the left upper lobe, likely related to multifocal pneumonia; subtle centrilobular nodules in the right mid and lower lung may represent earlier infectious process versus developing alveolar edema. 2. Bilateral effusions and associated airspace disease. 3. 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 4. 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 The colon is closely apposed to the wall of the diastasis and there is very little skin the colon from the skin surface. 5. Bladder wall thickening could reflect reactive change due to the presence of Vaughan catheter, cystitis, or sequela of bladder outlet obstruction. 6. Calcifications within the pericardium suggest sequela of prior pericarditis or infarct. D/ / 01/05/2018 15:24:33 Gilbert Gallego / gurdeep Interpreting Provider: Gilbert Gallego Consult Discharge Plan - Plan Referrals: NONE,PCP [Primary Care Provider] - (Patient is from [facility]) (5) Dementia Qualifiers: Dementia type: Alzheimer's disease Alzheimer's disease onset: late-onset Dementia behavioral disturbance: without behavioral disturbance Qualified Code(s): G30.1 - Alzheimer's disease with late onset; F02.80 - Dementia in other diseases classified elsewhere without behavioral disturbance (6) Diabetes mellitus Qualifiers: Diabetes mellitus type: type 2 Diabetes mellitus vermin exterminator insulin use: without vermin exterminator use Diabetes mellitus complication status: with unspecified complications Qualified Code(s): E11.8 - Type 2 diabetes mellitus with unspecified complications
[2018-01-08] MEDS: Melatonin 3 MG TABLET PO SCH (20:24)
[2018-01-09] MEDS: Piperacillin/Tazobactam 3.375 GM in 0.9 % Sodium Chloride Mini Bag 100 ML IVPB SCH ×3 (05:13→20:45)
[2018-01-09] MEDS: Multivit/Ca/Min/Fe/FA 1 TAB TABLET PO SCH (05:13)
[2018-01-09] MEDS: *HR* Enoxaparin 40 MG/0.4 ML SYRINGE SQ SCH (05:14)
[2018-01-09] MEDS: Insulin LISPRO 300 UNITS/3 ML VIAL SQ SCH ×3 (05:47→18:00)
[2018-01-09] MEDS: Divalproex Sodium 125 MG CAPSULE PO SCH ×3 (08:54→20:38)
[2018-01-09] MEDS: risperiDONE 1 MG TABLET GTUBE SCH ×3 (08:54→20:38)
[2018-01-09] MEDS: Aspirin 81 MG TAB.CHEW PO SCH (08:54)
[2018-01-09] MEDS: Carbidopa/Levodopa 25/100 TABLET PO SCH ×3 (08:55→20:39)
[2018-01-09] MEDS ORDERED: Aminoglycoside Consult 1 EACH MC ONE (11:11)
--- NOTE | 2018-01-09 11:12 | Internal Med Progress Note ---
Hospitalist Progress Note - Encounter Date of Encounter: 01/09/18 Time of Encounter: 08:50 - Subjective Interval History: Patient is nonverbal. Opens eyes spontaneously and appears comfortable. No acute events overnight, remained afebrile > 36 hours - Exam Vitals: Temp Pulse Resp BP Pulse Ox 98.5 F 84 16 117/73 97 01/09/18 07:22 01/09/18 07:22 01/09/18 07:22 01/09/18 07:22 01/09/18 07:22 Exam: General: Alert, not oriented. Not in distress and appears comfortable Cardiovascular:Normal S1 & S2 Lungs: rhonchi in R lung, relatively clear in left lung field Abdomen:Soft, non-tender. Colostomy bag with fecal material. PEG tube site appears clean Extremities: flexion contractures in both UEs - Assessment and Plan (1) Acute respiratory failure with hypoxia Current Visit: Yes Status: Acute Assessment and Plan: Due to multiflocal/aspiration PNA, recently admitted for similar complaints in 10/2017 continue Vanc/Zosyn D4 WBC improving wean down O2 Palliative care input appreciated: will revisit hospice care again on Wednesday depending on patient's response. (2) Severe sepsis Current Visit: Yes Status: Resolved Assessment and Plan: Sepsis suspected with history of fever from nursing facility, tachycardia and tachypnea in this facility, leukocytosis, lactic acidosis and borderline low blood pressures Source is multifocal PNA, Urine analysis is unremarkable abx as above, WBC downtrending RAUL resolved with IVF which has been d/dong MRSA screening +, resp panel negative (3) Multifocal pneumonia Current Visit: Yes Status: Acute Assessment and Plan: Mgt as in sepsis abx as above (4) Goals of care, counseling/discussion Current Visit: Yes Status: Acute Assessment and Plan: appreciate palliative input GOC discussion as above (5) Dementia Current Visit: Yes Status: Chronic Assessment and Plan: Continue home meds, via PEG tube (6) Diabetes mellitus Current Visit: Yes Status: Chronic Assessment and Plan: continue sliding scale coverage with tube feed Hold home dose of metformin (7) Parkinson's disease Current Visit: Yes Status: Acute Assessment and Plan: Resume home medication (8) DVT prophylaxis Current Visit: Yes Status: Acute Assessment and Plan: SQ lovenox - Time Spent with Patient Total time spent is greater than 50% in coordination of care (as documented) at patient's floor/unit and/or counseling patient: Plan of Care Discussed with: nurse Internal Medicine: Result - Labs CBC & Chem 7: 01/08/18 05:39 01/08/18 05:39 - ABG Interpretation ABG results: PT/INR, D-dimer PT 12.1 Seconds (9.4-12.1) 01/05/18 12:05 Consult Discharge Plan - Plan Referrals: NONE,PCP [Primary Care Provider] - (Patient is from [place]) (5) Dementia Qualifiers: Dementia type: Alzheimer's disease Alzheimer's disease onset: late-onset Dementia behavioral disturbance: without behavioral disturbance Qualified Code(s): G30.1 - Alzheimer's disease with late onset; F02.80 - Dementia in other diseases classified elsewhere without behavioral disturbance (6) Diabetes mellitus Qualifiers: Diabetes mellitus type: type 2 Diabetes mellitus terminal makeup operator insulin use: without terminal makeup operator use Diabetes mellitus complication status: with unspecified complications Qualified Code(s): E11.8 - Type 2 diabetes mellitus with unspecified complications
[2018-01-09] MEDS: Melatonin 3 MG TABLET PO SCH (20:39)
[2018-01-10] MEDS: Insulin LISPRO 300 UNITS/3 ML VIAL SQ SCH ×2 (02:18→05:56)
[2018-01-10] MEDS: *HR* Enoxaparin 40 MG/0.4 ML SYRINGE SQ SCH (05:55)
[2018-01-10] MEDS: Multivit/Ca/Min/Fe/FA 1 TAB TABLET PO SCH (05:56)
[2018-01-10] MEDS: Piperacillin/Tazobactam 3.375 GM in 0.9 % Sodium Chloride Mini Bag 100 ML IVPB SCH (05:56)
[2018-01-10 07:58] VITALS: BP 111/68
[2018-01-10] MEDS: Divalproex Sodium 125 MG CAPSULE PO SCH (09:15)
[2018-01-10] MEDS: Aspirin 81 MG TAB.CHEW PO SCH (09:15)
[2018-01-10] MEDS: risperiDONE 1 MG TABLET GTUBE SCH (09:15)
[2018-01-10] MEDS: Carbidopa/Levodopa 25/100 TABLET PO SCH (09:15)
--- NOTE | 2018-01-10 10:11 | Discharge Summary ---
- NOTES TO OUTPATIENT PROVIDER Notes to Outpatient Provider: Patient with Parkinson's disease, advanced dementia on PEG tube feeding, recurrent admissions for aspiration pneumonia, was admitted for hypoxic respiratory failure and severe sepsis due to multifocal/aspiration pneumonia. He again improved after course of IV antibiotics and IV fluid, but given his extremely poor premorbid condition, the decision was made to [facility]. Orders not resulted at time of discharge: Pending orders 01/05/18 12:54 Culture,Blood [BC] Stat Date of Encounter: 01/10/18 Time of Encounter: 08:00 - Discharge Diagnosis (1) Acute respiratory failure with hypoxia Priority: Primary Status: Acute (2) Severe sepsis Priority: Secondary Status: Resolved (3) Multifocal pneumonia Priority: Secondary Status: Acute (4) Goals of care, counseling/discussion Priority: Secondary Status: Acute (5) Dementia Priority: Secondary Status: Chronic Qualifiers: Dementia type: Alzheimer's disease Alzheimer's disease onset: late-onset Dementia behavioral disturbance: without behavioral disturbance Qualified Code(s): G30.1 - Alzheimer's disease with late onset; F02.80 - Dementia in other diseases classified elsewhere without behavioral disturbance (6) Diabetes mellitus Priority: Secondary Status: Chronic Qualifiers: Diabetes mellitus type: type 2 Diabetes mellitus manager long term care insulin use: without manager long term care use Diabetes mellitus complication status: with unspecified complications Qualified Code(s): E11.8 - Type 2 diabetes mellitus with unspecified complications (7) Parkinson's disease Priority: Secondary Status: Acute (8) DVT prophylaxis Priority: Secondary Status: Acute Hospital course: Mr. Bauer is a 82 year old male with Parkinson's disease, advanced dementia on PEG tube feeding, recurrent admissions for aspiration pneumonia, was admitted for hypoxic respiratory failure and severe sepsis due to multifocal/aspiration pneumonia. He again improved after course of IV antibiotics and IV fluid, but given his extremely poor premorbid condition, the decision was made to transition [facility]. Discharge discussed with: family, nurse, case management, gift consultant (with palliative care) - Time Spent with Patient Total time spent providing and/or coordinating discharge services: 36 mins - Discharge Medications Prescriptions: RX: levoFLOXacin [Levaquin] 750 mg GTUBE DAILY #5 tablet Home Medications: Escitalopram Oxalate Soln. 10 mg PO DAILY 06/18/17 [History] RX: Amino AC/Whey Prot Conc, Isol [Whey Protein Powder] 1 unit PO DAILY 06/18/17 [History] RX: Aspirin 81 mg PO DAILY 06/18/17 [History] RX: Carbidopa/Levodopa 25/100 [Sinemet 25/100] 1 tab PO TID 06/18/17 [History] RX: Divalproex Sodium [Depakote Sprinkle] 250 mg PO TID 06/18/17 [History] RX: Donepezil HCl [Aricept] 10 mg PO HS 06/18/17 [History] RX: Melatonin 6 mg PO HS 06/18/17 [History] RX: Memantine HCl 10 mg PO BID 06/18/17 [History] RX: Multivit-Min/FA/Lycopen/Lutein [A Thru Z Select Multivit Tab] 1 tab PO DAILY 06/18/17 [History] RX: risperiDONE [Risperidone] 0.5 mg GTUBE TID 06/18/17 [History] RX: Acetaminophen [Tylenol] 650 mg GTUBE Q4HR PRN 07/07/17 [History] RX: Guaifenesin [Siltussin SA] 10 ml PO Q4H PRN 07/07/17 [History] RX: Ipratropium/Albuterol Neb [Duoneb] 3 ml IH Q4HR PRN 07/07/17 [History] RX: Ondansetron Oral Soln [Zofran Oral Soln] 4 mg GTUBE Q4H PRN 07/07/17 [History] RX: Metformin HCl 500 mg PO DAILY 01/05/18 [History] RX: Nut.tx.gluc.intoler,Lac-Fr,Soy [Glucerna] 1 can GTUBE 5XD 01/05/18 [History] RX: Oxygen 2.5 l IH AD PRN 01/05/18 [History] RX: levoFLOXacin [Levaquin] 750 mg GTUBE DAILY #5 tablet 01/10/18 [Rx] Allergies/Adverse Reactions: Allergy/AdvReac Type Severity Reaction Status Date / Time No Known Drug Allergies Allergy See Verified 07/07/17 13:19 Comments Date of admission: 01/05/18 15:27 Primary care physician: PCP NONE Consults: 01/05/18 15:26 Consult to Palliative Care [CONS] Stat Comment: Consulting Provider: Palliative Care Meryl Reason for Consult: Goals of are Call Completed: No 01/05/18 17:41 Consult to Nutrition [CONS] Routine Comment: Consulting Provider: NUTRITION Reason for Dietary Consult: Tube Feed Start & Manage Consult to Pastoral Services [CONS] Routine Comment: Consult to Manager Line [CONS] Routine Reason for SW Consult: guardianship paperwork - Constitutional Vitals: Temp Pulse Resp BP Pulse Ox 97.2 F L 107 18 111/68 93 01/10/18 07:57 01/10/18 07:57 01/10/18 07:57 01/10/18 07:57 01/10/18 07:57 General appearance: Present: A&O X 0 (Patient is nonverbal, unable to participate in evaluation of a history.) Exam: General: Alert, not oriented. Not in distress and appears comfortable Cardiovascular:Normal S1 & S2 Lungs: rhonchi in R lung, relatively clear in left lung field Abdomen:Soft, non-tender. Colostomy bag with fecal material. PEG tube site appears clean Extremities: flexion contractures in both UEs - Patient Status Disposition: Hospice - Medical Facility Condition: Undetermined Functional capacity at discharge: bed bound Overall status at discharge: patient is progressing back to baseline - Discharge Instructions Instructions: Pneumonia (DC), Sepsis (DC), Diabetes Mellitus Type 2 in Adults (DC) Follow Up With: NONE,PCP [Primary Care Provider] - (Patient is from [place]) - Diet and Activity Activity: as per physical therapy Diet: advance to your usual diet
[2018-01-10] MEDS ORDERED: levoFLOXacin 750 MG TABLET PO SCH (10:15)
--- NOTE | 2018-01-10 10:16 | Physician Discharge Referral ---
ExtendedCare Referral Info Institutional Level of Care: Skilled (with hospice service at [facility]) - Diagnosis (1) Acute respiratory failure with hypoxia Priority: Primary Status: Acute (2) Severe sepsis Priority: Secondary Status: Resolved (3) Multifocal pneumonia Priority: Secondary Status: Acute (4) Goals of care, counseling/discussion Priority: Secondary Status: Acute (5) Dementia Priority: Secondary Status: Chronic (6) Diabetes mellitus Priority: Secondary Status: Chronic (7) Parkinson's disease Priority: Secondary Status: Acute (8) DVT prophylaxis Priority: Secondary Status: Acute - Transfer Medications Prescriptions: levoFLOXacin [Levaquin] 750 mg GTUBE DAILY #5 tablet Home Medications: Amino AC/Whey Prot Conc, Isol [Whey Protein Powder] 1 unit PO DAILY 06/18/17 [History] Aspirin 81 mg PO DAILY 06/18/17 [History] Carbidopa/Levodopa 25/100 [Sinemet 25/100] 1 tab PO TID 06/18/17 [History] Divalproex Sodium [Depakote Sprinkle] 250 mg PO TID 06/18/17 [History] Donepezil HCl [Aricept] 10 mg PO HS 06/18/17 [History] Escitalopram Oxalate Soln. 10 mg PO DAILY 06/18/17 [History] Melatonin 6 mg PO HS 06/18/17 [History] Memantine HCl 10 mg PO BID 06/18/17 [History] Multivit-Min/FA/Lycopen/Lutein [A Thru Z Select Multivit Tab] 1 tab PO DAILY 06/18/17 [History] risperiDONE [Risperidone] 0.5 mg GTUBE TID 06/18/17 [History] Acetaminophen [Tylenol] 650 mg GTUBE Q4HR PRN 07/07/17 [History] Guaifenesin [Siltussin SA] 10 ml PO Q4H PRN 07/07/17 [History] Ipratropium/Albuterol Neb [Duoneb] 3 ml IH Q4HR PRN 07/07/17 [History] Ondansetron Oral Soln [Zofran Oral Soln] 4 mg GTUBE Q4H PRN 07/07/17 [History] Metformin HCl 500 mg PO DAILY 01/05/18 [History] Nut.tx.gluc.intoler,Lac-Fr,Soy [Glucerna] 1 can GTUBE 5XD 01/05/18 [History] Oxygen 2.5 l IH AD PRN 01/05/18 [History] levoFLOXacin [Levaquin] 750 mg GTUBE DAILY #5 tablet 01/10/18 [Rx] Allergies/Adverse Reactions: Allergy/AdvReac Type Severity Reaction Status Date / Time No Known Drug Allergies Allergy See Verified 07/07/17 13:19 Comments - Respiratory Orders Smoking Cessation: Smoking cessation has been advised. For more information, call the [place] Tobacco Quit Line at 7-004-SQQC-NOW. - Treatments List/Other: per hospice order other than finishing off abx for 5 days CERTIFICATION: I certify that the transfer of the above named patient to an Extended Care Facility is necessary for the continuing treatment of the diagnosis listed. The above information is true and accurate reflection of patient's current condition. Confidential - Redisclosure prohibited without a patient's written consent.
--- NOTE | 2018-01-10 10:16 | Event Note ---
Date of Encounter: 01/10/18 Time of Encounter: 10:20 Patient resting with eyes open, appears in no distress. No family at bedside. I spoke with , Ana via telephone. She states she is meeting [facility] at 1400 at the [facility]. Notified her that hospitalist desiring to discharge. She is ok with meeting him there when he returns. Also discussed and ensured that she was aware of his high risk of repeated aspiration events and that the goal would be to treat him at [facility] and keep him comfortable with symptom management. She verbalized understanding. Updated Ge[employer] Prospecting Surveyor who will speak with social work.
== END 2018-01-10 11:12 | disposition hospice, inpatient (51) | DRG 871 ==
LOC: EMEROOARM 11:32 → 2ANU 11:32 → SUATTDRO 15:27 → 2ANU 17:12
PROVIDERS: ADMIT Internal Medicine; ATTEND Internal Medicine